=== PATIENT | female | born 1995 | race Caucasian/White ===

== ENCOUNTER 2024-02-01 23:36 | Emergency (ER) | payer OTHER, SELFPAY ==
[2024-02-02 00:11] VITALS: BP 126/92; PULSE 92; RESP 18; TEMP 36.9; O2SAT 99; BMI 24.9
--- OUTSIDE RECORDS SUMMARY | 2024-02-02 02:59 | XMS_ITS | Continuity of Care Document ---
Author Organization [facility] ter Address [address] [place] [id number] Care Team Providers Care Pattern Room Attendant Name Role Phone Elvira Arias MD Primary Care Physician [phone] Encounter [facility] [place] Date(s): 11/25/23 - 12/01/[address] [id number] Discharge Disposition: A-D/C Home Attending Physician: Cong MCGARRY, Alek Admitting Physician: Vanessa Olson MD Referring Physician: Not on Staff, Referring MD Allergies, Adverse Reactions, Alerts Substance Reaction Severity Status Bactrim vomit Intermittent Active Medications acetaminophen 325 mg oral tablet 975 mg, By Mouth, 3 times a day, 3 times daily until pain is improved, # 90 tablet, Refills 0, Tot.Refills 0, Maintenance, 12/01/23 9:35:00 EDT, Route to Pharmacy Electronically, [facility], Partial fill upon patient request if the pres... Start Date: 12/01/23 Status: Ordered Acetaminophen Tablet 975 mg, Tablet, By Mouth, Temperature Greater than 100.5, 12/01/23 9:00:00 EDT Start Date: 12/01/23 Stop Date: 12/01/23 Status: Completed aspirin 81 mg oral delayed release tablet 81 mg, By Mouth, Daily, # 90 tablet, Refills 0, Tot. Refills 0, Maintenance, 12/01/23 9:35:00 EDT, Route to Pharmacy Electronically, [facility], Partial fill upon patient request if theprescription is for a schedule II opioid drug., 151... Start Date: 12/01/23 Status: Ordered gabapentin 100 mg oral capsule 100 mg, Capsule, By Mouth, In addition to 400 mg tablet, total 500 mg / dose, 12/01/23 9:00:00 EDT Start Date: 12/01/23 Stop Date: 12/01/23 Status: Completed gabapentin 400 mg oral capsule 400 mg, Capsule, By Mouth, 12/01/23 9:00:00 EDT Start Date: 12/01/23 Stop Date: 12/01/23 Status: Completed gabapentin 600 mg oral tablet = 600 mg, By Mouth, 3 times a day, # 60 tablet, 0 Refills, Maintenance, 12/01/23 9:39:00 EDT, Tablet, [facility], Partial fill upon patient request if the prescription is for a scheduleII opioid drug., 151, cm, 12/01/23 4:01:00 EDT, Hei... Start Date: 12/01/23 Status: Ordered MiraLax oral powder for reconstitution = 17 Gm, By Mouth, Daily, dissolve in 4 to 8 oz of beverage Take daily while on oxycodone for regular, soft bowel movements, # 238 Gm, 0 Refills, Maintenance, 12/01/23 9:37:00 EDT, REC Powder, [facility], Partial fill upon patient reque... Start Date: 12/01/23 Status: Ordered oxyCODONE 5 mg oral tablet 5 mg, By Mouth, Every 6 hours, PRN, for 7 days, # 28 tablet, Refills 0, Tot. Refills 0, Acute 12/08/23 9:36:00 EDT, Pain , Severe, 12/01/23 9:36:00 EDT, Route to Pharmacy Electronically, [facility], Partial fill upon patient request if t... Start Date: 12/01/23 Stop Date: 12/08/23 Status: Ordered Provera 10 mg oral tablet 10 mg, 1, tablet, By Mouth, Daily, Start taking this medication on December 08, 2023 and continue twice daily estrace, # 7 tablet, Refills 0, Tot. Refills 0, Maintenance, 12/08/23 14:31:00 EDT, Route to Pharmacy Electronically, [facility] #[id number], Parti... Start Date: 12/08/23 Stop Date: 12/15/23 Status: Ordered tiZANidine 2 mg oral capsule 1 capsule = 2 mg, By Mouth, 2 times a day, # 60 capsule, 0 Refills, Maintenance, 12/01/23 10:21:00 EDT, Capsule, [facility], Partial fill upon patient request if the prescription is fora schedule II opioid drug., 151, cm, 12/01/23 4:01:... Start Date: 12/01/23 Stop Date: 12/31/23 Status: Ordered Problem List Condition Confirmation Course Effective Dates Status Health St atus Informant Anxiety Confirmed Active Cyclic neutropenia Confirmed Active Depressive disorder Confirmed Active History of kidney stones Confirmed Active Status post laparoscopy Confirmed Active 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 Results Radiology Reports * Exam Date Time Procedure Performing Provider Status 11/28/23 7:39 PM MRI Cervical Spine W/O Contrast John Amato; Mercedes (Verified) Notes: (MRI Cervical Spine W/O Contrast) Reason For Exam: Radiculopathy Right RESULT: MRI Cervical Spine W/O Contrast MRI Cervical Spine W/O Contrast Reason: Radiculopathy Right. TECHNIQUE: MRI of the cervical spine was performed without intravenous contrast utilizing sagittal T1, sagittal T2, sagittal STIR, axial gradient echo, and axial T2-weighted sequences. COMPARISON: CTA neck, 11/25/2023. FINDINGS: LOCALIZER: Whole spine sagittal T2 localizer sequence was obtained. Alignment and curvature in the thoracic and lumbar spine are normal. There is no significant disc space narrowing or high-grade spinal canal stenosis. ALIGNMENT, VERTEBRAE, MARROW, AND DISCS: There is straightening of the normal cervical lordosis without subluxation. Vertebral body heights are preserved. There is no significant disc space narrowing. A benign T1 bright hemangioma is seen in the C4 vertebral body. Remaining bone marrow signal is unremarkable. POSTERIOR FOSSA AND CORD: Visualized posterior fossa is normal. The cervical cord is normal in signal and caliber. PARASPINAL TISSUES: There is partial loss of the right vertebral artery flow- void with long segmentnarrowing and crescentic T2 hyperintensity consistent with known dissection. DETAILED FINDINGS BY LEVEL: C2-C3: No significant canal stenosis or neural foraminal narrowing. C3-C4: There is minimal disc osteophyte without canal stenosis. Minimal right neural foraminal stenosis is seen due to uncovertebral spurring. C4-C5: No significant canal stenosis or neural foraminal narrowing. C5-C6: No significant canal stenosis or neural foraminal narrowing. C6-C7: There is minimal disc osteophyte and left-sided uncovertebral spurring causing minimal canalstenosis. Mild left neural foraminal stenosis noted. C7-T1: No significant canal stenosis or neural foraminal narrowing. IMPRESSION: 1. Partial loss of the right vertebral artery flow-void with long segment narrowing consistent withknown dissection. 2. Minor degenerative changes are seen in the cervical spine without high-grade canal or neural foraminal stenosis. WSN: [id number] Ordering Physician: Adrienne Moreno Dictated By: Mar Bee MD Dictated Date/Time: 11/29/23 9:50 am Reviewed By: Mar Bee MD Signed By: Mar Bee MD Signed Date/Time: 11/29/23 9:50 am Transcribed By: LEANNE Transcribed Date/Time: 11/29/23 9:45 am * Exam Date Time Procedure Performing Provider Status 11/27/23 12:23 AM MRI Brain W/O Contrast Elvira Calhoun tte; Auth (Verified) Notes: (MRI Brain W/O Contrast) Reason For Exam: ? 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 mitochondrial encephalopathy w elevated lactate and vertebral dissection; Clinical Question(s): Infarction; Order Comment: Please see Reference Text for complete list of contraindications Infarction TECHNIQUE: MRI of the brain was performed without contrast utilizing sagittal T1, axial T2, axial FLAIR, axial SWAN, and axial DWI sequences. COMPARISON: CT/CTA head 11/25/2023. FINDINGS: BRAIN and EXTRA-AXIAL SPACES: On diffusion weighted imaging, there are no regions of restricted diffusion to indicate an acute or subacute infarct. There is no evidence of intracranial hemorrhage on susceptibility sensitive sequence. There is no mass effect, midline shift, or effacement of the basal cisterns. Subtle FLAIR hyperintense signal is seen in the V3 segment of the right vertebral arteryextending to the proximal V4 segment, likely related to slow flow in the setting of upstream dissection more inferiorly in the neck which was more fully evaluated on CTA. Otherwise, remaining major intracranial flow voids are preserved. Several small scattered foci of T2 prolongation are seen in the subcortical and deep white matter. Ventricles, cisterns, and sulci are normal in size and configuration, without hydrocephalus. No abnormal extra-axial fluid collections are seen. Meningeal surfaces are normal. The midline structures,including sella, corpus callosum, and craniocervical junction, are unremarkable. EXTRACRANIAL SOFT TISSUES: Orbits are unremarkable. Paranasal sinuses and mastoids are unremarkable. BONES: Marrow signal is preserved. IMPRESSION: 1. No acute/subacute infarct, mass, hemorrhage, or other acute intracranial abnormality. 2. Several small T2/FLAIR hyperintense foci in the white matter, a nonspecific finding with broad differential including sequelae of migraine, prior infection/inflammation, chronic small vessel disease, vasculitis, trauma, etc. WSN: [id number] Ordering Physician: Ramiro Vazquez Dictated By: Nell Zurita MD Dictated Date/Time: 11/27/23 7:59 am Reviewed By: Nell Zurita MD Signed By: Nell Zurita MD Signed Date/Time: 11/27/23 7:59 am Transcribed By: LEANNE Transcribed Date/Time: 11/27/23 7:44 am * Exam Date Time Procedure Performing Provider Status 11/25/23 3:[address] Angio Neck Stupak , [place]; Auth (Angelo ified) Notes: (CT Angio Neck) Reason For Exam: Aneurysm, neck vessel(s);Other: RESULT: CT Angio Neck CT Angio Head, CT Angio Neck Hx of Present Illness: neck pain; Reason: Other:; Neuro deficit, acute, stroke suspected; Clinical Question(s): Other:; Hematoma Aneurysm / Other: TECHNIQUE: CT angiogram of the head and neck was performed after bolus administration of intravenous contrast. 100 mL of Omnipaque 300 was administered intravenously. Coronal and sagittal MIP reformatted images were obtained. Additional 3-D images were created on a separate workstation under concurrent supervision by the attending radiologist. All stenoses are measured using NASCET criteria. Weight-based protocol using automatic tube modulation was used to optimize exposure parameters. RADIATION DOSE PARAMETERS: CTDIvol Body: 7.90 mGy, DLP Body: 298 mGy*cm. CTDIvol Head: 45.50 mGy, DLP Head: 772 mGy*cm. COMPARISON: Noncontrast CT head performed concurrently. FINDINGS: CTA OF THE NECK: Arch: There is a three vessel aortic arch. The origins of the supra aortic vessels are patent. Right carotid system: The common carotid and cervical internal carotid arteries are patent. No stenosis (0%) by NASCET criteria. There is no dissection or aneurysm. The distal ICA is mildly tortuous. Left carotid system: The common carotid and cervical internal carotid arteries are patent. No stenosis (0%) by NASCET criteria. There is no dissection or aneurysm. The distal ICA is mildly tortuous. There is a left-dominant vertebral artery system. Right vertebral: * Right vertebral artery origin is patent. * There is irregular long segment narrowing of the vertebral artery beginning at the distal V1 segment extending through the V2 segment consistent with dissection. Segments of disrupted flow are noted, most pronounced at C2-3. * Subtle dissection flap is seen in the mid V2 segment with associated 3.5 mm pseudoaneurysm. An additional smaller 2 mm pseudoaneurysm is seen along the distal V2 segment. * The V3 segment is patent. Left vertebral: No significant stenosis. No evidence of dissection or aneurysm. Other: Soft tissues and bones: No evidence of lymphadenopathy or mass. The thyroid is unremarkable. Visualized lung apices are clear. No acute osseous abnormality. CTA OF THE HEAD: Anterior circulation: Bilateral intracranial ICAs and their CHAN and MCA branches are patent. There is no significant stenosis, proximal cutoff, aneurysm, or vascular malformation. Posterior circulation: Bilateral intracranial vertebral arteries, the basilar artery, and bilateralsuperior cerebellar and posterior cerebral branches are patent. There is no significant stenosis, proximal cutoff, aneurysm, or vascular malformation. Veins: Major dural venous sinuses are patent. Other: Soft tissues and bones: No midline shift or effacement of the basal cisterns. No space-occupying hemorrhage. No territorial loss of dewitt-white matter differentiation. Orbits are unremarkable. No significant opacification in the paranasal sinuses or mastoid air cells. IMPRESSION: 1. 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 2. No significant stenosis in the cervical carotids. Normal left vertebral artery. 3. No large vessel occlusion or high-grade stenosis in the [place]. 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 Findings regarding dissection was communicated to Dr. Nikkie Adams via [facility] with acknowledgment received at 8:27 AM on 11/25/2023. WSN: [id number] Ordering Physician: Nikkie Washington Dictated By: Mar Bee MD Dictated Date/Time: 11/25/23 8:32 am Reviewed By: Mar Bee MD Signed By: Mar Bee MD Signed Date/Time: 11/25/23 8:32 am Transcribed By: LEANNE Transcribed Date/Time: 11/25/23 8:06 am * Exam Date Time Procedure Performing Provider Status 11/25/23 3:[address] Angio Head Stupak , [place]; Auth (Aneglo ified) Notes: (CT Angio Head) Reason For Exam: Neuro deficit, acute, stroke suspected;Other: RESULT: CT Angio Head CT Angio Head, CT Angio Neck Hx of Present Illness: neck pain; Reason: Other:; Neuro deficit, acute, stroke suspected; Clinical Question(s): Other:; Hematoma Aneurysm / Other: TECHNIQUE: CT angiogram of the head and neck was performed after bolus administration of intravenous contrast. 100 mL of Omnipaque 300 was administered intravenously. Coronal and sagittal MIP reformatted images were obtained. Additional 3-D images were created on a separate workstation under concurrent supervision by the attending radiologist. All stenoses are measured using NASCET criteria. Weight-based protocol using automatic tube modulation was used to optimize exposure parameters. RADIATION DOSE PARAMETERS: CTDIvol Body: 7.90 mGy, DLP Body: 298 mGy*cm. CTDIvol Head: 45.50 mGy, DLP Head: 772 mGy*cm. COMPARISON: Noncontrast CT head performed concurrently. FINDINGS: CTA OF THE NECK: Arch: There is a three vessel aortic arch. The origins of the supra aortic vessels are patent. Right carotid system: The common carotid and cervical internal carotid arteries are patent. No stenosis (0%) by NASCET criteria. There is no dissection or aneurysm. The distal ICA is mildly tortuous. Left carotid system: The common carotid and cervical internal carotid arteries are patent. No stenosis (0%) by NASCET criteria. There is no dissection or aneurysm. The distal ICA is mildly tortuous. There is a left-dominant vertebral artery system. Right vertebral: * Right vertebral artery origin is patent. * There is irregular long segment narrowing of the vertebral artery beginning at the distal V1 segment extending through the V2 segment consistent with dissection. Segments of disrupted flow are noted, most pronounced at C2-3. * Subtle dissection flap is seen in the mid V2 segment with associated 3.5 mm pseudoaneurysm. An additional smaller 2 mm pseudoaneurysm is seen along the distal V2 segment. * The V3 segment is patent. Left vertebral: No significant stenosis. No evidence of dissection or aneurysm. Other: Soft tissues and bones: No evidence of lymphadenopathy or mass. The thyroid is unremarkable. Visualized lung apices are clear. No acute osseous abnormality. CTA OF THE HEAD: Anterior circulation: Bilateral intracranial ICAs and their CHAN and MCA branches are patent. There is no significant stenosis, proximal cutoff, aneurysm, or vascular malformation. Posterior circulation: Bilateral intracranial vertebral arteries, the basilar artery, and bilateralsuperior cerebellar and posterior cerebral branches are patent. There is no significant stenosis, proximal cutoff, aneurysm, or vascular malformation. Veins: Major dural venous sinuses are patent. Other: Soft tissues and bones: No midline shift or effacement of the basal cisterns. No space-occupying hemorrhage. No territorial loss of dewitt-white matter differentiation. Orbits are unremarkable. No significant opacification in the paranasal sinuses or mastoid air cells. IMPRESSION: 1. 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 2. No significant stenosis in the cervical carotids. Normal left vertebral artery. 3. No large vessel occlusion or high-grade stenosis in the [place]. 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 Findings regarding dissection was communicated to Dr. Nikkie Adams via [employer] with acknowledgment received at 8:27 AM on 11/25/2023. WSN: [id number] Ordering Physician: Nikkie Washington Dictated By: Mar Bee MD Dictated Date/Time: 11/25/23 8:32 am Reviewed By: Mar Bee MD Signed By: Mar Bee MD Signed Date/Time: 11/25/23 8:32 am Transcribed By: LEANNE Transcribed Date/Time: 11/25/23 8:06 am * Exam Date Time Procedure Performing Provider Status 11/25/23 12:[address] Head Venogram Stupak , [place]; Auth (Verified) Notes: (CT Head Venogram) Reason For Exam: CAN YOU GO INTO NECK to see internal jugular;Headache(s) RESULT: CT Head Venogram CT Head Venogram Hx of Present Illness: neck pain; Reason: Headache(s); CAN YOU GO INTO NECK to see internal jugular; Clinical Question(s): Venous Sinus Thrombosis / Venous Sinus Thrombosis TECHNIQUE: After administration of intravenous contrast, CT venogram of the head was performed. 100mL of Omnipaque 300 was administered intravenously. 3D and MIP reconstruction images were reformatted and used in the interpretation. Iterative reconstruction techniques are used to optimize dose andimage quality. COMPARISONS: None FINDINGS: There are normal venous flows within the superior sagittal sinus, the straight sinus, the vein of Glenn as well as bilateral transverse and sigmoid sinuses. No filling defect is seen. There is no evidence of dural sinus thrombosis. Other findings: Visualized intracranial structures are unremarkable. Extracranial soft tissues and bones are unremarkable. IMPRESSION: Normal CT venogram of head. No evidence of dural venous sinus thrombosis. WSN: [id number] Ordering Physician: Nikkie Washington Dictated By: Malachi Remy MD Dictated Date/Time: 11/25/23 8:07 am Reviewed By: Malachi Remy MD Signed By: Malachi Remy MD Signed Date/Time: 11/25/23 8:07 am Transcribed By: LEANNE Transcribed Date/Time: 11/25/23 8:02 am * Exam Date Time Procedure Performing Provider Status 11/25/23 3:[address] Head/Brain W/O Contrast Stupak , [place]; Auth (Verified) Notes: (CT Head/Brain W/O Contrast) Reason For Exam: Neuro deficit, acute, stroke suspected;Other: RESULT: CT Head/Brain W/O Contrast CT Head/Brain W/O Contrast INDICATION: neck pain; Reason: Neuro deficit, acute, stroke suspected; Clinical Question(s): Hematoma Infarction TECHNIQUE: Noncontrast head CT using axial technique and reconstructed in axial and coronal planes.Iterative reconstruction techniques are used to optimize dose and image quality. CTDIvol Head: 45.50 mGy, DLP Head: 772 mGy*cm. COMPARISON: CT head and neck angiogram from earlier today; CT head from 10/18. FINDINGS: Cross Tie Cutter view findings, lines and tubes: None. BRAIN AND EXTRA-AXIAL SPACES: No parenchymal hemorrhage, midline shift, or mass effect. Dewitt-white matter differentiation is wellpreserved. No acute infarct. Negative insular ribbon and hyperdense vessel signs. Ventricles, sulci, and basilar cisterns are normal. Mild sebastián-cisterna magna. No white matter lesions. No subarachnoid hemorrhage. No subdural or epidural collection. CALVARIUM, SKULL BASE, AND SOFT TISSUES: No fractures or suspicious bony lesions. The paranasal sinuses and mastoid air cells are clear. Visualized orbits and globes are intact. The extracranial soft tissues are unremarkable. IMPRESSION: No acute intracranial pathology. I have personally reviewed the images and I agree with this report. WSN: [id number] Ordering Physician: Nikkie Washington Dictated By: Bria Concepcion MD Dictated Date/Time: 11/25/23 7:47 am Reviewed By: Camille Isbell MD Signed By: Camille Isbell MD Signed Date/Time: 11/25/23 7:52 am Transcribed By: LEANNE Transcribed Date/Time: 11/25/23 6:09 am Vital Signs Most recent to oldest [Reference Range]: 1 2 3 Height 151 cm (12/01/23 4:01 AM) 151 cm (11/30/23 8:25 PM) 151 cm (11/28/23 7:47 AM) Weight 55.8 kg (11/25/23 12:20 PM) 58 kg (11/25/23 8:35 AM) 58 kg (11/24/23 6:56 PM) Oxygen Saturation [94-100 %] 96 % (12/01/23 7:00 AM) 100 % (12/01/23 4:01 AM) 100 % (11/30/23 11:00 PM) Pulse Rate [55-90 bpm] 82 bpm (12/01/23 7:00 AM) 74 bpm (12/01/23 4:01 AM) 72 bpm (11/30/23 11:00 PM) Body Mass Index [18.5-24.99 kg/m2] 24.47 kg/m2 (11/25/23 12:20 PM) 25.44 kg/m2 *H* (11/25/23 8:35 AM) 25.44 kg/m2 *H* (11/24/23 6:41 PM) Blood Pressure [90-138/55-84 mm Hg] 117/80mm Hg (12/01/23 7:00 AM) 99/69mm Hg (12/01/23 4:01 AM) 107/80mm Hg (11/30/23 11:00 PM) Respiratory Rate [16-30 br/min] 15 br/min *L* (12/01/23 9:18 AM) 15 br/min *L* (12/01/23 9:12 AM) 15 br/min *L* (12/01/23 9:12 AM) Temperature [96.8-100.4 DegF] 98.3 DegF (12/01/23 7:00 AM) 97.8 DegF (12/01/23 4:01 AM) 97.7 DegF (11/30/23 11:00 PM) Mode of Delivery (Oxygen) Room air (12/01/23 7:00 AM) Room air (12/01/23 4:01 AM) Room air (11/30/23 11:00 PM) Blood pressure sites Arm, right (12/01/23 7:00 AM) Arm, right (12/01/23 4:01 AM) Arm, right (11/30/23 11:00 PM) Temperature Route Oral (12/01/23 7:00 AM) Oral (12/01/23 4:01 AM) Oral (11/30/23 11:00 PM) Dry Weight 55.8 kg (11/25/23 12:20 PM) 58 kg (11/25/23 8:35 AM) 58 kg (11/24/23 6:56 PM) Weight Obtained Via Patient/family state d (11/24/23 6:41 PM) Dry Weight Obtained Via Patient/family s tated (11/24/23 6:41 PM) Social History Social History Type Response Smoking Status Never smoker entered on: 12/18/14 Sex Admission evaluation note * Abhijeet Rousseau II: PERFORM Event Display: Admission Note Authored Date: [id number] Patient: ??SHAMA RODRIGUEZ ? Age:??28 Years?Sex:??Female?:??1995?? History of Present Illness 28-year-old??female with past medical history of kidney stones with prior stents,??antiphospholipidsyndrome,??left ovarian cyst status post??left oophorectomy,??right ectopic status post right fallopian tube removal??who underwent??a uterine polyp removal??last Thursday.?? The day after, she began having a right??posterolateral??neck pain??and began conservative measures to treat this. ??She used??heat pad??with no relief.?? It began radiating to the back of her neck and skull??and down into her shoulder??causing??pins and needle sensation down her arm. ??She describes??the pain as a??strong deep pain with burning sensation.?? She is also had a pulsating sensation??and intermittent nausea. ?? She went to [facility]??who felt it was a muscle spasm and she received a trigger point injection??and was sent home with Valium.?? The injection provided no relief. ??She tried Tylenol, ibuprofen and oxycodone prescribed??as well as a Lidoderm patch??and none of this helped.?? Her pain continued to worsen and she presented to [facility]??ED. ?? 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 The case was discussed with??neurosurgery, neuroendovascular surgery and??neurology. The vessel appears too small to stent and plan is for conservative measures. Sheis referred for medical admission. ?? She has required multiple doses of Dilaudid in??the ED which is the only thing that has helped her pain. ?? Social history: No tobacco, EtOH or drug use. ?? Baseline: Independent in all ADLs, HCP is her mother Tamika Rodriguez [phone]. Patient is full code. Review of Systems No chest pain, shortness of breath, fevers, chills,??vomiting or diarrhea. Eating and sleeping well. Objective Vital Signs?? Temperature: 98.3 DegF (11/25/23 11:03:00) Temperature Route: Oral (11/25/23 11:03:00) Pulse Rate: 86 bpm (11/25/23 11:03:00) Respiratory Rate: 18 br/min (11/25/23 12:32:00) Systolic Blood Pressure: 116 mm Hg (11/25/23 11:03:00) Diastolic Blood Pressure:??89 mm Hg??High (11/25/23 11:03:00) Blood pressure sites: Arm, left (11/25/23 11:03:00) Mean Arterial Pressure: 98 mm Hg (11/25/23 11:03:00) Pulse Pressure: 27 mm Hg (11/25/23 11:03:00) Oxygen Saturation: 99 % (11/25/23 11:03:00) Mode of Delivery (Oxygen): Room air (11/25/23 11:03:00) Early Warning Score: 1 (11/25/23 12:41:21) ? Intake/Output? No Data Available ? Physical Exam Temperature?98.3 ?(11:03) Systolic Blood Pressure?116 ?(11:03) Diastolic Blood Pressure?89 ?(11:03) Pulse?86 ?(11:03) SpO2?99 ?(11:03) Respiratory Rate?18 ?(12:34) ?? Constitutional: Alert, in no distress. Mental Status: Oriented to person, place and time. Respiratory: Clear to auscultation. No wheezing, rales or rhonchi. Cardiovascular: Regular rate and rhythm, no murmurs, rubs or gallops. Abdomen: Soft, non-tender, non-distended.??Normal bowel sounds. Skin: No rashes or lesions. Psychiatric: Normal mood and affect. Extremities: No edema. Assessment/Plan Assessment:??28-year-old??female with past medical history of kidney stones with prior stents,??antiphospholipid syndrome,??left ovarian cyst status post??left oophorectomy,??right ectopic status post right fallopian tube removal??who underwent??a uterine polyp removal??last Thursday anddeveloped right sided neck pain which progressively worsened over the last week. 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 ?? Artery dissection (I77.70):? 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 Case reviewed by neurology, neurosurgery, neuroendovascular surgery. No procedure or stent indicated. ?? Plan: Continue ASA. Keep HOB <40 degrees to prevent hypoperfusion. SBP <150 and avoid hypotension. Check GABRIELA, antiphospholipid antibodies, beta 2 glycoprotein, anticardiolipin, lupus anticoagulant. Neurontin 300 mg PO BID today, then TID tomorrow. Check renal US to eval for fibromuscular dysplasia. ?? Quality measures: ?? Code status:??Full HCP: Tamika Rodriguez [phone] (mother) Diet:??Regular DVT prophylaxis:??Deferred ?? I spent a total of??88 minutes today reviewing the chart/medical records, speaking with the patient, formulating and discussing the treatment plan and documenting the findings and encounter. Discussed plan with patient, nursing,??neuroendovascular surgery, neurology??and case management. ?? Abhijeet Dejesus II PA-C [facility] Medicine Pager #[phone] or [facility]? Histories Allergies Allergies ?(Active and Proposed Allergies Only) Bactrim? (Severity: Intermittent, Onset: Unknown) ?Reactions: vomit ? Past Medical History/Problem List Active Problems(6) Anxiety Cyclic neutropenia Depressive disorder History of kidney stones RhD negative Status post laparoscopy ? Past Surgical History Excision of right neck cyst with plastic closure: 05/31/09 Knee LSO - Left salpingo-oophorectomy ? Social History Alcohol Details:??Use: Never. Employment/School Details:??Status: Employed. Exercise Details:??Self assessment: Good condition. Home/Environment Details:??Living situation: Home/Independent. Sexual Details:??Sexually involved in last 6 months: Yes. ??Gender identity: Identifies as female. ??Preferred pronoun: She/her. Substance Abuse Details:??Use: Never. Tobacco Details:??Never smoker Electronic Cigarette/Vaping Details:??Electronic Cigarette Use: Never. ? Family History Mother: Breast cancer Father: Hypertension; Myocardial infarction Mat. Grandmother: Diabetes mellitus; Hypertension Mat. Grandfather: Bleeding disorder; Diabetes mellitus; Heart attack Pat. Grandfather: Diabetes mellitus ? Medications Home Medications MedroxyPROGESTERone (Provera 10 mg oral tablet)?10?Milligram?1?tablet?By Mouth?Daily?for 7?Days?Start taking this medication on December 08, 2023 and continue twice daily estrace ? Inpatient Medications Medications (13) Active SCHEDULED: (3) Aspirin 325 mg EC Tablet (Aspirin Tablet) ??325 mg, By Mouth, Daily Gabapentin 300 mg Capsule (Neurontin 300 mg oral capsule) ??300 mg, By Mouth, 3 times a day NaCl 0.9% Flush 3ml (NaCL 0.9% Flush) ??3 mL, IV Push, Every 8 hours CONTINUOUS: (1) NaCL 0.9% (1000 mL) Cont IV 1,000 mL (0.9% NaCL 1,000 mL) ??1,000 mL, IV Infusion, 100 mL/hr PRN: (9) Acetaminophen 325 mg Tablet (Acetaminophen Tablet) ??650 mg, By Mouth, Every 4 hours Docusate Sodium 100 mg Capsule (Docusate Sodium Capsule) ??100 mg 1 capsule, By Mouth, 2 times a day HYDROmorphone 1 mg/mL Inj Syringe (Dilaudid Inj) ??1 mg 1 mL, IV Push Slowly, Every 4 hours Lorazepam 2 mg Inj Syringe (Ativan Inj) ??0.5 mg, IV Push Slowly, Every 6 hours Melatonin 3 mg Tablet (Melatonin Tablet) ??3 mg, By Mouth, Daily at bedtime NaCl 0.9% Flush 3ml (NaCL 0.9% Flush) ??3 mL, IV Push, Every 8 hours Ondansetron 2mg/mL Inj (2mL Vial) (Ondansetron Inj) ??4 mg, IV Push Slowly, Every 30 minutes Polyethylene Glycol 17 Gm Powder (MiraLax Powder) ??17 Gm 1 pack/packet, By Mouth, Daily Senna Tablet ??8.6 mg 1 tablet, By Mouth, 2 times a day ? Results Recent Labs BLOOD COUNT & DIFF WBC 5.6 k/mm3 ()?? 11/24/2023 23:50 RBC 5.28 m/mm3 ()?? 11/24/2023 23:50 Hgb 14.1 Gm/dL ()?? 11/24/2023 23:50 Hct 43.6 % ()?? 11/24/2023 23:50 MCV 82.6 femtoliters ()?? 11/24/2023 23:50 MCH 26.7 pg (Low)?? 11/24/2023 23:50 MCHC 32.3 g/dL (Low)?? 11/24/2023 23:50 Platelet Count 255 k/mm3 ()?? 11/24/2023 23:50 RDW-SD 40.0 femtoliters ()?? 11/24/2023 23:50 MPV 11.2 femtoliters ()?? 11/24/2023 23:50 Nucleated RBC (Automated) 0.0 #/100 WBC'S ()?? 11/24/2023 23:50 Abs. NRBC 0.0 k/mm3 ()?? 11/24/2023 23:50 Abs. Neut 3.4 k/mm3 ()?? 11/24/2023 23:50 Abs. Lymph 1.5 k/mm3 ()?? 11/24/2023 23:50 Abs. Stark 0.5 k/mm3 ()?? 11/24/2023 23:50 Abs. Eo 0.2 k/mm3 ()?? 11/24/2023 23:50 Abs. Baso 0.0 k/mm3 ()?? 11/24/2023 23:50 Neut % 59.4 % ()?? 11/24/2023 23:50 Lymph % 27.2 % ()?? 11/24/2023 23:50 Stark % 9.6 % ()?? 11/24/2023 23:50 Eos % 2.7 % ()?? 11/24/2023 23:50 Baso % 0.7 % ()?? 11/24/2023 23:50 Imm Gran 0.4 % ()?? 11/24/2023 23:50 Abs. Imm Gran 0.0 k/mm3 ()?? 11/24/2023 23:50 ?? CHEM GENERAL Sodium 134 mmol/L ()?? 11/24/2023 23:50 Potassium 4.3 mmol/L ()?? 11/24/2023 23:50 Chloride 95 mmol/L (Low)?? 11/24/2023 23:50 Bicarbonate Level 22 mmol/L ()?? 11/24/2023 23:50 Anion Gap 17 ()?? 11/24/2023 23:50 Glucose Level 100 mg/dL (High)?? 11/24/2023 23:50 BUN 10 mg/dL ()?? 11/24/2023 23:50 Creatinine-Blood 0.72 mg/dL ()?? 11/24/2023 23:50 Estimated GFR Creatinine 116 ML/MIN/1.73 M2 ()?? 11/24/2023 23:50 Calcium 10.1 mg/dL ()?? 11/24/2023 23:50 Lactate 3.5 mmol/L (High)?? 11/25/2023 11:08 C-Reactive Protein 1.0 mg/dL (High)?? 11/25/2023 11:08 ?? COAG INR 1.0 ()?? 11/24/2023 23:50 Protime (PT) 10.8 seconds ()?? 11/24/2023 23:50 ?? ENDOCRINE/TUMOR MARKER TSH 2.60 uIU/mL ()?? 11/25/2023 11:08 ?? HEME OTHER Sed Rate 27 mm/hr (High)?? 11/25/2023 11:08 ?? URINE OTHER Urine, NEGATIVE (N)?? 11/24/2023 21:41 Est Creatinine Clearance 80.50 mL/min ()?? 11/25/2023 00:54 ?? VIROLOGY COVID-19 by RT-PCR NEGATIVE ()?? 11/25/2023 00:05 ? EKG study * Event Display: EKG Authored Date: * Event Display: ECG 12-Lead Authored Date: Please click on pdf link to open report * Event Display: ECG 12-Lead Authored Date: Ventricular Rate: 97 BPM Atrial Rate: 97 BPM P-R Interval: 122 ms QRS Duration: 72 ms Q-T Interval: 352 ms QTC Calculation(Bazett): 447 ms P [place]: 30 degrees R [place]: 13 degrees T [place]: 44 degrees Normal sinus rhythm Normal ECG When compared with ECG of 27-SEP-2022 23:28, No significant change was found Confirmed by [facility] ([id number]) on 11/25/2023 7:43:52 AM [place]: [facility] Progress note * Cheryl MACARIO, Albina Wild: PERFORM, SIGN, VERIFY, SIGN, MODIFY Event Display: [facility] Authored Date: [id number] Patient: SHAMA RODRIGUEZ Age: 28 years Sex: Female : 1995 Associated Diagnoses: None Author: Albina Luna RN Findings Problem Related to Alteration in Neurological : Alteration in Neurological Function/new 12/01/2023 9:00 EDT Alteration in Neuro status Related to Other: cervical pain Goals & Outcomes, Neurological Pt will be Neurologically stable Interventions, Neurological Assess/monitor for abnormal posturing, Assess/monitor for gaze pattern/extraocular movements, Assess/monitor for increased Intracranial Pressure, Assess/monitor neurologicstatus, Assess/monitor VS per unit standards & prn, Call/Report variances in assessments to provider, Monitor for headaches, nausea, vomiting, Monitor speech fluency, aphasia, word finding difficulty, Physical assessment per unit standards, Provide emotional support to Pt/caregiver Goals/Interventions, Neurological Yes Neurological, Problem Start 11/29/2023 12:00 Reviewed plan with, Neurological Patient Patient Progression, Neurological Pt progressing according to plan . Nursing Data Neurological Data. : Neurological Data. 12/01/2023 8:00 EDT Tongue Disposition Midline Neurological Symptoms Altered sensation or tingling, Headache: persistent, changing or sudden Level of Consciousness Full Consciousness Orientated to person, place, time Person, Place, Time, Event Facial Symmetry Intact Characteristics of Speech Clear and normal Pupil description, left Regular Pupil description, right Regular Pupil reaction, left Brisk Pupil reaction, right Brisk Strength LUE 5-Active movement against gravity & full resistance Strength RUE 4-Active movement against gravity & some resistance Strength LLE 5-Active movement against gravity & full resistance Strength RLE 5-Active movement against gravity & full resistance Tone LUE Normal Tone RUE Normal Tone LLE Normal Tone RLE Normal Sensation LUE Intact Sensation RUE Intact Sensation LLE Intact Sensation RLE Intact Movement LUE To command, Spontaneous Movement RUE To command, Spontaneous Movement LLE To command, Spontaneous Movement RLE To command, Spontaneous Gait Steady Response Eye Opening Spontaneously Motor Response-Adult Obeys commands Verbal Response-Adult Oriented and converses [place] Coma Score 15 1 - 10 Pain Scale Score 8 Pain Interventions Pharmacological Neuro WNL except Corneal/Blink Reflex Intact right, Intact left Eyes and Movements Conjugate gaze: Move in same direction at same speed Headache Moderate Headaches, Characteristic Bilateral Headaches, Duration Intermittent Memory Intact Swallow - Neuro Normal . Evaluation Pt. Is A&O x4. Pt. denies dizziness, blurry and double vision. Does report dizziness has improved and none today. Visual tai appear to be intact, no cuts or deficits reported or observed, + PEERL. Face is symmetrical, no changes in speech or swallow reported or observed, takes pills whole with water. Strength: RUE 4/5 LUE/LLE/RLE 5/5. Numbness tingling to RUE. Complains of 8/10 neck pain and headache, PRN and scheduled medications given with some relief. Pt. ambulates steadily with standby assist. Lung sounds are clear, no SOB or chest pain reported, Normal Sinus rhythm on telemetry. Abdomen is soft, non- tender, + bowel sounds in all four quadrants last BM 8 all bowel medications g iven, voiding without complaint. Safety precautions in place Bed alarm activated, call bar within reach, bed in lowest position, wheels locked.. Discharge Information Rehabilitation Discharge : Rehab Discharge Index 11/30/2023 8:37 EDT Comments on treatment indicated see comment Distance pt will ambulate 200' Full chart review completed Yes Other findings Other findings Plan of care PT Gait training, Transfer training, Therapeutic exercise, Functional Activities, Balance training, Neuromuscular education * Cheryl MACARIO, Albina Wild: PERFORM Event Display: Progress Note Hospital Authored Date: Pt was discharge, discharge nurse went over instructions patient understood IV was removed and intact. Pt was taken off unit in wheelchair by family member. * Kimber Garcia MD: PERFORM Event Display: Progress Note Hospital Authored Date: Patient: ??SHAMA RODRIGEUZ ? Age:??28 Years?Sex:??Female?:??1995?? Subjective No major events overnight. Patient reports persistent neck pain with radiation down Right arm. Minimal improvement since admission. Oxycodone helps for a few hours, then comes back. No fevers/chills, headache, vision changes. ?? Review of Systems A full ROS was performed with all pertinent positives and negatives as per HPI.?? Objective Vital Signs?? Temperature: 97.7 DegF (11/30/23 11:00:00) Temperature Route: Oral (11/30/23 11:00:00) Pulse Rate:??92 bpm??High (11/30/23 11:00:00) Respiratory Rate: 16 br/min (11/30/23 12:05:00) Systolic Blood Pressure: 121 mm Hg (11/30/23 11:00:00) Diastolic Blood Pressure:??87 mm Hg??High (11/30/23 11:00:00) Blood pressure sites: Arm, right (11/30/23 11:00:00) Mean Arterial Pressure: 98 mm Hg (11/29/23 20:32:00) Pulse Pressure: 41 mm Hg (11/30/23 07:00:00) Oxygen Saturation: 99 % (11/30/23 11:00:00) Mode of Delivery (Oxygen): Room air (11/30/23 11:00:00) Early Warning Score: 2 (11/30/23 12:17:31) ? Intake/Output? 11/24 07:21 11/29 07:00 11/28 07:00 11/27 07:00 11/26 07:00 ?? 11/29 13:26 11/29 13:26 11/29 06:59 11/28 06:59 11/27 06:59 Intake ? 2130 ?120 ?652 ?118 ?0 Output ? 4102 ?0 ?0 ? 1202 ?300 Net Total ?-1972 ?120 ?652 ?-1084 ? -300 ? Urine Count ?7 ?1 ?4 ?1 ?1 ? Physical Exam General:??Alert, NAD Mental Status:??Oriented to person, time and place. Normal affect HEENT:??Normocephalic. PERRL, EOMI. MMM. Neck ROM limited due to pain. Respiratory:??Normal work of breathing. CTAB. Cardiovascular: RRR, normal S1 and S2. No murmur. No lower extremity edema. Gastrointestinal:??Normal bowel sounds. Abdomen soft, non-tender, non-distended. No masses Neurologic:??Cranial nerves II-XII grossly intact, no focal neurological deficits. Sensation to light touch intact at upper extremities. Strength 5/5 with hand technician biological health. Skin:??No rashes, lesions or ecchymoses?? Extremities:??No gross deformities. Normal range of motion Results Recent Labs No labs resulted between 11/29/2023 00:00 and 11/30/2023 13:26? Assessment/Plan 28yo F with a diagnosis of APLAS (two tests of lupus anticoagulant were positive and she has 4 spontaneous miscarriages in the first trimester); there is also family history of miscarriages, DVTs, left handedness, and autoimmune disease (ulcerative colitis), kidney stones with prior stents,??left ovarian cyst status post??left oophorectomy,??right ectopic status post right fallopian tube removal??who underwent??a uterine polyp removal??last Thursday and developed??right sided??back and neck pain prompting a trigger point injection.?? 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 ??Brain MRI revealed??multiple hyperintense lesions. ??She is currently being followed by neurology. ?? Artery dissection (I77.70):? 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 Case reviewed by neurology, neurosurgery, neuroendovascular surgery. No procedure or stent indicated. Brain MRI revealed multiple hyperintense lesions. ??Differential still broad and unclear at this point.?? I do have suspicion for connective tissue disease given??her presentation??and the fact that??multiple of her??family members had aneurysmal??bleeds in the past.?? Will continue to workup broaddifferential. At this point, she is not on any anticoagulation. ??Decision to start anticoagulation will be made by??neurology. Cervical MRI??did not reveal any herniated disks. ?? Plan: Okay to ambulate as tolerated, otherwise try to keep head of bed??<40 degrees Schedule oxycodone 5 mg Q6 hr Discontinue IV Dilaudid Increase gabapentin to 400 mg TID. Increase by 100 mg/dose until at 600 mg TID. Schedule tylenol Lido patch declined by patient Tizanidine 2mg BID Check renal US to eval for fibromuscular dysplasia. - Still pending, can perform outpatient if ready for DC Continue ASA 81 mg SBP <150 and avoid hypotension. Curbside heme for interpretation of antiphospholipid panel testing ?? Anemia (D64.9) Patient has a??minor drop in her hemoglobin. ??Per review of her prior trends she is not far off from her baseline. ??Seems that she was??hemoconcentrated when she initially came in. No??concerns for bleeding at this point. ??No ecchymoses??or??worsening swelling of the neck. ??Discussed this with the patient and informed to inform us if she has any worsening symptoms. No hematuria,??hematemesis, hematochezia Is consistent with iron deficiency anemia. ?? Plan Ferrous sulfate MWF ?? Quality measures: Code status:??Full HCP: Tamika Rodriguez [phone] (mother) Diet:??Regular DVT prophylaxis:??SCDs for now,??deferring anticoagulation in setting of??vertebral??artery dissection Dispo:??Home w/o services, pending adequate pain control ?? Kimber Garcia MD Med-Peds PGY-4 P. [phone] or??[facility] ?? This patient was seen and discussed with attending physician, Dr. Gar * Cong MCGARRY, Alek: PERFORM Event Display: Progress Note Hospital Authored Date: Attending Attestation:??I have seen and evaluated this patient. ??I have discussed the case and itsmanagement with the resident and agree with the findings and plan as documented in the resident???snote. * Madie Venegas RN: PERFORM, SIGN, VERIFY Event Display: Progress Note Hospital Authored Date: Patient: SHAMA RODRIGUEZ Age: 28 years Sex: Female : 1995 Associated Diagnoses: None Author: Madie Venegas RN Findings Problem Related to Alteration in Neurological : Alteration in Neurological Function/new 11/30/2023 8:00 EDT Alteration in Neuro status Related to Other: cervical pain Goals & Outcomes, Neurological Pt will be Neurologically stable Interventions, Neurological Assess/monitor neurologic status, Assess/monitor VS per unit standards & prn, Call/Report variances in assessments to provider Goals/Interventions, Neurological Yes Neurological, Problem Start 11/29/2023 12:00 Reviewed plan with, Neurological Patient Patient Progression, Neurological Pt progressing according to plan . Evaluation Pt A+OX4, pleasant. Neuros assessed Q 4 hours. Pt reporting intermittnent dizziness and tingling toRUE. Pt right pedal push/dorsiflexion weaker than right 2/2 right neck pain. Pt reporting severe pain to right neck. ATC tylenol/gabapentin/tinazidine/oxycodone administered per orders w/ + effect. Alee ng sounds clear on RA. Not ontele. VSS. Afebrile. Supervision OOB. Showering w/ supervision this morning. Nonskid socks in place. BM this morning. Pt remains free from injury. will continue to monitor. . Consult note * Ramiro Guevara: PERFORM, MODIFY Event Display: Consultation Note Authored Date: [id number] Patient: ??SHAMA RODRIGUEZ ? Age:??28 Years?Sex:??Female?:??1995?? History of Present Illness 28 y/o Right handed female w/ PMH antiphospholipid antibody syndrome (not on AC), recurrent miscarriages, who presented to ED for Right neck pain x 5 days. Patient had hysteroscopy 11/17 for uterine polyps and developed right sided neck pain the following day. Pain developed randomly in the middle of the day, no provoking injury or trauma. . Patient presented to ED 11/22, thought pain was related to muscle spasm and was given a trigger point injection w/ some mild improvement. Pain has progressively worsened, now w/ R arm paresthesias and mild headache. CTH nonacute. CT venogram no dural venoussinus thrombosis. CTA showing R?? extracranial vertebral artery dissection w/ 2 small pseudoaneurysms, larger measuring about 3.5 mm. Loaded w/ 324 mg ASA. Denies any symptoms??c/w UC or Crohn's disease. Denies hx thyroid disease. Reports taking AC for one month, last dose in June when she had an ectopic requiring LSO. Mother at bedside providing family history.??Patients Maternal uncle and paternal grandfather??are left handed. There is ulcerative colitis on both parents side; brother has GI issues, was tested forUC/crohns, work up was negative. Mother had multiple miscarriages. Both grandmothers are of short st ature. Both grandfathers are normal height. Patients brother is around 5'6?. Patient is 4'11. 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 Review of Systems +right neck pain, right arm paresthesias, and headache Denies weakness, vision changes, difficulty talking or swallowing, imbalance Physical Exam Vitals & Measurements T:??98.4?F?? HR:??112??(Peripheral)?? RR:??16?? BP:??136/103?? SpO2:??98%?? HT:??151??cm?? WT:??58??kg?? BMI:??25.44?? Gen: NAD, awake, alert HEENT: normocephalic, atraumatic.??No ptosis.??Nares patent. Mouth normal. Psych: not depressed or anxious Extremities: no edema Skin: warm and dry Neuro: Mental status is??intact, no deficits. Oriented to self, place, time, situation.?? Follows simple and complex commands. Speech is fluent, appropriate with no slurring or aphasia. No paraphrasing errors. Cranial Nerves: PERRL, 4-3 mm, ??EOMI without sustained nystagmus, VFF. No??visual??extinction.??Noptosis.??Face appears symmetric with no drooping or weakness. Facial sensation intact. Tongue midline. Hearing intact to voice.??Shoulder shrug symmetric b/l. Motor: No pronator drift. Normal bulk and tone. No abnormal movements. 5/5 BUE.??5/5 BLE. Sensation: Intact light touch sensation bilaterally, equal. Coordination: No ataxia or dysmetria noted with finger to nose bilaterally. Gait not assessed. Reflexes:??hyperreflexic b/l??patellar, 2+ b/l brachioradialis ?? (11/25/2023 00:[address] Head Venogram) IMPRESSION:? Normal CT venogram of head. No evidence of dural venous sinus thrombosis. [1] ?? (11/25/2023 03:[address] Angio Head) IMPRESSION: ? 1. ??Long segment dissection along the extracranial right vertebral artery with 2 small pseudoaneurysms, the larger measuring about 3.5 mm. 2. ??No significant stenosis in the cervical carotids. Normal left vertebral artery. 3. ??No large vessel occlusion or high-grade stenosis in the [place]. [2] Assessment/Plan 28 y/o Right handed female w/ PMH antiphospholipid antibody syndrome (not on AC), recurrent miscarriages, +FH for autoimmune disorders, who presented to ED for atraumatic??Right neck pain x 5 days. Patient had hysteroscopy 11/17 for uterine polyps and developed right sided neck pain the following day. Patient presented to ED 11/22, thought pain was related to muscle spasm and was given a trigger point injection w/ some mild improvement. Pain has progressively worsened, now w/ R arm paresthesias and mild headache. CTH nonacute. CT venogram no dural venous sinus thrombosis. CTA showing R?? extracranial vertebral artery dissection w/ 2 small pseudoaneurysms, larger measuring about 3.5 mm. Loadedw/ 324 mg ASA. ?? DX: R??extracranial vertebral artery dissection w/ pseudoaneurysm- etiology ? autoimmune disorder??vs connective tissue disorder vs mitochondrial encephalopathy vs pseudoaneurysm ?? Plan: -c/w ASA -BP systolic <150, avoid hypotension -HOB <40 degrees, avoid hypoperfusion -check labs: TSH, CRP, ESR, lactate, GABRIELA, antiphospholipid antibodies (B2GP, anticardiolipin, lupus) -rec starting Neurontin 300 mg now and 300 mg PM for neck pain.??Increase to 300 mg TID tomorrow? Neurology will follow ?? D/w Dr. Hernandez and Abhijeet??Oleg SPENCER ?? Problem List/Past Medical History Ongoing Anxiety Cyclic neutropenia Depressive disorder History of kidney stones RhD negative Status post laparoscopy Procedure/Surgical History Excision of right neck cyst with plastic closure: 05/31/09 Knee LSO - Left salpingo-oophorectomy Home Medications Diazepam: 2 mg = 1 tablet, By Mouth, 4 times a day, PRN (Spasm) Estradiol: 2 mg = 1 tablet, By Mouth, 2 times a day Ibuprofen: 600 mg = 1 tablet, By Mouth, Every 6 hours MedroxyPROGESTERone: 10 mg = 1 tablet, By Mouth, Daily, Start taking this medication on December 08, 2023 and continue twice daily estrace Multivitamin, Norethindrone: 5 mg = 1 tablet, By Mouth, Daily Allergies Bactrim??(vomit) Social History Alcohol Use: Never. Electronic Cigarette/Vaping Electronic Cigarette Use: Never. Employment/School Status: Employed. Exercise Self assessment: Good condition. Home/Environment Living situation: Home/Independent. Sexual Sexually involved in last 6 months: Yes. Gender identity: Identifies as female. Preferred pronoun: She/her. Substance Abuse Use: Never. Tobacco Never smoker Family History Mother: Breast cancer Father: Hypertension; Myocardial infarction Mat. Grandmother: Diabetes mellitus; Hypertension Mat. Grandfather: Bleeding disorder; Diabetes mellitus; Heart attack Pat. Grandfather: Diabetes mellitus [1]??CT Head Venogram; Sandrita MCGARRY, Malachi 11/25/2023 00:45 EDT [2]??CT Angio Head; Cristal MCGARRY , Mar Manuel 11/25/2023 03:37 EDT * David MCGARRY, [facility]: PERFORM Event Display: Consultation Note Authored Date: [id number] NEUROLOGY ATTENDING?? ATTESTATION NOTE: I??saw and examined??this patient with RAMIRO Vazquez. I reviewed her note and agree with her assessment and plan. In brief, this is a 28yo RH F with a diagnosis of APLAS (two tests of lupus anticoagulant were positive and she has 4 spontaneous miscarriages in the first trimester); there is alsofamily history of miscarriages, DVTs, left handedness, and autoimmune disease (ulcerative colitis).She presented to ED for atraumatic right neck pain x 5 days, pain developed after hysteroscopy for uterine polyps on 11/17. trigger point injection in the ED did not help; pain progressed and also right arm parestheisa and mild headache. 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 The etiology of the right vertebral artery dissection/pseudoaneurysm formation is unclear (DD: vasculitis vs connective tissuedisease vs autoimmune disease). She does not have any signs of a hypermobility syndrome; there is afamily history of autoimmune disease and she herself has been diagnosed with APLAS, which again is associated with atraumatic cervical artery dissections. We will check blood to rule out vasculitis, do screening tests for autoimmune disease and connectivity tissue disease, do Lactate and Antiphospholipid antibody testing again. she is also of short stature (considering her height of 4'11''). We will do an MRI of her brain as well to rule out subtle lesions that might not be seen on hCT. We willkeep her SBP between 100-150, keep her HOB at less than 30 degrees or flat to increase her cerebralperfusion; Start her on Neurontin 300mg now and then again 300mg in PM for her neuropathic neck pain. we will increase that to 300mg po TID tomorrow if she tolerated the doses today. ?? Serena Hernandez MD, PhD (I spent a total of 60 minutes with this patient including exam, imaging and laboratory evaluation). * Gavin MCGARRY, Ashley Plascencia: MODIFY, PERFORM, MODIFY Event Display: Consultation Note Authored Date: [id number] Patient: ??SHAMA RODRIGUEZ ? Age:??28 Years?Sex:??Female?:??1995?? Chief Complaint/Reason for Consult R vertebral artery aneurysm History of Present Illness Shama a 28-year-old female with past medical history of anxiety,??antiphospholipid syndrome, , and endometriosis who recently underwent surgery on 11/17 for??her endometriosis to remove uterine polyps.?? Since then she has had progressively worsening right-sided neck pain. ??She was seen inthe emergency department on 11/22??where she had a joint injection performed and was discharged home.?? She states that since then the pain continues to worsen. ??She describes right-sided neck pain in the muscle bodies that has progressively been getting worse. ??She is also endorsing some numbness and??tingling??in the right??upper extremity. ??She denies any weakness.?She is??having some dizziness which she states is a vertigo like feeling which she has never had before.Previously on anticoagulation for??antiphospholipid syndrome but that is since been discontinued. Tolerating diet without nausea or vomiting.?? She denies any fevers, chills, chest pain or shortness of breath. ??Denies any other neurological symptoms such as vision changes, weakness,??or syncope. Given her??ongoing neck pain??she underwent a CTV and CTA that??demonstrated a right sided vertebral artery [facility]um, [facility].? Review of Systems Negative unless stated above Physical Exam Vitals & Measurements T:??98.8?F?? HR:??99??(Peripheral)?? RR:??16?? BP:??118/95?? SpO2:??100%?? HT:??151??cm?? WT:??58??kg?? BMI:??25.44?Constitutional: no acute distress,??resting with eyes closed and lights off ?Eyes: sclera nonicteric, no conjunctivitis ?ENT: no epistaxis, voice normal, neck supple, no cervical ??or supraclavicular lymphadenopathy, moist mucous membranes, dentition intact ?NECK: Limited ROM secondary to pain. Pain radiating from base of skull down neck into shoulder. Tender to??palpitation. ?Chest: normal configuration, chest rise symmetric, no axillary lymphadenopathy ?Cardiovascular: regular rate and rhythm ?Respiratory:??symmetric breaths, no increased WOB ?Abdomen: soft, upper abdominal tenderness, nondistended, no rebound or guarding ?Back: no flank or costovertebral tenderness ?Extremities: warm, well perfused, no edema, no tremor ?Musculoskeletal: moves all four extremities spontaneously, range of motion grossly intact ?Skin: warm, no diaphoresis or jaundice, no significant skin lesions ?Vascular: palpable dorsalis pedis and radial pulses bilaterally ?Neurologic: alert and oriented x3, GCS 15, grossly intact without apparent focal defects. CN II-XII intact.??Paresthesias of RUE but no weakness. ?Psychiatric: mood and affect within normal limits, cooperative Assessment/Plan Shama a 28-year-old female with past medical history of anxiety,??antiphospholipid syndrome, , and endometriosis who recently underwent surgery on 11/17 for??her endometriosis to remove uterine polyps, who vascular surgery was consulted for??right-sided vertebral artery aneurysm.?? 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 ??In addition the??visualized a 3 x 4 mm right vertebral arterial??aneurysm at the C4 level as well as a 2 x 2.5 mm vertebral artery??aneurysm at the C2 level. ??On arrival to the emergency department she was mildly tachycardic to 116??and was hypertensive diastolic max of 108.?Labs were significant for no leukocytosis white count of 5.6, H&H of 14.1/43.6, platelets of 255. ??On exam she does have??some??paresthesias in the right upper extremity but otherwise is neurologically intact. It is possible she dissected her artery which is why sheis experiencing such intense neck pain. Her hypertension with findings of??vertebral artery aneurysm can be associated with fibromuscular dysplasia, thus we recommend a renal duplex u/s to further evaluate. There is currently no acute surgical intervention indicated. She should be started on aspirin and have tight blood pressure control. In addition recommend consulting Neuro IR for further recommendations on wether any intervention is required given the level of the aneurysm. ?? Recommendations - Admission to medicine - Neuro IR consult - Renal duplex to evaluate for FMD - Aspirin - Blood pressure control - Pain control - Rest of care per primary??team - No acute surgical intervention? VASCULAR [id number] Rodriges ? Problem List/Past Medical History Ongoing Anxiety Cyclic neutropenia Depressive disorder History of kidney stones RhD negative Status post laparoscopy Antiphospholipid syndrome Ectopic Endomitosis Procedure/Surgical History Excision of right neck cyst with plastic closure: 05/31/09 Knee LSO - Left salpingo-oophorectomy Hysteroscopy Operative with Morcellator Home Medications Diazepam: 2 mg = 1 tablet, By Mouth, 4 times a day, PRN (Spasm) Estradiol: 2 mg = 1 tablet, By Mouth, 2 times a day Ibuprofen: 600 mg = 1 tablet, By Mouth, Every 6 hours MedroxyPROGESTERone: 10 mg = 1 tablet, By Mouth, Daily, Start taking this medication on December 08, 2023 and continue twice daily estrace Multivitamin, Norethindrone: 5 mg = 1 tablet, By Mouth, Daily Allergies Bactrim??(vomit) Social History Alcohol Use: Never. Electronic Cigarette/Vaping Electronic Cigarette Use: Never. Employment/School Status: Employed. Exercise Self assessment: Good condition. Home/Environment Living situation: Home/Independent. Sexual Sexually involved in last 6 months: Yes. Gender identity: Identifies as female. Preferred pronoun: She/her. Substance Abuse Use: Never. Tobacco Never smoker Family History Mother: Breast cancer Father: Hypertension; Myocardial infarction Mat. Grandmother: Diabetes mellitus; Hypertension Mat. Grandfather: Bleeding disorder; Diabetes mellitus; Heart attack Pat. Grandfather: Diabetes mellitus Lab Results Labs Last 24 Hours BLOOD COUNT & DIFF ? Event Name?? Event Result?? Date/Time?? WBC 5.6 k/mm3 11/24/23 23:50:00 RBC 5.28 m/mm3 11/24/23 23:50:00 Hgb 14.1 Gm/dL 11/24/23 23:50:00 Hct 43.6 % 11/24/23 23:50:00 MCV 82.6 femtoliters 11/24/23 23:50:00 MCH 26.7 pg??Low 11/24/23 23:50:00 MCHC 32.3 g/dL??Low 11/24/23 23:50:00 Platelet Count 255 k/mm3 11/24/23 23:50:00 MPV 11.2 femtoliters 11/24/23 23:50:00 Nucleated RBC (Automated) 0 #/100 WBC'S 11/24/23 23:50:00 ? COAG ? Event Name?? Event Result?? Date/Time?? INR 1 11/24/23 23:50:00 Protime (PT) 10.8 seconds 11/24/23 23:50:00 ? CHEM GENERAL ? Event Name?? Event Result?? Date/Time?? Sodium 134 mmol/L 11/24/23 23:50:00 Chloride 95 mmol/L??Low 11/24/23 23:50:00 Bicarbonate Level 22 mmol/L 11/24/23 23:50:00 Anion Gap 17 11/24/23 23:50:00 Glucose Level 100 mg/dL??High 11/24/23 23:50:00 BUN 10 mg/dL 11/24/23 23:50:00 Creatinine-Blood 0.72 mg/dL 11/24/23 23:50:00 ? Note * Albina Luna RN: PERFORM Event Display: Discharge/Transfer Note Hospital Authored Date: [id number] Nursing Discharge Note Entered On: 12/01/2023 12:16 EDT Performed On: 12/01/2023 12:05 EDT by Albina Luna RN Nursing Discharge Note 2 Discharge Comments : IV removed, cannula tip intact. Pt able to state when to take next doses of all meds and when to make and attend all follow up appointments Heidy Carvalho RN - 12/01/2023 12:27 EDT Discharge Time : 12/01/2023 12:04 EDT Discharge Level of Care at Discharge : Home/Nursing Home/Foster Care Patient Left Unit Via : Wheelchair Patient Accompanied Off Unit with : Responsible adult DC Instructions Provided & Signed by Pt : Yes Patient Understands D/C Instructions : Yes Patient Instructions Discharge Signed : Yes Did Pt have Specialty Bed or Wound Vac : No Albina Luna RN - 12/01/2023 12:16 EDT * Event Display: Discharge/Transfer Note Hospital Authored Date: [id number] * Heidy Carvalho RN: PERFORM Event Display: Patient Education/Instruction Authored Date: [id number] Inpatient Adult Discharge Instructions. [address] [address] Name: SHAMA RODRIGUEZ : 1995?? Visit: 11/25/2023 07:21?? Current Date: 12/01/2023 10:29 ?? Account: [id number]?? Inpatient Adult Discharge Instructions We would like to thank you for allowing us to assist you with your healthcare needs. The following includes patient education materials and information regarding your injury/illness. Our entire staffstrives to provide an excellent experience for our patients and their families. PLEASE ENSURE YOU FOLLOW-UP PER THE INSTRUCTIONS BELOW! ?? YOUR OPINION IS IMPORTANT TO US! Please complete the survey you may receive by mail or email. Your feedback will be used to make improvements to the healthcare experiences of our patients and their families. Surveys are administered by [employer] ?? If further treatment with your primary care physician or another doctor is recommended, it is important for you to keep the appointment. Call your primary care physician or return to the Emergency Department immediately if your condition worsens, fails to improve, or new symptoms develop. If you need to find a doctor, you can call [facility] [employer] for a referral at [phone] or toll free at [phone]) or log in to [email or web address].. ?? [facility], in keeping with [facility] guidance, no longer requires face masks for staff, patientsor visitors in most situations. Similiar to time spent indoors at other locations, there is the chance that you were exposed to repiratory viruses during your time with us (such as flu or COVID-19). If you develop symptoms concerning for a viral respiratory infection, please seek testing (and treatment if indicated) from your medical provider or home test kit. ?? You can view and manage your care through the patient portal or by using a health care eusebio of your choosing. [employer] is a website that allows you to securely view your medical information including your hospital discharge summary, office visit summaries, medications and follow-up visits. You can also request appointments, renew medications, and request access to your medical information using a health care eusebio of your choosing, or just ask a question. You can enroll at [email or web address] or register during your next office visit. You have been discharged from [facility], Patient Care Unit: D5A??. If you have any questions regarding these instructions, including results of studies pending, afteryou leave, please call us and we will be happy to assist you 17/11. [facility] Your Care Team Attending Physician Alek Gar MD?? Consulting Providers Alek Gar MD?? Discharging Providers Kimber Garcia MD Reason for Your Visit vertebral artery dissection?? Your Diagnosis Anemia APS (antiphospholipid syndrome) Artery dissection Tests Performed Below is a partial list of the tests performed during your hospitalization. You may have had other tests and procedures not included in this list. Please discuss all test results with your provider. GABRIELA Screen Anticardiolipin Ab IgA Anticardiolipin Ab IgG/IgM Basic Metabolic Panel Beta 2 Glycoprotein 1 Ab CBC CBC w/ Differential COVID-19 (Novel Coronavirus), Rapid PCR CRP DRVVT MIX ESR Ferritin HEXAGONAL PHASE PHOSPHOLIPID HOLD GEL TUBE HOLD URINE INR Iron + Iron Binding Capacity Lactate Level LDH Lupus Anticoagulant Coag Panel Test Urine PTT PTT-LA MIX Reticulocyte Ct TSH with T4 Reflex (Adults Only) Brain MRI W/O Contrast Cervical Spine MRI W/O Contrast CT Angio Head CT Angio Neck CT Head Venogram CT Head/Brain W/O Contrast GABRIELA Screen?? Anticardiolipin Ab IgA?? Anticardiolipin Ab IgG/IgM?? Basic Metabolic Panel?? Beta 2 Glycoprotein 1 Ab?? C Reactive Protein (CRP)?? CBC?? CBC w/ Differential?? COVID-19 (Novel Coronavirus), Rapid PCR?? CT Angio Head?? CT Angio Neck?? CT Head Venogram?? CT Head/Brain W/O Contrast?? Ferritin?? HCG Urine ( Test Urine)?? Hold Gel Top Tube (HOLD GEL TUBE)?? Hold Lavender Tube (BB)?? Hold Urine?? INR?? Iron + Iron Binding Capacity?? LDH?? Lactic Acid Level (Lactate Level)?? Lupus Anticoagulant Coag Panel?? Lupus DRVVT Mix (DRVVT MIX)?? Lupus Hex Phase Phospholipid (HEXAGONAL PHASE PHOSPHOLIPID)?? Lupus PTT-LA Mix (PTT-LA MIX)?? MRI Brain W/O Contrast (Brain MRI W/O Contrast)?? MRI Cervical Spine W/O Contrast (Cervical Spine MRI W/O Contrast)?? PTT?? Reticulocyte Ct?? Sedimentation Rate (ESR)?? TSH with T4 Reflex (Adults Only)?? Primary Care Provider Elvira Arias MD? Advance Directive Health Care Proxy on File Yes - Health Care Proxy Discharge Vitals Temperature: 98.3 DegF Height: 151 cm Pulse Rate: 82 bpm Weight: 55.8 kg Respiratory Rate:??15 br/min??Low Body Mass Index: 24.47 kg/m2 Systolic Blood Pressure: 117 mm Hg Body surface area: 1.53 Diastolic Blood Pressure: 80 mm Hg ?? Oxygen Saturation: 96 % ?? Studies Pending All studies ordered during this hospital stay have been completed unless listed below. Please discuss all pending results with your provider listed above in these instructions. ?? Hold Lavender Tube (BB)?? What to do next Instructions From Your Doctor Prescription Given this visit: Prescriptions Acetaminophen (acetaminophen 325 mg oral tablet) 975 mg, By Mouth, 3 times a day, # 90 tablet, 0 Refills, 3 times daily until pain is improved, [facility] [address] [address] [phone] Next Dose:? Aspirin (aspirin 81 mg oral delayed release tablet) 81 mg, By Mouth, Daily, # 90 tablet, 0 Refills, [facility] [address] [address] [phone] Next Dose:? Gabapentin (gabapentin 600 mg oral tablet) 600 mg, By Mouth, 3 times a day, # 60 tablet, 0 Refills, [facility] [address], [address] [place] [phone] Next Dose:? Oxycodone (oxyCODONE 5 mg oral tablet) 5 mg, By Mouth, Every 6 hours, # 28 tablet, 0 Refills, [facility] [address], [address] [place] [address] [phone] Next Dose:? Polyethylene Glycol 3350 (MiraLax oral powder for reconstitution) 17 Gm, By Mouth, Daily, # 238 Gm, 0 Refills, dissolve in 4 to 8 oz of beverageTake daily while on oxycodone for regular, soft bowel movements, [facility] 3, [address] [place] [address] [phone] Next Dose:? Tizanidine (tiZANidine 2 mg oral tablet) 2 mg, By Mouth, 2 times a day, # 28 tablet, 0 Refills, [facility] 3, [address] [place] [address] [phone] Next Dose:? Patient Instructions Given: From Neurology team: NEUROLOGY HAS ORDERED A CT HEAD/NECK TO BE DONE IN 1 MONTH RADIOLOGY WILL REACH OUT TO SCHEDULE?? PLEASE CALL US FOR A FOLLOW UP ONCE YOU HAVE A DATE FOR THE CT SCAN THANK YOU [phone] ?? Please call??your PCP or??return to the hospital if you experience any of the following: New fevers, worsening pain, lethary or weakness, loss of consciousness, inability to eat/drink. ?? Education Given: [employer] Patient Education - Peripheral Neuropathy?? [employer] Patient Education - Tizanidine?? [employer] Patient Education - Gabapentin?? [employer] Patient Education - Understanding Vertebral Artery Dissection (VAD)? Patient Follow-up: Added Follow Up ?Time Frame ?Comments Elvira Arias MD?1 week: call to discuss follow up visit ?? NEUROLOGY HAS ORDERED A CT HEAD/NECK TO BE DONE IN 1 MONTH RADIOLOGY WILL REACH OUT TO SCHEDULE?? PLEASE CALL US FOR A FOLLOW UP ONCE YOU HAVE A DATE FOR THE CT SCAN THANK YOU [phone] ?? Education Given: [employer] Patient Education - Peripheral Neuropathy?? [employer] Patient Education - Tizanidine?? [employer] Patient Education - Gabapentin?? [employer] Patient Education - Understanding Vertebral Artery Dissection (VAD)? Patient Follow-up: Added Follow Up ?Time Frame ?Comments Elvira Arias MD?1 week: call to discuss follow up visit ?? NEUROLOGY HAS ORDERED A CT HEAD/NECK TO BE DONE IN 1 MONTH RADIOLOGY WILL REACH OUT TO SCHEDULE?? PLEASE CALL US FOR A FOLLOW UP ONCE YOU HAVE A DATE FOR THE CT SCAN THANK YOU [phone] ?? Orders? 12/01/23 10:12:00 EDT?? Scheduled Follow-Up Appointments Thursday 1:30 PM EDT ?? With: Aidee CHANDLER, Home [place] Where: [facility] [address] [place] [address] [address] [place] [address]- Status: Pending You Need to Schedule the Following Appointments Follow Up with??Elvira Arias MD When:??Within 1 week: call to discuss follow up visit Where: [address] [place] [id number]- Discharge Medications AYESHASHAMA ANDERSEN :1995 Visit Date:11/25/2023 Medications: Please continue your medications until treatment is completed or stopped by your provider. Medications not listed below should be discontinued. Discuss any questions related to medications with your provider. What How Much When Instructions Next Dose New Acetaminophen (acetaminophen 325 mg oral tablet) 975 Milligram Oral 3 times a day 3 times daily until pain is improved ?? Pickup at [facility] 3 Today 12/01/23 3pm New Aspirin (aspirin 81 mg oral delayed release tablet) 81 Milligram Oral Daily Pickup at [facility] 3 Tomorrow 12/02/23 9 am New Gabapentin (gabapentin 600 mg oral tablet) 600 Milligram Oral 3 times a day Pickup at [place] [address] Today 12/01/23 3pm New Oxycodone (oxyCODONE 5 mg oral tablet) 5 Milligram Oral Every 6 hours as needed for Pain , Severe Duration: 7 Days Pickup at [place] [address] Today 12/01/23 Noon as needed New Polyethylene Glycol 3350 (MiraLax oral powder for reconstitution) 17 gram Oral Daily dissolve in 4 to 8 oz of beverage Take daily while on oxycodone for regular, soft bowel movements ?? Pickup at [place] [address] Tomorrow 12/02/23 9am New Tizanidine (tiZANidine 2 mg oral capsule) 1 capsule Oral Twice a day Duration: 30 Days Pickup at [place] [address] Tonight 12/01/23 9pm Unchanged MedroxyPROGESTERone (Provera 10 mg oral tablet) 1 tab(s) Oral Daily Duration: 7 Days Start taking this medication on December 08, 2023 and continue twice daily estrace ?? Take as prescribed Pharmacy Information [place] [address]: [address] [place] [address] [phone] ?? What How Much When Comments Stop Taking Norethindrone (norethindrone 5 mg oral tablet) 1 tab(s) Oral Daily Prescription Given During Visit Acetaminophen (acetaminophen 325 mg oral tablet) - 975 mg, By Mouth, 3 times a day, # 90 tablet, 0 Refills, 3 times daily until pain is improved, [place] [address], [address] [place] [id number] [phone]?? Aspirin (aspirin 81 mg oral delayed release tablet) - 81 mg, By Mouth, Daily, # 90 tablet, 0 Refills, [address] [address] [phone]?? Gabapentin (gabapentin 600 mg oral tablet) - 600 mg, By Mouth, 3 times a day, # 60 tablet, 0 Refills, [place] [address], [address] [place] [address] [phone]?? Oxycodone (oxyCODONE 5 mg oral tablet) - 5 mg, By Mouth, Every 6 hours, # 28 tablet, 0 Refills, [address] [address] [phone]?? Polyethylene Glycol 3350 (MiraLax oral powder for reconstitution) - 17 Gm, By Mouth, Daily, # 238 Gm, 0 Refills, dissolve in 4 to 8 oz of beverageTake daily while on oxycodone for regular, soft bowelmovements, [place] [address], [address] [place] [address] [place] [address] [phone]?? Tizanidine (tiZANidine 2 mg oral capsule) - 1 capsule = 2 mg, By Mouth, 2 times a day, # 60 capsule, 0 Refills, [facility], [address] [place] [address] [phone]?? Laboratory Results Below is a partial list of the most recent Laboratory test results done prior to this discharge. You may have had other tests and procedures not included in this list. Please discuss all test resultswith your provider. Est Creatinine Clearance - 75.28 mL/min (11/27/2023) GABRIELA Screen (11/25/2023) ???Anti-Nuclear Antibody Screen - NEGATIVE Anticardiolipin Ab IgA (11/25/2023) ? ?Anti-Cardiolipin IgA Ab - <9 Anticardiolipin Ab IgG/IgM (11/25/2023) ? ?Cardiolipin Ab IgM - <9? ?Cardiolipin Ab IgG - <9 Basic Metabolic Panel (11/27/2023) ???Sodium - 139 mmol/L???Potassium - 4.5 mmol/L???Chloride - 102 mmol/L???Bicarbonate Level - 25 mmol/L???Anion Gap - 12???Glucose Level - 79 mg/dL???BUN - 14 mg/dL???Creatinine-Blood - 0.77 mg/dL???Estimated GFR Creatinine - 107 ML/MIN/1.73 M2???Calcium - 9.4 mg/dL Beta 2 Glycoprotein 1 Ab (11/25/2023) ? ?B2GP1, IgG - <9? ?B2GP1, IgM - <9 CBC (11/28/2023) ???WBC - 5.4 k/mm3???RBC - 4.49 m/mm3???Hgb - 12.3 Gm/dL???Hct - 36.9 %???MCV - 82.2 femtoliters???MCH - 27.4 pg???MCHC - 33.3 g/dL???Platelet Count - 206 k/mm3???RDW-SD - 39.5 femtoliters???MPV - 11.7 femtoliters???Nucleated RBC (Automated) - 0.0 #/100 WBC'S???Abs. NRBC - 0.0 k/mm3 CBC w/ Differential (11/24/2023) ???WBC - 5.6 k/mm3???RBC - 5.28 m/mm3???Hgb - 14.1 Gm/dL???Hct - 43.6 %???MCV - 82.6 femtoliters???MCH - 26.7 pg???MCHC - 32.3 g/dL???Platelet Count - 255 k/mm3???RDW-SD - 40.0 femtoliters???MPV - 11.2 femtoliters???Nucleated RBC (Automated) - 0.0 #/100 WBC'S???Abs. NRBC - 0.0 k/mm3???Abs. Neut - 3.4 k/mm3???Abs. Lymph - 1.5 k/mm3???Abs. Stark - 0.5 k/mm3???Abs. Eo - 0.2 k/mm3???Abs. Baso - 0.0 k/mm3???Neut % - 59.4 %???Lymph % - 27.2 %???Stark % - 9.6 %???Eos % - 2.7 %???Baso % - 0.7 %???Imm Gran - 0.4 %???Abs. Imm Gran - 0.0 k/mm3 COVID-19 (Novel Coronavirus), Rapid PCR (11/25/2023) ???COVID-19 by RT-PCR - NEGATIVE CRP (11/25/2023) ???C-Reactive Protein - 1.0 mg/dL DRVVT MIX (11/25/2023) ???LA DRVVT Mix - 40.2 ESR (11/25/2023) ???Sed Rate - 27 mm/hr Ferritin (11/27/2023) ???Ferritin Level - 16 ng/mL HEXAGONAL PHASE PHOSPHOLIPID (11/25/2023) ???LA Hex Phase Phospholipid - 7 HOLD GEL TUBE (11/28/2023) ???Hold Gel Top - SPECIMEN DISCARDED AFTER 1 WEEK HOLD URINE (11/24/2023) ???Hold Urine - Testing Available 24 hours from Time of Collection INR (11/27/2023) ???INR - 1.0???Protime (PT) - 10.7 seconds Iron + Iron Binding Capacity (11/27/2023) ???Iron Level - 43 mcg/dL???Iron Binding Capacity, Unsaturated - 374 mcg/dL???Iron Binding Capacity, Estimated Total - 417 mcg/dL???% Iron Saturation - 10 % Lactate Level (11/26/2023) ???Lactate - 1.0 mmol/L LDH (11/27/2023) ???LDH - 138 units/L Lupus Anticoagulant Coag Panel (11/25/2023) ???Dilute [place]'s Viper Venom Test - 52.7 seconds???PTT-LA (Lupus-Sensitive) - 56.6 seconds???Lupus Anticoagulant Interpretation - Comment: Test Urine (11/24/2023) ???Urine, - NEGATIVE PTT (11/27/2023) ???APTT - 33.3 seconds PTT-LA MIX (11/25/2023) ???LA PTT-LA Mix - 43.[address] (11/27/2023) ???Retic Count - 2.3 %???Retic Count Corrected - 2.0 %???Retic Production Index - 2.0 % TSH with T4 Reflex (Adults Only) (11/25/2023) ???TSH - 2.60 uIU/mL You will be contacted within 72 hours with your results. 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 History of kidney stones?? RhD negative?? Status post laparoscopy?? Education Materials Below is the list of Educational Leaflet Providered with your Discharge Instructions. Web[employer] Patient Education - Peripheral Neuropathy?? [employer] Patient Education - Tizanidine?? [employer] Patient Education - Gabapentin?? Web[employer] Patient Education - Understanding Vertebral Artery Dissection (VAD)?? Valuables and Belongings I fully understand and agree that [facility] accepts no responsibility for all my personal property including clothing, toilet articles, radios, jewelry, dentures, hearing aids, rings, money, or any other property that is in my possession or is brought to me after admission. I understand certain valuables may be placed in a hospital safe for a short period of time. I understand that the hospital is not liable for loss or damage due to accident, fire, or other natural occurrence while said property is in the safe. I accept full responsibility for any personal property that I keep with me, and will not hold the hospital responsible in case of loss or disappearance. I acknowledge that i have been encouraged to send valuables and belongings home. ?? Review of Valuable and Belonging List: With patient, With family Date for Pt to Sign Valuables/Belongings: 11/25/23 12:22:00 ?? Other Discharge Information ? Pulmonary Rehab Status?? Pulmonary Rehab Discharge Status?? Respiratory Rate:??15 br/min??Low ? Common Emergency Awareness Tips IS IT A STROKE? Act FAST and Check for these signs: FACE Does the face look uneven? ARM Does one arm drift down? SPEECH Does their speech sound strange? TIME Call at any sign of stroke ?? Heart Attack Signs Chest discomfort: Most heart attacks involve discomfort in the center of the chest and lasts more than a few minutes, or goes away and comes back. It can feel like uncomfortable pressure, squeezing, fullness or pain. Discomfort in upper body: Symptoms can include pain or discomfort in one or both arms, back, neck, jaw or stomach. Shortness of breath: With or without discomfort. Other signs: Breaking out in a cold sweat, nausea, or lightheaded. Remember, MINUTES DO MATTER. If you experience any of these heart attack warning signs, call to get immediate medical attention! ?? Smoking can increase your chances of developing chronic health problems and can cause harmful effects to other family members in your house. If you smoke, you are strongly encouraged to quit. Please call [email or web address] Link at [phone] or [phone] ([phone]) or log in to [email or web address] for referrals to smoking cessation programs. ?? 947 Suicide & Crisis Lifeline is available 17/11 if you or someone you know needs to find a reason to keep living. By calling 051 you'll be connected to a skilled, trained counselor at a crisis center in your area. INPATIENT DISCHARGE INSTRUCTIONS SIGNATURE PAGE SHAMA RODRIGUEZ Location:[facility] Registration Date and Time:11/25/2023 07:21 EDT Primary Care Physician: Elvira Arias MD, Attending Physician: Cong MCGARRY, Alek, I SHAMA RODRIGUEZ, have received the above patient education materials/instructions and have verbalized understanding. If ambulance or transport services are being used I further acknowledge being given a choice of service. ?? If you need to contact me, please call me at this number: . Patient/Radiator Mechanic Name: Patient/Radiator Mechanic Signature: Relationship to Patient: Witness Name/Signature: Date: * Hediy Carvalho RN: PERFORM Event Display: Patient Education Leaflets Authored Date: [id number] Aspirin ?? [id number] Aspirin Brand Name(s): Acuprin??, Anacin?? Aspirin Regimen, Ascriptin??, Aspergum??, Aspidrox??, Aspir-Mox??, Aspirtab??, Aspir-juliet??, Romero?? Aspirin, Bufferin??, Buffex??, Easprin??, Ecotrin??, Empirin??,Entaprin??, Entercote??, Fasprin??, Genacote??, Gennin-FC??, Genprin??, Halfprin??, Magnaprin??, Miniprin??, Minitabs??, Ridiprin??, Sloprin??, Uni-Buff??, Uni-Tren??, Valomag??, Zorprin??, [place]?? (as a combination product containing Aspirin, Citric Acid, Sodium Bicarbonate), [place]??Extra Strength (as a combination product containing Aspirin, Citric Acid, Sodium Bicarbonate), [place]?? Morning Relief (as a combination product containing Aspirin, Caffeine), [place]?? Plus Flu (as a combination product containing Aspirin, Chlorpheniramine, Dextromethorphan), [place]?? PM (as a combination product containing Aspirin, Diphenhydramine), Alor?? (as a combination product containing Aspirin, Hydrocodone), Anacin?? (as a combination product containing Aspirin, Caffeine), Anacin?? Advanced Headache Formula (as a combination product containing Acetaminophen, Aspirin,Caffeine), Aspircaf?? (as a combination product containing Aspirin, Caffeine), Axotal?? (as a combination product containing Aspirin, Butalbital), Azdone?? (as a combination product containing Aspirin, Hydrocodone), Romero?? Aspirin Plus Calcium (as a combination product containing Aspirin, Calcium Carbonate), Romero?? Aspirin PM (as a combination product containing Aspirin, Diphenhydramine), Romero?? Back and Body Pain (as a combination product containing Aspirin, Caffeine), BC Headache (as a combination product containing Aspirin, Caffeine, Salicylamide), BC Powder (as a combination product containing Aspirin, Caffeine, Salicylamide), Damason-P?? (as a combination product containing Aspirin,Hydrocodone), Emagrin?? (as a combination product containing Aspirin, Caffeine, Salicylamide), Endodan?? (as a combination product containing Aspirin, Oxycodone), Equagesic?? (as a combination product containing Aspirin, Meprobamate), Excedrin?? (as a combination product containing Acetaminophen, Aspirin, Caffeine), Excedrin?? Back & Body (as a combination product containing Acetaminophen, Aspirin), Goody's?? Body Pain (as a combination product containing Acetaminophen, Aspirin), Levacet?? (as a combination product containing Acetaminophen, Aspirin, Caffeine, Salicylamide), Lortab?? ASA (as a combination product containing Aspirin, Hydrocodone), Micrainin?? (as a combination product containing Aspirin, Meprobamate), Momentum?? (as a combination product containing Aspirin, Phenyltoloxamine), Norgesic?? (as a combination product containing Aspirin, Caffeine, Orphenadrine), Orphengesic?? (as a combination product containing Aspirin, Caffeine, Orphenadrine), Panasal?? (as a combination product containing Aspirin, Hydrocodone), Percodan?? (as a combination product containing Aspirin, Oxycodone), Robaxisal?? (as a combination product containing Aspirin, Methocarbamol), Roxiprin?? (as a combination product containing Aspirin, Oxycodone), Saleto?? (as a combination product containing Acetaminophen, Aspirin, Caffeine, Salicylamide), Soma?? Compound (as a combination product containing Aspirin, Carisoprodol), Soma?? Compound with Codeine (as a combination product containing Aspirin, Carisoprodol, Codeine), Supac?? (as a combination product containing Acetaminophen, Aspirin, Caffeine), Synalgos-DC?? (as a combination product containing Aspirin, Caffeine, Dihydrocodeine), Talwin? ? Compound (as a combination product containing Aspirin, Pentazocine), Vanquish?? (as a combinationproduct containing Acetaminophen, Aspirin, Caffeine); also available generically WHY is this medicine prescribed? Prescription aspirin is used to relieve the symptoms of rheumatoid arthritis (arthritis caused by swelling of the lining of the joints), osteoarthritis (arthritis caused by breakdown of the lining ofthe joints), systemic lupus erythematosus (condition in which the immune system attacks the joints and organs and causes pain and swelling) and certain other rheumatologic conditions (conditions in which the immune system attacks parts of the body). Nonprescription aspirin is used to reduce fever and to relieve mild to moderate pain from headaches, menstrual periods, arthritis, toothaches, and muscle aches. Nonprescription aspirin is also used to prevent heart attacks in people who have had a heart attack in the past or who have angina (chest pain that occurs when the heart does not get enough oxygen). Nonprescription aspirin is also used to reduce the risk of in people who are experiencing or who have recently experienced a heart attack. Nonprescription aspirin is also used to prevent ischemic strokes (strokes that occur when a blood clot blocks the flow of blood to the brain) ormini-strokes (strokes that occur when the flow of blood to the brain is blocked for a short time) in people who have had this type of stroke or mini-stroke in the past. Aspirin will not prevent hemorrhagic strokes (strokes caused by bleeding in the brain). Aspirin is in a group of medications called salicylates. It works by stopping the production of certain natural substances that cause fever, pain, swelling, and blood clots. Aspirin is also available in combination with other medications such as antacids, pain relievers, and cough and cold medications. This monograph only includes information about the use of aspirin alone. If you are taking a combination product, read the information on the package or prescription label or ask your doctor or pharmacist for more information. HOW should this medicine be used? Prescription aspirin comes as an extended-release (long-acting) tablet. Nonprescription aspirin comes as a regular tablet, a delayed-release (releases the medication in the intestine to prevent damage to the stomach) tablet, a chewable tablet, powder, and a gum to take by mouth. Prescription aspirin is usually taken two or more times a day. Nonprescription aspirin is usually taken once a day to lower the risk of a heart attack or stroke. Nonprescription aspirin is usually taken every 4 to 6 hours as needed to treat fever or pain. Follow the directions on the package or prescription label carefully, and ask your doctor or pharmacist to explain any part you do not understand. Take aspirin exactly as directed. Do not take more or less of it or take it more often than directed by the package label or prescribed by your doctor. Swallow the extended-release tablets whole with a full glass of water. Do not break, crush, or chewthem. Swallow the delayed-release tablets with a full glass of water. Chewable aspirin tablets may be chewed, crushed, or swallowed whole. Drink a full glass of water, immediately after taking these tablets. Ask a doctor before you give aspirin to your child or teenager. Aspirin may cause Pb's syndrome (a serious condition in which fat builds up on the brain, liver, and other body organs) in children and teenagers, especially if they have a virus such as chicken pox or the flu. If you have had oral surgery or surgery to remove your tonsils in the last 7 days, talk to your doctor about which types of aspirin are safe for you. Delayed-release tablets begin to work some time after they are taken. Do not take delayed-release tablets for fever or pain that must be relieved quickly. Stop taking aspirin and call your doctor if your fever lasts longer than 3 days, if your pain lastslonger than 10 days, or if the part of your body that was painful becomes red or swollen. You may have a condition that must be treated by a doctor. Are there OTHER USES for this medicine? Aspirin is also sometimes used to treat rheumatic fever (a serious condition that may develop aftera strep throat infection and may cause swelling of the heart valves) and Kawasaki disease (an illness that may cause heart problems in children). Aspirin is also sometimes used to lower the risk of blood clots in patients who have artificial heart valves or certain other heart conditions and to prevent certain complications of . What SPECIAL PRECAUTIONS should I follow? Before taking aspirin, ??? tell your doctor and pharmacist if you are allergic to aspirin, other medications for pain or fever, tartrazine dye, or any other medications. ??? tell your doctor and pharmacist what prescription and nonprescription medications, vitamins, nutritional supplements, and herbal products you are mitzi ing or plan to take. Be sure to mention any of the following: acetazolamide (Diamox); angiotensin-converting enzyme (JOSE ROBERTO) inhibitors such as benazepril (Lotensin), captopril (Capoten), enalapril (Vasotec), fosinopril (Monopril), lisinopril (Prinivil, Zestril), moexipril (Univasc), perindopril, (Aceon), quinapril (Accupril), ramipril (Altace), and trandolapril (Mavik); anticoagulants ('blood thinners') such as warfarin (Coumadin) and heparin; beta blockers such as atenolol (Tenormin), labetalol (Normodyne), metoprolol (Lopressor, Toprol XL), nadolol (Corgard), and propranolol (Inderal); diuretics ('water pills'); medications for diabetes or arthritis; medications for gout such as probenecid and sulfinpyrazone (Anturane); methotrexate (Trexall); other nonsteroidal anti-inflammatory drugs (NSAIDs) such as naproxen (Aleve, Naprosyn); phenytoin (Dilantin); and valproic acid (Depakene, Depakote). Your doctor may need to change the doses of your medications or monitor you more carefully for side effects. ??? if you are taking aspirin on a regular basis to prevent heart attack or stroke, donot take ibuprofen (Advil, Motrin) to treat pain or fever without talking to your doctor. Your doctor will probably tell you to allow some time to pass between taking your daily dose of aspirin and taking a dose of ibuprofen. ??? tell your doctor if you have or have ever had asthma, frequent stuffed or runny nose, or nasal polyps (growths on the linings of the nose). If you have these conditions,there is a risk that you will have an allergic reaction to aspirin. Your doctor may tell you that you should not take aspirin. ??? tell your doctor if you often have heartburn, upset stomach, or stomach pain and if you have or have ever had ulcers, anemia, bleeding problems such as hemophilia, or kidney or liver disease. ??? tell your doctor if you are , you plan to become , or ifyou are breast-feeding. Low dose aspirin 81-mg may be taken during , but aspirin doses greater that 81 mg may harm the fetus and cause problems with delivery if it is taken around 20 weeks or later during . Do not take aspirin doses greater that 81 mg (e.g., 325 mg) around or after 20 weeks of , unless told to do so by your doctor. If you become while taking aspirin or aspirin containing medications, call your doctor. ??? if you are having surgery, including dental surgery, tell the doctor or dentist that you are taking aspirin. ??? if you drink three or more alcoholic drinks every day, ask your doctor if you should take aspirin or other medications for pain and fever. What SPECIAL DIETARY instructions should I follow? Unless your doctor tells you otherwise, continue your normal diet. What should I do IF I FORGET to take a dose? If your doctor has told you to take aspirin on a regular basis and you miss a dose, take the misseddose as soon as you remember it. However, if it is almost time for the next dose, skip the missed dose and continue your regular dosing schedule. Do not take a double dose to make up for a missed one. What SIDE EFFECTS can this medicine cause? Aspirin may cause side effects. Tell your doctor if any of these symptoms are severe or do not go away: ??? nausea ??? vomiting ??? stomach pain ??? heartburn ??? Some side effects can be serious. If youexperience any of the following symptoms, call your doctor immediately: ??? hives ??? rash ??? swelling of the eyes, face, lips, tongue, or throat ??? wheezing or difficulty breathing ??? hoarseness ??? fast heartbeat ??? fast breathing ??? cold, clammy skin ??? ringing in the ears ??? loss of hearing ??? bloody vomit ??? vomit that looks like coffee grounds ??? bright red blood in stools ??? black or tarry stools Aspirin may cause other side effects. Call your doctor if you experience any unusual problems whileyou are taking this medication. If you experience a serious side effect, you or your doctor may send a report to the Food and Drug Administration's (FDA) MedWatch Adverse Event Reporting program online (http://www.fda.gov/Safety/MedWatch) or by phone ( ). What should I know about STORAGE and DISPOSAL of this medication? Keep this medication in the container it came in, tightly closed, and out of reach of children. Store it at room temperature and away from excess heat and moisture (not in the bathroom). Dispose of any tablets that have a strong vinegar smell. It is important to keep all medication out of sight and reach of children as many containers (such as weekly pill minders and those for eye drops, creams, patches, and inhalers) are not child-resistant and young children can open them easily. To protect young children from poisoning, always lock safety caps and immediately place the medication in a safe location ??? one that is up and away and out of their sight and reach. http://www.upandaway.org Unneeded medications should be disposed of in special ways to ensure that pets, children, and otherpeople cannot consume them. However, you should not flush this medication down the toilet. Instead,the best way to dispose of your medication is through a medicine take-back program. Talk to your pharmacist or contact your local garbage/recycling department to learn about take-back programs in your community. See the FDA's Safe Disposal of Medicines website (http://goo.gl/c4Rm4p) for more information if you do not have access to a take- back program. What should I do in case of OVERDOSE? In case of overdose, call the poison control helpline at . Information is also available online at https://www.poisonhelp.org/help. If the victim has collapsed, had a seizure, has trouble breathing, or can't be awakened, immediately call emergency services at 911. Symptoms of overdose may include: ??? burning pain in the throat or stomach ??? vomiting ??? decreased urination ??? fever ??? restlessness ??? irritability ??? talking a lot and saying things that do not make sense ??? fear or nervousness ??? dizziness ??? double vision ??? uncontrollable shaking of a part of the body ??? confusion ??? abnormally excited mood ??? hallucination (seeing things or hearing voices that are not there)??? seizures ??? drowsiness ??? loss of consciousness for a period of time What OTHER INFORMATION should I know? Keep all appointments with your doctor. If you are taking prescription aspirin, do not let anyone else take your medication. Ask your pharmacist any questions you have about refilling your prescription. It is important for you to keep a written list of all of the prescription and nonprescription (eglu-eor-rfingey) medicines you are taking, as well as any products such as vitamins, minerals, or otherdietary supplements. You should bring this list with you each time you visit a doctor or if you areadmitted to a hospital. It is also important information to carry with you in case of emergencies. This report on medications is for your information only, and is not considered individual patient advice. Because of the changing nature of drug information, please consult your physician or pharmacist about specific clinical use. The [employer] represents that the information provided hereunder was formulated with a reasonable standard of care, and in conformity with professional standards in the field. The [employer] makes no representations or warranties, express or implied, including, but not limited to, any implied warranty of merchantability and/or fitness for a particular purpose, with respect to such information and specifically disclaims all such warranties. Users are advised that decisions regarding drug therapy are complex medical decisions requiring the independent, informed decision of an appropriate health youth care professional, and the information is provided for informational purposes only. The entire monograph for a drug should be reviewed for a thorough understanding of the drug's actions, uses and side effects. The [employer] does not endorse or recommend the use of any drug.The information is not a substitute for medical care. AHFS?? Patient Medication Information???. ?? Copyright, 2023. [employer]??, [address], [address], [place], [place]. All Rights Reserved. Duplication for commercial use must be authorized by [facility]. Selected Revisions: September 08, 2020. AHFS?? Patient Medication Information???. ?? Copyright, 2023 ?? * Heidy Carvalho RN: PERFORM Event Display: Patient Education Leaflets Authored Date: [id number] Acetaminophen ?? [id number] Acetaminophen Brand Name(s): Actamin??, Feverall??, Panadol??, Tempra Quicklets??, Tylenol??, Dayquil?? (as a combination product containing Acetaminophen, Dextromethorphan, Pseudoephedrine), NyQuil Cold/Flu Relief?? (as a combination product containing Acetaminophen, Dextromethorphan, Doxylamine), Percocet?? (as a combination product containing Acetaminophen, Oxycodone) IMPORTANT WARNING: Taking too much acetaminophen can cause liver damage, sometimes serious enough to require liver transplantation or cause . You might accidentally take too much acetaminophen if you do not followthe directions on the prescription or package label carefully, or if you take more than one productthat contains acetaminophen. To be sure that you take acetaminophen safely, you should ??? not take more than one product that contains acetaminophen at a time. Read the labels of all the prescription and nonprescription medications you are taking to see if they contain acetaminophen. Be aware that abbreviations such as APAP, AC, Acetaminophen, Acetaminoph, Acetaminop, Acetamin, or Acetam. may be written on the label in place of the word acetaminophen. Ask your doctor or pharmacistif you don't know if a medication that you are taking contains acetaminophen. ??? take acetaminophen exactly as directed on the prescription or package label. Do not take more acetaminophen or take it more often than directed, even if you still have fever or pain. Ask your doctor or pharmacist if you do not know how much medication to take or how often to take your medication. Call your doctor ifyou still have pain or fever after taking your medication as directed. ??? be aware that you shouldnot take more than 4000 mg of acetaminophen per day. If you need to take more than one product thatcontains acetaminophen, it may be difficult for you to calculate the total amount of acetaminophen you are taking. Ask your doctor or pharmacist to help you. ??? tell your doctor if you have or have ever had liver disease. ??? not take acetaminophen if you drink three or more alcoholic drinks everyday. Talk to your doctor about the safe use of alcohol while you are taking acetaminophen. ??? stoptaking your medication and call your doctor right away if you think you have taken too much acetaminophen, even if you feel well. Talk to your pharmacist or doctor if you have questions about the safe use of acetaminophen or acetaminophen-containing products. WHY is this medicine prescribed? Acetaminophen is used to relieve mild to moderate pain from headaches, muscle aches, menstrual periods, colds and sore throats, toothaches, backaches, reactions to vaccinations (shots), and to reducefever. Acetaminophen may also be used to relieve the pain of osteoarthritis (arthritis caused by the breakdown of the lining of the joints). Acetaminophen is in a class of medications called analgesics (pain relievers) and antipyretics (fever reducers). It works by changing the way the body senses pain and by cooling the body. HOW should this medicine be used? Acetaminophen comes as a tablet, chewable tablet, capsule, suspension or solution (liquid), extended-release (long-acting) tablet, and orally disintegrating tablet (tablet that dissolves quickly in the mouth), to take by mouth, with or without food. Acetaminophen is available without a prescription, but your doctor may prescribe acetaminophen to treat certain conditions. Follow the directions on the package or prescription label carefully, and ask your doctor or pharmacist to explain any part you do not understand. If you are giving acetaminophen to your child, read the package label carefully to make sure that it is the right product for the age of the child. Do not give children acetaminophen products that are made for adults. Some products for adults and older children may contain too much acetaminophen for a younger child. Check the package label to find out how much medication the child needs. If you know how much your child weighs, give the dose that matches that weight on the chart. If you don't know your child's weight, give the dose that matches your child's age. Ask your child's doctor if you don't know how much medication to give your child. Acetaminophen comes in combination with other medications to treat cough and cold symptoms. Ask your doctor or pharmacist for advice on which product is best for your symptoms. Check nonprescription cough and cold product labels carefully before using two or more products at the same time. These products may contain the same active ingredient(s) and taking them together could cause you to receivean overdose. This is especially important if you will be giving cough and cold medications to a child. Swallow the extended-release tablets whole; do not split, chew, crush, or dissolve them. Place the orally disintegrating tablet ('Meltaways') in your mouth and allow it to dissolve, or chew it before swallowing. Shake the suspension well before each use to mix the medication evenly. Always use the measuring cup or syringe provided by the cinder pit crane operator to measure each dose of the solution or suspension. Do notswitch dosing devices between different products; always use the device that comes in the product packaging. Stop taking acetaminophen and call your doctor if your symptoms get worse, you develop new or unexpected symptoms, including redness or swelling, your pain lasts for more than 10 days, or your fever gets worse or lasts more than 3 days. Also stop giving acetaminophen to your child and call your child's doctor if your child develops new symptoms, including redness or swelling, or if your child's pain lasts for longer than 5 days, or if a fever gets worse or lasts longer than 3 days. Do not give acetaminophen to a child who has a sore throat that is severe or does not go away, or that occurs along with fever, headache, rash, nausea, or vomiting. Call the child's doctor right away, because these symptoms may be signs of a more serious condition. Are there OTHER USES for this medicine? Acetaminophen may also be used in combination with aspirin and caffeine to relieve the pain associated with migraine headache. This medication is sometimes prescribed for other uses; ask your doctor or pharmacist for more information. What SPECIAL PRECAUTIONS should I follow? Before taking acetaminophen, ??? tell your doctor and pharmacist if you are allergic to acetaminophen, any other medications, orany of the ingredients in the product. Ask your pharmacist or check the label on the package for a list of ingredients. ??? tell your doctor and pharmacist what prescription and nonprescription medications, vitamins, nutritional supplements, or herbal products you are taking or plan to take while taking acetaminophen. Your doctor may need to change the doses of your medications or monitor you carefully for side effects. ??? The following nonprescription products may interact with acetaminophen:medications for pain, coughs, fever, and colds. Be sure to let your doctor and pharmacist know thatyou are taking these medications before you start taking acetaminophen. Do not start any of these medications while taking acetaminophen without discussing with your healthcare provider. ??? tell your doctor if you have ever developed a rash after taking acetaminophen. ??? tell your doctor if you are , plan to become , or are breast-feeding. If you become while taking acetaminophen, call your doctor. ??? if you drink three or more alcoholic beverages every day, do not take acetaminophen. Ask your doctor or pharmacist about the safe use of alcoholic beverages while taking acetaminophen. ??? you should know that combination acetaminophen products for cough and colds that contain nasal decongestants, antihistamines, cough suppressants, and expectorants should not be used in children younger than 2 years of age. Use of these medications in young children can cause serious and life-threatening effects or . In children 2 through 11 years of age, combination cough and cold products should be used carefully and only according to the directions on the label. ???if you have phenylketonuria (PKU, an inherited condition in which a special diet must be followed to prevent damage to your brain that can cause severe intellectual disability), you should know that some brands of acetaminophen chewable tablets may be sweetened with aspartame, a source of phenylalanine. What SPECIAL DIETARY instructions should I follow? Unless your doctor tells you otherwise, continue your normal diet. What should I do IF I FORGET to take a dose? This medication is usually taken as needed. If your doctor has told you to take acetaminophen regularly, take the missed dose as soon as you remember it. However, if it is almost time for the next dose, skip the missed dose and continue your regular dosing schedule. Do not take a double dose to make up for a missed one. What SIDE EFFECTS can this medicine cause? o Some side effects can be serious. If you experience any of the following symptoms, stop taking acetaminophen and call your doctor immediately or get emergency medical attention: o red, peeling or blistering skin o rash o hives o itching o swelling ofthe face, throat, tongue, lips, eyes, hands, feet, ankles, or lower legs o hoarseness o difficulty breathing or swallowing Acetaminophen may cause other side effects. Call your doctor if you have any unusual problems whileyou are taking this medication. If you experience a serious side effect, you or your doctor may send a report to the Food and Drug Administration's (FDA) MedWatch Adverse Event Reporting program online (http://www.fda.gov/Safety/MedWatch) or by phone ( ). What should I know about STORAGE and DISPOSAL of this medication? Keep this medication in the container it came in, tightly closed, and out of reach of children. Store it at room temperature and away from excess heat and moisture (not in the bathroom). It is important to keep all medication out of sight and reach of children as many containers (such as weekly pill minders and those for eye drops, creams, patches, and inhalers) are not child-resistant and young children can open them easily. To protect young children from poisoning, always lock safety caps and immediately place the medication in a safe location ??? one that is up and away and out of their sight and reach. http://www.upandaway.org Unneeded medications should be disposed of in special ways to ensure that pets, children, and otherpeople cannot consume them. However, you should not flush this medication down the toilet. Instead,the best way to dispose of your medication is through a medicine take-back program. Talk to your pharmacist or contact your local garbage/recycling department to learn about take-back programs in your community. See the FDA's Safe Disposal of Medicines website (http://goo.gl/c4Rm4p) for more information if you do not have access to a take- back program. What should I do in case of OVERDOSE? In case of overdose, call the poison control helpline at . Information is also available online at https://www.poisonhelp.org/help. If the victim has collapsed, had a seizure, has trouble breathing, or can't be awakened, immediately call emergency services at 626. If someone takes more than the recommended dose of acetaminophen, get medical help immediately, even if the person does not have any symptoms. Symptoms of overdose may include the following: o nausea o vomiting o loss of appetite o sweating o extreme tiredness o unusual bleeding or bruising o pain in the upper right part of the stomach o yellowing of the skin or eyes o flu-like symptoms What OTHER INFORMATION should I know? Before having any laboratory test, tell your doctor and the laboratory personnel that you are taking acetaminophen. Ask your pharmacist any questions you have about acetaminophen. It is important for you to keep a written list of all of the prescription and nonprescription ([id number]) medicines you are taking, as well as any products such as vitamins, minerals, or otherdietary supplements. You should bring this list with you each time you visit a doctor or if you areadmitted to a hospital. It is also important information to carry with you in case of emergencies. This report on medications is for your information only, and is not considered individual patient advice. Because of the changing nature of drug information, please consult your physician or pharmacist about specific clinical use. The [employer] represents that the information provided hereunder was formulated with a reasonable standard of care, and in conformity with professional standards in the field. The [employer] makes no representations or warranties, express or implied, including, but not limited to, any implied warranty of merchantability and/or fitness for a particular purpose, with respect to such information and specifically disclaims all such warranties. Users are advised that decisions regarding drug therapy are complex medical decisions requiring the independent, informed decision of an appropriate health youth care professional, and the information is provided for informational purposes only. The entire monograph for a drug should be reviewed for a thorough understanding of the drug's actions, uses and side effects. The [employer] does not endorse or recommend the use of any drug.The information is not a substitute for medical care. AHFS?? Patient Medication Information???. ?? Copyright, 2023. [employer]??, [address], [address], [place], [place]. All Rights Reserved. Duplication for commercial use must be authorized by [facility]. Selected Revisions: January 09, 2023. AHFS?? Patient Medication Information???. ?? Copyright, 2023 ?? * Heidy Carvalho RN: PERFORM Event Display: Patient Education Leaflets Authored Date: [id number] Oxycodone ?? [id number] Oxycodone Brand Name(s): Oxaydo??, Oxycontin??, Roxicodone??, Roxybond??, Xtampza?? ER, Combunox?? (as a combination product containing Ibuprofen, Oxycodone), Narvox?? (as a combination product containing Acetaminophen, Oxycodone), Oxycet?? (as a combination product containing Acetaminophen, Oxycodone), Percocet?? (as a combination product containing Acetaminophen, Oxycodone), Percodan?? (as a combination product containing Aspirin, Oxycodone), Roxicet?? (as a combination product containing Acetaminophen, Oxycodone), Roxilox?? (as a combination product containing Acetaminophen, Oxycodone), Roxiprin?? (as a combination product containing Aspirin, Oxycodone), Targiniq?? ER (as a combination product containing naloxone, oxycodone), Troxyca ER?? (as a combination product containing Naltrexone, Oxycodone), Tylox?? (as a combination product containing Acetaminophen, Oxycodone), Xartemis XR?? (as a combination product containing Acetaminophen, Oxycodone); also available generically IMPORTANT WARNING: Oxycodone may be habit-forming. Take oxycodone exactly as directed. Do not take more of it, take itmore often, or take it in a different way than directed by your doctor. While taking oxycodone, discuss with your healthcare provider your pain treatment goals, length of treatment, and other ways tomanage your pain. Tell your doctor if you or anyone in your family drinks or has ever drunk large amounts of alcohol, uses or has ever used street drugs, or has overused prescription medications, or has had an overdose, or if you have or have ever had depression or another mental illness. There is a greater risk that you will overuse oxycodone if you have or have ever had any of these conditions.Talk to your healthcare provider immediately and ask for guidance if you think that you have an opioid addiction or call the U.S. Substance Abuse and Mental Health Services Administration (SAMHSA) National Helpline at 5-905-713-OUSE. Oxycodone may cause serious or life-threatening breathing problems, especially during the first 24 to 72 hours of your treatment and any time your dose is increased. Your doctor will monitor you carefully during your treatment. Tell your doctor if you have or have ever had slowed breathing or asthma. Your doctor will probably tell you not to take oxycodone. Also tell your doctor if you have or have ever had lung disease such as chronic obstructive pulmonary disease (COPD; a group of diseases that affect the lungs and airways), a head injury a brain tumor, or any condition that increases the amount of pressure in your brain. The risk that you will develop breathing problems may be higher if you are an older adult or are weak or malnourished due to disease. If you experience any of the following symptoms, call your doctor immediately or get emergency medical treatment: slowed breathing, long pauses between breaths, or shortness of breath. Do not allow anyone else to take your medication. Oxycodone may harm or cause to other peoplewho take your medication, especially children. Keep oxycodone in a safe place so that no one else can take it accidentally or on purpose. Be especially careful to keep oxycodone out of the reach of children. Keep track of how many capsules, tablets, or oral solution is left so you will know if any medication is missing. Taking certain other medications with oxycodone may increase the risk of serious or life-threatening breathing problems, sedation, or coma. Tell your doctor and pharmacist what other prescription andnonprescription medications, vitamins, nutritional supplements, and herbal products you are taking or plan to take. Your doctor may need to change the doses of your medication and will monitor you carefully. If you take oxycodone with other medications and you develop any of the following symptoms,call your doctor immediately or seek emergency medical care: unusual dizziness, lightheadedness, extreme sleepiness, slowed or difficult breathing, or unresponsiveness. Be sure that your caregiver orfamily members know which symptoms may be serious so they can call the doctor or emergency medical care if you are unable to seek treatment on your own. Drinking alcohol, taking prescription or nonprescription medications that contain alcohol, or usingstreet drugs during your treatment with oxycodone increases the risk that you will experience serious, life-threatening side effects. Do not drink alcohol, take prescription or nonprescription medications that contain alcohol, or use street drugs during your treatment. If you are taking the oxycodone extended-release tablets, swallow them whole; do not chew, break, divide, crush, or dissolve them. Do not presoak, lick or otherwise wet the tablet prior to placing inthe mouth. Swallow each tablet right after you put it in your mouth. If you swallow broken, chewed,crushed, or dissolved extended-release tablets, you may receive too much oxycodone at once instead of slowly over 12 hours. This may cause serious problems, including overdose and . Oxycodone comes as a regular solution (liquid) and as a concentrated solution that contains more oxycodone in each milliliter of solution. Be sure that you know whether your doctor has prescribed theregular or concentrated solution and the dose in milliliters that your doctor has prescribed. Use the dosing cup, oral syringe, or dropper provided with your medication to carefully measure the number of milliliters of solution that your doctor prescribed. Read the directions that come with your medication carefully and ask your doctor or pharmacist if you have any questions about how to measure your dose or how much medication you should take. You may experience serious or life threatening side effects if you take an oxycodone solution with a different concentration or if you take a different amount of medication than prescribed by your doctor. Store oxycodone in a safe place so that no one else can take it accidentally or on purpose. Be especially careful to keep oxycodone out of the reach of children. Keep track of how many tablets or capsules, or how much liquid is left so you will know if any medication is missing. Dispose of unwantedcapsules, tablets, extended-release tablets, extended-release capsules, and liquid properly according to instructions. (See STORAGE and DISPOSAL). Tell your doctor if you are or plan to become . If you take oxycodone regularly during your , your baby may experience life- threatening withdrawal symptoms after . Tellyour baby's doctor right away if your baby experiences any of the following symptoms: irritability, hyperactivity, abnormal sleep, high-pitched cry, uncontrollable shaking of a part of the body, vomiting, diarrhea, or failure to gain weight. Talk to your doctor about the risks of taking oxycodone. Your doctor or pharmacist will give you the cinder pit crane operator's patient information sheet (Medication Guide) when you begin your treatment with oxycodone and each time you fill your prescription. Read theinformation carefully and ask your doctor or pharmacist if you have any questions. You can also visit the Food and Drug Administration (FDA) website (http://www.fda.gov/Drugs/DrugSafety/baa375443.htm) or the cinder pit crane operator's website to obtain the Medication Guide. WHY is this medicine prescribed? Oxycodone immediate-release tablets, capsules, and oral solution are used to relieve severe, acute pain (pain that begins suddenly, has a specific cause, and is expected to go away when the cause of the pain is healed) in people who are expected to need an opioid pain medication and who cannot be treated with other pain medications. Oxycodone extended-release tablets and extended-release capsulesare used to relieve severe pain in people who are expected to need pain medication around the clockfor a long time and who cannot be treated with other medications. Oxycodone extended-release tablets and extended-release capsules should not be used to treat pain that can be controlled by medication that is taken as needed. Oxycodone concentrated solution should only be used to treat people who are tolerant (used to the effects of the medication) to opioid medications because they have taken this type of medication for at least one week. Oxycodone is in a class of medications called opiate (narcotic) analgesics. It works by changing the way the brain and nervous system respond to pain. Oxycodone is also available in combination with acetaminophen (Oxycet, Percocet, others) and aspirin (Percodan). This monograph only includes information about the use of oxycodone alone. If you are taking an oxycodone combination product, be sure to read information about all the ingredients in the product you are taking and ask your doctor or pharmacist for more information. HOW should this medicine be used? Oxycodone comes as a solution (liquid), a concentrated solution, a tablet, a capsule, an extended-release (long-acting) tablet (Oxycontin), and an extended- release capsule (Xtampza ER) to take by mouth. The solution, concentrated solution, tablet, and capsule are taken usually with or without food every 4 to 6 hours, either as needed for pain or as regularly scheduled medications. The extended-release tablets (Oxycontin) are taken every 12 hours with or without food. The extended-release capsules (Xtampza ER) are taken every 12 hours with food; eat the same amount of food with each dose. Follow the directions on your prescription label carefully, and ask your doctor or pharmacist to explainany part you do not understand. Take oxycodone exactly as directed. If you are taking the extended-release tablets (Oxycontin), swallow the tablets one at a time with plenty of water. Swallow the tablet or right after putting it in your mouth. Do not presoak, wet, orlick the tablets before you put them in your mouth. Do not chew or crush extended-release tablets. If you have trouble swallowing extended-release capsules (Xtampza ER), you can carefully open the capsule and sprinkle the contents on soft foods such as applesauce, pudding, yogurt, ice cream, or jam, then consume the mixture immediately. Dispose of the empty capsule shells right away by flushing them down a toilet. Do not store the mixture for future use. If you have a feeding tube, the extended-release capsule contents can be poured into the tube. Ask your doctor how you should take the medication and follow these directions carefully. Your doctor may adjust your dose of oxycodone during your treatment, depending on how well your pain is controlled and on the side effects that you experience. Talk to your doctor about how you are feeling during your treatment with oxycodone. Tell your doctor if you feel that your pain is not controlled or if your pain increases, becomes worse, or if you have new pain or an increased sensitivityto pain during your treatment with oxycodone. Do not take more of it or take it more often than prescribed by your doctor. Do not stop taking oxycodone without talking to your doctor. If you stop taking oxycodone suddenly,you may experience withdrawal symptoms such as restlessness, watery eyes, runny nose, sneezing, yawning, sweating, chills, muscle or joint aches or pains, weakness, irritability, anxiety, depression,difficulty falling asleep or staying asleep, cramps, nausea, vomiting, diarrhea, loss of appetite, fast heartbeat, and fast breathing. Your doctor will probably decrease your dose gradually. Are there OTHER USES for this medicine? This medication may be prescribed for other uses; ask your doctor or pharmacist for more information. What SPECIAL PRECAUTIONS should I follow? Before taking oxycodone, ??? tell your doctor and pharmacist if you are allergic to oxycodone, any other medications, or anyof the ingredients in the oxycodone product you plan to take. Ask your pharmacist or check the Medication Guide for a list of the ingredients. ??? tell your doctor or pharmacist if you are taking thefollowing medications or have stopped taking them within the past two weeks: isocarboxazid (Marplan), linezolid (Zyvox), methylene blue, phenelzine (Nardil), selegiline (Emsam, Zelapar), or tranylcypromine (Parnate). ??? The following nonprescription or herbal products may interact with oxycodone: Afsaneh's wort and tryptophan. Be sure to let your doctor and pharmacist know that you are taking these medications before you start taking oxycodone. Do not start these medications while taking oxycodone without discussing it with your healthcare provider. ??? tell your doctor if you have or have ever had any of the conditions mentioned in the IMPORTANT WARNING section, a blockage or narrowing of your stomach or intestines, or paralytic ileus (condition in which digested food does not move through the intestines). Your doctor may tell you not to take oxycodone. ??? Also tell your doctor if you have or have ever had low blood pressure; seizures; adrenal insufficiency (condition in which theadrenal glands do not produce enough of certain hormones needed for important body functions); seizures; urethral stricture (blockage of the tube that allows urine to leave the body), problems urinating; or heart, kidney, liver, pancreas, thyroid, or gall bladder disease. If you will be taking the extended-release tablets or extended-release capsules, also tell your doctor if you have or have ever had difficulty swallowing, diverticulitis (condition in which small pouches form in the intestinesand become swollen and infected), colon cancer (cancer that begins in the large intestine), or esophageal cancer (cancer that begins in the tube that connects the mouth and stomach). ??? tell your doctor if you are . You should not breastfeed while you are taking oxycodone. Oxycodone can cause shallow breathing, difficulty or noisy breathing, confusion, more than usual sleepiness, trouble , or limpness in breastfed infants. ??? you should know that this medication may decrease fertility in men and women. Talk to your doctor about the risks of taking oxycodone. ??? ifyou are having surgery, including dental surgery, tell the doctor or dentist that you are taking oxycodone. ??? you should know that this medication may make you drowsy. Do not drive a car, operate heavy machinery, or participate in any other possibly dangerous activities until you know how this medication affects you. ??? you should know that oxycodone may cause dizziness, lightheadedness, and fa inting when you get up too quickly from a lying position. To help avoid this problem, get out of bed slowly, resting your feet on the floor for a few minutes before standing up. ??? you should know that oxycodone may cause constipation. Talk to your doctor about changing your diet or using other medications to prevent or treat constipation while you are taking oxycodone. What SPECIAL DIETARY instructions should I follow? Unless your doctor tells you otherwise, continue your normal diet. What should I do IF I FORGET to take a dose? If you are taking oxycodone on a regular schedule, take the missed dose as soon as you remember it.However, if it is almost time for the next dose, skip the missed dose and continue your regular dosing schedule. Do not take a double dose to make up for a missed one. Do not take more than one dose of the extended- release tablets or capsules in 12 hours. What SIDE EFFECTS can this medicine cause? Oxycodone may cause side effects. Tell your doctor if any of these symptoms, are severe or do not go away: ??? dry mouth ??? stomach pain ??? drowsiness ??? flushing ??? headache ??? mood changes ??? Some side effects can be serious. If you experience any of these symptoms or those mentioned in the IMPORTANT WARNING section, call your doctor immediately or get emergency medical help: ??? changes in heartbeat ??? agitation, hallucinations (seeing things or hearing voices that do not exist), fever, sweating, confusion, fast heartbeat, shivering, severe muscle stiffness or twitching, loss of coordination, or diarrhea ??? nausea, vomiting, loss of appetite, weakness, or dizziness ??? inability to get or keep an erection ??? irregular menstruation ??? decreased sexual desire ??? chest pain ??? rash; i tching; hives; hoarseness; difficulty breathing or swallowing; or swelling of the face, mouth, tongue, lips, or throat ??? swelling of the hands, feet, ankles, or lower legs ??? seizures ??? extreme drowsiness If you experience a serious side effect, you or your doctor may send a report to the Food and Drug Administration's (FDA) MedWatch Adverse Event Reporting program online (http://www.fda.gov/Safety/MedWatch) or by phone ( ). Oxycodone may cause other side effects. Call your doctor if you have any unusual problems while youare taking this medication. What should I know about STORAGE and DISPOSAL of this medication? Keep this medication in the container it came in, tightly closed, and out of reach of children, andin a location that is not easily accessible by others, including visitors to the home. Store it at room temperature and away from light and excess heat and moisture (not in the bathroom). You must immediately dispose of any medication that is outdated or no longer needed through a medicine take-back program. If you do not have a take-back program nearby or one that you can access promptly, flush any medication that is outdated or no longer needed down the toilet so that others will not take it.Talk to your pharmacist about the proper disposal of your medication. It is important to keep all medication out of sight and reach of children as many containers (such as weekly pill minders and those for eye drops, creams, patches, and inhalers) are not child-resistant and young children can open them easily. To protect young children from poisoning, always lock safety caps and immediately place the medication in a safe location ??? one that is up and away and out of their sight and reach. http://www.upandaway.org What should I do in case of OVERDOSE? In case of overdose, call the poison control helpline at . Information is also available online at https://www.poisonhelp.org/help. If the victim has collapsed, had a seizure, has trouble breathing, or can't be awakened, immediately call emergency services at 331. While taking oxycodone, you should talk to your doctor about having a rescue medication called naloxone readily available (e.g., home, office). Naloxone is used to reverse the life-threatening effects of an overdose. It works by blocking the effects of opiates to relieve dangerous symptoms caused by high levels of opiates in the blood. Your doctor may also prescribe you naloxone if you are livingin a household where there are small children or someone who has abused street or prescription drugs. You should make sure that you and your family members, caregivers, or the people who spend time with you know how to recognize an overdose, how to use naloxone, and what to do until emergency medical help arrives. Your doctor or pharmacist will show you and your family members how to use the medication. Ask your pharmacist for the instructions or visit the cinder pit crane operator's website to get the instructions. If symptoms of an overdose occur, a caregiver or family member should give the first dose of naloxone, call 911 immediately, and stay with you and watch you closely until emergency medical help arrives.Your symptoms may return within a few minutes after you receive naloxone. If your symptoms return, the person should give you another dose of naloxone. Additional doses may be given every 2 to 3 minutes, if symptoms return before medical help arrives. Symptoms of overdose may include the following: ??? difficulty breathing ??? slowed or shallow breathing ??? excessive sleepiness ??? limp or weak muscles ??? narrowing or widening of the pupils (dark [place]aga in the eye) ??? cold, clammy skin ??? unable to respond or wake up ??? slowed heartbeat ??? unusual snoring What OTHER INFORMATION should I know? Keep all appointments with your doctor. Your doctor may order certain lab tests to check your body's response to oxycodone. Before having any laboratory test (especially those that involve methylene blue), tell your doctor and the laboratory personnel that you are taking oxycodone. This prescription is not refillable. If you continue to have pain after you finish the oxycodone, call your doctor. It is important for you to keep a written list of all of the prescription and nonprescription ([id number]) medicines you are taking, as well as any products such as vitamins, minerals, or otherdietary supplements. You should bring this list with you each time you visit a doctor or if you areadmitted to a hospital. It is also important information to carry with you in case of emergencies. This report on medications is for your information only, and is not considered individual patient advice. Because of the changing nature of drug information, please consult your physician or pharmacist about specific clinical use. The [employer] represents that the information provided hereunder was formulated with a reasonable standard of care, and in conformity with professional standards in the field. The [employer] makes no representations or warranties, express or implied, including, but not limited to, any implied warranty of merchantability and/or fitness for a particular purpose, with respect to such information and specifically disclaims all such warranties. Users are advised that decisions regarding drug therapy are complex medical decisions requiring the independent, informed decision of an appropriate health youth care professional, and the information is provided for informational purposes only. The entire monograph for a drug should be reviewed for a thorough understanding of the drug's actions, uses and side effects. The [employer] does not endorse or recommend the use of any drug.The information is not a substitute for medical care. AHFS?? Patient Medication Information???. ?? Copyright, 2023. The [employer]??, [address], [address], [place], [place]. All Rights Reserved. Duplication for commercial use must be authorized by [facility]. Selected Revisions: July 10, 2023. AHFS?? Patient Medication Information???. ?? Copyright, 2023 ?? Patient Care team information Care Team Personnel Name: Nicci Burnett RN Position: [facility] RN Member Role: Primary Care Nurse Name: Madie Venegas RN Position: [facility] RN Member Role: Primary Care Nurse Name: Madie Tran Position: [facility] Outreach Member Role: Lifetime Consulting Physician Name: Lizabeth Maguire RN Position: [facility] RN Member Role: Primary Care Nurse Name: Ela Montes RN Position: [facility] RN Member Role: Primary Care Nurse Name: Mariama Moran RN Position: [facility] RN Member Role: Primary Care Nurse Name: Humbel Baeza RN Position: [facility] RN Member Role: Primary Care Nurse Name: Elvira Arias MD Position: [facility] Physician - Primary Care Member Role: PCP Address: Address: [address] [place] [address]- Name: Tonya Juarez MD Position: [facility] GUEST RELATIONS REPRESENTATIVE MD Member Role: Lifetime GUEST RELATIONS REPRESENTATIVE Physician Address: Address: [address] [place], [place] [address]s [facility] [place] [address]- Care Team Related Persons Name: TAMIKA RODRIGUEZ Address: home [address] [place] [address] Name: ALDAIR RODRIGUEZ Address: home [address] [place] [address]
--- OUTSIDE RECORDS SUMMARY | 2024-02-02 02:59 | XMS_ITS | Continuity of Care Document ---
Author Organization [facility] Address [address] [place] [address]- Care Team Providers Care General Production Manager Name Role Phone Elvira Arias MD Primary Care Physician [phone] Encounter [facility] Date(s): 12/10/23 - 01/09/[address] [address] Attending Physician: Yamilet العراقي Admitting Physician: AdmYamilet roy Referring Physician: Admtr, Ar8 Allergies, Adverse Reactions, Alerts Substance Reaction Severity Status Bactrim vomit Intermittent Active Medications acetaminophen 325 mg oral tablet 975 mg, By Mouth, 3 times a day, 3 times daily until pain is improved, # 90 tablet, Refills 0, Tot.Refills 0, Maintenance, 12/01/23 9:35:00 EDT, Route to Pharmacy Electronically, [facility], Partial fill upon patient request if the pres... Start Date: 12/01/23 Status: Ordered aspirin 81 mg oral delayed release tablet 81 mg, By Mouth, Daily, # 90 tablet, Refills 0, Tot. Refills 0, Maintenance, 12/01/23 9:35:00 EDT, [facility] Partial fill upon patient request if theprescription is for a schedule II opioid drug., 151... Start Date: 12/01/23 Status: Ordered gabapentin 600 mg oral tablet = 600 mg, By Mouth, Daily at bedtime, # 30 tablet, 6 Refills, Maintenance, 12/22/23 14:13:00 EDT, Tablet, [facility]/pharmacy #[id number], Partial fill upon patient request if the prescription is for a schedule II opioid drug., 151, cm, 12/22/23 13:20:00 EDT, Heig... Start Date: 12/22/23 Stop Date: 07/19/24 Status: Ordered magnesium oxide 400 mg oral capsule 1 capsule = 400 mg, By Mouth, Daily, for 30 days, # 30 capsule, 6 Refills, Acute 07/19/24 14:12:00 EDT, 12/22/23 14:12:00 EDT, Capsule, [facility]/pharmacy #[id number], Partial fill upon patient request if the prescription is for a schedule II opioid drug., 151, c... Start Date: 12/22/23 Stop Date: 07/19/24 Status: Ordered MiraLax oral powder for reconstitution = 17 Gm, By Mouth, Daily, dissolve in 4 to 8 oz of beverage Take daily while on oxycodone for regular, soft bowel movements, # 238 Gm, 0 Refills, Maintenance, 12/01/23 9:37:00 EDT, REC Powder, [facility], Partial fill upon patient reque... Start Date: 12/01/23 Status: Ordered Provera 10 mg oral tablet 10 mg, 1, tablet, By Mouth, Daily, Start taking this medication on December 08, 2023 and continue twice daily estrace, # 7 tablet, Refills 0, Tot. Refills 0, Maintenance, 12/08/23 14:31:00 EDT, Route to Pharmacy Electronically, [facility]/pharmacy #[id number], Parti... Start Date: 12/08/23 Stop Date: 12/15/23 Status: Ordered tiZANidine 2 mg oral capsule 1 capsule = 2 mg, By Mouth, 2 times a day, # 60 capsule, 0 Refills, Maintenance, 12/01/23 10:21:00 EDT, Capsule, [facility], Partial fill upon patient [...] laparoscopy Confirmed Active 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 Social History Social History Type Response Smoking Status Never smoker entered on: 12/18/14 Sex Patient Care team information Care Team Personnel Name: Nicci Burnett RN Position: [facility] RN Member Role: Primary Care Nurse Name: Madie Venegas RN Position: [facility] RN Member Role: Primary Care Nurse Name: Madie Tran Position: [facility] Outreach Member Role: Lifetime Consulting Physician Name: Lizabeth Maguire RN Position: [facility] RN Member Role: Primary Care Nurse Name: Ela Montes RN Position: [facility] RN Member Role: Primary Care Nurse Name: Mariama Moran RN Position: [facility] RN Member Role: Primary Care Nurse Name: Humble Baeza RN Position: [facility] RN Member Role: Primary Care Nurse Name: Elvira Arias MD Position: [facility] Physician - Primary Care Member Role: PCP Address: Address: [address] [place] [address]- Name: Tonya Juarez MD Position: [facility] BOX NAILER MD Member Role: Lifetime BOX NAILER Physician Address: Address: [address] [place] [address]'s [facility] [place] [address]- Care Team Related Persons Name: BETY RODRIGUEZ Address: home [address] [place] [address] Name: ALDAIR RODRIGUEZ Address: home [address] [place] [address]
--- OUTSIDE RECORDS SUMMARY | 2024-02-02 02:59 | XMS_ITS | Continuity of Care Document ---
Author Organization [facility] Address [address] [place] [address]- Care Team Providers Care Real Estate Operations Manager Name Role Phone Elvira Arias MD Primary Care Physician Encounter [facility] Date(s): 11/08/19 - 12/14/19 [facility] [address] [place] [address]- [facility] Attending Physician: Nahed Fay CNM Referring Physician: Elvira Arias MD Allergies, Adverse Reactions, Alerts Substance Reaction Severity Status Bactrim vomit Intermittent Active Medications 19 (Orient) oral tablet 1 tablet, By Mouth, Daily, # 30 tablet, 0 Refills, Maintenance, 11/14/19 15:35:00 EDT Start Date: 11/14/19 Status: Ordered Problem List Condition Effective Dates Status Health Status Inform ant Anxiety(Confirmed) Active Cyclic neutropenia(Confirmed) Active Depressive disorder(Confirmed) Active RhD negative(Confirmed) Active Social History Social History Type Response Smoking Status Never smoker entered on: 12/18/14 Sex
--- OUTSIDE RECORDS SUMMARY | 2024-02-02 02:59 | XMS_ITS | Continuity of Care Document ---
Author Organization [facility] Address [address] [facility] [place] [address]- Care Team Providers Care Social Media Designer Name Role Phone Elvira Arias MD Primary Care Physician Encounter [facility] Date(s): 10/27/22 - 11/26/22 [facility] [address] [facility], 4th [address] [place] [address]- Allergies, Adverse Reactions, Alerts Substance Reaction Severity Status Bactrim vomit Intermittent Active Medications aspirin 81 mg oral delayed release tablet 1 tablet = 81 mg, By Mouth, Daily, 0 Refills, Maintenance, 10/01/22 8:27:00 EDT, Partial fill upon patient request if the prescription is for a schedule II opioid drug. Start Date: 10/01/22 Status: Ordered letrozole 2.5 mg oral tablet 1 tablet = 2.5 mg, By Mouth, Daily, start medication on day 3 of cycle. to be taken cycle days 3-7., # 5 tablet, 3 Refills, Maintenance, 11/04/22 14:16:00 EDT, [facility]/pharmacy #[id number], Partial fill upon patient request if the prescription is for a schedule... Start Date: 11/04/22 Stop Date: 11/24/22 Status: Ordered Multivitamin Tablet 0 Refills, Maintenance, 01/14/22 18:44:00 EDT, Partial fill upon patient request if the prescription is for a schedule II opioid drug. Start Date: 01/14/22 Status: Ordered Ovidrel 250 mcg/0.5 mL subcutaneous solution = 250 mcg, Subcutaneous Injection, Once, take medication only when directed, # 1 each, 3 Refills, Soft Stop, 11/04/22 14:16:00 EDT, [facility], Partial fill upon patient request if the prescription is for a schedule II opioid drug., 1... Start Date: 11/04/22 Status: Ordered Prometrium 200 mg oral capsule 1 capsule = 200 mg, Vaginally, 2 times a day, Start meds three days after peak of OPK, # 90 capsule, 2 Refills, Acute 10/03/23 8:36:00 EDT, 10/01/22 8:35:00 EDT, [facility]/pharmacy #[id number], Partial fill uponpatient request if the prescription is for a schedu... Start Date: 10/01/22 Stop Date: 10/03/23 Status: Ordered Problem List Condition Confirmation Course Effective Dates Status Health St atus Informant Anxiety Confirmed Active Cyclic neutropenia Confirmed Active Depressive disorder Confirmed Active History of kidney stones Confirmed Active Status post laparoscopy Confirmed Active 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 Social History Social History Type Response Smoking Status Never smoker entered on: 12/18/14 Sex Patient Care team information Care Team Personnel Name: Madie Tran Position: [facility] Outreach Member Role: Lifetime Consulting Physician Name: Elvira Arias MD Position: [facility] Physician - Primary Care Member Role: PCP Address: Address: [address] [place] [address]- Name: Ann MCGARRY, Tonya Porter Position: [facility] MANAGER PORTABLE MD Member Role: Lifetime MANAGER PORTABLE Physician Address: Address: [address] [place] [address] [facility] [place] [address]- Care Team Related Persons Name: BETY RODRIGUEZ Address: home [address] [place] [address]
--- OUTSIDE RECORDS SUMMARY | 2024-02-02 02:59 | XMS_ITS | Continuity of Care Document ---
Author Organization [facility] [employer] [employer] [facility] Address [address] [facility], [address], [place] [address]- Care Team Providers Care Baker Paint Name Role Phone Elvira Arias MD Primary Care Physician [phone] Encounter [id number] Date(s): 03/26/21 - 04/25/21 [facility] [employer] [facility] [address] [facility] [place], [place] [address] Allergies, Adverse Reactions, Alerts Substance Reaction Severity Status Bactrim vomit Intermittent Active Medications ibuprofen 400 mg oral tablet 400 mg, 1, tablet, By Mouth, Every 6 hours, PRN, # 20 tablet, Refills 0, Tot. Refills 0, Maintenance, for pain, 02/21/21 23:18:00 EDT, Route to Pharmacy Electronically, [facility]/pharmacy #[id number], Partial fill upon patient request if the prescription is for a... Start Date: 02/21/21 Status: Ordered ibuprofen 800 mg oral tablet 800 mg, 1, tablet, By Mouth, 3 times a day, # 90 tablet, Refills 0, Tot. Refills 0, Maintenance, 02/27/21 17:05:00 EDT, Route to Pharmacy Electronically, [facility]/pharmacy #[id number], Partial fill upon patientrequest if the prescription is for a schedule II op... Start Date: 02/27/21 Status: Ordered ondansetron 4 mg oral tablet, disintegrating 1 tablet = 4 mg, By Mouth, Every 8 hours, PRN Nausea & Vomiting, # 10 tablet, 0 Refills, Maintenance, 02/21/21 23:18:00 EDT, Tablet, [facility]/pharmacy #[id number], Partial fill upon patient request if the prescription is for a schedule II opioid drug., 150, cm,... Start Date: 02/21/21 Status: Ordered oxyCODONE 5 mg oral capsule 1 capsule = 5 mg, By Mouth, Every 6 hours, PRN for pain, for severe post- operative pain, # 10 capsule, 0 Refills, Maintenance, 02/27/21 17:05:00 EDT, Capsule, [facility]/pharmacy #[id number], Partial fill upon patient request if the prescription is for a schedule... Start Date: 02/27/21 Status: Ordered Tylenol 325 mg oral capsule 2 capsule = 650 mg, By Mouth, Every 6 hours, PRN as needed for pain, # 40 capsule, 0 Refills, Maintenance, 02/21/21 23:18:00 EDT, Capsule, [facility]/pharmacy [facility][id number], Partial fill upon patient request if theprescription is for a schedule II opioid drug., 150... Start Date: 02/21/21 Status: Ordered Problem List Condition Effective Dates Status Health Status Inform ant Anxiety(Confirmed) Active Cyclic neutropenia(Confirmed) Active Depressive disorder(Confirmed) Active Status post laparoscopy(Confirmed) Active RhD negative(Confirmed) Active Social History Social History Type Response Smoking Status Never smoker entered on: 12/18/14 Sex
--- OUTSIDE RECORDS SUMMARY | 2024-02-02 02:59 | XMS_ITS | Continuity of Care Document ---
Author Organization [facility] Address [address] [facility], 4t h Floor [address] [place] [address]- Care Team Providers Care Epic Trainer Name Role Phone Elvira Arias MD Primary Care Physician [place] [facility] [place]22 - 08/03/22 [facility] [address] [place] [address], 4th Floor [address] [place] [address]- Allergies, Adverse Reactions, Alerts Substance Reaction Severity Status Bactrim vomit Intermittent Active Medications Multivitamin Tablet 0 Refills, Maintenance, 01/14/22 18:44:00 EDT, Partial fill upon patient request if the prescription is for a schedule II opioid drug. Start Date: 01/14/22 Status: Ordered Problem List Condition Confirmation Course [...] Care Team Personnel Name: Madie Tran Position: [facility] Outreach Member Role: Lifetime Consulting Physician Name: Elvira Arias MD Position: [facility] Physician (General Medicine) Member Role: PCP Address: Address: [address] [place] [address]- Name: Tonya Juarez MD Position: [facility] SEWING MACHINES SALESPERSON MD Member Role: Lifetime SEWING MACHINES SALESPERSON Physician Address: Address: [address] [place] [address] [facility] [place] [address]- Care Team Related Persons Name: BETY RODRIGUEZ Address: home [address] [place] [address]
--- OUTSIDE RECORDS SUMMARY | 2024-02-02 02:59 | XMS_ITS | Continuity of Care Document ---
Author Organization [facility] Address [address] [place] [address]- Care Team Providers Care Cloth Shrinking Tester Name Role Phone Elvira Arias MD Primary Care Physician Encounter [place] Date(s): 12/03/23 - 01/09/[address] [address] Encounter Diagnosis Procedure and treatment not carried out, unspecified reason(Final) - Discharge Disposition: A-D/C Home Attending Physician: Vicenta Nguyen MD Admitting Physician: Vicenta Nguyen MD Referring Physician: Vicenta Nguyen MD Allergies, Adverse Reactions, Alerts Substance Reaction Severity Status Bactrim vomit Intermittent Active Medications acetaminophen 325 mg oral tablet 975 mg, By Mouth, 3 times a day, 3 times daily until pain is improved, # 90 tablet, Refills 0, Tot.Refills 0, Maintenance, 12/01/23 9:35:00 EDT, Route to Pharmacy Electronically, [facility], Partial fill upon patient request if the pres... Start Date: 12/01/23 Status: Ordered aspirin 81 mg oral delayed release tablet 81 mg, By Mouth, Daily, # 90 tablet, Refills 0, Tot. Refills 0, Maintenance, 12/01/23 9:35:00 EDT, Route to Pharmacy Electronically, [facility], Partial fill upon patient request if theprescription is for a schedule II opioid drug., 151... Start Date: 12/01/23 Status: Ordered gabapentin 600 mg oral tablet = 600 mg, By Mouth, Daily at bedtime, # 30 tablet, 6 Refills, Maintenance, 12/22/23 14:13:00 EDT, Tablet, [facility]/pharmacy #[id number], Partial fill upon patient request if the prescription is for a schedule II opioid drug., 151, cm, 12/22/23 13:20:00 EDT, Heig... Start Date: 12/22/23 Stop Date: 07/19/24 Status: Ordered magnesium oxide 400 mg oral capsule 1 capsule = 400 mg, By Mouth, Daily, for 30 days, # 30 capsule, 6 Refills, Acute 07/19/24 14:12:00 EDT, 12/22/23 14:12:00 EDT, Capsule, [facility]/pharmacy #[id number], Partial fill upon patient [...] Refills, Maintenance, 12/01/23 9:37:00 EDT, REC Powder, [facility], Partial fill upon patient reque... Start Date: 12/01/23 Status: Ordered Provera 10 mg oral tablet 10 mg, 1, tablet, By Mouth, Daily, Start taking this medication on December 08, 2023 and continue twice daily estrace, # 7 tablet, Refills 0, Tot. Refills 0, Maintenance, 12/08/23 14:31:00 EDT, Route to Pharmacy Electronically, [facility]/pharmacy #[id number], Parti... Start Date: 12/08/23 Stop Date: 12/15/23 Status: Ordered tiZANidine 2 mg oral capsule 1 capsule = 2 mg, By Mouth, 2 times a day, # 60 capsule, 0 Refills, Maintenance, 12/01/23 10:21:00 EDT, Capsule, [facility], Partial fill upon patient [...] Team Personnel Name: Nicci Burnett RN Position: [facility] RN Member Role: Primary Care Nurse Name: Madie Venegas RN Position: [facility] RN Member Role: Primary Care Nurse Name: Madie Tran Position: [facility] Outreach Member Role: Lifetime Consulting Physician Name: Lizabeth Maguire RN Position: [facility] RN Member Role: Primary Care Nurse Name: Ela Montes RN Position: [facility] RN Member Role: Primary Care Nurse Name: Mariama Moran RN Position: [facility] RN Member Role: Primary Care Nurse Name: Humble Baeza RN Position: [facility] RN Member Role: Primary Care Nurse Name: Elvira Arias MD Position: [facility] Physician - Primary Care Member Role: PCP Address: Address: [address] [place] [address]- Name: Tonya Juarez MD Position: [facility] SHOE PACKER MD Member Role: Lifetime SHOE PACKER Physician Address: Address: [address] [place] [address] [employer] [place] [address]- Care Team Related Persons Name: BETY RODRIGUEZ Address: home [address] [place] [address] Name: ALDAIR RODRIGUEZ Address: home [address] [place] [address]
--- OUTSIDE RECORDS SUMMARY | 2024-02-02 02:59 | XMS_ITS | Continuity of Care Document ---
Author Organization [facility] Address [address] [address]- Care Team Providers Care Petroleum Products Sales Representative Name Role Phone Elvira Arias MD Primary Care Physician [phone] Encounter [facility] [place] Date(s): 02/21/22 - 03/23/22 [facility] [address] [place] [address] Allergies, Adverse Reactions, Alerts Substance Reaction Severity Status Bactrim vomit Intermittent Active Medications ibuprofen 400 mg oral tablet 400 mg, 1, tablet, By Mouth, Every 6 hours, PRN, # 20 tablet, Refills 0, Tot. Refills 0, Maintenance, for pain, 02/21/21 23:18:00 EDT, Route to Pharmacy Electronically, [facility]/pharmacy #[id number], Partial fill upon patient request if the prescription is for a... Start Date: 02/21/21 Status: Ordered ibuprofen 800 mg oral tablet 800 mg, 1, tablet, By Mouth, 3 times a day, # 90 tablet, Refills 0, Tot. Refills 0, Maintenance, 02/27/21 17:05:00 EDT, Route to Pharmacy Electronically, [facility]/pharmacy #[id number], Partial fill upon patientrequest if the prescription is for a schedule II op... Start Date: 02/27/21 Status: Ordered Multivitamin Tablet 0 Refills, Maintenance, 01/14/22 18:44:00 EDT, Partial fill upon patient request if the prescription is for a schedule II opioid drug. Start Date: 01/14/22 Status: Ordered ondansetron 4 mg oral tablet 1 tablet = 4 mg, By Mouth, Every 8 hours, PRN Nausea & Vomiting, # 10 tablet, 0 Refills, Acute 08/11/22 19:00:00 EDT, 08/10/21 19:00:00 EDT, Tablet, [id number], Partial fill upon patient request if the prescription is for a schedule II opioid... Start Date: 08/10/21 Stop Date: 08/11/22 Status: Ordered ondansetron 4 mg oral tablet, disintegrating 1 tablet = 4 mg, By Mouth, Every 8 hours, PRN Nausea & Vomiting, # 10 tablet, 0 Refills, Maintenance, 02/21/21 23:18:00 EDT, Tablet, [id number], Partial fill upon patient request [...] Date: 02/21/21 Status: Ordered Problem List Condition Confirmation Course Effective Dates Status [facility] at Informant Anxiety Confirmed Active COVID-19 1 Confirmed 08/10/21 Active Cyclic neutropenia Confirmed Active Depressive disorder Confirmed Active Status post laparoscopy Confirmed Active Pelvic pain Confirmed Active 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 1Problem added by Discern Expert Social History Social History Type Response Smoking Status Never smoker entered on: 12/18/14 Sex Patient Care team information Care Team Personnel Name: Madie Tran Position: [facility] Outreach Member Role: Lifetime Consulting Physician Name: Elvira Arias MD Position: [facility] Physician (General Medicine) Member Role: PCP Address: Address: [address] [place] [address] Name: Ann MCGARRY, Tonya [place] Position: [facility] BLOCK CABLEMAN MD Member Role: Lifetime BLOCK CABLEMAN Physician Address: Address: [address] [place] [address]'s [facility] [place]opedic [place] [address]- Care Team Related Persons Name: BETY RODRIGUEZ Address: home [address] [place] [address]
--- OUTSIDE RECORDS SUMMARY | 2024-02-02 02:59 | XMS_ITS | Continuity of Care Document ---
Author Organization [facility] Emmie nBangbites [facility] Address [address] [place] [address], [address] [place] [address]- Care Team Providers Care Agricultural Produce Commission Agent Name Role Phone Elvira Arias MD Primary Care Physician [id number] - 08/12/23 [facility] [employer] [facility] [address] [facility], 4th [place], [place] [address] Allergies, Adverse Reactions, Alerts Substance Reaction Severity Status Bactrim vomit Intermittent Active Medications acetaminophen 325 mg oral tablet 650 mg, 2, tablet, By Mouth, Every 4 hours, PRN, # 50 tablet, Refills 0, Tot. Refills 0, Maintenance, as needed for fever, 07/09/23 16:12:00 EDT, Route to Pharmacy Electronically, [facility]/pharmacy #[id number],Partial fill upon patient request if the prescripti... Start Date: 07/09/23 Status: Ordered ibuprofen 600 mg oral tablet 600 mg, 1, tablet, By Mouth, 4 times a day, PRN, # 40 tablet, Refills 0, Tot. Refills 0, Maintenance, for pain, 07/09/23 16:12:00 EDT, Route to Pharmacy Electronically, [facility]/pharmacy #[id number], Partial fill upon patient request if the prescription is for a... Start Date: 07/09/23 Status: Ordered Multivitamin Tablet 0 Refills, Maintenance, 01/14/22 18:44:00 EDT, Partial fill upon patient request if the prescription is for a schedule II opioid drug. Start Date: 01/14/22 Status: Ordered oxyCODONE 5 mg oral tablet 5 mg, 1, tablet, By Mouth, Every 6 hours, PRN, # 3 tablet, Refills 0, Tot. Refills 0, Maintenance, as needed for pain, 07/14/23 7:57:00 EDT, Route to Pharmacy Electronically, [facility]/pharmacy #[id number], Partial fill upon patient request if the prescription is... Start Date: 07/14/23 Status: Ordered Senna 8.6 mg oral tablet 17.2 mg, 2, tablet, By Mouth, Daily at bedtime, # 25 tablet, Refills 0, Tot. Refills 0, Maintenance, 07/14/23 7:57:00 EDT, Route to Pharmacy Electronically, [facility]/pharmacy #[id number], Partial fill upon patient request if the prescription is for a schedule II... Start Date: 07/14/23 Status: Ordered Problem List Condition Confirmation Course [...] Care Team Personnel Name: Madie Tran Position: [facility] Outreach Member Role: Lifetime Consulting Physician Name: Elvira Arias MD Position: [facility] Physician - Primary Care Member Role: PCP Address: Address: [address] [place] [address]- Name: Ann MCGARRY, Tonya Porter Position: [facility] DIVERSITY INTERN MD Member Role: Lifetime DIVERSITY INTERN Physician Address: Address: [address] [place] [address]'s [place] [address]- Care Team Related Persons Name: BETY RODRIGUEZ Address: home [address] [place] [address]
--- OUTSIDE RECORDS SUMMARY | 2024-02-02 02:59 | XMS_ITS | Continuity of Care Document ---
Author Organization [facility] e [facility] Address [address] [facility], 4t h Floor [address] [place] [address]- Care Team Providers Care Steel Roller Name Role Phone Elvira Arias MD Primary Care Physician [phone] Encounter [place] Date(s): 06/09/22 - 06/16/22 [facility] [address] [facility], 4th Floor [address] [place] [id number]- us Attending Physician: Natividad Mcneill MD Referring Physician: Rabia Alejo CNM Allergies, Adverse Reactions, Alerts Substance Reaction Severity [...] Care Team Personnel Name: Madie Tran Position: [facility] Outreach Member Role: Lifetime Consulting Physician Name: Elvira Arias MD Position: [facility] Physician (General Medicine) Member Role: PCP Address: Address: [address] [place] [address]- Name: Tonya Juarez MD Position: [facility] DEVELOPMENT TECHNOLOGIST MD Member Role: Lifetime DEVELOPMENT TECHNOLOGIST Physician Address: Address: [address] [place] [address] Women's Health Chemical [place] [address]- Care Team Related Persons Name: BETY RODRIGUEZ Address: home [address] [place] [address]
--- OUTSIDE RECORDS SUMMARY | 2024-02-02 02:59 | XMS_ITS | Continuity of Care Document ---
Author Organization [facility] Emmie nTriplePulses [facility] Address [address] [facility], [place], [place] [address]- Care Team Providers Care Sock Ironer Name Role Phone Elvira Arias MD Primary Care Physician [phone] Encounter [facility] Date(s): 10/15/23 - 10/22/23 [facility] [address] [facility], 4th [place] [address]- Attending Physician: Aniya Walters MD Referring Physician: Noah MCGARRY [OB], Madie Plascencia Allergies, Adverse Reactions, Alerts Substance Reaction Severity [...] laparoscopy Confirmed Active 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 Vital Signs Most recent to oldest [Reference Range]: 1 Height 151 cm (10/15/23 9:39 AM) Weight 58.1 kg (10/15/23 9:39 AM) Pulse Rate [55-90 bpm] 99 bpm *H* (10/15/23 9:39 AM) Body Mass Index [18.5-24.99 kg/m2] 25.48 kg/m2 *H* (10/15/23 9:39 AM) Blood Pressure [90-138/55-84 mm Hg] 111/ 75mm Hg (10/15/23 9:39 AM) Blood pressure sites Arm, right (10/15/23 9:39 AM) Dry Weight 58.1 kg (10/15/23 9:39 AM) Weight Obtained Via Standing scale (10/15/23 9:39 AM) Dry Weight Obtained Via Standing scale (10/15/23 9:39 AM) Social History Social History Type Response Smoking Status Never smoker entered on: 12/18/14 Sex Note * Alejandrina Orozco: PERFORM Event Display: Patient Education/Instruction Authored Date: Ambulatory Adult Visit Summary [facility] DRY STARCH OPERATOR [address] [place] [address] Name: SHAMA RODRIGUEZ : 1995?? Visit: 10/15/2023 09:29?? Ambulatory Visit Instructions ?? Your Care Team Primary Care Provider Elvira Arias MD? This Visit Provider Oliver Kaur Your Diagnosis Well woman exam Family history of breast cancer Vitals Signs Pulse Rate:??99 bpm??High Height: 151 cm Systolic Blood Pressure: 111 mm Hg Weight: 58.1 kg Diastolic Blood Pressure: 75 mm Hg Body Mass Index:??25.48 kg/m2??High ?? Body surface area: 1.56 What to do next Scheduled Follow-Up Appointments Thursday 1:30 PM EDT ?? With: Aidee CHANDLER, Home [place] Where: [facility] [address] [place] [address]- Status: Pending Follow-Up Appointments Follow Up with??Oliver Kaur Why: Annual Where: [address] [facility] DRY [place] [address]- Future Orders Beta HCG Serum (Females Only) - Once, *Est. 07/09/23 +/- 1 days, Future Order?? Medications The list below reflects the information in our records and provided by you today along with any changes made during this visit. Please continue your medications until treatment is completed or stopped by your provider. If this is different from the information you have or there are other questions,please contact the prescribing provider. What When Instructions Unchanged Multivitamin, (Multivitamin Tablet) Medications and Immunizations Administered Medications Given During Visit No medications given during this visit.?? Allergies (NKA means No Known Allergies) Bactrim??(vomit) Common Emergency Awareness Tips IS IT A [...] are strongly encouraged to quit. Please call [facility] at [phone] or 4-927-723Kids Quizine (8732) or log in to [email or web address] for referrals to smoking cessation programs. ?? The National Suicide Prevention Hotline is available 17/11 if you or someone you know needs to find a reason to keep living. By calling 1-207-274-ExecMobile (4656) you'll be connected to a skilled, trained counselor at a crisis center in your area. [facility] Portal You can view and manage your care through the patient portal or by using a health care eusebio of your choosing. Sina is a website that allows you to securely view your medical information including your hospital discharge summary, office visit summaries, medications and follow-up visits. You can also request appointments, renew medications, and request access to your medical information using a health care eusebio of your choosing, or just ask a question. You can enroll at [email or web address] or register during your next office visit. [facility], in keeping with [facility] guidance, no longer requires face masks [...] medical provider or home test kit. ?? Disclaimer: The information provided is of a general nature and is intended to be used in conjunction with the recommendations and advice of your health care practitioner. Every effort has been made to ensure that the information provided is accurate and complete at the time it is provided to you however, as your needs change, or, as new information becomes available, different or additional instructions may be required. ?? If you have questions, please consult with your primary care provider or pharmacist, as appropriate. This information is not intended to serve as substitution for assessment and evaluation by a qualified health care provider. If you do not have a primary care provider, you may find a [facility] provider by calling [facility] at [phone]. Patient Care team information Care Team Personnel Name: Madie Tran Position: [facility] Outreach Member Role: Lifetime Consulting Physician Name: Elvira Arias MD Position: [facility] Physician - Primary Care Member Role: PCP Address: Address: [address] [place] [address]- Name: Tonya Juarez MD Position: [facility] DRY STARCH OPERATOR MD Member Role: Lifetime DRY STARCH OPERATOR Physician Address: Address: [address] [place] [address] Women's Health Information [place] [address]- Care Team Related Persons Name: BETY RODRIGUEZ Address: home [address] [place] [address] Name: ALDAIR RODRIGUEZ Address: home [address] [place] [address]
--- OUTSIDE RECORDS SUMMARY | 2024-02-02 02:59 | XMS_ITS | Continuity of Care Document ---
Author Organization [facility] Emmie mcginnisModiv Mediare [facility] Address [address] [place] [address], [address] [address]- Care Team Providers Care Door To Door Fundraising Collector Name Role Phone Hugo MCGARRY, Elvira Ma Primary Care Physician [id number] Date[facility]): 04[facility]30[facility]21 - 05/07/21 [facility] [employer] [facility] [address] [facility], [address] [place], [place] [address] Attending Physician: Tonya Juarez MD Allergies, Adverse Reactions, Alerts Substance Reaction Severity Status Bactrim vomit Intermittent Active Medications ibuprofen 400 mg oral tablet 400 mg, 1, tablet, By Mouth, Every 6 hours, PRN, # 20 tablet, Refills 0, Tot. Refills 0, Maintenance, for pain, 02/21/21 23:18:00 EDT, Route to Pharmacy Electronically, [facility]/pharmacy #[id number], Partial fill upon patient request if the prescription is for a... Start Date: 02/21/21 Status: Ordered ibuprofen 800 mg oral tablet 800 mg, 1, tablet, By Mouth, 3 times a day, # 90 tablet, Refills 0, Tot. Refills 0, Maintenance, 02/27/21 17:05:00 EDT, Route to Pharmacy Electronically, [facility]/pharmacy #[id number], Partial fill upon patientrequest if the prescription is for a schedule II op... Start Date: 02/27/21 Status: Ordered ondansetron 4 mg oral tablet, disintegrating 1 tablet = 4 mg, By Mouth, Every 8 hours, PRN Nausea & Vomiting, # 10 tablet, 0 Refills, Maintenance, 02/21/21 23:18:00 EDT, Tablet, [facility]/pharmacy #[id number], Partial fill upon patient request [...] Status post laparoscopy(Confirmed) Active RhD negative(Confirmed) Active Vital Signs Most recent to oldest [Reference Range]: 1 Height 150 cm (04/30/21 3:49 PM) Weight 58.5 kg (04/30/21 3:49 PM) Pulse Rate [55-90 bpm] 98 bpm *H* (04/30/21 3:49 PM) Body Mass Index [18.5-24.99] 26 *H* (04/30/21 3:49 PM) Blood Pressure [90-138/55-84 mm Hg] 118/ 83mm Hg (04/30/21 3:49 PM) Blood pressure sites Arm, right (04/30/21 3:49 PM) Dry Weight 58.5 kg (04/30/21 3:49 PM) Weight Obtained Via Standing scale (04/30/21 3:49 PM) Dry Weight Obtained Via Standing scale (04/30/21 3:49 PM) Social History Social History Type Response Smoking Status Never smoker entered on: 12/18/14 Sex
--- OUTSIDE RECORDS SUMMARY | 2024-02-02 02:59 | XMS_ITS | Continuity of Care Document ---
Author Organization [facility] e Medicine Address [address] [facility], 4t h Floor [address] [place] [address]- Care Team Providers Care Recruitment Internship Name Role Phone Elvira Arias MD Primary Care Physician [phone] Encounter [facility] Date(s): 06/25/22 - 07/02/22 [facility] Reproductive Medicine [address] [facility], 4th Floor [address] [place] [address] Attending Physician: Asiya Pryor MD Referring Physician: Rabia Alejo CNM Allergies, [...] oldest [Reference Range]: 1 Height 150 cm (06/25/22 10:04 AM) Weight 57.5 kg (06/25/22 10:04 AM) Pulse Rate [55-90 bpm] 108 bpm *H* (06/25/22 10:04 AM) Body Mass Index [18.5-24.99 kg/m2] 25.56 kg/m2 *H* (06/25/22 10:04 AM) Blood Pressure [90-138/55-84 mm Hg] 121/ 82mm Hg (06/25/22 10:04 AM) Blood pressure sites Arm, right (06/25/22 10:04 AM) Weight Obtained Via Standing scale (06/25/22 10:04 AM) Social History Social History Type Response Smoking Status Never smoker entered on: 12/18/14 Sex Note * Aubrie Hernandez MA: PERFORM, SIGN, VERIFY Event Display: Patient Education/Instruction Authored Date: [id number] [facility] Clinical Summary Name SHAMA RODRIGUEZ Age 27 Years 1995 PCP Elvira Arias MD [id number] Visit Date 06/25/2022 09:38:00 Additional Instructions: Scheduled Appointments?? Future Appointments ?*[facility] ?[address]??[place],??[place],??[address] ?Phone:??--?Fax:??-- ?Appt. Date:??08/28/2022?2:20 PM ?Scheduled Provider:??Konstantin MCGARRY, Asiya Shay Follow-Up Instructions ?? Diagnosis Female infertility, unspecified; Acquired absence of other genital organ(s) Medications: Please continue your medications until treatment is completed or stopped by your provider. Discuss any questions related to medications with your provider. Medications to Continue with No Changes These medications were not printed or sent to your pharmacy Multivitamin, (Multivitamin Tablet) Next Dose: Allergy Info:?? Bactrim Medications Given This Visit Future Orders ?No future orders Vital Signs Height 150 cm Weight 57.5 kg BMI 25.56 kg/m2 Blood Pressure 121 mm Hg/82 mm Hg Temperature Pulse Rate 108 bpm Respiratory Rate 02 Sat Mode of Delivery / You can now view a summary of your hospital visit from the comfort of your home through a free online portal called BATS. BATS is a website that allows you to securely view your medical information including discharge summary, medications and follow-up visits. ??You can alsosend a secure electronic message to your doctor???s office to request appointments, renew medications or just ask a question. You can enroll at [email or web address] or register during your next office visit. Disclaimer:?? The information provided is of a general nature and is intended to be used in conjunction with the recommendations and advice of your health care practitioner. ??Every effort has been made to ensure that the information provided is accurate and complete at the time it is provided to you however, as your needs change, or, as new ??information becomes available, different or additional instructions may be required. If you have questions, please consult with your primary care provider or pharmacist, as appropriate. ??This information is not intended to serve as substitution for assessment and evaluation by a qualified health care provider. If you do not have a primary care provider, you may find a [facility] provider by calling [facility] at [phone]. For information about the plan of care including goals and instructions for your diagnosis, please see the patient education orders section of this document. Patient Education Materials?? The content of this educational material or handout may have been modified, supplemented, or adapted from its original content and format to support your individualized medical care. Additional Provider Instructions: Labs ordered today for pt. SONO protocol reviewed. Labs to be drawn today, pt to call on day 1 to schedule sono. Patient Care team information Care Team Personnel Name: Madie Tran Position: [facility] Outreach Member Role: Lifetime Consulting Physician Name: Elvira Arias MD Position: [facility] Physician (General Medicine) Member Role: PCP Address: Address: [address] [place] [address]- Name: Tonya Juarez MD Position: [facility] DRESSMAKING TEACHER MD Member Role: Lifetime DRESSMAKING TEACHER Physician Address: Address: [address] [place] [address] [facility] [place] [address]- Care Team Related Persons Name: PAULABETY Mancuso Address: home [address] [place] [address]
--- OUTSIDE RECORDS SUMMARY | 2024-02-02 02:59 | XMS_ITS | Continuity of Care Document ---
Author Organization [facility] e Medicine Address [address] [facility], 4t h Floor [address] [place] [address]- Care Team Providers Care Chip Machine Operator Name Role Phone Hugo MCGARRY, Elvira Ma Primary Care Physician Encounter [facility] Date(s): 12/24/22 - 01/23/23 [facility] Reproductive Medicine [address] [facility], 4th [address] [place] [address]- Allergies, Adverse Reactions, Alerts Substance Reaction Severity Status Bactrim vomit Intermittent Active Medications aspirin 81 mg oral delayed release tablet 1 tablet = 81 mg, By Mouth, Daily, 0 Refills, Maintenance, 10/01/22 8:27:00 EDT, Partial fill upon patient request if the prescription is for a schedule II opioid drug. Start Date: 10/01/22 Status: Ordered letrozole 2.5 mg oral tablet 2 tablet = 5 mg, By Mouth, Daily, Start on cycle day 3 and continue for 5 days, # 10 tablet, 3 Refills, Maintenance, 01/22/23 15:21:00 EDT, [id number], Partial fill upon patient request if the prescription is for a schedule II opioid drug., 15... Start Date: 01/22/23 Status: Ordered letrozole 2.5 mg oral tablet 1 tablet = 2.5 mg, By Mouth, Daily, start medication on day 3 of cycle. to be taken cycle days 3-7., # 5 tablet, 3 Refills, Maintenance, 11/04/22 14:16:00 EDT, [id number], Partial fill upon patient request [...] # 1 each, 3 Refills, Soft Stop, 01/22/23 15:22:00 EDT, [facility], Partial fill upon patient request if the prescription is for a schedule II opioid drug., 1... Start Date: 01/22/23 Status: Ordered Prometrium 200 mg oral capsule 1 capsule = 200 mg, Vaginally, 2 times a day, Start meds three days after peak of OPK, # 90 capsule, 2 Refills, Acute 10/03/23 8:36:00 EDT, 10/01/22 8:35:00 EDT, [facility]/pharmacy #[id number], Partial fill uponpatient request if the [...] Personnel Name: Madie Tran Position: [facility] Outreach Member Role: Lifetime Consulting Physician Name: Elvira Arias MD Position: [facility] Physician - Primary Care Member Role: PCP Address: Address: [address] [place] [address]- Name: Ann MCGARRY, Tonya Porter Position: [facility] BAG PRESS OPERATOR MD Member Role: Lifetime BAG PRESS OPERATOR Physician Address: Address: [address] [place] [address] Women's [place] [address]- Care Team Related Persons Name: MICHAEL BETY Address: home [address] [place] [address]
--- OUTSIDE RECORDS SUMMARY | 2024-02-02 02:59 | XMS_ITS | Continuity of Care Document ---
Author Organization [facility] ter Address [address] [place] [address]- Care Team Providers Care Test Engine Operator Name Role Phone Elvira Arias MD Primary Care Physician Encounter [facility] Date(s): 12/14/22 - 12/14/[address] [address]- Discharge Disposition: A-D/C Walkout Attending Physician: Not on Staff, Attending MD Admitting Physician: Not on Staff, Admitting MD Referring Physician: Not on Staff, Referring [...] tablet, 3 Refills, Maintenance, 11/04/22 14:16:00 EDT, [facility]/pharmacy #[id number], Partial fill upon patient [...] 3 Refills, Soft Stop, 11/04/22 14:16:00 EDT, [facility], Partial fill upon patient request if the prescription is for a schedule II opioid drug., 1... Start Date: 11/04/22 Status: Ordered Prometrium 200 mg oral capsule 1 capsule = 200 mg, Vaginally, 2 times a day, Start meds three days after peak of OPK, # 90 capsule, 2 Refills, Acute 10/03/23 8:36:00 EDT, 10/01/22 8:35:00 EDT, [facility]/pharmacy #[id number], Partial fill uponpatient request [...] recent to oldest [Reference Range]: 1 2 Height 150 cm (12/14/22 4:28 AM) Oxygen Saturation [94-100 %] 100 % (12/14/22 4:28 AM) 97 % (12/14/22 4:25 AM) Pulse Rate [55-90 bpm] 70 bpm (12/14/22 4:28 AM) 72 bpm (12/14/22 4:25 AM) Blood Pressure [90-138/55-84 mm Hg] 129/ 80mm Hg (12/14/22 4:28 AM) Respiratory Rate [16-30 br/min] 20 br/mi n (12/14/22 4:28 AM) 16 br/min (12/14/22 4:25 AM) Temperature [96.8-100.4 DegF] 98.9 DegF (12/14/22 4:28 AM) Mode of Delivery (Oxygen) Room air (12/14/22 4:28 AM) Room air (12/14/22 4:25 AM) Blood pressure sites Arm, left (12/14/22 4:28 AM) Temperature Route Oral (12/14/22 4:28 AM) Dry Weight 56.5 kg (12/14/22 4:28 AM) Dry Weight Obtained Via Patient/family s tated (12/14/22 4:28 AM) Social History Social History Type Response Smoking Status Never smoker entered on: 12/18/14 Sex Patient Care team information Care Team Personnel Name: Madie Tran Position: [facility] Outreach Member Role: Lifetime Consulting Physician Name: Elvira Arias MD Position: [facility] Physician - Primary Care Member Role: PCP Address: Address: [address] [place] [address]- Name: Tonya Juarez MD Position: [facility] CONTRACT ADMINISTRATION SPECIALIST MD Member Role: Lifetime CONTRACT ADMINISTRATION SPECIALIST Physician Address: Address: [address] [place] [address]'s [facility] [employer] [place] [address]- Care Team Related Persons Name: BETY RODRIGUEZ Address: home [address] [place] [address]
--- OUTSIDE RECORDS SUMMARY | 2024-02-02 03:00 | XMS_ITS | Continuity of Care Document ---
Author Organization [facility] Address [address] [place] [address]- Care Team Providers Care Block Trader Name Role Phone Elvira Arias MD Primary Care Physician [phone] Encounter [facility] Date(s): 09/27/22 - 09/28/[address] [address]- Discharge Disposition: A-D/C Home Attending Physician: Devan Nicholas DO Admitting Physician: Devan Nicholas DO Referring Physician: Not on Staff, Referring MD Allergies, Adverse Reactions, Alerts Substance Reaction Severity Status Bactrim vomit Intermittent Active Medications ibuprofen 600 mg oral tablet 600 mg, 1, tablet, By Mouth, Every 8 hours, PRN, for 10 days, # 50 tablet, Refills 0, Tot. Refills 0, Acute 10/08/22 4:42:00 EDT, as needed for pain, 09/28/22 4:42:00 EDT, Route to Pharmacy Electronically, [facility]/pharmacy #[id number], Partial fill upon patient... Start Date: 09/28/22 Stop Date: 10/08/22 Status: Ordered lidocaine 5% topical ointment 1 application, Topically, 3 times a day, for 10 days, # 30 Gm, 0 Refills, Acute 10/08/22 4:43:00 EDT, 09/28/22 4:43:00 EDT, Ointment, [id number], Partial fill upon patient request if the prescription is for a schedule II opioid drug., 1 applic... Start Date: 09/28/22 Stop Date: 10/08/22 Status: Ordered Multivitamin Tablet 0 Refills, Maintenance, [...] Exam Date Time Procedure Performing Provider Status 09/27/22 11:54 PM Chest 2 Views Frontal and Lat Elisa Carter; Auth (Verified) Notes: (Chest 2 Views Frontal and Lat) Reason For Exam: Chest Pain;Other: RESULT: Chest 2 Views Frontal and Lat Chest 2 Views Frontal and Lat Hx of Present Illness: Pt reports centralized chest pain that radiates around to her back. Describes it as a strong squeezing pain that prevents her from taking a beep breath. Further reports feelingsomewhat lightheaded. Denies cardiac history; Reason: Other:; Chest Pain; Clinical Question(s): Other: COMPARISON: 07/09/2021. FINDINGS: LINES AND TUBES: None. LUNGS AND PLEURA: Clear lungs. Normal pulmonary vascularity. No pleural effusion. No pneumothorax. HEART, MEDIASTINUM AND CHAIM: Heart is normal in size. Normal mediastinal and hilar contour. BONES AND SOFT TISSUES: No acute abnormality. IMPRESSION: No acute abnormality. WSN: [id number] Ordering Physician: Devan Nicholas Dictated By: Nathan Bragg MD Dictated Date/Time: 09/27/22 11:57 p Reviewed By: Nathan Bragg MD Signed By: Nathan Bragg MD Signed Date/Time: 09/27/22 11:57 pm Transcribed By: LAENNE Transcribed Date/Time: 09/27/22 11:54 pm Vital Signs Most recent to oldest [Reference Range]: 1 2 3 Height 150 cm (09/28/22 2:46 AM) 150 cm (09/28/22 1:19 AM) 150 cm (09/27/22 11:36 PM) Weight 57 kg (09/28/22 2:46 AM) 57 kg (09/28/22 1:19 AM) 57 kg (09/27/22 11:36 PM) Oxygen Saturation [94-100 %] 98 % (09/28/22 4:52 AM) 100 % (09/28/22 2:46 AM) 99 % (09/28/22 1:19 AM) Pulse Rate [55-90 bpm] 78 bpm (09/28/22 4:52 AM) 82 bpm (09/28/22 2:46 AM) 97 bpm *H* (09/28/22 1:19 AM) Body Mass Index [18.5-24.99 kg/m2] 25.33 kg/m2 *H* (09/28/22 2:46 AM) 25.33 kg/m2 *H* (09/28/22 1:19 AM) Blood Pressure [90-138/55-84 mm Hg] 104/75mm Hg (09/28/22 4:52 AM) 104/75mm Hg (09/28/22 2:46 AM) 114/86mm Hg (09/28/22 1:19 AM) Respiratory Rate [16-30 br/min] 16 br/min (09/28/22 4:52 AM) 16 br/min (09/28/22 2:46 AM) 17 br/min (09/28/22 1:19 AM) Temperature [96.8-100.4 DegF] 98.0 DegF (09/27/22 11:36 PM) Liters per Minute 0 L/min (09/28/22 2:46 AM) 0 L/min (09/28/22 1:19 AM) Mode of Delivery (Oxygen) Room air (09/28/22 4:52 AM) Room air (09/28/22 2:46 AM) Room air (09/28/22 1:19 AM) Blood pressure sites Arm, left (09/28/22 2:46 AM) Arm, left (09/28/22 1:19 AM) Arm, left (09/27/22 11:36 PM) Temperature Route Temporal (09/27/22 11:36 PM) Dry Weight 57 kg (09/28/22 2:46 AM) 57 kg (09/28/22 1:19 AM) 57 kg (09/27/22 11:36 PM) Weight Obtained Via Standing scale (09/27/22 11:36 PM) Dry Weight Obtained Via Standing scale (09/27/22 11:36 PM) Social History Social History Type Response Smoking Status Never smoker entered on: 12/18/14 Sex Laboratory * [facility] , CIS S: TRANSCRIBE Ersjeriin MD, Devrim: VERIFY Event Display: Result: Authored Date: [id number] Chest 2 Views Frontal and Lat Hx of Present Illness: Pt reports centralized chest pain that radiates around to her back. Describes it as a strong squeezing pain that prevents her from taking a beep breath. Further reports feelingsomewhat lightheaded. Denies cardiac history; Reason: Other:; Chest Pain; Clinical Question(s): Other: COMPARISON: 07/09/2021. FINDINGS: LINES AND TUBES: None. LUNGS AND PLEURA: Clear lungs. Normal pulmonary vascularity. No pleural effusion. No pneumothorax. HEART, MEDIASTINUM AND CHAIM: Heart is normal in size. Normal mediastinal and hilar contour. BONES AND SOFT TISSUES: No acute abnormality. IMPRESSION: No acute abnormality. WSN: [id number] Ordering Physician: Devan Nicholas Dictated By: Nathan Bragg MD Dictated Date/Time: 09/27/22 11:57 p Reviewed By: Nathan Bragg MD Signed By: Nathan Bragg MD Signed Date/Time: 09/27/22 11:57 pm Transcribed By: LEANNE Transcribed Date/Time: 09/27/22 11:54 pm Patient Care team information Care Team Personnel Name: Madie Tran Position: [facility] Outreach Member Role: Lifetime Consulting Physician Name: Elvira Arias MD Position: [facility] Physician - Primary Care Member Role: PCP Address: Address: [address] [place] [address]- Name: Tonya Juarez MD Position: [facility] CLIENT ENGAGEMENT MANAGER MD Member Role: Lifetime CLIENT ENGAGEMENT MANAGER Physician Address: Address: [address] [place] [address] Women's [place] [address]- [place] Name: Devan Nicholas DO Position: [facility] ED Medicine MD Member Role: ED Attending Physician Address: Address: [address] [place] [address] [place] [address]- [place] Name: Aniya Olmos RN Position: [facility] ED RN W/OE and Tasks Member Role: Patient Care Provider Care Team Related Persons Name: BETY RODRIGUEZ Address: home [address] [place] [address]
--- OUTSIDE RECORDS SUMMARY | 2024-02-02 03:00 | XMS_ITS | Continuity of Care Document ---
Author Organization [facility] Medicine Address [address] [facility], 4t h Floor [address] [place] [address]- Care Team Providers Care Case Assistant Name Role Phone Elvira Arias MD Primary Care Physician Encounter [facility] Date(s): 12/05/22 - 12/12/22 [facility] Reproductive Medicine [address] [facility], 4th Floor [address] [place] [address] Attending Physician: Not on Staff, Attending MD Referring Physician: Elvira Arias MD Allergies, Adverse [...] tablet, 3 Refills, Maintenance, 11/04/22 14:16:00 EDT, [facility]/pharmacy #[id number], Partial fill upon patient request [...] 3 Refills, Soft Stop, 11/04/22 14:16:00 EDT, [facility], Partial fill upon patient request if the prescription is for a schedule II opioid drug., 1... Start Date: 11/04/22 Status: Ordered Prometrium 200 mg oral capsule 1 capsule = 200 mg, Vaginally, 2 times a day, Start meds three days after peak of OPK, # 90 capsule, 2 Refills, Acute 10/03/23 8:36:00 EDT, 10/01/22 8:35:00 EDT, [facility]/pharmacy #[id number], Partial fill uponpatient request if the [...] Care Team Personnel Name: Madie Tran Position: [facility] Outreach Member Role: Lifetime Consulting Physician Name: Elvira Arias MD Position: [facility] Physician - Primary Care Member Role: PCP Address: Address: [address] [place] [address]- Name: Tonya Juarez MD Position: [facility] SPECIAL DELIVERY MESSENGER Member Role: Lifetime SPECIAL DELIVERY MESSENGER Physician Address: Address: [address] [place] [address] Women's [place] [address]- Care Team Related Persons Name: BETY RODRIGUEZ Address: home [address] [place] [address]
--- OUTSIDE RECORDS SUMMARY | 2024-02-02 03:00 | XMS_ITS | Continuity of Care Document ---
Author Organization [facility] Address [address] [address]- Care Team Providers Care Jewish History Professor Name Role Phone Elvira Arias MD Primary Care Physician Encounter [facility] Date(s): 02/03/22 - 03/05/[address] [address] Allergies, Adverse Reactions, Alerts Substance Reaction Severity Status Bactrim vomit Intermittent Active Medications ibuprofen 400 mg oral tablet 400 mg, 1, tablet, By Mouth, Every 6 hours, PRN, # 20 tablet, Refills 0, Tot. Refills 0, Maintenance, for pain, 02/21/21 23:18:00 EDT, Route to Pharmacy Electronically, [facility]/pharmacy #[id number], Partial fill upon patient request if the prescription is for a... Start Date: 02/21/21 Status: Ordered ibuprofen 800 mg oral tablet 800 mg, 1, tablet, By Mouth, 3 times a day, # 90 tablet, Refills 0, Tot. Refills 0, Maintenance, 02/27/21 17:05:00 EDT, Route to Pharmacy Electronically, [facility]/pharmacy #[id number], Partial fill upon patientrequest if the [...] List Condition Confirmation Course Effective Dates Status 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 1Problem added by Discern Expert Social History Social History Type Response Smoking Status Never smoker entered on: 12/18/14 Sex Patient Care team information Care Team Personnel Name: Madie Tran Position: [facility] Outreach Member Role: Lifetime Consulting Physician Name: Elvira Arisa MD Position: [facility] Physician (General Medicine) Member Role: PCP Address: Address: [address] [place] [address] Name: Ann MCGARRY, Tonya Porter Position: [facility] PRODUCT SUPPORT SALES REPRESENTATIVE MD Member Role: Lifetime PRODUCT SUPPORT SALES REPRESENTATIVE Physician Address: Address: [address] [place] [address]'s [facility] [place] [address]- Care Team Related Persons Name: BETY RODRIGUEZ Address: home [address] [place] [address]
--- OUTSIDE RECORDS SUMMARY | 2024-02-02 03:00 | XMS_ITS | Continuity of Care Document ---
Author Organization [facility] Address [address] [address]- Care Team Providers Care Methods Analyst Data Processing Name Role Phone Elvira Arias MD Primary Care Physician Encounter [facility] [place] Date(s): 01/07/22 - 02/06/22 [facility] [address] [place] [address] Allergies, Adverse Reactions, Alerts Substance Reaction Severity Status Bactrim vomit Intermittent Active Medications ibuprofen 400 mg oral tablet 400 mg, 1, tablet, By Mouth, Every 6 hours, PRN, # 20 tablet, Refills 0, Tot. Refills 0, Maintenance, for pain, 02/21/21 23:18:00 EDT, Route to Pharmacy Electronically, [facility]/pharmacy #[id number], Partial fill upon patient request if the prescription is for a... Start Date: 02/21/21 Status: Ordered ibuprofen 800 mg oral tablet 800 mg, 1, tablet, By Mouth, 3 times a day, # 90 tablet, Refills 0, Tot. Refills 0, Maintenance, 02/27/21 17:05:00 EDT, Route to Pharmacy Electronically, [facility]/pharmacy #[id number], Partial fill upon patientrequest if the [...] Vomiting, # 10 tablet, 0 Refills, Acute 04/17/23 19:00:00 EDT, 04/16/22 19:00:00 EDT, Tablet, [id number], Partial fill [...] Condition Confirmation Course Effective Dates Status [facility] at Informant Anxiety Confirmed Active COVID-19 1 Confirmed 08/10/21 Active Cyclic neutropenia Confirmed Active Depressive disorder Confirmed Active Status post laparoscopy Confirmed Active 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 1Problem added by Discern Expert Social History Social History Type Response Smoking Status Never smoker entered on: 12/18/14 Sex Patient Care team information Personnel Name: Elvira Arias MD Address: Address: [address] [place] [id number]
--- OUTSIDE RECORDS SUMMARY | 2024-02-02 03:00 | XMS_ITS | Continuity of Care Document ---
Author Organization [facility] Address [address] [place] [address], [place], [place] [address]- Care Team Providers Care Inseam Leveler Name Role Phone Hugo MCGARRY, Elvira Ma Primary Care Physician Encounter [facility] Date(s): 07/13/23 - 07/20/23 [facility] [employer] [address] [facility], [address] [place] [address]- Attending Physician: Selena MCGARRY, Aniya Woodruff Allergies, Adverse Reactions, Alerts Substance Reaction Severity Status Bactrim vomit Intermittent Active Medications acetaminophen 325 mg oral tablet 650 mg, 2, tablet, By Mouth, Every 4 hours, PRN, # 50 tablet, Refills 0, Tot. Refills 0, Maintenance, as needed for fever, 07/09/23 16:12:00 EDT, Route to Pharmacy Electronically, [id number] fill upon patient request if the prescripti... Start Date: 07/09/23 Status: Ordered ibuprofen 600 mg oral tablet 600 mg, 1, tablet, By Mouth, 4 times a day, PRN, # 40 tablet, Refills 0, Tot. Refills 0, Maintenance, for pain, 07/09/23 16:12:00 EDT, Route to Pharmacy Electronically, [id number], Partial fill upon patient request if the prescription is for a... Start Date: 07/09/23 Status: Ordered MiraLax oral powder for reconstitution = 17 Gm, By Mouth, Daily, PRN Constipation, # 14 each, 0 Refills, Acute 07/28/23 12:00:00 EDT, 07/14/23 7:59:00 EDT, REC Powder, [id number], Partial fill upon patient request if the prescription is for a schedule II opioid drug., 17 Gm By Mout... Start Date: 07/14/23 Stop Date: 07/28/23 Status: Ordered Multivitamin Tablet 0 Refills, Maintenance, [...] 07/14/23 7:57:00 EDT, Route to Pharmacy Electronically, [facility]/pharmacy #[id number], Partial fill upon patient request if the prescription is... Start Date: 07/14/23 Status: Ordered Senna 8.6 mg oral tablet 17.2 mg, 2, tablet, By Mouth, Daily at bedtime, # 25 tablet, Refills 0, Tot. Refills 0, Maintenance, 07/14/23 7:57:00 EDT, Route to Pharmacy Electronically, [facility]/pharmacy #[id number], Partial fill upon patient request [...] oldest [Reference Range]: 1 Height 150 cm (07/13/23 3:17 PM) Weight 57.27 kg (07/13/23 3:17 PM) Body Mass Index [18.5-24.99 kg/m2] 25.45 kg/m2 *H* (07/13/23 3:17 PM) Blood Pressure [90-138/55-84 mm Hg] 112/ 82mm Hg (07/13/23 3:17 PM) Blood pressure sites Arm, right (07/13/23 3:17 PM) Weight Obtained Via Standing scale (07/13/23 3:17 PM) Social History Social History Type Response Smoking Status Never smoker entered on: 12/18/14 Sex Patient Care team information Care Team Personnel Name: Madie Tran Position: [facility] Outreach Member Role: Lifetime Consulting Physician Name: Elvira Arias MD Position: [facility] Physician - Primary Care Member Role: PCP Address: Address: [address] [place] [address]- Name: Ann MCGARRY, Tonya Porter Position: [facility] REPAIRER VENEER SHEET MD Member Role: Lifetime REPAIRER VENEER SHEET Physician Address: Address: [address] [place] [address]'s [facility] [place] [address]- Care Team Related Persons Name: BETY RODRIGUEZ Address: home [address] [place] [address]
--- OUTSIDE RECORDS SUMMARY | 2024-02-02 03:00 | XMS_ITS | Continuity of Care Document ---
Author Organization [facility] Address [address] [facility], 4t h Floor [address] [place] [address]- Care Team Providers Care Pack Operator Name Role Phone Elvira Arias MD Primary Care Physician Encounter [facility] Date(s): 02/04/23 - 02/11/23 [facility] [address] [facility], 4th Floor [address] [place] [address]- Attending Physician: Not on Staff, Attending MD Referring Physician: Asiya Pryor MD Allergies, Adverse Reactions, Alerts Substance Reaction [...] 3 Refills, Soft Stop, 01/22/23 15:22:00 EDT, [facility], Partial fill upon patient request if the prescription is for a schedule II opioid drug., 1... Start Date: 01/22/23 Status: Ordered Prometrium 200 mg oral capsule 1 capsule = 200 mg, Vaginally, 2 times a day, Start meds three days after peak of OPK, # 90 capsule, 2 Refills, Acute 10/03/23 8:36:00 EDT, 10/01/22 8:35:00 EDT, [facility]/pharmacy #[id number], Partial fill uponpatient request if [...] Primary Care Member Role: PCP Address: Address: [address] [place] [address]- Name: Tonya Juarez MD Position: [facility] CLOTH CHECKER MD Member Role: Lifetime CLOTH CHECKER Physician Address: Address: [address] [place] [address] [employer] [place] [place] [address]- Care Team Related Persons Name: BETY RODRIGUEZ Address: home [address] [place] [id number]
--- OUTSIDE RECORDS SUMMARY | 2024-02-02 03:00 | XMS_ITS | Continuity of Care Document ---
Author Organization [facility] Address [address] [address]- Care Team Providers Care Waiter/Waitress Informal Name Role Phone Elvira Arias MD Primary Care Physician Encounter [facility] Date(s): 02/21/22 - 03/23/22 [facility] [address] [place] [address] Allergies, Adverse Reactions, Alerts Substance Reaction Severity Status Bactrim vomit Intermittent Active Medications ibuprofen 400 mg oral tablet 400 mg, 1, tablet, By Mouth, Every 6 hours, PRN, # 20 tablet, Refills 0, Tot. Refills 0, Maintenance, for pain, 02/21/21 23:18:00 EDT, Route to Pharmacy Electronically, [facility]/pharmacy #[id number], Partial fill upon patient request if the prescription is for a... Start Date: 02/21/21 Status: Ordered ibuprofen 800 mg oral tablet 800 mg, 1, tablet, By Mouth, 3 times a day, # 90 tablet, Refills 0, Tot. Refills 0, Maintenance, 02/27/21 17:05:00 EDT, Route to Pharmacy Electronically, [facility]/pharmacy #[id number], Partial fill upon patientrequest if [...] tablet, 0 Refills, Acute 08/11/22 19:00:00 EDT, 04/16/22 19:00:00 EDT, Tablet, [facility] [...] List Condition Confirmation Course Effective Dates Status [facility] at Informant Anxiety Confirmed Active COVID-19 1 Confirmed 08/10/21 Active Cyclic neutropenia Confirmed Active Depressive disorder Confirmed Active Status post laparoscopy Confirmed Active Pelvic pain Confirmed Active 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 1Problem added by Discern Expert Social History Social History Type Response Smoking Status Never smoker entered on: 12/18/14 Sex Patient Care team information Care Team Personnel Name: Madie Tran Position: [facility] Outreach Member Role: Lifetime Consulting Physician Name: Elvira Arias MD Position: [facility] Physician (General Medicine) Member Role: PCP Address: Address: [address] [place] [address]- [place] Name: Ann MCGARRY, Tonya Porter Position: [facility] GLASS SCIENCE ENGINEER MD Member Role: Lifetime GLASS SCIENCE ENGINEER Physician Address: Address: [address] [facility] [facility] Radio [place] [address]- [place] Care Team Related Persons Name: BETY RODRIGUEZ Address: home [address] [place] [id number]
--- OUTSIDE RECORDS SUMMARY | 2024-02-02 03:00 | XMS_ITS | Continuity of Care Document ---
Author Organization [facility] Emmie [email or web address] [facility] Address [address] [facility], [address] [address]- Care Team Providers Care Supervisor Erection Shop Name Role Phone Elvira Arias MD Primary Care Physician [phone] [id number] Date(s): 02/28/21 - 03/30/21 [facility] [email or web address] [facility] [address] [facility], 4th [place], [place] [address] Allergies, Adverse Reactions, Alerts Substance Reaction Severity Status Bactrim vomit Intermittent Active Medications ibuprofen 400 mg oral tablet 400 mg, 1, tablet, By Mouth, Every 6 hours, PRN, # 20 tablet, Refills 0, Tot. Refills 0, Maintenance, for pain, 02/21/21 23:18:00 EDT, Route to Pharmacy Electronically, [facility]/pharmacy #[id number], Partial fill upon patient request if the prescription is for a... Start Date: 02/21/21 Status: Ordered ibuprofen 800 mg oral tablet 800 mg, 1, tablet, By Mouth, 3 times a day, # 90 tablet, Refills 0, Tot. Refills 0, Maintenance, 02/27/21 17:05:00 EDT, Route to Pharmacy Electronically, [facility]/pharmacy #[id number], Partial fill upon patientrequest if the prescription is for a schedule II op... Start Date: 02/27/21 Status: Ordered ondansetron 4 mg oral tablet, disintegrating 1 tablet = 4 mg, By Mouth, Every 8 hours, PRN Nausea & Vomiting, # 10 tablet, 0 Refills, Maintenance, 02/21/21 23:18:00 EDT, Tablet, [facility]/pharmacy #[id number], Partial fill upon patient [...]
--- OUTSIDE RECORDS SUMMARY | 2024-02-02 03:00 | XMS_ITS | Continuity of Care Document ---
Author Organization [facility] Medicine Address [address] [facility], 4t h Floor [address] [place] [address]- Care Team Providers Care Public Speaking Professor Name Role Phone Hugo MCGARRY, Elvira Ma Primary Care Physician Encounter [facility] Date(s): 09/18/22 - 10/18/22 [facility] [address] [facility], 4th Floor [address] [place] [address]- Allergies, Adverse Reactions, Alerts Substance Reaction Severity Status Bactrim vomit Intermittent Active Medications aspirin 81 mg oral delayed release tablet 1 tablet = 81 mg, By Mouth, Daily, 0 Refills, Maintenance, 10/01/22 8:27:00 EDT, Partial fill upon patient request if the prescription is for a schedule II opioid drug. Start Date: 10/01/22 Status: Ordered Multivitamin Tablet 0 Refills, Maintenance, 01/14/22 18:44:00 EDT, Partial fill upon patient request if the prescription is for a schedule II opioid drug. Start Date: 01/14/22 Status: Ordered Prometrium 200 mg oral capsule 1 capsule = 200 mg, Vaginally, 2 times a day, Start meds three days after peak of OPK, # 90 capsule, 2 Refills, Acute 10/03/23 8:36:00 EDT, 10/01/22 8:35:00 EDT, [id number], Partial fill uponpatient request if the [...] Care Team Personnel Name: Madie Tran Position: [facility] Outreach Member Role: Lifetime Consulting Physician Name: Elvira Arias MD Position: [facility] Physician - Primary Care Member Role: PCP Address: Address: [address] [place] [address]- Name: Tonya Juarez MD Position: [facility] JEEP DRIVER MD Member Role: Lifetime JEEP DRIVER Physician Address: Address: [address] [place] [address]'s [facility] [place] [address]- Care Team Related Persons Name: BETY RODRIGUEZ Address: home [address] [place] [address]
--- OUTSIDE RECORDS SUMMARY | 2024-02-02 03:00 | XMS_ITS | Continuity of Care Document ---
Author Organization [facility] Emmie [employer] [facility] [facility] Address [address] [place] [address], [address], [place] [address]- Care Team Providers Care Box Attacher Name Role Phone Hugo MCGARRY, Elvira Ma Primary Care Physician En[facility] Date(s): 06/29/23 - 07/29/23 [facility] [place] [employer] [address] [facility], 4th [place] [address]- Allergies, Adverse Reactions, Alerts Substance Reaction Severity Status Bactrim vomit Intermittent Active Medications acetaminophen 325 mg oral tablet 650 mg, 2, tablet, By Mouth, Every 4 hours, PRN, # 50 tablet, Refills 0, Tot. Refills 0, Maintenance, as needed for fever, 07/09/23 16:12:00 EDT, Route to Pharmacy Electronically, [facility]/pharmacy #[id number],Partial fill upon patient request if the prescripti... Start Date: 07/09/23 Status: Ordered ibuprofen 600 mg oral tablet 600 mg, 1, tablet, By Mouth, 4 times a day, PRN, # 40 tablet, Refills 0, Tot. Refills 0, Maintenance, for pain, 07/09/23 16:12:00 EDT, Route to Pharmacy Electronically, [facility]/pharmacy #[id number], Partial fill upon patient request [...] 07/14/23 7:57:00 EDT, Route to Pharmacy Electronically, [facility]/pharmacy #[id number], Partial fill upon patient request if the prescription is... Start Date: 07/14/23 Status: Ordered Senna 8.6 mg oral tablet 17.2 mg, 2, tablet, By Mouth, Daily at bedtime, # 25 tablet, Refills 0, Tot. Refills 0, Maintenance, 07/14/23 7:57:00 EDT, Route to Pharmacy Electronically, [facility]/pharmacy #[id number], Partial fill upon patient request [...] Care Team Personnel Name: Madie Tran Position: [facility] Outreach Member Role: Lifetime Consulting Physician Name: Elvira Arias MD Position: [facility] Physician - Primary Care Member Role: PCP Address: Address: [address] [place] [address]- Name: Ann MCGARRY, Tonya Porter Position: [facility] ACCOUNTANT BUDGET Member Role: Lifetime ACCOUNTANT BUDGET Physician Address: Address: [address] [place] [address]'s [facility] Internet Marketing [place] [address]- Care Team Related Persons Name: BETY RODRIGUEZ Address: home [address] [place] [address]
--- OUTSIDE RECORDS SUMMARY | 2024-02-02 03:00 | XMS_ITS | Continuity of Care Document ---
Author Organization [facility] Emmie [employer] [facility] Address [address] [facility], 4[place] [address]- Care Team Providers Care Cylinder Press Operator Apprentice Name Role Phone Elvira Arias MD Primary Care Physician [id number] Date[facility] 03/26[facility]21 - 04/02/21 [facility] [employer] [facility] [address] [facility], 4th [place], [place] [address] Attending Physician: Tonya Juarez MD Allergies, Adverse Reactions, Alerts Substance Reaction Severity Status Bactrim vomit Intermittent Active Medications ibuprofen 400 mg oral tablet 400 mg, 1, tablet, By Mouth, Every 6 hours, PRN, # 20 tablet, Refills 0, Tot. Refills 0, Maintenance, for pain, 02/21/21 23:18:00 EDT, Route to Pharmacy Electronically, [facility]/pharmacy #[id number], Partial fill upon patient request if the prescription is for a... Start Date: 02/21/21 Status: Ordered ibuprofen 800 mg oral tablet 800 mg, 1, tablet, By Mouth, 3 times a day, # 90 tablet, Refills 0, Tot. Refills 0, Maintenance, 02/27/21 17:05:00 EDT, Route to [facility], [id number], Partial fill upon patientrequest if the prescription is for a schedule II op... Start Date: 02/27/21 Status: Ordered ondansetron 4 mg oral tablet, disintegrating 1 tablet = 4 mg, By Mouth, Every 8 hours, PRN Nausea & Vomiting, # 10 tablet, 0 Refills, Maintenance, 02/21/21 23:18:00 EDT, Tablet, [facility]/pharmacy #[id number], Partial fill upon patient request if [...]
--- OUTSIDE RECORDS SUMMARY | 2024-02-02 03:00 | XMS_ITS | Continuity of Care Document ---
Author Organization [facility] Address [address] [facility], 3r d Floor, [address] [place] [address]- Care Team Providers Care Water And Sewer Systems Superintendent Name Role Phone Elvira Arias MD Primary Care Physician Encounter [facility] Date(s): 12/03/23 - 01/02/24 [facility] [address], [address] [place] [address] Allergies, Adverse Reactions, Alerts Substance Reaction Severity Status Bactrim vomit Intermittent Active Medications acetaminophen 325 mg oral tablet 975 mg, By Mouth, 3 times a day, 3 times daily until pain is improved, # 90 tablet, Refills 0, Tot.Refills 0, Maintenance, 12/01/23 9:35:00 EDT, Route to Pharmacy Electronically, [facility], Partial fill upon patient request if the pres... Start Date: 12/01/23 Status: Ordered aspirin 81 mg oral delayed release tablet 81 mg, By Mouth, Daily, # 90 tablet, Refills 0, Tot. Refills 0, Maintenance, 12/01/23 9:35:00 EDT, Route to Pharmacy Electronically, [facility], Partial fill upon patient request if theprescription is for a schedule II opioid drug., 151... Start Date: 12/01/23 Status: Ordered gabapentin 600 mg oral tablet = 600 mg, By Mouth, Daily at bedtime, # 30 tablet, 6 Refills, Maintenance, 12/22/23 14:13:00 EDT, Tablet, [facility]/pharmacy #[id number], Partial fill upon patient request if the prescription is for a schedule II opioid drug., 151, cm, 12/22/23 13:20:00 EDT, Heig... Start Date: 12/22/23 Stop Date: 07/19/24 Status: Ordered magnesium oxide 400 mg oral capsule 1 capsule = 400 mg, By Mouth, Daily, for 30 days, # 30 capsule, 6 Refills, Acute 07/19/24 14:12:00 EDT, 12/22/23 14:12:00 EDT, Capsule, [facility]/pharmacy #[id number], Partial fill upon [...] Refills, Maintenance, 12/01/23 9:37:00 EDT, REC Powder, [facility], Partial fill upon patient reque... Start Date: 12/01/23 Status: Ordered Provera 10 mg oral tablet 10 mg, 1, tablet, By Mouth, Daily, Start taking this medication on December 08, 2023 and continue twice daily estrace, # 7 tablet, Refills 0, Tot. Refills 0, Maintenance, 12/08/23 14:31:00 EDT, Route to Pharmacy Electronically, [facility]/pharmacy #[id number], Parti... Start Date: 12/08/23 Stop Date: 12/15/23 Status: Ordered tiZANidine 2 mg oral capsule 1 capsule = 2 mg, By Mouth, 2 times a day, # 60 capsule, 0 Refills, Maintenance, 12/01/23 10:21:00 EDT, Capsule, [facility], Partial fill upon patient [...] Team Personnel Name: Nicci Burnett RN Position: [facility] RN Member Role: Primary Care Nurse Name: Madie Venegas RN Position: [facility] RN Member Role: Primary Care Nurse Name: Maide Tran Position: [facility] Outreach Member Role: Lifetime Consulting Physician Name: Lizabeth Maguire RN Position: [facility] RN Member Role: Primary Care Nurse Name: Ela Montes RN Position: [facility] RN Member Role: Primary Care Nurse Name: Mariama Moran RN Position: [facility] RN Member Role: Primary Care Nurse Name: Humble Baeza RN Position: [facility] RN Member Role: Primary Care Nurse Name: Elvira Arias MD Position: [facility] Physician - Primary Care Member Role: PCP Address: Address: [address] [place] [address]- [place] Name: Tonya Juarez MD Position: [facility] DIRECTOR OF RECRUITMENT MD Member Role: Lifetime DIRECTOR OF RECRUITMENT Physician Address: Address: [address] [place], [place] [address]s [facility] [place] [address]- Care Team Related Persons Name: BETY RODRIGUEZ Address: home [address] [place] [address] Name: ALDAIR RODRIGUEZ Address: home [address] [place] [address]
--- OUTSIDE RECORDS SUMMARY | 2024-02-02 03:00 | XMS_ITS | Continuity of Care Document ---
Author Organization [facility] Address [address] [address]- Care Team Providers Care Senior Informatica Etl Developer Name Role Phone Hugo MCGARRY, Elvira Ma Primary Care Physician [phone] Encounter [facility] Date(s): 11/01/19 - 12/01/19 [facility] [address] [address]- [facility] Allergies, Adverse Reactions, Alerts Substance Reaction Severity Status Bactrim vomit Intermittent Active Medications 19 ([place]) oral tablet 1 tablet, By Mouth, Daily, # 30 tablet, 0 Refills, Maintenance, 11/14/19 15:35:00 EDT Start Date: 11/14/19 Status: Ordered Problem List Condition Effective Dates Status Health Status Inform ant Anxiety(Confirmed) Active Cyclic neutropenia(Confirmed) Active Depressive disorder(Confirmed) Active RhD negative(Confirmed) Active Social History Social History Type Response Smoking Status Never smoker entered on: 12/18/14 Sex
--- OUTSIDE RECORDS SUMMARY | 2024-02-02 03:00 | XMS_ITS | Continuity of Care Document ---
Author Organization [facility] Address [address] [address]- Care Team Providers Care Creative Engagement Director Name Role Phone Elvira Arias MD Primary Care Physician Encounter [facility] Date(s): 01/07/22 - 02/27/22 [facility] and [address] [address] Attending Physician: Not on Staff, Attending MD Referring Physician: Elvira Arias MD Allergies, Adverse Reactions, Alerts Substance Reaction Severity Status Bactrim vomit Intermittent Active Medications ibuprofen 400 mg oral tablet 400 mg, 1, tablet, By Mouth, Every 6 hours, PRN, # 20 tablet, Refills 0, Tot. Refills 0, Maintenance, for pain, 02/21/21 23:18:00 EDT, Route to Pharmacy Electronically, [facility]/pharmacy #[id number], Partial fill upon patient request if the prescription is for a... Start Date: 02/21/21 Status: Ordered ibuprofen 800 mg oral tablet 800 mg, 1, tablet, By Mouth, 3 times a day, # 90 tablet, Refills 0, Tot. Refills 0, Maintenance, 02/27/21 17:05:00 EDT, Route to Pharmacy Electronically, [facility]/pharmacy #[id number], Partial fill upon patientrequest if the [...] List Condition Confirmation Course Effective Dates Status [facility] at Informant Anxiety Confirmed Active COVID-19 1 Confirmed 08/10/21 Active Cyclic neutropenia Confirmed Active Depressive disorder Confirmed Active Status post laparoscopy Confirmed Active Pelvic pain Confirmed Active 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 1Problem added by Discern Expert Social History Social History Type Response Smoking Status Never smoker entered on: 12/18/14 Sex Patient Care team information Personnel Name: Elvira Arias MD Address: Address: [address] [place] [address]
--- OUTSIDE RECORDS SUMMARY | 2024-02-02 03:00 | XMS_ITS | Continuity of Care Document ---
Author Organization [facility] Emmie mcginnisSilicium Energyre [facility] Address [address] [place] [address], [address], [place] [address]- Care Team Providers Care Manager Meeting Name Role Phone Hugo MCGARRY, Elvira Ma Primary Care Physician [phone] [id number]s): 03/11[facility]21 - 04/10/21 [facility] [email or web address] [facility] [address] [facility], [address] [place] [address]- Allergies, Adverse Reactions, Alerts Substance Reaction Severity Status Bactrim vomit Intermittent Active Medications ibuprofen 400 mg oral tablet 400 mg, 1, tablet, By Mouth, Every 6 hours, PRN, # 20 tablet, Refills 0, Tot. Refills 0, Maintenance, for pain, 02/21/21 23:18:00 EDT, Route to Pharmacy Electronically, [facility]/pharmacy #[id number], Partial fill upon patient request [...]
--- OUTSIDE RECORDS SUMMARY | 2024-02-02 03:00 | XMS_ITS | Continuity of Care Document ---
Author Organization [facility]is[facility] Address [address] [place] [address], [place], [place] [address]- Care Team Providers Care Dog Control Officer Name Role Phone Elvira Arias MD Primary Care Physician [id number] Date[facility]s): 08/12/23 - 09/11/23 [facility] [address] [facility], [address]th [place], [place] [address] Attending Physician: AdmYamilet roy Admitting Physician: Admtr, Ar8 Referring Physician: Admtr, Ar8 Allergies, Adverse Reactions, Alerts Substance Reaction Severity Status Bactrim vomit Intermittent Active Medications acetaminophen 325 mg oral tablet 650 mg, 2, tablet, By Mouth, Every 4 hours, PRN, # 50 tablet, Refills 0, Tot. Refills 0, Maintenance, as needed for fever, 07/09/23 16:12:00 EDT, Route to Pharmacy Electronically, [facility]/pharmacy #[id number],Partial fill upon patient request if the prescripti... Start Date: 07/09/23 Status: Ordered ibuprofen 600 mg oral tablet 600 mg, 1, tablet, By Mouth, 4 times a day, PRN, # 40 tablet, Refills 0, Tot. Refills 0, Maintenance, for pain, 07/09/23 16:12:00 EDT, Route to Pharmacy Electronically, [facility]/pharmacy #[id number], Partial fill upon patient request [...] 07/14/23 7:57:00 EDT, Route to Pharmacy Electronically, [facility]/pharmacy #[id number], Partial fill upon patient request if the prescription is... Start Date: 07/14/23 Status: Ordered Senna 8.6 mg oral tablet 17.2 mg, 2, tablet, By Mouth, Daily at bedtime, # 25 tablet, Refills 0, Tot. Refills 0, Maintenance, 07/14/23 7:57:00 EDT, Route to Pharmacy Electronically, [facility]/pharmacy #[id number], Partial fill upon patient request [...] smoker entered on: 12/18/14 Sex Laboratory * Event Display: ALTERNATIVE MEDICINE PRACTITIONER Pap Test, Non-BH Authored Date: * Event Display: ALTERNATIVE MEDICINE PRACTITIONER Pap Test, Non-BH Authored Date: Patient Care team information Care Team Personnel Name: Madie Tran Position: [facility] Outreach Member Role: Lifetime Consulting Physician Name: Elvira Arias MD Position: [facility] Physician - Primary Care Member Role: PCP Address: Address: [address] [place] [address]- Name: Tonya Juarez MD Position: [facility] LINE DECORATOR MD Member Role: Lifetime LINE DECORATOR Physician Address: Address: [address] [place] [address]'s Health V[place]ational [place] [address]- Care Team Related Persons Name: BETY RODRIGUEZ Address: home [address] [place] [address]
--- OUTSIDE RECORDS SUMMARY | 2024-02-02 03:00 | XMS_ITS | Continuity of Care Document ---
Author Organization [facility] Address [address] [facility], 4t h [address] [place] [address]- Care Team Providers Care Demand Manager Name Role Phone Elvira Arias MD Primary Care Physician [phone] [place] [facility] Date(s): 03/16/23 - 04/15/23 [facility] Reproductive [facility] [address] [facility], 4th Floor [address] [place] [address] Allergies, Adverse Reactions, Alerts Substance Reaction Severity Status Bactrim vomit Intermittent Active Medications aspirin 81 mg oral delayed release tablet 1 tablet = 81 mg, By Mouth, Daily, 0 Refills, Maintenance, 10/01/22 8:27:00 EDT, Partial fill upon patient request if the prescription is for a schedule II opioid drug. Start Date: 10/01/22 Status: Ordered Clomid 50 mg oral tablet 1 tablet = 50 mg, By Mouth, Daily, Take medication on days 3-7 of cycle NAME BRAND ONLY, # 5 tablet, 3 Refills, Maintenance, 02/23/23 16:52:00 EDT, [id number], Partial fill upon patient request if the prescription is for a schedule II opioid d... Start Date: 02/23/23 Stop Date: 03/15/23 Status: Ordered letrozole 2.5 mg oral tablet [...] 3 Refills, Soft Stop, 01/22/23 15:22:00 EDT, [facility], Partial fill upon patient [...] Care Team Personnel Name: Madie Tran Position: [facility] Outreach Member Role: Lifetime Consulting Physician Name: Elvira Arias MD Position: [facility] Physician - Primary Care Member Role: PCP Address: Address: [address] [place] [address]- Name: Ann MCGARRY, Tonya Porter Position: [facility] CONTACT LENS EDGE BUFFER MD Member Role: Lifetime CONTACT LENS EDGE BUFFER Physician Address: Address: [address] [place] [address]'s Health Insole [place] [address]- Care Team Related Persons Name: BETY RODRIGUEZ Address: home [address] [place] [address]
--- OUTSIDE RECORDS SUMMARY | 2024-02-02 03:00 | XMS_ITS | Continuity of Care Document ---
Author Organization [facility] Address [address] [place] [address], 4t [address] [place] [address]- Care Team Providers Care Manager Resource Name Role Phone Elvira Arias MD Primary Care Physician Encounter [place] Date(s): 05/05/22 - 06/04/22 [facility] Reproductive Medicine [address] [place] [address], 4th [address] [place] [address]- [place] Allergies, Adverse Reactions, Alerts Substance Reaction Severity [...] Care Team Personnel Name: Madie Tran Position: [facility] Outreach Member Role: Lifetime Consulting Physician Name: Elvira Arias MD Position: [facility] Physician (General Medicine) Member Role: PCP Address: Address: [address] [place] [address]- Name: Tonya Juarez MD Position: [facility] OIL RIG DRILLER MD Member Role: Lifetime OIL RIG DRILLER Physician Address: Address: [address] [place] [address] Women's [place] [address]- Care Team Related Persons Name: BETY RODRIGUEZ Address: home [address] [place] [address]
--- OUTSIDE RECORDS SUMMARY | 2024-02-02 03:00 | XMS_ITS | Continuity of Care Document ---
Author Organization [facility] Address [address] [facility], 4t h Floor [address] [place] [address]- Care Team Providers Care Elevator Erector Helper Name Role Phone Elvira Arias MD Primary Care Physician Encounter [facility] Date(s): 01/26/23 - 02/25/23 [facility] Reproductive Medicine [address] [facility], 4th Floor [address] [place] [address]- Allergies, Adverse Reactions, Alerts Substance Reaction Severity [...] tablet, 3 Refills, Maintenance, 11/04/22 14:16:00 EDT, [facility]/pharmacy #[id number], Partial fill [...] 3 Refills, Soft Stop, 01/22/23 15:22:00 EDT, [facility], Partial fill upon patient request if the prescription is for a schedule II opioid drug., 1... Start Date: 01/22/23 Status: Ordered Prometrium 200 mg oral capsule 1 capsule = 200 mg, Vaginally, 2 times a day, Start meds three days after peak of OPK, # 90 capsule, 2 Refills, Acute 10/03/23 8:36:00 EDT, 10/01/22 8:35:00 EDT, [facility]/pharmacy #[id number], Partial fill uponpatient request if [...] Personnel Name: Madie Tran Position: [facility] Outreach Member Role: Lifetime Consulting Physician Name: Elvira Arias MD Position: [facility] Physician - Primary Care Member Role: PCP Address: Address: [address] [place] [address]- Name: Tonya Juarez MD Position: [facility] MUTUEL MACHINE OPERATOR MD Member Role: Lifetime MUTUEL MACHINE OPERATOR Physician Address: Address: [address] [place] [address] Women's [place] [address]- Care Team Related Persons Name: BETY RODRIGUEZ Address: home [address] [place] [address]
--- OUTSIDE RECORDS SUMMARY | 2024-02-02 03:00 | XMS_ITS | Continuity of Care Document ---
Author Organization [facility] Address Unknown Care Team Providers Care Grocery Specialist Name Role Phone Elvira Arias MD Primary Care Physician Encounter [facility] Date(s): 07/12/21 - 10/02/21 [facility] Attending Physician: Not on Staff, Attending MD Referring Physician: Elvira Arias MD Allergies, Adverse Reactions, Alerts Substance Reaction Severity Status Bactrim vomit Intermittent Active Medications ibuprofen 400 mg oral tablet 400 mg, 1, tablet, By Mouth, Every 6 hours, PRN, # 20 tablet, Refills 0, Tot. Refills 0, Maintenance, for pain, 02/21/21 23:18:00 EDT, [id number], [...] 02/27/21 Status: Ordered ondansetron 4 mg oral tablet [...] Status Health Status Inform ant Anxiety(Confirmed) Active COVID-19(Confirmed) 1 08/10/21 Active Cyclic neutropenia(Confirmed) Active Depressive disorder(Confirmed) Active Status post laparoscopy(Confirmed) Active RhD negative(Confirmed) Active 1Problem added by Discern Expert Social History Social History Type Response Smoking Status Never smoker entered on: 12/18/14 Sex
--- OUTSIDE RECORDS SUMMARY | 2024-02-02 03:00 | XMS_ITS | Continuity of Care Document ---
Author Organization [facility] Address [address] [place] [address], [place] [address]- Care Team Providers Care Medicare Compliance Auditor Name Role Phone Elvira Arias MD Primary Care Physician [id number] Date(s): 02/21/22 - 04/30/[address], [address] [place] [address]- Attending Physician: Anna Gonzales MD Referring Physician: Lilian Barlow CNM Allergies, Adverse Reactions, Alerts Substance Reaction [...] Care Team Personnel Name: Madie Tran Position: [facility] Outreach Member Role: Lifetime Consulting Physician Name: Elvira Arias MD Position: [facility] Physician (General Medicine) Member Role: PCP Address: Address: [address] [place] [address]- Name: Tonya Juarez MD Position: [facility] LIAISON INSPECTION LABORATORY ASSISTANT Member Role: Lifetime LIAISON INSPECTION LABORATORY ASSISTANT Physician Address: Address: [address] [place] [address] [place] [address]- Care Team Related Persons Name: BETY RODRIGUZE Address: home [address] [place] [address]
--- OUTSIDE RECORDS SUMMARY | 2024-02-02 03:00 | XMS_ITS | Continuity of Care Document ---
Author Organization [facility] Emmie [facility] Address [address] [facility], 4[address] [place] [address]- Care Team Providers Care Shop Service Technician Name Role Phone Elvira Arias MD Primary Care Physician [id number] Date(s): 03/31/22 - 04/30/22 [facility] [address] [facility], 4th [place], [place] [address] Attending Physician: Yamilet العراقي Admitting Physician: Yamilet العراقي Referring Physician: AdmtrYamilet Allergies, Adverse Reactions, Alerts Substance Reaction Severity [...] Status Never smoker entered on: 12/18/14 Sex Cytology report of Cervical or vaginal smear or scraping Cyto stain * Event Display: ELECTRIC DETECTOR OPERATOR Pap Test, Non-BH Authored Date: * Event Display: ELECTRIC DETECTOR OPERATOR Pap Test, Non-BH Authored Date: Patient Care team information Care Team Personnel Name: Madie Tran Position: [facility] Outreach Member Role: Lifetime Consulting Physician Name: Elvira Arias MD Position: [facility] Physician (General Medicine) Member Role: PCP Address: Address: [address] [place] [address] Name: Tonya Juarez MD Position: [facility] CLINICAL RESEARCH COORDINATOR MD Member Role: Lifetime CLINICAL RESEARCH COORDINATOR Physician Address: Address: [address] [place] [address]'s [facility] Naturopathic [place] [address]- Care Team Related Persons Name: BETY RODRIGUEZ Address: home [address] [place] [address]
--- OUTSIDE RECORDS SUMMARY | 2024-02-02 03:00 | XMS_ITS | Continuity of Care Document ---
Author Organization [facility] Emmie [facility] Address [address] [place] [address], [place], [place] [address]- Care Team Providers Care Mica Builder Name Role Phone Hugo MCGARRY, Elvira Ma Primary Care Physician [phone] Encounter [facility] Date(s): 06/30/23 - 07/30/23 [facility] [address] [facility], [address]th [place] [address]- Allergies, Adverse Reactions, Alerts Substance Reaction Severity Status Bactrim vomit Intermittent Active Medications acetaminophen 325 mg oral tablet 650 mg, 2, tablet, By Mouth, Every 4 hours, PRN, # 50 tablet, Refills 0, Tot. Refills 0, Maintenance, as needed for fever, 07/09/23 16:12:00 EDT, Route to Pharmacy Electronically, [facility]/pharmacy #[id number],Partial fill upon patient request if the prescripti... Start Date: 07/09/23 Status: Ordered ibuprofen 600 mg oral tablet 600 mg, 1, tablet, By Mouth, 4 times a day, PRN, # 40 tablet, Refills 0, Tot. Refills 0, Maintenance, for pain, 07/09/23 16:12:00 EDT, Route to Pharmacy Electronically, [facility]/pharmacy #[id number], Partial fill [...] 07/14/23 7:57:00 EDT, Route to Pharmacy Electronically, [facility]/pharmacy #[id number], Partial fill upon patient request if the prescription is... Start Date: 07/14/23 Status: Ordered Senna 8.6 mg oral tablet 17.2 mg, 2, tablet, By Mouth, Daily at bedtime, # 25 tablet, Refills 0, Tot. Refills 0, Maintenance, 07/14/23 7:57:00 EDT, Route to Pharmacy Electronically, [facility]/pharmacy #[id number], Partial fill [...] Care Team Personnel Name: Madie Tran Position: [facility] Outreach Member Role: Lifetime Consulting Physician Name: Elvira Arias MD Position: [facility] Physician - Primary Care Member Role: PCP Address: Address: [address] [place] [address]- Name: Ann MCGARRY, Tonya Porter Position: [facility] DUMBWAITER OPERATOR Member Role: Lifetime DUMBWAITER OPERATOR Physician Address: Address: [address] [place] [address]'s [facility] [place] [address]- Care Team Related Persons Name: BETY RODRIGUEZ Address: home [address] [place] [address]
--- OUTSIDE RECORDS SUMMARY | 2024-02-02 03:00 | XMS_ITS | Continuity of Care Document ---
Author Organization [facility] Address [address] [address]- Care Team Providers Care Reel Blade Bender Furnace Tender Name Role Phone Elvira Arias MD Primary Care Physician [phone] [place] [facility] Date(s): 02/21/22 - 03/23/22 [facility] [address] [place] [address] Allergies, Adverse Reactions, Alerts Substance Reaction Severity Status Bactrim vomit Intermittent Active Medications ibuprofen 400 mg oral tablet 400 mg, 1, tablet, By Mouth, Every 6 hours, PRN, # 20 tablet, Refills 0, Tot. Refills 0, Maintenance, for pain, 02/21/21 23:18:00 EDT, Route to Pharmacy Electronically, [facility]/pharmacy #[id number], Partial fill upon patient request if the prescription is for a... Start Date: 02/21/21 Status: Ordered ibuprofen 800 mg oral tablet 800 mg, 1, tablet, By Mouth, 3 times a day, # 90 tablet, Refills 0, Tot. 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 Status post laparoscopy Confirmed Active Pelvic pain Confirmed Active 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 1Problem added by Discern Expert Social History Social History Type Response Smoking Status Never smoker entered on: 12/18/14 Sex Patient Care team information Care Team Personnel Name: Madie Tran Position: [facility] Outreach Member Role: Lifetime Consulting Physician Name: Elvira Arias MD Position: [facility] Physician (General Medicine) Member Role: PCP Address: Address: [address] [place] [address]- [place] Name: Ann MCGARRY, Tonya Porter Position: [facility] ELECTRICAL LOGGER MD Member Role: Lifetime ELECTRICAL LOGGER Physician Address: Address: [address] [facility] [place] [address]- [place] Care Team Related Persons Name: BETY RODRIGUEZ Address: home [address] [place] [address]
--- OUTSIDE RECORDS SUMMARY | 2024-02-02 03:00 | XMS_ITS | Continuity of Care Document ---
Author Organization [facility] Emmie [facility] Address [address] [facility], [place] [address]- Care Team Providers Care Waterworks Chief Engineer Name Role Phone Elvira Arias MD Primary Care Physician [id number] Date[facility]s): 08/07/21 - 09/06/21 [facility] [address] [facility], [address]th [place], [place] [address] Attending Physician: Yamilet العراقي Admitting Physician: AdmtrYamilet Referring Physician: Admtr, Ar8 Allergies, Adverse Reactions, Alerts Substance Reaction Severity Status Bactrim vomit Intermittent Active Medications ibuprofen 400 mg oral tablet 400 mg, 1, tablet, By Mouth, Every 6 hours, PRN, # 20 tablet, Refills 0, Tot. Refills 0, Maintenance, for pain, 02/21/21 23:18:00 EDT, Route to Pharmacy Electronically, [facility]/pharmacy #[id number], Partial fill upon patient request if [...]
--- OUTSIDE RECORDS SUMMARY | 2024-02-02 03:00 | XMS_ITS | Continuity of Care Document ---
Author Organization [facility] Medicine Address [address] [facility], 4t h Floor [address] [place] [address]- Care Team Providers Care Building Architect Name Role Phone Hugo MCGARRY, Elvira Ma Primary Care Physician [phone] Encounter [facility] [place] Date(s): 01/22/23 - 01/29/23 [facility] Reproductive Medicine [address] [facility], 4th Floor [address] [place] [address]- Attending Physician: Asiya Pryor MD Allergies, Adverse Reactions, [...] 3 Refills, Soft Stop, 01/22/23 15:22:00 EDT, [facility], Partial fill upon patient [...] oldest [Reference Range]: 1 Height 150 cm (01/22/23 2:27 PM) Weight 58.0 kg (01/22/23 2:27 PM) Pulse Rate [55-90 bpm] 103 bpm *H* (01/22/23 2:27 PM) Body Mass Index [18.5-24.99 kg/m2] 25.78 kg/m2 *H* (01/22/23 2:27 PM) Blood Pressure [90-138/55-84 mm Hg] 125/ 82mm Hg (01/22/23 2:27 PM) Blood pressure sites Arm, right (01/22/23 2:27 PM) Weight Obtained Via Standing scale (01/22/23 2:27 PM) Social History Social History Type Response Smoking Status Never smoker entered on: 12/18/14 Sex Note * Loren Wild MA: PERFORM, SIGN, VERIFY Event Display: Patient Education/Instruction Authored Date: [id number] [facility] *[facility] Med Clinical Summary Name SHAMA RODRIGUEZ Age 27 Years 1995 PCP Elvira Arias MD PCP Visit Date 01/22/2023 14:16:00 Additional Instructions: Scheduled Appointments?? Future Appointments ?No Future Appointments Scheduled Follow-Up Instructions ?? Diagnosis Medications: Please continue your medications until treatment is completed or stopped by your provider. Discuss any questions related to medications with your provider. New Medications [facility], [address] [place], [place] [id number], [phone] Chorionic Gonadotropin (Human) (Ovidrel 250 mcg/0.5 mL subcutaneous solution) 250 Microgram Subcutaneous Injection once. take medication only when directed. Refills: 3. Next Dose: Medications to Continue Taking That Have Changed [id number], [address] [place], [place] [id number], [phone] - Letrozole (letrozole 2.5 mg oral tablet) 2 tab(s) Oral Daily. Start on cycle day 3 and continue for 5 days. Refills: 3. Next Dose: These medications were not printed or sent to your pharmacy - Letrozole (letrozole 2.5 mg oral tablet) 1 tab(s) Oral Daily for 5 Days. start medication on day 3 of cycle. to be taken cycle days 3-7.. Refills: 3. Next Dose: Medications to Continue with No Changes These medications were not printed or sent to your pharmacy Aspirin (aspirin 81 mg oral delayed release tablet) 1 tab(s) Oral Daily. Next Dose: Multivitamin, (Multivitamin Tablet) Next Dose: Progesterone (Prometrium 200 mg oral capsule) 1 capsule Vaginally twice a day. Start meds three days after peak of OPK. Refills: 2. Next Dose: Allergy Info:?? Bactrim Medications Given This Visit Future Orders ?No future orders Vital Signs Height 150 cm Weight 58.0 kg BMI 25.78 kg/m2 Blood Pressure 125 mm Hg/82 mm Hg Temperature Pulse Rate 103 bpm Respiratory Rate 02 Sat Mode of Delivery / You can now view a summary of your hospital visit from the comfort of your home through a free online portal called [employer]. [employer] is a website that allows you to securely view your medical information including discharge summary, medications and follow-up visits. ??You can alsosend a secure electronic message to your doctor???s office to request appointments, renew medications or just ask a question. You can enroll at [email or web address] or register during your [...] primary care provider, you may find a [facility] provider by calling [facility] Link at [phone]. [facility], in keeping with [facility] guidance, no longer requires face masks for staff, patientsor visitors in most situations. Similar to time spent indoors at other locations, there is the chance that you were exposed to respiratory viruses during your time with us (such as flu or COVID-19).? If you develop symptoms concerning for a viral respiratory infection, please seek testing (and treatment if indicated) from your medical provider or home test kit. For information about the plan of care including goals and instructions for your diagnosis, please see the patient education orders section of this document. Patient Education Materials?? The content of this educational material or handout may have been modified, supplemented, or adapted from its original content and format to support your individualized medical care. Additional Provider Instructions: Pt seen by providers pt to follow providers instructions. Sent Pa for IUI to Admin pool. Patient Care team information Care Team Personnel Name: Madie Tran Position: [facility] Outreach Member Role: Lifetime Consulting Physician Name: Elvira Arias MD Position: [facility] Physician - Primary Care Member Role: PCP Address: Address: [address] [place] [address]- Name: Ann MCGARRY, Tonya Porter Position: [facility] FOOD EQUIPMENT SERVICE TECHNICIAN MD Member Role: Lifetime FOOD EQUIPMENT SERVICE TECHNICIAN Physician Address: Address: [address] [place] [address] Women's Health [place] [address]- Care Team Related Persons Name: BETY RODRIGUEZ Address: home [address] [place] [address]
--- OUTSIDE RECORDS SUMMARY | 2024-02-02 03:00 | XMS_ITS | Continuity of Care Document ---
Author Organization [facility] e Medicine Address [address] [facility], 4t h Floor [address] [place] [address]- Care Team Providers Care Library Media Technician Name Role Phone Hugo MCGARRY, Elvira Ma Primary Care Physician Encounter [facility] Date(s): 01/05/23 - 01/12/23 [facility] Reproductive [facility] [address] [facility], 4th Floor [address] [place] [address]- Attending Physician: Not on Staff, Attending MD [...] 3 Refills, Maintenance, 11/04/22 14:16:00 EDT, [facility]/pharmacy #[id number], Partial fill upon patient request [...] 3 Refills, Soft Stop, 11/04/22 14:16:00 EDT, [facility], Partial fill upon patient request if the prescription is for a schedule II opioid drug., 1... Start Date: 11/04/22 Status: Ordered Prometrium 200 mg oral capsule 1 capsule = 200 mg, Vaginally, 2 times a day, Start meds three days after peak of OPK, # 90 capsule, 2 Refills, Acute 10/03/23 8:36:00 EDT, 10/01/22 8:35:00 EDT, [facility]/pharmacy #[id number], Partial fill uponpatient request if [...] Care Team Personnel Name: Madie Tran Position: [facility] Outreach Member Role: Lifetime Consulting Physician Name: Elvira Arias MD Position: [facility] Physician - Primary Care Member Role: PCP Address: Address: [address] [place] [address]- Name: Ann MCGARRY, Tonya Porter Position: [facility] CARD TAPE CONVERTER OPERATOR MD Member Role: Lifetime CARD TAPE CONVERTER OPERATOR Physician Address: Address: [address] [place] [address] Women's Health [place] [address]- Care Team Related Persons Name: BETY RODRIGUEZ Address: home [address] [place] [address]
--- OUTSIDE RECORDS SUMMARY | 2024-02-02 03:00 | XMS_ITS | Continuity of Care Document ---
Author Organization [facility] Address [address] [place] [address]- Care Team Providers Care Checker Bakery Products Name Role Phone Elvira Arias MD Primary Care Physician Encounter [facility] [place] Date(s): 10/31/19 - 10/31/[address] [address]- [facility] Encounter Diagnosis Renal stone(Final) - 10/31/19 , first(Final) - 10/31/19 Discharge Disposition: A-D/C Home Attending Physician: Abhijeet Mccurdy MD Admitting Physician: Abhijeet Mccurdy MD Referring Physician: Not on Staff, Referring MD Allergies, Adverse Reactions, Alerts Substance Reaction Severity Status Bactrim vomit Intermittent Active Medications metroNIDAZOLE 500 mg oral tablet 1 tablet = 500 mg, By Mouth, 2 times a day, # 14 tablet, 0 Refills, Maintenance, 09/10/17 0:18:51 EDT, Tablet Start Date: 09/10/17 Stop Date: 09/17/17 Status: Ordered morphine 15 mg oral tablet, immediate release = 15 mg, By Mouth, Every 4 hours, PRN Pain , Severe, # 42 tablet, 0 Refills, Maintenance, 01/13/16 10:45:57, Tablet Start Date: 01/13/16 Status: Ordered ondansetron 4 mg oral tablet 1 tablet = 4 mg, By Mouth, Every 8 hours, PRN as needed for nausea/vomiting, # 15 tablet, 0 Refills, Maintenance, 05/25/17 9:48:15, Tablet Start Date: 05/25/17 Stop Date: 05/30/17 Status: Ordered oxyCODONE 5 mg oral tablet 5 mg, 1, tablet, By Mouth, Every 6 hours, PRN, for 3 days, # 12 tablet, Refills 0, Tot. Refills 0, Acute 11/03/19 21:35:00 EDT, for pain, 10/31/19 21:35:00 EDT, Route to Pharmacy Electronically, [facility]/pharmacy #[id number], Partial fill upon patient request, 1... Start Date: 10/31/19 Stop Date: 11/03/19 Status: Ordered Reglan 10 mg oral tablet 1 tablet = 10 mg, By Mouth, Every 8 hours, for 5 days, # 15 tablet, 0 Refills, Acute 11/05/19 21:34:00 EDT, 10/31/19 21:34:00 EDT, Tablet, [facility]/pharmacy #[id number], 150, cm, 10/31/19 17:27:00 EDT, Height, 51.5, kg, 10/31/19 17:27:00 EDT, Dry Weight Start Date: 10/31/19 Stop Date: 11/05/19 Status: Ordered Problem List Condition Effective Dates Status Health Status Inform ant Anxiety(Confirmed) Active Depressive disorder(Confirmed) Active Vital Signs Most recent to oldest [Reference Range]: 1 2 3 Height 150 cm (10/31/19 10:05 PM) 150 cm (10/31/19 5:27 PM) 150 cm (10/31/19 2:32 PM) Weight 51.5 kg (10/31/19 10:05 PM) 51.5 kg (10/31/19 5:27 PM) 51.5 kg (10/31/19 2:32 PM) Oxygen Saturation [94-100 %] 100 % (10/31/19 10:05 PM) 100 % (10/31/19 5:27 PM) 99 % (10/31/19 1:05 PM) Pulse Rate [55-90 bpm] 101 bpm *H* (10/31/19 10:05 PM) 92 bpm *H* (10/31/19 5:27 PM) 98 bpm *H* (10/31/19 1:05 PM) Body Mass Index [18.5-24.99] 22.89 (10/31/19 10:05 PM) 22.89 (10/31/19 5:27 PM) 22.89 (10/31/19 1:05 PM) Blood Pressure [90-138/55-84 mm Hg] 116/86mm Hg (10/31/19 10:05 PM) 106/74mm Hg (10/31/19 5:27 PM) 116/85mm Hg (10/31/19 1:05 PM) Respiratory Rate [16-30 br/min] 18 br/min (10/31/19 10:06 PM) 20 br/min (10/31/19 10:05 PM) 18 br/min (10/31/19 5:27 PM) Temperature [96.8-100.4 DegF] 98.6 DegF (10/31/19 10:05 PM) 98.5 DegF (10/31/19 5:27 PM) 99.2 DegF (10/31/19 1:05 PM) Mode of Delivery (Oxygen) Room air (10/31/19 10:05 PM) Room air (10/31/19 5:27 PM) Room air (10/31/19 1:05 PM) Blood pressure sites Arm, left (10/31/19 10:05 PM) Arm, left (10/31/19 5:27 PM) Arm, right (10/31/19 1:05 PM) Temperature Route Oral (10/31/19 10:05 PM) Oral (10/31/19 5:27 PM) Oral (10/31/19 1:05 PM) Dry Weight 51.5 kg (10/31/19 10:05 PM) 51.5 kg (10/31/19 5:27 PM) 51.5 kg (10/31/19 2:32 PM) Social History Social History Type Response Smoking Status Never smoker entered on: 12/18/14 Sex
--- OUTSIDE RECORDS SUMMARY | 2024-02-02 03:00 | XMS_ITS | Continuity of Care Document ---
Author Organization [facility] Emmie [employer] [facility] Address [address] [place] [address], [place], [place] [address]- Care Team Providers Care Sponge Press Operator Name Role Phone Elvira Arias MD Primary Care Physician [phone] [id number] Date[facility]12[facility]23 - 08/19/23 [facility] [employer] [facility] [address] [facility], 4th [place], [place] [address] Attending Physician: Mary Jaquez DO Admitting Physician: Noah MCGARRY [OB], Madie Plascencia Referring Physician: Noah MCGARRY [OB], Madie Plascencia Allergies, Adverse Reactions, Alerts Substance Reaction Severity Status Bactrim vomit Intermittent Active Medications acetaminophen 325 mg oral tablet 650 mg, 2, tablet, By Mouth, Every 4 hours, PRN, # 50 tablet, Refills 0, Tot. Refills 0, Maintenance, as needed for fever, 07/09/23 16:12:00 EDT, Route to Pharmacy Electronically, [facility]/pharmacy #[id number],Partial fill upon patient request if the prescripti... Start Date: 07/09/23 Status: Ordered ibuprofen 600 mg oral tablet 600 mg, 1, tablet, By Mouth, 4 times a day, PRN, # 40 tablet, Refills 0, Tot. Refills 0, Maintenance, for pain, 07/09/23 16:12:00 EDT, Route to Pharmacy Electronically, [facility]/pharmacy #[id number], Partial fill upon patient request [...] 07/14/23 7:57:00 EDT, Route to Pharmacy Electronically, [facility]/pharmacy #[id number], Partial fill upon patient request if the prescription is... Start Date: 07/14/23 Status: Ordered Senna 8.6 mg oral tablet 17.2 mg, 2, tablet, By Mouth, Daily at bedtime, # 25 tablet, Refills 0, Tot. Refills 0, Maintenance, 07/14/23 7:57:00 EDT, Route to Pharmacy Electronically, [facility]/pharmacy #[id number], Partial fill upon patient request [...] Most recent to oldest [Reference Range]: 1 Weight 59.13 kg (08/12/23 9:07 AM) Blood Pressure [90-138/55-84 mm Hg] 116/ 86mm Hg (08/12/23 9:07 AM) Blood pressure sites Arm, left (08/12/23 9:07 AM) Weight Obtained Via Standing scale (08/12/23 9:07 AM) Social History Social History Type Response Smoking Status Never smoker entered on: 12/18/14 Sex Patient Care team information Care Team Personnel Name: Madie Tran Position: [facility] Outreach Member Role: Lifetime Consulting Physician Name: Elvira Arias MD Position: [facility] Physician - Primary Care Member Role: PCP Address: Address: [address] [place] [address]- Name: Ann MCGARRY, Tonya Porter Position: [facility] FORMWORK CARPENTER MD Member Role: Lifetime FORMWORK CARPENTER Physician Address: Address: [address] [place] [address]'s [facility] [place] [address]- Care Team Related Persons Name: BETY RODRIGUEZ Address: home [address] [place] [address]
--- OUTSIDE RECORDS SUMMARY | 2024-02-02 03:00 | XMS_ITS | Continuity of Care Document ---
Author Organization [facility] e Medicine Address [address] [facility], 4t [address] [place] [address]- Care Team Providers Care Sheet Metal Welder Name Role Phone Elvira Arias MD Primary Care Physician Encounter [facility] Date(s): 06/17/22 - 07/17/22 [facility] Reproductive Medicine [address] [facility], 4th [address] [place] [address]- Allergies, Adverse Reactions, Alerts Substance Reaction Severity [...] Care Team Personnel Name: Madie Tran Position: [facility] Outreach Member Role: Lifetime Consulting Physician Name: Elvira Arias MD Position: [facility] Physician (General Medicine) Member Role: PCP Address: Address: [address] [place] [address]- Name: Tonya Juarez MD Position: [facility] THREAD SPOOLER Member Role: Lifetime THREAD SPOOLER Physician Address: Address: [address] [place] [address] Women's Health [place] [address]- Care Team Related Persons Name: BETY RODRIGUEZ Address: home [address] [place] [address]
--- OUTSIDE RECORDS SUMMARY | 2024-02-02 03:00 | XMS_ITS | Continuity of Care Document ---
Author Organization [facility] Address [address] [place] [address]- Care Team Providers Care Electric Sealing Machine Operator Name Role Phone Elvira Arias MD Primary Care Physician Encounter [facility] Date(s): 03/31/22 - 04/30/22 [facility] and [address] [address] Attending Physician: Yamilet العراقي Admitting Physician: Yamilet العراقي Referring Physician: AdmYamilet roy Allergies, Adverse Reactions, Alerts Substance Reaction Severity [...] Care Team Personnel Name: Madie Tran Position: [facility] Outreach Member Role: Lifetime Consulting Physician Name: Elvira Arias MD Position: [facility] Physician (General Medicine) Member Role: PCP Address: Address: [address] [place] [address]- Name: Tonya Juarez MD Position: [facility] CADD TECHNICIAN MD Member Role: Lifetime CADD TECHNICIAN Physician Address: Address: [address] [place] [address] [place] [address]- Care Team Related Persons Name: BETY RODRIGUEZ Address: [address] [address]
--- OUTSIDE RECORDS SUMMARY | 2024-02-02 03:00 | XMS_ITS | Continuity of Care Document ---
Author Organization [facility] Address [address] [address]- Care Team Providers Care Practical Nurse Name Role Phone Hugo MCGARRY, Elvira Ma Primary Care Physician En[place] [facility] Date(s): 06/22/23 - 07/22/23 [facility] [address] [place] [address]- Allergies, Adverse Reactions, Alerts Substance Reaction Severity [...] 07/14/23 7:57:00 EDT, Route to Pharmacy Electronically, [facility]/pharmacy #[id number], Partial fill upon patient request if the prescription is... Start Date: 07/14/23 Status: Ordered Senna 8.6 mg oral tablet 17.2 mg, 2, tablet, By Mouth, Daily at bedtime, # 25 tablet, Refills 0, Tot. Refills 0, Maintenance, 07/14/23 7:57:00 EDT, Route to Pharmacy Electronically, [facility]/pharmacy #[id number], Partial fill upon patient [...] Care Team Personnel Name: Madie Tran Position: [facility] Outreach Member Role: Lifetime Consulting Physician Name: Elvira Arias MD Position: [facility] Physician - Primary Care Member Role: PCP Address: Address: [address] [place] [address]- Name: Ann MCGARRY, Tnoya Porter Position: [facility] BED TEACHER MD Member Role: Lifetime BED TEACHER Physician Address: Address: [address] [place], [place] [address]s [facility] [place] [address]- Care Team Related Persons Name: BETY RODRIGUEZ Address: home [address] [place] [address]
--- OUTSIDE RECORDS SUMMARY | 2024-02-02 03:00 | XMS_ITS | Continuity of Care Document ---
Author Organization [facility] Emmie [employer] [facility] Address [address] [facility], [place] [address]- Care Team Providers Care Crystalizer Operator Name Role Phone Elvira Arias MD Primary Care Physician [id number] Date(s): 02/03/22 - 03/05/22 [facility] [employer] [facility] [address] [facility], [address]th [place], [place] [address] Allergies, Adverse Reactions, Alerts Substance Reaction Severity Status Bactrim vomit Intermittent Active Medications ibuprofen 400 mg oral tablet 400 mg, 1, tablet, By Mouth, Every 6 hours, PRN, # 20 tablet, Refills 0, Tot. Refills 0, Maintenance, for pain, 02/21/21 23:18:00 EDT, Route to Pharmacy Electronically, [facility]/pharmacy #[id number], Partial fill upon patient request if the prescription is for a... Start Date: 02/21/21 Status: Ordered ibuprofen 800 mg oral tablet 800 mg, 1, tablet, By Mouth, 3 times a day, # 90 tablet, Refills 0, Tot. Refills 0, Maintenance, 02/27/21 17:05:00 EDT, Route to Pharmacy Electronically, [facility]/pharmacy #[id number], Partial fill upon patientrequest [...] List Condition Confirmation Course Effective Dates Status [facility] at Informant Anxiety Confirmed Active COVID-19 1 Confirmed 08/10/21 Active Cyclic neutropenia Confirmed Active Depressive disorder Confirmed Active Status post laparoscopy Confirmed Active Pelvic pain Confirmed Active 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 1Problem added by Discern Expert Social History Social History Type Response Smoking Status Never smoker entered on: 12/18/14 Sex Patient Care team information Care Team Personnel Name: Madie Tran Position: [facility] Outreach Member Role: Lifetime Consulting Physician Name: Elvira Arias MD Position: [facility] Physician (General Medicine) Member Role: PCP Address: Address: [address] [place] [address] Name: Ann MCGARRY, Tonya Porter Position: [facility] MANAGER RELATIONSHIP MD Member Role: Lifetime MANAGER RELATIONSHIP Physician Address: Address: [address] [place] [address]'s [facility] Maintenance Helper [place] [address]- Care Team Related Persons Name: BETY RODRIGUEZ Address: home [address] [place] [address]
--- OUTSIDE RECORDS SUMMARY | 2024-02-02 03:00 | XMS_ITS | Continuity of Care Document ---
Author Organization [facility] Emmie [employer] [facility] Address [address] [place] [address], [address] [place] [address]- Care Team Providers Care Gaming Worker Name Role Phone Elvira Arias MD Primary Care Physician [phone] [id number] 10/15/23 - 11/14/23 [facility] [employer] [facility] [address] [facility], [address]th [place], [place] [address] Attending Physician: Yamilet العراقي Admitting Physician: AdmYamilet roy Referring Physician: AdmtrYamilet Allergies, Adverse Reactions, Alerts Substance Reaction Severity Status Bactrim vomit Intermittent Active Medications Multivitamin Tablet 0 Refills, Maintenance, 01/14/22 18:44:00 EDT, Partial fill upon patient request if the prescription is for a schedule II opioid drug. Start Date: 01/14/22 Status: Ordered norethindrone 5 mg oral tablet 5 mg, 1, tablet, By Mouth, Daily, # 30 tablet, Refills 0, Maintenance, 11/10/23 8:39:00 EDT, Partial fill upon patient request if the prescription is for a schedule II opioid drug. Start Date: 11/10/23 Status: Ordered Problem List Condition Confirmation Course Effective Dates Status [facility] Informant Anxiety Confirmed Active Cyclic neutropenia Confirmed Active Depressive disorder Confirmed Active History of kidney stones Confirmed Active Status post laparoscopy Confirmed Active 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 Social History Social History Type Response Smoking Status Never smoker entered on: 12/18/14 Sex Laboratory * Event Display: ELEVATED GUARD Pap Test, Non-BH Authored Date: * Event Display: ELEVATED GUARD Pap Test, Non-BH Authored Date: Patient Care team information Care Team Personnel Name: Madie Tran Position: [facility] Outreach Member Role: Lifetime Consulting Physician Name: Elvira Arias MD Position: [facility] Physician - Primary Care Member Role: PCP Address: Address: [address] [place] [address]- Name: Tonya Juarez MD Position: [facility] CYLINDER BATCHER MD Member Role: Lifetime CYLINDER BATCHER Physician Address: Address: [address] [place], [place] [address]s [facility] [place] [address]- Care Team Related Persons Name: BETY RODRIGUEZ Address: home [address] [place] [address] Name: ALDAIR RODRIGUEZ Address: home [address] [place] [address]
--- OUTSIDE RECORDS SUMMARY | 2024-02-02 03:00 | XMS_ITS | Continuity of Care Document ---
Author Organization [facility] Medicine Address [address] [place] [id number]- Care Team Providers Care Photovoltaic Installer Name Role Phone Elvira Arias MD Primary Care Physician [phone] [place] [facility] [place]s): 03/04/23 - 03/11/23 [facility] Reproductive Medicine [address] [place] [address] Attending Physician: Not on Staff, [...] tablet, 3 Refills, Maintenance, 11/04/22 14:16:00 EDT, [facility]/pharmacy #[id number], Partial fill upon patient [...] 3 Refills, Soft Stop, 01/22/23 15:22:00 EDT, [facility], Partial fill upon patient request if the prescription is for a schedule II opioid drug., 1... Start Date: 01/22/23 Status: Ordered Prometrium 200 mg oral capsule 1 capsule = 200 mg, Vaginally, 2 times a day, Start meds three days after peak of OPK, # 90 capsule, 2 Refills, Acute 10/03/23 8:36:00 EDT, 10/01/22 8:35:00 EDT, [facility]/pharmacy #[id number], Partial fill uponpatient request if [...] Care Team Personnel Name: Madie Tran Position: [facility] Outreach Member Role: Lifetime Consulting Physician Name: Elvira Arias MD Position: [facility] Physician - Primary Care Member Role: PCP Address: Address: [address] [place] [address]- Name: Tonya Juarez MD Position: [facility] ALODIZE MACHINE OPERATOR MD Member Role: Lifetime ALODIZE MACHINE OPERATOR Physician Address: Address: [address] [place] [address] [employer] [place] [address]- Care Team Related Persons Name: PAULABartolome BETY Address: [address] [place] [address]
--- OUTSIDE RECORDS SUMMARY | 2024-02-02 03:00 | XMS_ITS | Continuity of Care Document ---
Author Organization [facility] ter Address [address] [place] [address]- Care Team Providers Care Seamer Panty Hose Name Role Phone Elvira Arias MD Primary Care Physician Encounter [facility] [place] Date(s): 12/14/21 - 12/15/[address] [address]- Encounter Diagnosis Abdominal/back pain(Final) - 12/15/21 Discharge Disposition: A-D/C Home Attending Physician: Heidy Sharpe DO Admitting Physician: Heidy Sharpe DO Referring Physician: Not on Staff, Referring [...] a schedule... Start Date: 02/27/21 Status: Ordered Toradol Inj 10 mg, Injection, IV Push Slowly, Once, STAT, 12/15/21 8:48:00 EDT, Stop date 12/15/21 8:48:00 EDT Start Date: 12/15/21 Stop Date: 12/15/21 Status: Completed Tylenol 325 mg oral capsule 2 capsule [...] negative(Confirmed) Active 1Problem added by Discern Expert Vital Signs Most recent to oldest [Reference Range]: 1 2 3 Height 150 cm (12/15/21 9:59 AM) 150 cm (12/15/21 7:35 AM) 150 cm (12/14/21 10:00 PM) Weight 54 kg (12/15/21 9:59 AM) 54 kg (12/15/21 7:35 AM) 54 kg (12/14/21 10:00 PM) Oxygen Saturation [94-100 %] 98 % (12/15/21 9:59 AM) 100 % (12/15/21 9:17 AM) 100 % (12/15/21 7:35 AM) Pulse Rate [55-90 bpm] 78 bpm (12/15/21 9:59 AM) 76 bpm (12/15/21 9:17 AM) 81 bpm (12/15/21 7:35 AM) Body Mass Index [18.5-24.99] 24 (12/15/21 9:59 AM) 24 (12/15/21 7:35 AM) 24 (12/14/21 10:00 PM) Blood Pressure [90-138/55-84 mm Hg] 112/75mm Hg (12/15/21 9:59 AM) 110/66mm Hg (12/15/21 9:17 AM) 109/81mm Hg (12/15/21 7:35 AM) Respiratory Rate [16-30 br/min] 16 br/min (12/15/21 9:59 AM) 15 br/min *L* (12/15/21 9:45 AM) 11 br/min *L* (12/15/21 9:17 AM) Temperature [96.8-100.4 DegF] 98.1 DegF (12/15/21 9:17 AM) 98.1 DegF (12/15/21 7:32 AM) 98.6 DegF (12/15/21 5:22 AM) Mode of Delivery (Oxygen) Room air (12/15/21 9:59 AM) Room air (12/15/21 9:17 AM) Room air (12/15/21 7:35 AM) Blood pressure sites Arm, left (12/15/21 9:59 AM) Arm, left (12/15/21 9:17 AM) Arm, left (12/15/21 7:32 AM) Temperature Route Oral (12/15/21 9:17 AM) Oral (12/15/21 7:32 AM) Temporal (12/15/21 5:22 AM) Dry Weight 54 kg (12/15/21 9:59 AM) 54 kg (12/15/21 7:35 AM) 54 kg (12/14/21 10:00 PM) Weight Obtained Via Patient/family stated (12/14/21 10:00 PM) Dry Weight Obtained Via Patient/family stated (12/14/21 10:00 PM) Social History Social History Type Response Smoking Status Never smoker entered on: 12/18/14 Sex
--- OUTSIDE RECORDS SUMMARY | 2024-02-02 03:00 | XMS_ITS | Continuity of Care Document ---
Author Organization [facility] ter Address [address] [place] [id number]- Care Team Providers Care [employer]ine As[employer]er Name Role Phone Elvira Arias MD Primary Care Physician [phone] Encounter [facility] [place] Date(s): 07/13/23 - 07/14/[address] [address]- Encounter Diagnosis Postoperative pain(Discharge Diagnosis) - 07/13/23 Discharge Disposition: A-D/C Home Attending Physician: Darien Simmons DO Admitting Physician: Aniya Walters MD Referring Physician: Aniya Walters MD Allergies, Adverse Reactions, Alerts Substance Reaction Severity Status Bactrim vomit Intermittent Active Medications acetaminophen 325 mg oral tablet 650 mg, 2, tablet, By Mouth, Every 4 hours, PRN, # 50 tablet, Refills 0, Tot. Refills 0, Maintenance, as needed for fever, 07/09/23 16:12:00 EDT, Route to Pharmacy Electronically, [facility]/pharmacy #[id number],Partial fill upon patient request if the prescripti... Start Date: 07/09/23 Status: Ordered ibuprofen 600 mg oral tablet 600 mg, 1, tablet, By Mouth, 4 times a day, PRN, # 40 tablet, Refills 0, Tot. Refills 0, Maintenance, for pain, 07/09/23 16:12:00 EDT, [facility] 07/14/23 7:57:00 EDT, Route to Pharmacy Electronically, [facility]pharmacy #[id number], Partial fill upon patient request if the prescription is... Start Date: 07/14/23 Status: Ordered Senna 8.6 mg oral tablet 17.2 mg, 2, tablet, By Mouth, Daily at bedtime, # 25 tablet, Refills 0, Tot. Refills 0, Maintenance, 07/14/23 7:57:00 EDT, Route to Pharmacy Electronically, [id number], Partial fill upon patient request if the prescription is for a schedule II... 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 History of kidney stones Confirmed Active Status post laparoscopy Confirmed Active 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 Diagnosis Diagnosis Type Effective Dates Health Status Clinical Service Informant Postoperative pain Discharge Diagnosis 07/13/23 Results Radiology Reports * Exam Date Time Procedure Performing Provider Status 07/13/23 7:52 PM US Pelvic Transvaginal Danilo Scales (Verified) Notes: (US Pelvic Transvaginal) Reason For Exam: Severe abdominal pain and vaginal bleeding 4 days after laparoscopic removal of right ectopic /fallopian tube;Pain RESULT: US Pelvic Transvaginal US Pelvic Transvaginal Reason: Pain; Severe abdominal pain and vaginal bleeding 4 days after laparoscopic removal of rightectopic fallopian tube; Clinical Question(s): Abscess; mass structural cause of pain or vaginal bleeding; COMPARISON: 12/15/2021 TECHNIQUE: Transvaginal pelvic ultrasound with grayscale and color Doppler analysis. FINDINGS: UTERUS: Size: 8.0 x 3.6 x 5.3 cm, volume 79.3 cc. Endometrial thickness: 0.4 cm. Morphology: Normal configuration and echotexture. RIGHT OVARY: Size: 5.1 x 2.0 x 3.5 cm, volume 18.8 cc. Morphology: Normal echotexture. No pathologic cysts or mass. Normal color Doppler appearance. LEFT OVARY: Surgically absent. ADNEXA: Small amount of free fluid with debris in the right adnexa, likely physiologic. IMPRESSION: No suspicious abscess or mass in the visualized pelvis. I have personally reviewed the images and I agree with this report. WSN: [id number] Ordering Physician: Yoko Sandoval Dictated By: Aidee Guerra MD Dictated Date/Time: 07/13/23 9:14 pm Reviewed By: Doroteo Sorinao MD Signed By: Doroteo Soriano MD Signed Date/Time: 07/13/23 9:19 pm Transcribed By: LEANNE Transcribed Date/Time: 07/13/23 9:04 pm Vital Signs Most recent to oldest [Reference Range]: 1 2 3 Height 150 cm (07/14/23 7:41 AM) 150 cm (07/14/23 3:31 AM) 150 cm (07/13/23 10:43 PM) Oxygen Saturation [94-100 %] 100 % (07/14/23 7:41 AM) 100 % (07/14/23 3:31 AM) 98 % (07/13/23 10:43 PM) Pulse Rate [55-90 bpm] 98 bpm *H* (07/14/23 7:41 AM) 74 bpm (07/14/23 3:31 AM) 80 bpm (07/13/23 10:43 PM) Blood Pressure [90-138/55-84 mm Hg] 97/62mm Hg (07/14/23 7:41 AM) 95/64mm Hg (07/14/23 3:31 AM) 106/74mm Hg (07/13/23 10:43 PM) Respiratory Rate [16-30 br/min] 18 br/min (07/14/23 9:30 AM) 18 br/min (07/14/23 7:41 AM) 20 br/min (07/14/23 3:31 AM) Temperature [96.8-100.4 DegF] 97.5 DegF (07/14/23 7:41 AM) 97.8 DegF (07/14/23 3:31 AM) 98 DegF (07/13/23 10:43 PM) Mode of Delivery (Oxygen) Room air (07/14/23 7:41 AM) Room air (07/14/23 3:31 AM) Room air (07/13/23 10:43 PM) Blood pressure sites Arm, right (07/14/23 7:41 AM) Arm, right (07/14/23 3:31 AM) Arm, left (07/13/23 10:43 PM) Temperature Route Oral (07/14/23 7:41 AM) Oral (07/14/23 3:31 AM) Oral (07/13/23 10:43 PM) Dry Weight 57.4 kg (07/13/23 4:36 PM) Dry Weight Obtained Via Standing scale (07/13/23 4:36 PM) Social History Social History Type Response Smoking Status Never smoker entered on: 12/18/14 Sex History and physical note * Darien Simmons DO: PERFORM, MODIFY Event Display: History and Physical Hospital Authored Date: Patient: ??SHAMA RODRIGUEZ ? Age:??28 Years?Sex:??Female?:??1995?? Chief Complaint Postoperative pain after laparoscopic right salpingectomy for ectopic on 07/09/2023 History of Present Illness The patient is postoperative day 4 status post a laparoscopic right salpingectomy for ruptured ectopic ??on 07/09/2023.?? The patient was discharged home on the same day with prescriptions for Tylenol,??ibuprofen, and oxycodone for pain control.?? The patient states that??on postoperative day 1??she??was taking the pain medications prescribed??as prescribed??and states her pain was not improving.?? On postoperative day 2??she stopped the pain medications completely because she states they were not working??and she does not like taking medication if it is not working.?? Her pain??in her abdomen has significantly worsened since then.?? She states she cannot get comfortable??and she is??in extreme pain and??very sore.?? She states she??also noticed she was having vaginal??bleeding??that has been ongoing since she was discharged.?? She also reports shoulder pain. Review of Systems Constitutional:??Positive??pain? Urinary:??Negative.? Gynecology:??Positive??vaginal bleeding? Head/Neck:??Negative.? Ear/Nose/Mouth/Throat:??Negative.? Cardiovascular:??Negative.? Respiratory:??Negative.? Gastrointestinal:??Negative.? Skin:??Positive??brusing around??incisions? Breast:??Negative.? Psychiatric:??Negative.? Hematologic:??Negative.? Lymphatic:??Negative.? Physical Exam Vitals & Measurements T:??98.3?F?? HR:??102??(Peripheral)?? RR:??18?? BP:??117/80?? SpO2:??99%?? HT:??150??cm?? A skilled nursing case manager was present for the pelvic examination. GEN:?? No acute distress CV:?? tachycardic LUNGS:?? CTAB ABD:?? soft, generalized tenderness, no rebound, +??guarding, no CVA tenderness,??incisions are??clean, dry, non-tender and intact with no evidence of infection with steri's still applied, there is some bruising noted around the incisions, on bedside ultrasound - there was no visible free fluid EXT:?? no calf tenderness, no edema NEURO:?? grossly intact SKIN:?? bruising around incision EXTERNAL GENITILIA: minimal blood noted on towel Assessment/Plan Postoperative pain (G89.18):??The patient??will be admitted for pain control??as??observation.??We discussed that her hemoglobin hematocrit are stable??and on bedside ultrasound I did not see fluid in her??cul-de-sac??and thus I do not think that there is hemoperitoneum. We discussed that I think her pain is related to her not??taking her scheduled pain medication??and thus??her pain.??A beta hCGis??ordered and pending as well.??The patient will be started on Toradol 15 mg IV every 6 hours,??10 mg oxycodone??every 4 hours??and Tylenol 975 mg every 8 hours.??We will titrate her medications asneeded??for optimal pain control. Surgical pathology is still pending. TVUS previously ordered is pe nding. ? Time spent on visit and management today??40??minutes Components of management include:?? Documentation, chart review in [facility] of our notes, review of notes of others and external communication, review of personal and family medical history, performing physical exam, discussion of diagnosis and plan of care, reviewing of imaging reports and images, ordering images and laboratory, ambulatory prescription writing.?? OB History History?(0,0,4,0)? # 1 ?Baby 1 ?Outcome Date:??2019 ?Outcome or Result:??Spontaneous ?Gest Age:??-- ? Outcome:? Sex:??-- ?? # 2 ?Baby 1 ?Outcome Date:??12/26/2021?Outcome or Result:??Spontaneous ?Gest Age:??6 weeks ? Outcome:? Sex:??-- ?? # 3 ?Baby 1 ?Outcome Date:??01/25/2022?Outcome or Result:??Spontaneous ?Gest Age:??6 weeks ? Outcome:? Sex:??-- ?? # 4 ?Baby 1 ?Outcome Date:??02/25/2022?Outcome or Result:??Spontaneous ?Gest Age:??6 weeks ? Outcome:? Sex:??-- Active Problem List Active Problem List Anxiety: (Medical) Cyclic neutropenia: (Medical) Depressive disorder: (Medical) History of kidney stones: (Medical) : (Obstetric) (03/27/23) RhD negative: (Medical) Status post laparoscopy: (Medical) Procedure/Surgical History Excision of right neck cyst with plastic closure: 05/31/09 Knee LSO - Left salpingo-oophorectomy Home Medications Acetaminophen: 650 mg = 2 tablet, By Mouth, Every 4 hours, PRN (as needed for fever) Aspirin: 81 mg = 1 tablet, By Mouth, Daily Chorionic Gonadotropin (Human): 250 mcg, Subcutaneous Injection, Once, take medication only when directed ClomiPHENE: 50 mg = 1 tablet, By Mouth, Daily, Take medication on days 3-7 of cycle NAME BRAND ONLY Enoxaparin: See Instructions, 0.6 mL Subcutaneous Injection Every 12 hours 14 days Ibuprofen: 600 mg = 1 tablet, By Mouth, 4 times a day, PRN (for pain) Letrozole: 2.5 mg = 1 tablet, By Mouth, Daily, start medication on day 3 of cycle. to be taken cycle days 3-7. Letrozole: 5 mg = 2 tablet, By Mouth, Daily, Start on cycle day 3 and continue for 5 days Multivitamin, Oxycodone: 5 mg = 1 tablet, By Mouth, Every 6 hours, PRN (as needed for pain) Progesterone: 200 mg = 1 capsule, Vaginally, 2 times a day, Start meds three days after peak of OPK Senna: 17.2 mg = 2 tablet, By Mouth, Daily at bedtime Allergies Bactrim??(vomit) Social History Alcohol Use: None. Electronic Cigarette/Vaping Electronic Cigarette Use: Never. Employment/School [...] attack Pat. Grandfather: Diabetes mellitus Lab Results Test Name Test Result Date/Time WBC 6.5 k/mm3 07/13/2023 16:58 EDT Hgb 12.6 Gm/dL 07/13/2023 16:58 EDT Hct 36.9 % 07/13/2023 16:58 EDT Platelet Count 254 k/mm3 07/13/2023 16:58 EDT Hospital Progress note * Melly Salgado RN: MODIFY, MODIFY, PERFORM, MODIFY, MODIFY, MODIFY, MODIFY, SIGN, VERIFY Event Display: Progress Note Hospital Authored Date: [id number] Patient: SHAMA RODRIGUEZ Age: 28 years Sex: Female : 1995 Associated Diagnoses: None Author: Melly Salgado RN Findings Problem Related to Alteration in Comfort : Alteration in Comfort/new 07/14/2023 2:00 EDT Alteration in Comfort Related to Surgery BH Goals/Interventions, Comfort Yes Comfort, Problem Ongoing Yes Comfort, Problem Start 07/14/2023 2:11 Goals & Outcomes: Comfort Pt will report acceptable level of comfort & pain control, Pt will state importance of adhering to pain strategy regime, Pt will demonstrate necessary skills to manage pain, Non-verbal indicators will indicate comfort/pain control Interventions Implemented: Comfort Assess pain using appropriate pain scale/tools, Assess aggravating factors & prevent them accordingly, Assess alleviating factors & promote them accordingly Patient Progression, Comfort Plan Initiation Reviewed plan with, Comfort Patient . Nursing Data Cardiac Data. : Cardiac Data. 07/13/2023 22:00 EDT Capillary Refill < 3 seconds Cardiovascular WNL except Cardiovascular Symptoms None Dorsalis Pedis Pulse, Left Normal Dorsalis Pedis Pulse, Right Normal Heart Rhythm Regular Heart Sounds S1, S2 Nail Bed Color [place] Skin Temperature Lower Extremities Warm Skin Temperature Upper Extremities Warm 07/13/2023 16:58 EDT Hgb 12.6 Gm/dL Hct 36.9 % . Respiratory/Pulmonary Data. : Respiratory/Pulmonary Data. 07/13/2023 22:43 EDT Mode of Delivery (Oxygen) Room air 07/13/2023 22:00 EDT All Lobes Breath Sounds Clear Cough No cough Respiratory WNL except Respiratory effort Unlabored Respiratory pattern Regular Respiratory Symptoms None Respiratory Treatment(s) Cough and deep breathe . Vital Signs : VITAL SIGNS SECTION 07/13/2023 22:43 EDT Temperature 98 DegF Temperature Route Oral Pulse Rate 80 bpm Respiratory Rate 16 br/min Systolic Blood Pressure 106 mm Hg Diastolic Blood Pressure 74 mm Hg Blood pressure sites Arm, left Mean Arterial Pressure 85 mm Hg Pulse Pressure 32 mm Hg Oxygen Saturation 98 % Mode of Delivery (Oxygen) Room air . Evaluation P: per nursing care plan I: r/t nursing care plan E:assumed care of patient at 2200, pt able to ambulate with steady gait to unit bed, denies dizziness, a/ox4, following commands appropriately, afebrile, VS wnl. Respirations even and unlabored on room air, denies sob. Endorses 7/10 abdominal pain, sharp, medicated with Toradol scheduled with good effect, pt assessed sleeping post admin, no respiratory distress. 3 abdominal LAP sites remain CDI, steristrips in place, no s/s of infection. Pt denies NVD, tolerating po intake without difficulty. Denies dysuria, states voiding in BR w/out difficulty. Pt endorses vaginal bleeding, this nurse assessed one peripad with small amount of eriberto red blood. Educated patient on plan of care and call bar use, fall risk precautions in place, call bar within reach, hourly rounding maintained. See [facility]IS for full assessment data and flow sheets, will continue monitoring as needed. . Discharge Information Case Management Discharge Plan : Case Management Discharge Plan Data 07/09/2023 19:57 EDT Discharge Level of Care at Discharge Home/Fdc/Foster Care Note * Valarie Baker RN: PERFORM Event Display: Discharge/Transfer Note Hospital Authored Date: [id number] Nursing Discharge Note Entered On: 07/14/2023 11:18 EDT Performed On: 07/14/2023 11:18 EDT by Valarie Baker RN Nursing Discharge Note 2 Discharge Time : 07/14/2023 11:18 EDT Discharge Level of Care at Discharge : Home/Fdc/Foster Care Patient Left Unit Via : Ambulatory Patient Accompanied Off Unit with : Responsible adult DC Instructions Provided & Signed by Pt : Yes Patient Understands D/C Instructions : Yes Patient Instructions Discharge Signed : Yes Did Pt have Specialty Bed or Wound Vac : No Valarie Baker RN - 07/14/2023 11:18 EDT * Nandini Lin MD: MODIFY Nandini Lin MD: MODIFY Event Display: Discharge/Transfer Note Hospital Authored Date: [id number] Patient: ??SHAMA RODRIGUEZ ? Age:??28 Years?Sex:??Female?:??1995?? Admit Date Admission Date: 07/13/2023 Discharge Date Discharge??Date: 07/13/2023 Discharge Diagnoses 1.??Postoperative pain, 07/13/2023 [facility] Course Shama Rodriguez??is a 28-year-old who is postoperative day 5??from a??diagnostic laparoscopy and??laparoscopic right salpingectomy??for the removal of a??ectopic .?? She presented on POD4??for??severe abdominal pain??after self- discontinuing her??prescribed pain medications on POD 2??because they were not??treating her pain as expected.?A??pelvic ultrasound was also performed during this admission??which showed?? no suspicious abscess or mass in the visualized pelvis and only a small amount of free fluid??in the right adnexa which was thought to be physiologic. Overnight,??she received 1 dose of oxycodone and 2 doses of Toradol??and had improvement of her pain??to a 07/04??on themorning of discharge.?She was able to tolerate??food and drink, had minimal nausea,??was passingflatus,??and??ambulating??independently. Objective/Physical Exam on Day of Discharge Vitals & Measurements T:??97.5?F?? HR:??98??(Peripheral)?? RR:??18?? BP:??97/62?? SpO2:??100%?? HT:??150??cm?? Constitutional:??Normal affect, no acute distress, well-developed. Respiratory: Breathing comfortably on room air Abdomen/GI:??Soft, non-tender,??non-distended, no guarding, no rebound tenderness.?? Gynecologic: No blood noted on pad Extremities:??No clubbing, cyanosis or edema present.?? Skin:??Improving, aged-scattered bruises across her lower abdomen and around port sites Neurological/Psychiatric:??Appearance appropriate, mood and affect stable. Assessment/Plan Assessment:??Shama Rodriguez??is a 28-year-old who was admitted on POD4 from a diagnostic laparoscopy and??laparoscopic right salpingectomy??for the removal of a??ectopic for post-operative pain control likely secondary to prematurely stopping her prescribed pain medications.?Her pain improved with oxycodone and Toradol??she is suitable for discharge on HD1/POD??5.?The next 72 hours, she should take Tylenol and ibuprofen as scheduled??and utilize oxycodone for breakthrough pain.??A bowel regimen??has been sent to her pharmacy??as??narcotics??can cause constipation??which can also??exacerbate her pain.??Should she develop??severe pain that is not controlled by her pain medication, heavy vaginal bleeding, nausea and vomiting with inability to tolerate p.o. intake??she should call??the office or [facility]for [facility].?She will follow-up in the [facility] office in 2 weeks. ?? Patient seen and discussed with Dr. Lin, attending physician ?? Postoperative pain (G89.18):? - Discharged home with scheduled Ibuprofen, Tylenol and as needed Oxycodone - Bowel regimen: Miralax, home Senna - Follow-up with the [facility] office in 2 weeks, clinic messaged ?? Discharge Medications ???Acetaminophen (acetaminophen 325 mg oral tablet)???Ibuprofen (ibuprofen 600 mg oral tablet)???Multivitamin, (Multivitamin Tablet)???Oxycodone (oxyCODONE 5 mg oral tablet)???Polyethylene Glycol 3350 (MiraLax oral powder for reconstitution)???Senna (Senna 8.6 mg oral tablet) Stop taking these medications ???Aspirin (aspirin 81 mg oral delayed release tablet)???Chorionic Gonadotropin (Human) (Ovidrel 250 mcg/0.5 mL subcutaneous solution)???ClomiPHENE (Clomid 50 mg oral tablet)???Enoxaparin (Lovenox 60 mg/0.6 mL injectable solution)???Letrozole (letrozole 2.5 mg oral tabl et)???Letrozole (letrozole 2.5 mg oral tablet)???Progesterone (Prometrium 200 mg oral capsule) Patient Instructions Please call your doctor if you note any of the following symptoms: - fever of 100.4 or greater - heavy vaginal bleeding - foul-smelling vaginal discharge - difficulty or burning with urination - nausea and vomiting with inability to tolerate food - pain not controlled by your prescribed medications - redness/swelling/drainage at incision(s) - shortness of breath or chest pain ?? In addition, please follow these steps to help your healing process: ?? - Do not drive while taking narcotics. Do not drive until cleared by your doctor. - Avoid lifting anything 15lbs or greater for 2 weeks or until cleared by your doctor. - Stairs are OK but avoid multiple trips and go slowly. - Walk as often as you are able. - Continue your stool softeners (examples: colace/docusate, senna, miralax) until no longer taking narcotics and stools are regular. - Shower as usual after 24 hours. Remove Steri-Strips when they start to peel off, or after 5 days.Do not scrub the incision. Pat the skin dry. ?? Pain Control Instructions: You can take up to 600mg of ibuprofen ( Motrin or Advil or??generic ibuprofen)??every 6 hours asneeded. You can take up to 1000mg of Tylenol (generic: acetaminophen)??every 6 hours as needed. Youcan take these regularly??for the first??2-3 days while your pain is most significant, and after that you should be able to space out your pain medications.??You can take the Oxycodone for any breakthrough pain. You may fill less than the prescribed amount, and you should store them in a safe location in a childproof prescription bottle.??Any unused opiates should be returned to a prescription drop-box, such as the one at the [facility]. No one other than you should take your opiates, and you should not use them for anything other than your postoperative pain. You should not drive while taking opiates. * Delia MCGARRY, Nandini Ma: PERFORM Event Display: Discharge/Transfer Note Hospital Authored Date: Attending Attestation:??I have seen and evaluated this patient. ??I have discussed the case and itsmanagement with the resident and agree with the findings and plan as documented in the resident???snote. -Nandini Lin MD * Olivia MACARIO, Valarie: PERFORM Event Display: Patient Education/Instruction Authored Date: Inpatient Adult Discharge Instructions. [address] [address] Name: SHAMA RODRIGUEZ : 1995?? Visit: 07/13/2023 19:32?? Current Date: 07/14/2023 10:14 ?? Account: [id number]?? Inpatient Adult Discharge Instructions We would like [...] and their families. Surveys are administered by [employer] ?? If further treatment with your primary care physician or another doctor is recommended, it is important for you to keep the appointment. Call your primary care physician or return to the Emergency Department immediately if your condition worsens, fails to improve, or new symptoms develop. If you need to find a doctor, you can call [facility] [employer] for a referral at [phone] or toll free at [phone]) or log in to [email or web address] ?? [facility], in keeping with [facility] guidance, no longer requires face masks [...] a health care eusebio of your choosing. [employer] is a website that allows you to [...] office visit. You have been discharged from [facility], Patient Care Unit: D3B??. If you have any questions regarding these instructions, including results of studies pending, afteryou leave, please call us and we will be happy to assist you 17/11. [facility] Your Care Team Attending Physician Darien Simmons DO?? Consulting Providers Darien Simmons DO?? Discharging Providers Dianne Doan MD Reason for Your Visit RLQ discomfort, vb with small clots and chest pain radiates towards shoulder?? Your Diagnosis Postoperative pain Tests Performed Below is a partial list of the tests performed during your hospitalization. You may have had other tests and procedures not included in this list. Please discuss all test results with your provider. Beta HCG Serum (Females Only) CBC US Pelvic Transvaginal No tests performed during this visit.?? Primary Care Provider Elvira Arias MD? Advance Directive Health Care Proxy on File No Patient is <18 years old Discharge Vitals Temperature: 97.5 DegF Height: 150 cm Pulse Rate:??98 bpm??High ?? Respiratory Rate: 18 br/min ?? Systolic Blood Pressure: 97 mm Hg ?? Diastolic Blood Pressure: 62 mm Hg ?? Oxygen Saturation: 100 % ?? Studies Pending All studies ordered during this hospital stay have been completed unless listed below. Please discuss all pending results with your provider listed above in these instructions. ?? No incomplete studies found?? What to do next Instructions From Your Doctor Please call your doctor if you note any of the following symptoms: - fever of 100.4 or greater - heavy vaginal bleeding - foul-smelling vaginal discharge - difficulty or burning with urination - nausea and vomiting with inability to tolerate food - pain not controlled by your prescribed medications - redness/swelling/drainage at incision(s) - shortness of breath or chest pain ?? In addition, please follow these steps to help your healing process: ?? - Do not drive while taking narcotics. Do not drive until cleared by your doctor. - Avoid lifting anything 15lbs or greater for 2 weeks or until cleared by your doctor. - Stairs are OK but avoid multiple trips and go slowly. - Walk as often as you are able. - Continue your stool softeners (examples: colace/docusate, senna, miralax) until no longer taking narcotics and stools are regular. - Shower as usual after 24 hours. Remove Steri-Strips when they start to peel off, or after 5 days.Do not scrub the incision. Pat the skin dry. ?? Pain Control Instructions: You can take up to 600mg of ibuprofen ( Motrin or Advil or??generic ibuprofen)??every 6 hours asneeded. You can take up to 1000mg of Tylenol (generic: acetaminophen)??every 6 hours as needed. Youcan take these regularly??for the first??2-3 days while your pain is most significant, and after that you should be able to space out your pain medications.??You can take the Oxycodone for any breakthrough pain. You may fill less than the prescribed amount, and you should store them in a safe location in a childproof prescription bottle.??Any unused opiates should be returned to a prescription drop-box, such as the one at the [facility]. No one other than you should take your opiates, and you should not use them for anything other than your postoperative pain. You should not drive while taking opiates. ?? Orders? 07/14/23 9:40:00 EDT?? Discharge Medications SHAMA RODRIGUEZ :1995 Visit Date:07/13/2023 Medications: Please continue your medications until treatment is completed or stopped by your provider. Medications not listed below should be discontinued. Discuss any questions related to medications with your provider. What How Much When Instructions Next Dose New Polyethylene Glycol 3350 (MiraLax oral powder for reconstitution) 17 gram Oral Daily as needed for Constipation Pickup at [facility]/pharmacy #[id number] Take as directed Unchanged Ibuprofen (ibuprofen 600 mg oral tablet) 1 tab(s) Oral 4 times a day as needed for for pain Take as directed Unchanged Multivitamin, (Multivitamin Tablet) Unchanged Oxycodone (oxyCODONE 5 mg oral tablet) 1 tab(s) Oral Every 6 hours as needed for as needed for pain Pickup at [facility]/pharmacy #[id number] Take as directed Unchanged Senna (Senna 8.6 mg oral tablet) 2 tab(s) Oral Daily at Bedtime Pickup at [facility]/pharmacy #1291 Take on [employer] Pharmacy Information [facility]/pharmacy #[id number]: [address] [place], [place] [id number] [phone] ?? What How Much When Comments Stop Taking Aspirin (aspirin 81 mg oral delayed release tablet) 1 tab(s) Oral Daily Stop Taking Chorionic Gonadotropin (Human) (Ovidrel 250 mcg/ 0.5 mL subcutaneous solution) 250 Microgram Subcutaneous Injection Once take medication only when directed ?? Stop Taking ClomiPHENE (Clomid 50 mg oral tablet) 1 tab(s) Oral Daily Duration: 5 Days Take medication on days 3-7 of cycle NAME BRAND ONLY ?? Stop Taking Enoxaparin (Lovenox 60 mg/ 0.6 mL injectable solution) See instructions 0.6 mL Subcutaneous Injection Every 12 hours 14 days ?? Stop Taking Letrozole (letrozole 2.5 mg oral tablet) 2 tab(s) Oral Daily Start on cycle day 3 and continue for 5 days ?? Stop Taking Letrozole (letrozole 2.5 mg oral tablet) 1 tab(s) Oral Daily Duration: 5 Days start medication on day 3 of cycle. to be taken cycle days 3-7. ?? Stop Taking Progesterone (Prometrium 200 mg oral capsule) 1 capsule Vaginally Twice a day Start meds three days after peak of OPK ?? Prescription Given During Visit Oxycodone (oxyCODONE 5 mg oral tablet) - 1 tablet = 5 mg, By Mouth, Every 6 hours, # 3 tablet, 0 Refills, [id number], [address] [place] [phone]?? Polyethylene Glycol 3350 (MiraLax oral powder for reconstitution) - 17 Gm, By Mouth, Daily, # 14 each, 0 Refills, [id number], [address] [place] [phone]?? Senna (Senna 8.6 mg oral tablet) - 2 tablet = 17.2 mg, By Mouth, Daily at bedtime, # 25 tablet, 0 Refills, [id number], [address] [place] [phone]?? Laboratory Results Below is a partial list of the most recent Laboratory test results done prior to this discharge. You may have had other tests and procedures not included in this list. Please discuss all test resultswith your provider. Beta HCG Serum (Females Only) (07/13/2023) ???Blood - 10 mIU/mL CBC (07/13/2023) ???WBC - 6.5 k/mm3???RBC - 4.32 m/mm3???Hgb - 12.6 Gm/dL???Hct - 36.9 %???MCV - 85.4 femtoliters???MCH - 29.2 pg???MCHC - 34.1 g/dL???Platelet Count - 254 k/mm3???RDW-SD - 38.7 femtoliters???MPV - 11.0 femtoliters???Nucleated RBC (Automated) - 0.0 #/100 WBC'S???Abs. 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 History of kidney stones? RhD negative?? Status post laparoscopy?? Education Materials Below is the list of Educational Leaflet Providered with your Discharge Instructions. Valuables and Belongings I fully understand and agree that [facility] accepts no responsibility for all my personal [...] encouraged to send valuables and belongings home. ? Other Discharge Information ? Pulmonary Rehab Status?? Pulmonary Rehab Discharge Status?? Respiratory Rate: 18 br/min ? Common Emergency Awareness Tips IS IT [...] are strongly encouraged to quit. Please call [facility] [employer] Link at [phone] or [phone] ([phone]) or log in to [email or web address] for referrals to smoking cessation programs. ?? 923 Suicide & Crisis Lifeline is available 17/11 if you or someone you know needs to find a reason to keep living. By calling 058 you'll be connected to a skilled, trained counselor at a crisis center in your area. INPATIENT DISCHARGE INSTRUCTIONS SIGNATURE PAGE AYESHASHAMA ANDERSEN Location:[facility] Registration Date and Time:07/13/2023 19:32 EDT Primary Care Physician: Elvira Arias MD, Attending Physician: Darien Simmons DO, I SHAMA RODRIGUEZ, have received the above patient education materials/instructions and have verbalized understanding. If ambulance or transport services are being used I further acknowledge being given a choice of service. ?? If you need to contact me, please call me at this number: . Patient/Property Management Coordinator Name: Patient/Property Management Coordinator Signature: Relationship to Patient: Witness Name/Signature: Date: Patient Care team information Care Team Personnel Name: Madie Tran Position: [facility] Outreach Member Role: Lifetime Consulting Physician Name: Elvira Arias MD Position: [facility] Physician - Primary Care Member Role: PCP Address: Address: [address] [place] [address]- Name: Ann MCGARRY, Tonya Porter Position: [facility] FROTHING MACHINE OPERATOR MD Member Role: Lifetime FROTHING MACHINE OPERATOR Physician Address: Address: [address] [place] [address]'s [place] [address]- Care Team Related Persons Name: BETY RODRIGUEZ Address: home [address] [place] [address]
--- OUTSIDE RECORDS SUMMARY | 2024-02-02 03:00 | XMS_ITS | Continuity of Care Document ---
Author Organization [facility] Emmie [employer]cginnisReal Estate Directre [facility] Address [address] [place] [address], [place], [place] [address]- Care Team Providers Care Wind Field Manager Name Role Phone Hugo MCGARRY, Elvira Ma Primary Care Physician [id number] Date[facility] - 04/03/21 [facility] [employer] [facility] [address] [facility] [place] [address]- Allergies, Adverse Reactions, Alerts Substance Reaction Severity Status Bactrim vomit Intermittent Active Medications ibuprofen 400 mg oral tablet 400 mg, 1, tablet, By Mouth, Every 6 hours, PRN, # 20 tablet, Refills 0, Tot. Refills 0, Maintenance, for pain, 02/21/21 23:18:00 EDT, Route to Pharmacy Electronically, [facility]/pharmacy #[id number], Partial fill upon patient [...]
--- OUTSIDE RECORDS SUMMARY | 2024-02-02 03:00 | XMS_ITS | Continuity of Care Document ---
Author Organization [facility] Address [address] [place] [address]- Care Team Providers Care Orthopedic Physical Therapist Name Role Phone Elvira Arias MD Primary Care Physician Encounter [facility] Date(s): 11/11/19 - 12/11/19 [facility] [address] [place] [address]- [facility] Allergies, Adverse Reactions, Alerts Substance Reaction Severity Status Bactrim vomit Intermittent Active Medications 19 ([place]) oral tablet 1 tablet, By Mouth, Daily, # 30 tablet, 0 Refills, Maintenance, 11/14/19 15:35:00 EDT Start Date: 11/14/19 Status: Ordered Problem List Condition Effective Dates Status Health Status Inform ant Anxiety(Confirmed) Active Cyclic neutropenia(Confirmed) Active Depressive disorder(Confirmed) Active RhD negative(Confirmed) Active Social History Social History Type Response Smoking Status Never smoker entered on: 12/18/14 Sex
--- OUTSIDE RECORDS SUMMARY | 2024-02-02 03:01 | XMS_ITS | Continuity of Care Document ---
Author Organization [facility] ter Address [address] [place] [address]- Care Team Providers Care Hatch Supervisor Name Role Phone Elvira Arias MD Primary Care Physician Encounter [facility] Date(s): 03/06/21 - 03/07/[address] [address]- Encounter Diagnosis Abdominal pain(Final) - 03/07/21 Discharge Disposition: A-D/C Home Referring Physician: Not on Staff, Referring MD Allergies, Adverse Reactions, Alerts Substance Reaction Severity Status Bactrim vomit Intermittent Active Medications Acetaminophen Tablet 650 mg, Tablet, By Mouth, Once, STAT, 03/07/21 5:57:00 EST, Stop date 03/07/21 5:57:00 EST Start Date: 03/07/21 Stop Date: 03/07/21 Status: Completed ibuprofen 400 mg oral tablet 400 mg, 1, tablet, By Mouth, Every 6 hours, PRN, # 20 tablet, Refills 0, Tot. Refills 0, Maintenance, for pain, 02/21/21 23:18:00 EDT, Route to Pharmacy Electronically, [facility]/pharmacy #[id number], Partial fill upon patient request if the prescription is for a... Start Date: 02/21/21 Status: Ordered ibuprofen 800 mg oral tablet 800 mg, 1, tablet, By Mouth, 3 times a day, # 90 tablet, Refills 0, Tot. Refills 0, Maintenance, 02/27/21 17:05:00 EDT, Route to Pharmacy Electronically, [facility]/pharmacy #[id number], Partial fill upon patientrequest if the prescription is for a schedule II op... Start Date: 02/27/21 Status: Ordered Motrin Tablet 600 mg, Tablet, By Mouth, Once, STAT, 03/07/21 5:57:00 EST, Stop date 03/07/21 5:57:00 EST Start Date: 03/07/21 Stop Date: 03/07/21 Status: Completed ondansetron 4 mg oral tablet, disintegrating 1 [...] Active Depressive disorder(Confirmed) Active RhD negative(Confirmed) Active Results Orders for Microbiology Reports Name Date Blood Culture 03/06/21 Microbiology Reports TEST:Blood Culture STATUS:Unauthenticated BODY SITE: SOURCE:Blood COLLECTED DATE/TIME:03/06/21 4:58 PM Blood Culture SPECIMEN DESCRIPTION : BLOOD R AC SPECIAL REQUESTS : NONE CULTURE : NO GROWTH AFTER 24 HOURS REPORT STATUS : PRELIMINARY REPORT Vital Signs Most recent to oldest [Reference Range]: 1 2 3 Oxygen Saturation [94-100 %] 100 % (03/07/21 1:16 PM) 97 % (03/07/21 6:14 AM) 100 % (03/07/21 3:41 AM) Pulse Rate [55-90 bpm] 87 bpm (03/07/21 1:16 PM) 77 bpm (03/07/21 6:14 AM) 83 bpm (03/07/21 3:41 AM) Blood Pressure [90-138/55-84 mm Hg] 107/75mm Hg (03/07/21 1:16 PM) 113/74mm Hg (03/07/21 6:14 AM) 101/71mm Hg (03/07/21 3:41 AM) Respiratory Rate [16-30 br/min] 16 br/min (03/07/21 1:16 PM) 18 br/min (03/07/21 7:10 AM) 18 br/min (03/07/21 7:10 AM) Temperature [96.8-100.4 DegF] 98.4 DegF (03/07/21 1:16 PM) 97.8 DegF (03/07/21 6:14 AM) 98.2 DegF (03/07/21 3:41 AM) Mode of Delivery (Oxygen) Room air (03/07/21 1:16 PM) Room air (03/07/21 6:14 AM) Room air (03/07/21 3:41 AM) Blood pressure sites Arm, left (03/07/21 1:16 PM) Arm, right (03/07/21 6:14 AM) Arm, right (03/07/21 3:41 AM) Temperature Route Oral (03/07/21 1:16 PM) Oral (03/07/21 6:14 AM) Oral (03/07/21 3:41 AM) Social History Social History Type Response Smoking Status Never smoker entered on: 12/18/14 Sex
--- OUTSIDE RECORDS SUMMARY | 2024-02-02 03:01 | XMS_ITS | Continuity of Care Document ---
Author Organization [facility] Emmie nBRD [employer] [facility] Address [address] [facility], [address], [place] [address]- Care Team Providers Care Informatics Consultant Name Role Phone Hugo MCGARRY, Elvira Ma Primary Care Physician [facility] Date(s): 07/09/23 - 07/16/23 [facility] [employer] [facility] [address] [facility], [address] [place] [address]- Attending Physician: Ubaldo MCGARRY, Hardik Woodruff Allergies, Adverse Reactions, Alerts Substance Reaction [...] EDT, Route to Pharmacy Electronically, [facility]/pharmacy #[id number], Partial fill upon patient request if the prescription is... Start Date: 07/14/23 Status: Ordered Senna 8.6 mg oral tablet 17.2 mg, 2, tablet, By Mouth, Daily at bedtime, # 25 tablet, Refills 0, Tot. Refills 0, Maintenance, 07/14/23 7:57:00 EDT, Route to Pharmacy Electronically, [facility]/pharmacy #[id number], Partial fill upon patient request [...] Status Never smoker entered on: 12/18/14 Sex Radiology * Event Display: PDC Limited Viability * Event Display: PDC Limited Viability Authored Date: [id number] OBSTETRICS REPORT PATIENT INFO: CMRN: [id number] BMRN: [id number] : [birth year] (28 yrs)(F) Name: SHAMA RODRIGUEZ Visit Date: 07/09/2023 09:16 am PERFORMED BY: Performed By: Renu Hoyos RDMS Attending: Jakub Townsend MD Referred By: Hardik Conner MD Location: [address] INDICATIONS: Bleeding in early O20.9 Complete spontaneous without O03.9 complication VITAL SIGNS: Weight (lb): 125 Height: 4'11 BMI: 25.24 EVALUATION: Num Of Fetuses: 1 Gest. Sac: No intrauterine gestational sac seen Pole: Not visualized Cardiac Activity: pole not seen Amniotic Fluid CAMILA FV: No GS seen BIOMETRY: OB HISTORY: : 5 SAB: 4 GESTATIONAL AGE: LMP: 7w 0d Date: 05/21/23 ANDERSON: 02/25/24 Best: 7w 0d Det. By: LMP (05/21/23) ANDERSON: 02/25/24 CERVIX UTERUS ADNEXA: Cervix Appears closed Left Ovary Not visualized Right Ovary Appears normal Cul De Sac Small amount of fluid seen Comment Vaginal scanning was done. COMMENTS: No evidence if an IUP. Free fluid seen in clu de sac. Mass suspicious for an ectopic seen adjacent to the right ovary. Dr. Garner informed and pt was sent to [facility] for evaluation and management. Jakub Townsend MD Electronically Signed Final Report 07/09/2023 10:34 am * Event Display: PDC Limited Viability Authored Date: Please click on pdf link to open report Patient Care team information Care Team Personnel Name: Madie Tran Position: [facility] Outreach Member Role: Lifetime Consulting Physician Name: Elvira Arias MD Position: [facility] Physician - Primary Care Member Role: PCP Address: Address: [address] [place] [address]- Name: Ann MCGARRY, Tonya Porter Position: [facility] TELEGRAPHIC TYPEWRITER OPERATOR Member Role: Lifetime TELEGRAPHIC TYPEWRITER OPERATOR Physician Address: Address: [address] [place] [address]'s [place] [address]- Care Team Related Persons Name: BETY RODRIGUEZ Address: home [address] [place] [address]
--- OUTSIDE RECORDS SUMMARY | 2024-02-02 03:01 | XMS_ITS | Continuity of Care Document ---
Author Organization [facility] Address [address] [address]- Care Team Providers Care Tavern Keeper Name Role Phone Elvira Arias MD Primary Care Physician Encounter [facility] ACCT R [id number] Date(s): 01/07/22 - 03/20/22 [facility] [address] [place] [address] Attending Physician: Not on Staff, Attending MD Referring Physician: Elvira Arias MD Allergies, Adverse Reactions, Alerts Substance Reaction Severity Status Bactrim vomit Intermittent Active Medications ibuprofen 400 mg oral tablet 400 mg, 1, tablet, By Mouth, Every 6 hours, PRN, # 20 tablet, Refills 0, Tot. Refills 0, Maintenance, for pain, 02/21/21 23:18:00 EDT, Route to Pharmacy Electronically, [facility]/pharmacy #[id number], Partial fill upon patient request if the prescription is for a... Start Date: 02/21/21 Status: Ordered ibuprofen 800 mg oral tablet 800 mg, 1, tablet, By Mouth, 3 times a day, # 90 tablet, Refills 0, Tot. Refills 0, Maintenance, 02/27/21 17:05:00 EDT, Route to Pharmacy Electronically, [facility]/pharmacy #[id number], Partial fill upon patientrequest if [...] Health St atus Informant Anxiety Confirmed Active COVID-19 1 Confirmed 08/10/21 Active Cyclic neutropenia Confirmed Active Depressive disorder Confirmed Active Status post laparoscopy Confirmed Active Pelvic pain Confirmed Active 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 1Problem added by Discern Expert Social History Social History Type Response Smoking Status Never smoker entered on: 12/18/14 Sex Patient Care team information Care Team Personnel Name: Madie Tran Position: [facility] Outreach Member Role: Lifetime Consulting Physician Name: Elvira Arias MD Position: [facility] Physician (General Medicine) Member Role: PCP Address: Address: [address] [place] [address]- [place] Name: nAn MCGARRY, Tonya Porter Position: [facility] MD Member Role: Lifetime RIM ROLLER SETTER Physician Address: Address: [address] [place] [address] [facility] [place] [address]- Care Team Related Persons Name: BETY RODRIGUEZ Address: home [address] [place] [address]
--- OUTSIDE RECORDS SUMMARY | 2024-02-02 03:01 | XMS_ITS | Continuity of Care Document ---
Author Organization [facility] Address [address] [facility], [address] [place] [address]- Care Team Providers Care Ice Rink Attendant Name Role Phone Hugo MCGARRY, Elvira Ma Primary Care Physician [place] [facility] Date(s): 01/03/23 - 01/10/23 [facility] [address] [facility], [address]th Floor [address] [place] [address]- Attending Physician: Not on Staff, Attending MD Referring Physician: Konstantin MCGARRY, Asiya Shay Allergies, Adverse Reactions, Alerts Substance Reaction Severity [...] tablet, 3 Refills, Maintenance, 11/04/22 14:16:00 EDT, [facility]/pharmacy #[id number], Partial fill upon patient [...] 3 Refills, Soft Stop, 11/04/22 14:16:00 EDT, [facility], Partial fill upon patient request if the prescription is for a schedule II opioid drug., 1... Start Date: 11/04/22 Status: Ordered Prometrium 200 mg oral capsule 1 capsule = 200 mg, Vaginally, 2 times a day, Start meds three days after peak of OPK, # 90 capsule, 2 Refills, Acute 10/03/23 8:36:00 EDT, 10/01/22 8:35:00 EDT, [facility]/pharmacy #[id number], Partial fill uponpatient request [...] Care Team Personnel Name: Madie Tran Position: [facility] Outreach Member Role: Lifetime Consulting Physician Name: Elvira Arias MD Position: [facility] Physician - Primary Care Member Role: PCP Address: Address: [address] [place] [address]- Name: Ann MCGARRY, Tonya Porter Position: [facility] R D INTERN Member Role: Lifetime R D INTERN Physician Address: Address: [address] [place] [address] [facility] [address]- Care Team Related Persons Name: BETY RODRIGUEZ Address: home [address] [place] [address]
--- OUTSIDE RECORDS SUMMARY | 2024-02-02 03:01 | XMS_ITS | Continuity of Care Document ---
Author Organization [facility] ter Address [address] [place] [address]- Care Team Providers Care Chief Service Observer Name Role Phone Elvira Arias MD Primary Care Physician [phone] [place] [facility] Date(s): 03/25/22 - 03/25/[address] [address]- Discharge Disposition: Transferred to [facility]term [facility] hospit Attending Physician: Donovan Riggins MD Admitting Physician: Donovan Riggins MD Referring Physician: Not on Staff, Referring MD Allergies, Adverse Reactions, Alerts Substance Reaction Severity Status Bactrim vomit Intermittent Active Medications ibuprofen 400 mg oral tablet 400 mg, 1, tablet, By Mouth, Every 6 hours, PRN, # 20 tablet, Refills 0, Tot. Refills 0, Maintenance, for pain, 02/21/21 23:18:00 EDT, Route to Pharmacy Electronically, [facility]/pharmacy #[id number], Partial fill upon patient request if the prescription is for a... Start Date: 02/21/21 Status: Ordered ibuprofen 800 mg oral tablet 800 mg, 1, tablet, By Mouth, 3 times a day, # 90 tablet, Refills 0, Tot. Refills 0, Maintenance, 02/27/21 17:05:00 EDT, Route to Pharmacy Electronically, [facility]/pharmacy #[id number], Partial fill upon patientrequest if the [...] List Condition Confirmation Course Effective Dates Status [facility] atus Informant Anxiety Confirmed Active COVID-19 1 Confirmed 08/10/21 Active Cyclic neutropenia Confirmed Active Depressive disorder Confirmed Active Status post laparoscopy Confirmed Active Pelvic pain Confirmed Active 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 1Problem added by Discern Expert Vital Signs Most recent to oldest [Reference Range]: 1 Height 150 cm (03/25/22 10:56 AM) Weight 56.8 kg (03/25/22 10:56 AM) Oxygen Saturation [94-100 %] 100 % (03/25/22 10:40 AM) Pulse Rate [55-90 bpm] 82 bpm (03/25/22 10:40 AM) Blood Pressure [90-138/55-84 mm Hg] 132/ 100mm Hg (03/25/22 10:40 AM) Respiratory Rate [16-30 br/min] 20 br/mi n (03/25/22 10:40 AM) Temperature [96.8-100.4 DegF] 98.9 DegF (03/25/22 10:40 AM) Mode of Delivery (Oxygen) Room air (03/25/22 10:40 AM) Blood pressure sites Arm, right (03/25/22 10:40 AM) Temperature Route Oral (03/25/22 10:40 AM) Dry Weight 56.8 kg (03/25/22 10:56 AM) Weight Obtained Via Patient/family state d (03/25/22 10:56 AM) Dry Weight Obtained Via Patient/family s tated (03/25/22 10:56 AM) Social History Social History Type Response Smoking Status Never smoker entered on: 12/18/14 Sex Patient Care team information Care Team Personnel Name: Madie Tran Position: [facility] Outreach Member Role: Lifetime Consulting Physician Name: Elvira Arias MD Position: [facility] Physician (General Medicine) Member Role: PCP Address: Address: [address] [place] [address]- Name: Ann MCGARRY, Tonya Porter Position: [facility] SUMATRA OPENER MD Member Role: Lifetime SUMATRA OPENER Physician Address: Address: [address] [place] [address] Women[facility] [place] [address]- Care Team Related Persons Name: BETY RODRIGUEZ Address: home [address] [place] [address]
--- OUTSIDE RECORDS SUMMARY | 2024-02-02 03:01 | XMS_ITS | Continuity of Care Document ---
Author Organization [facility] Address [address] [facility], 4t h Floor [address] [place] [address]- Care Team Providers Care Energy Infrastructure Engineer Name Role Phone Elvira Arias MD Primary Care Physician [phone] Encounter [facility] [place] [facility] Date(s): 07/14/22 - 07/21/22 [facility] [address] [facility], 4th Floor [address] [place] [address]- Attending Physician: Natividad Mcneill MD Referring Physician: Elvira Arias MD Allergies, [...] oldest [Reference Range]: 1 Height 150 cm (07/14/22 5:01 PM) Weight 57.0 kg (07/14/22 5:01 PM) Pulse Rate [55-90 bpm] 108 bpm *H* (07/14/22 5:01 PM) Body Mass Index [18.5-24.99 kg/m2] 25.33 kg/m2 *H* (07/14/22 5:01 PM) Blood Pressure [90-138/55-84 mm Hg] 120/ 81mm Hg (07/14/22 5:01 PM) Blood pressure sites Arm, right (07/14/22 5:01 PM) Weight Obtained Via Standing scale (07/14/22 5:01 PM) Social History Social History Type Response Smoking Status Never smoker entered on: 12/18/14 Sex Note * Aubrie Hernandez MA: PERFORM, SIGN, VERIFY Event Display: Patient Education/Instruction Authored Date: [id number] [facility] Clinical Summary Name SHAMA RODRIGUEZ Age 27 Years 1995 PCP Elvira Arias MD PCP Visit Date 07/14/2022 15:36:00 Additional Instructions: Scheduled Appointments?? Future Appointments ?*[facility] ?[address]??[place],??[place],??[address] ?Phone:??--?Fax:??-- ?Appt. Date:??07/18/2022?9:00 AM ?Scheduled Provider:??Konstantin MCGARRY, Asiya Shay Follow-Up Instructions ?? Diagnosis Medications: Please continue [...] orders Vital Signs Height 150 cm Weight 57.0 kg BMI 25.33 kg/m2 Blood Pressure 120 mm Hg/81 mm Hg Temperature Pulse Rate 108 bpm Respiratory Rate 02 Sat Mode of Delivery / You can now view a summary of your hospital visit from the comfort of your home through a free online portal called DocRun. DocRun is a website that allows you to securely view your medical information including discharge summary, medications and follow-up visits. ??You can alsosend a secure electronic message to your doctor???s office to request appointments, renew medications or just ask a question. You can enroll at [email or web address] or register during your next office visit. [...] primary care provider, you may find a [facility] provider by calling [facility] at [phone]. For information about the plan of care including goals and instructions for your diagnosis, please see the patient education orders section of this document. Patient Education Materials?? The content of this educational material or handout may have been modified, supplemented, or adapted from its original content and format to support your individualized medical care. Additional Provider Instructions: SONO performed today. Patient Care team information Care Team Personnel Name: Madie Tran Position: [facility] Outreach Member Role: Lifetime Consulting Physician Name: Elvira Arias MD Position: [facility] Physician (General Medicine) Member Role: PCP Address: Address: [address] [place] [address]- Name: Tonya Juarez MD Position: [facility] WINDOWS MOBILE DEVELOPER Member Role: Lifetime WINDOWS MOBILE DEVELOPER Physician Address: Address: [address] [place] [address] [place] [address]- Care Team Related Persons Name: BETY RODRIGUEZ Address: [address] [address]
--- OUTSIDE RECORDS SUMMARY | 2024-02-02 03:01 | XMS_ITS | Continuity of Care Document ---
Author Organization [facility] ter Address [address] [place] [address]- Care Team Providers Care Deicer Element Winder Machine Name Role Phone Elvira Arias MD Primary Care Physician Encounter [facility] Date(s): 11/18/23 - 11/18/[address] [address] Discharge Disposition: A-D/C Home Attending Physician: Asiya Pryor MD Admitting Physician: Asiya Pryor MD Referring Physician: Asiya Pryor MD Allergies, Adverse Reactions, Alerts Substance Reaction Severity Status Bactrim vomit Intermittent Active Medications doxycycline hyclate 100 mg oral capsule 1 capsule = 100 mg, By Mouth, 2 times a day, for 5 days, # 10 capsule, 0 Refills, Acute 11/23/23 14:32:00 EDT, 11/18/23 14:32:00 EDT, Capsule, [id number], Partial fill upon patient request ifthe prescription is for a schedule II opioid drug.,... Start Date: 11/18/23 Stop Date: 11/23/23 Status: Ordered Estrace 2 mg oral tablet 1 tablet = 2 mg, By Mouth, 2 times a day, # 56 tablet, 0 Refills, Maintenance, 11/18/23 14:30:00 EDT, [id number], Partial fill upon patient request if the prescription is for a schedule II opioid drug., 149, cm, 11/18/23 12:57:00 EDT, Height,... Start Date: 11/18/23 Stop Date: 12/16/23 Status: Ordered Fentanyl Inj (PACU ONLY) 25 mcg, Injection, IV Push Slowly, Every 5 minutes for 8 doses/times, in PACU ONLY, PRN for Pain , Moderate, Routine, 11/18/23 13:58:00 EDT, Stop date Limited # of times Start Date: 11/18/23 Stop Date: 11/19/23 Status: Discontinued ibuprofen 600 mg oral tablet 600 mg, 1, tablet, By Mouth, Every 6 hours, # 40 tablet, Refills 0, Tot. Refills 0, Acute 11/25/23 14:45:00 EDT, 11/18/23 14:29:00 EDT, Route to Pharmacy Electronically, [facility] #[id number], Partial fill upon patient request if the prescription is for... Start Date: 11/18/23 Stop Date: 11/25/23 Status: Ordered Multivitamin Tablet 0 Refills, Maintenance, [...] opioid drug. Start Date: 11/10/23 Status: Ordered Provera 10 mg oral tablet 10 mg, 1, tablet, By Mouth, Daily, Start taking this medication on December 08, 2023 and continue twice daily estrace, # 7 tablet, Refills 0, Tot. Refills 0, Maintenance, 12/08/23 14:31:00 EDT, Route to Pharmacy Electronically, [id number], Parti... Start Date: 12/08/23 Stop Date: 12/15/23 Status: Ordered Tylenol Extra Strength 500 mg oral tablet 1 tablet = 500 mg, By Mouth, Every 4 hours, PRN as needed for pain, # 50 tablet, 0 Refills, Acute 11/24/23 14:45:00 EDT, 11/18/23 14:30:00 EDT, Tablet, [id number], Partial fill upon patient request if the prescription is for a schedule II opio... Start Date: 11/18/23 Stop Date: 11/24/23 Status: Ordered Problem List Condition Confirmation Course Effective Dates Status Health St atus Informant Anxiety Confirmed Active Cyclic neutropenia Confirmed Active Depressive disorder Confirmed Active History of kidney stones Confirmed Active Status post laparoscopy Confirmed Active 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 Vital Signs Most recent to oldest [Reference Range]: 1 2 3 Height 149 cm (11/18/23 12:57 PM) 149 cm (11/10/23 8:45 AM) Weight 56.9 kg (11/18/23 12:57 PM) 58 kg (11/10/23 8:45 AM) Oxygen Saturation [94-100 %] 99 % (11/18/23 4:00 PM) 98 % (11/18/23 3:30 PM) 99 % (11/18/23 3:00 PM) Pulse Rate [55-90 bpm] 88 bpm (11/18/23 12:57 PM) Body Mass Index [18.5-24.99 kg/m2] 25.63 kg/m2 *H* (11/18/23 12:57 PM) 26.12 kg/m2 *H* (11/10/23 8:45 AM) Blood Pressure [90-138/55-84 mm Hg] 86/69mm Hg *L* (11/18/23 4:00 PM) 113/87mm Hg (11/18/23 3:30 PM) 119/75mm Hg (11/18/23 3:00 PM) Respiratory Rate [16-30 br/min] 11 br/min *L* (11/18/23 4:00 PM) 13 br/min *L* (11/18/23 3:30 PM) 14 br/min *L* (11/18/23 3:24 PM) Temperature [96.8-100.4 DegF] 97.3 DegF (11/18/23 2:00 PM) 97.3 DegF (11/18/23 12:57 PM) Liters per Minute 6 L/min (11/18/23 2:30 PM) 6 L/min (11/18/23 2:15 PM) 6 L/min (11/18/23 2:00 PM) Mode of Delivery (Oxygen) Room air (11/18/23 3:00 PM) Simple face mask (11/18/23 2:30 PM) Simple face mask (11/18/23 2:15 PM) Blood pressure sites Arm, left (11/18/23 2:30 PM) Arm, left (11/18/23 2:15 PM) Arm, left (11/18/23 2:00 PM) Temperature Route Temporal (11/18/23 2:00 PM) Temporal (11/18/23 12:57 PM) Dry Weight 56.9 kg (11/18/23 12:57 PM) 58 kg (11/10/23 8:45 AM) Weight Obtained Via Standing scale (11/18/23 12:57 PM) Dry Weight Obtained Via Standing scale (11/18/23 12:57 PM) Social History Social History Type Response Smoking Status Never smoker entered on: 12/18/14 Sex Note * Nikkie Greco RN: PERFORM Event Display: Discharge/Transfer Note Hospital Authored Date: [id number] Nursing Discharge Note Entered On: 11/18/2023 14:35 EDT Performed On: 11/18/2023 14:35 EDT by Nikkie Greco RN Nursing Discharge Note 2 Discharge Time : 11/18/2023 16:22 EDT Jacqueline Batista RN - 11/18/2023 16:27 EDT Discharge Level of Care at Discharge : Home/Residential/Foster Care Patient Left Unit Via : Wheelchair Patient Accompanied Off Unit with : Responsible adult DC Instructions Provided & Signed by Pt : Yes Patient Understands D/C Instructions : Yes Patient Instructions Discharge Signed : Yes Did Pt have Specialty Bed or Wound Vac : No Nikkie Greco RN - 11/18/2023 14:35 EDT * Nikkie Greco RN: PERFORM Event Display: Patient Education/Instruction Authored Date: [id number] Inpatient Adult Discharge Instructions. [address] [address] Name: SHAMA RODRIGUEZ : 1995?? Visit: 11/18/2023 11:32?? Current Date: 11/18/2023 14:36 ?? Account: [id number]?? Inpatient Adult Discharge Instructions We would like [...] and their families. Surveys are administered by [employer] ?? If further treatment with your primary care physician or another doctor is recommended, it is important for you to keep the appointment. Call your primary care physician or return to the Emergency Department immediately if your condition worsens, fails to improve, or new symptoms develop. If you need to find a doctor, you can call [facility] for a referral at [phone] or toll free at [phone]) or log in to [email or web address] ?? [facility], in keeping with [facility] guidance, no longer requires face masks [...] a health care eusebio of your choosing. [employer] is a website that allows you to securely view your medical information including your hospital discharge summary, office visit summaries, medications and follow-up visits. You can also request appointments, renew medications, and request access to your medical information using a health care eusebio of your choosing, or just ask a question. You can enroll at [email or web address] or register during your next office visit. You have been discharged from [facility], Patient Care Unit: [facility]??. If you have any questions regarding these instructions, including results of studies pending, afteryou leave, please call us and we will be happy to assist you 17/11. [facility] Nursing Unit Direct Phone Number, for 17/11 contact and results of studies pending [facility] [address] [place] [address] Your Care Team Attending Physician Konstantin MCGARRY, Asiya Shay?? Consulting Providers Asiya Pryor MD?? Discharging Providers Asiya Pryor MD Tests Performed Below is a partial list of the tests performed during your hospitalization. You may have had other tests and procedures not included in this list. Please discuss all test results with your provider. No tests performed during this visit.?? Primary Care Provider Elvira Arias MD? Advance Directive Health Care Proxy on File Yes - Health Care Proxy Discharge Vitals Temperature: 97.3 DegF Height: 149 cm Pulse Rate: 88 bpm Weight: 56.9 kg Respiratory Rate: 19 br/min Body Mass Index:??25.63 kg/m2??High Systolic Blood Pressure: 117 mm Hg Body surface area: 1.53 Diastolic Blood Pressure: 80 mm Hg ?? Oxygen Saturation: 100 % ?? Studies Pending All studies ordered during this hospital stay have been completed unless listed below. Please discuss all pending results with your provider listed above in these instructions. ?? No incomplete studies found?? What to do next Instructions From Your Doctor ?? Orders? 11/18/23 14:25:00 EDT?? Instructions from your Care Team -There is a catheter currently in your uterus. Cramping and discomfort is to be expected -New prescriptions sent to your pharmacy. Begin prescriptions today per Konstantin MCGARRY?? Scheduled Follow-Up Appointments Thursday 1:30 PM EDT ?? With: Aidee CHANDLER, Home [place] Where: [address] [address]- Status: Pending You Need to Schedule the Following Appointments Follow Up with??Asiya Pryor Why: Call office with any questions or concerns Where: [address] [place] [address]- Business (1) Follow Up with??Elvira Arias When:??In 0 days Where: [address] [place] [address]- Business (1) Discharge Medications SHAMA RODRIGUEZ :1995 Visit Date:11/18/2023 Medications: Please continue your medications until treatment is completed or stopped by your provider. Medications not listed below should be discontinued. Discuss any questions related to medications with your provider. What How Much When Instructions Next Dose New Acetaminophen (Tylenol Extra Strength 500 mg oral tablet) 1 tab(s) Oral Every 4 hours as needed for as needed for pain [id number], [facility]/17 New Doxycycline (doxycycline hyclate 100 mg oral capsule) 1 capsule Oral Twice a day Duration: [address] [facility] 11/17 New Estradiol (Estrace 2 mg oral tablet) 1 tab(s) Oral Twice a day Duration: [address] 11/17 New Ibuprofen (ibuprofen 600 mg oral tablet) 1 tab(s) Oral Every [address] [facility] 10pm, 11/17 New MedroxyPROGESTERone (Provera 10 mg oral tablet) 1 tab(s) Oral Daily Duration: 7 Days Start taking this medication on December 08, 2023 and continue twice daily estrace ?? [facility] Unchanged Multivitamin, (Multivitamin Tablet) Unchanged Norethindrone (norethindrone 5 mg oral tablet) 1 tab(s) Oral Daily [facility] [address] [place], [place] [phone] Prescription Given During Visit Acetaminophen (Tylenol Extra Strength 500 mg oral tablet) - 1 tablet = 500 mg, By Mouth, Every 4 hours, # 50 tablet, 0 Refills, [facility]/pharmacy #1291, [address] [place] [phone]?? Doxycycline (doxycycline hyclate 100 mg oral capsule) - 1 capsule = 100 mg, By Mouth, 2 times a day, # 10 capsule, 0 Refills, [facility]/pharmacy #1291, [address] [place] [address] [phone]?? Estradiol (Estrace 2 mg oral tablet) - 1 tablet = 2 mg, By Mouth, 2 times a day, # 56 tablet, 0 Refills, [facility]/pharmacy #1291, [address] [place] [phone]?? Ibuprofen (ibuprofen 600 mg oral tablet) - 1 tablet = 600 mg, By Mouth, Every 6 hours, # 40 tablet,0 Refills, [facility]/pharmacy #1291, [address] [place] [phone]?? MedroxyPROGESTERone (Provera 10 mg oral tablet) - 1 tablet = 10 mg, By Mouth, Daily, # 7 tablet, 0 Refills, Start taking this medication on December 08, 2023 and continue twice daily [facility], [address] [place] [phone]?? Laboratory Results Below is a partial list of the most recent Laboratory test results done prior to this discharge. You may have had other tests and procedures not included in this list. Please discuss all test resultswith your provider. 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 History of kidney stones?? RhD negative?? Status post laparoscopy?? Education Materials Below is the list of Educational Leaflet Providered with your Discharge Instructions. [employer] Patient Education - Surgery Medical Daystay Surgical Overnight Discharge Instructions?? Valuables and Belongings I fully understand and agree that [facility] accepts no responsibility for all my [...] Review of Valuable and Belonging List: With patient Date for Pt to Sign Valuables/Belongings: 11/18/23 12:57:00 ?? Valuables & Belongings ?? Clothes Electronic devices Jewelry Monetary Items Personal devices Miscellaneous Medications (Valuables) Valuables at Bedside Pants, Shirt, Shoes, Undergarments Cell phone ?? Money, Purse, Wallet ? Valuables Sent Home ? Valuables Sent to Security ? Other Discharge Information ? Case Management Discharge Plan?? Discharge Plan?? Discharge Level of Care at Discharge: Home/Residential/Foster Care ?? Pulmonary Rehab Status?? Pulmonary Rehab Discharge Status?? Respiratory Rate: 19 br/min ? Common Emergency Awareness Tips IS [...] are strongly encouraged to quit. Please call [facility] at [phone] or [phone]) or log in to [email or web address] for referrals to smoking cessation programs. ?? 554 Suicide & Crisis Lifeline is available 17/11 if you or someone you know needs to find a reason to keep living. By calling 262 you'll be connected to a skilled, trained counselor at a crisis center in your area. INPATIENT DISCHARGE INSTRUCTIONS SIGNATURE PAGE SHAMA RODRIGUEZ Location:[facility] Registration Date and Time:11/18/2023 11:32 EDT Primary Care Physician: Elvira Arias MD, Attending Physician: Asiya Pryor MD, I AYESHACHELSISHAMA FISH, have received the above patient education materials/instructions and have verbalized understanding. If ambulance or transport services are being used I further acknowledge being given a choice of service. ?? If you need to contact me, please call me at this number: . Patient/Senior Software Analyst Name:____Shama Rodriguez Patient/Senior Software Analyst Signature: Relationship to Patient: Self Witness Name/Signature: Date:___11/18/2023 * Nikkie Greco RN: PERFORM, SIGN, VERIFY Event Display: Patient Education Handout Authored Date: [id number] * Nikkie Greco RN: PERFORM Event Display: Patient Education Leaflets Authored Date: [id number] Surgery Medical Daystay Surgical Overnight Discharge Instructions ?? 295 Medical Daystay/Surgical Overnight Discharge Instructions ? Since your coordination and judgment may be altered by medication and/or anesthesia, a responsible adult must drive you home from the hospital. ? If you have received medication for pain or sedation while under our care, you should not drive, operate machinery, drink alcohol, or sign any legal documents for 24 hours.?? You should have someone with you at home tonight. ? Remain at home the day of discharge.?? You may be up and about unless otherwise instructed by your physician. ? You may resume your daily prescription medication schedule.?? Any depressant medication should be avoided for 24 hours unless otherwise instructed by your surgeon or anesthesiologist. ? Call your physician for a follow-up appointment.? If you experience unusual or severe pain not relied by your pain medication, excessive bleedingor drainage, persistent nausea and vomiting, excessive swelling or redness, foul odor from incisionsite or fever over 100.6F, you need to call your physician. ? A follow-up phone call by a nurse will be made the day after your procedure.?? If you have stayed with us over night, you will not be receiving a follow-up phone call. ? Nausea and vomiting are a common side effect of prescription pain medication.?? We recommend that pills are not taken on an empty stomach.?? While taking any prescription pain medication you should not drive or drink alcohol. ? Patient Care team information Care Team Personnel Name: Madie Tran Position: [facility] Outreach Member Role: Lifetime Consulting Physician Name: Elvira Arias MD Position: [facility] Physician - Primary Care Member Role: PCP Address: Address: [address] [place] [address]- Name: Tonya Juarez MD Position: [facility] ARBOR END MAINSPRING FORMER MD Member Role: Lifetime ARBOR END MAINSPRING FORMER Physician Address: Address: [address] [place] [address]'s [facility] Director Of [place] [address]- Care Team Related Persons Name: BETY RODRIGUEZ Address: home [address] [place] [address] Name: ALDAIR RODRIGUEZ Address: home [address] [place] [address]
--- OUTSIDE RECORDS SUMMARY | 2024-02-02 03:01 | XMS_ITS | Continuity of Care Document ---
Author Organization [facility] Address [address] [place] [address]- Care Team Providers Care Rapid Transit Operator Name Role Phone Elvira Arias MD Primary Care Physician Encounter [facility] ACCT R [id number] Date(s): 09/26/22 - 10/26/22 [facility] [address] [place] [address] Attending Physician: Yamilet العراقي Admitting Physician: Admtr, Yamilet Referring Physician: Admtr, Ar8 Allergies, Adverse Reactions, [...] Care Team Personnel Name: Madie Tran Position: [facility] Outreach Member Role: Lifetime Consulting Physician Name: Elvira Arias MD Position: [facility] Physician - Primary Care Member Role: PCP Address: Address: [address] [place] [address]- Name: Tonya Juarez MD Position: [facility] GERIATRIC NURSE ASSISTANT MD Member Role: Lifetime GERIATRIC NURSE ASSISTANT Physician Address: Address: [address] [place] [address]'s [facility] [place] [address]- Care Team Related Persons Name: BETY RODRIGUEZ Address: home [address] [place] [address]
--- OUTSIDE RECORDS SUMMARY | 2024-02-02 03:01 | XMS_ITS | Continuity of Care Document ---
Author Organization [facility] [employer] [facility] Address [address] [facility], [address], [place] [address]- Care Team Providers Care Fire Watcher Name Role Phone Elvira Arias MD Primary Care Physician [phone] [id number] Date[facility]s): 07/15/21 - 09/06/21 [facility] [place] [employer] [facility] [address] [facility], [address] [place], [place] [address] Attending Physician: Anna Gonzales MD Referring Physician: Malka Orozco CNM Allergies, Adverse Reactions, Alerts Substance Reaction Severity Status Bactrim vomit Intermittent Active Medications ibuprofen 400 mg oral tablet 400 mg, 1, tablet, By Mouth, Every 6 hours, PRN, # 20 tablet, Refills 0, Tot. Refills 0, Maintenance, for pain, 02/21/21 23:18:00 EDT, Route to Pharmacy Electronically, [facility]/pharmacy #[id number], Partial fill upon patient [...]
--- OUTSIDE RECORDS SUMMARY | 2024-02-02 03:01 | XMS_ITS | Continuity of Care Document ---
Author Organization [facility] Address [address] [facility], 3r d Floor, [address] [place] [address]- Care Team Providers Care Compatibility Test Engineer Name Role Phone Elvira Arias MD Primary Care Physician [phone] [place] [facility] [place] 10/07/23 - 11/06/23 [facility] [address] [place] [address] 3rd Floor, [address] [place] [address] Allergies, Adverse Reactions, Alerts Substance Reaction [...] Name: Madie Tran Position: [facility] Outreach Member Role: Lifetime Consulting Physician Name: Elvira Arias MD Position: [facility] Physician - Primary Care Member Role: PCP Address: Address: [address] [place] [address]- Name: Tonya Juarez MD Position: [facility] MANAGER COMPLETIONS MD Member Role: Lifetime MANAGER COMPLETIONS Physician Address: Address: [address] [place] [address] Women's [place] [address]- Care Team Related Persons Name: BETY RODRIGUEZ Address: home [address] [place] [address] Name: ALDAIR RODRIGUEZ Address: home [address] [place] [address]
--- OUTSIDE RECORDS SUMMARY | 2024-02-02 03:01 | XMS_ITS | Continuity of Care Document ---
Author Organization [facility] Address [address] [place] [address]- Care Team Providers Care Steam Train Driver Name Role Phone Elvira Arias MD Primary Care Physician En[facility] Date(s): 11/14/19 - 12/14/[address] [address]- [facility] Attending Physician: Yamilet العراقي Admitting Physician: Yamilet العراقي Referring Physician: AdmtrYamilet Allergies, Adverse Reactions, Alerts Substance Reaction Severity Status Bactrim vomit Intermittent Active Medications 19 (Stewart) oral tablet 1 tablet, By Mouth, Daily, # 30 tablet, 0 Refills, Maintenance, 11/14/19 15:35:00 EDT Start Date: 11/14/19 Status: Ordered Problem List Condition Effective Dates Status Health Status Inform ant Anxiety(Confirmed) Active Cyclic neutropenia(Confirmed) Active Depressive disorder(Confirmed) Active RhD negative(Confirmed) Active Social History Social History Type Response Smoking Status Never smoker entered on: 12/18/14 Sex
--- OUTSIDE RECORDS SUMMARY | 2024-02-02 03:01 | XMS_ITS | Continuity of Care Document ---
Author Organization [facility] Address [address] [place] [address]- Care Team Providers Care Fleet Sales Associate Name Role Phone Elvira Arias MD Primary Care Physician Encounter [place] Date(s): 08/10/21 - 08/10/[address] [address]- Encounter Diagnosis COVID-19(Final) - 08/10/21 Myalgia(Final) - 08/10/21 Nausea(Final) - 08/10/21 Discharge Disposition: A-D/C Home Attending Physician: Paloma See MD Admitting Physician: Paloma See MD Referring Physician: Not on Staff, Referring [...] 02/27/21 17:05:00 EDT, Route to Pharmacy Electronically, [facility]/pharmacy #[id number], Partial fill upon patientrequest if the [...] Range]: 1 2 3 Height 150 cm (08/10/21 12:40 PM) 150 cm (08/10/21 12:37 PM) Weight 56.7 kg (08/10/21 12:40 PM) 56.7 kg (08/10/21 12:37 PM) Oxygen Saturation [94-100 %] 98 % (08/10/21 6:49 PM) 97 % (08/10/21 4:45 PM) 100 % (08/10/21 2:28 PM) Pulse Rate [55-90 bpm] 97 bpm *H* (08/10/21 6:49 PM) 98 bpm *H* (08/10/21 4:45 PM) 110 bpm *H* (08/10/21 2:28 PM) Body Mass Index [18.5-24.99] 25.2 *H* (08/10/21 12:40 PM) Blood Pressure [90-138/55-84 mm Hg] 102/75mm Hg (08/10/21 6:49 PM) 104/74mm Hg (08/10/21 4:45 PM) 111/79mm Hg (08/10/21 2:28 PM) Respiratory Rate [16-30 br/min] 15 br/min *L* (08/10/21 6:49 PM) 14 br/min *L* (08/10/21 4:45 PM) 18 br/min (08/10/21 2:28 PM) Temperature [96.8-100.4 DegF] 97.8 DegF (08/10/21 6:49 PM) 101.1 DegF *H* (08/10/21 12:40 PM) Mode of Delivery (Oxygen) Room air (08/10/21 6:49 PM) Room air (08/10/21 4:45 PM) Room air (08/10/21 2:28 PM) Temperature Route Oral (08/10/21 6:49 PM) Oral (08/10/21 12:40 PM) Dry Weight 56.7 kg (08/10/21 12:40 PM) 56.7 kg (08/10/21 12:37 PM) Weight Obtained Via Standing scale (08/10/21 12:40 PM) Dry Weight Obtained Via Standing scale (08/10/21 12:40 PM) Patient/family stated (08/10/21 12:37 PM) Social History Social History Type Response Smoking Status Never smoker entered on: 12/18/14 Sex
--- OUTSIDE RECORDS SUMMARY | 2024-02-02 03:01 | XMS_ITS | Continuity of Care Document ---
Author Organization [facility] Emmie mcginnisDinomarketre [facility] Address [address] [facility], [address] [place] [address]- Care Team Providers Care Securities Trader Name Role Phone Elvira Arias MD Primary Care Physician Encounter [facility] Date(s): 01/28/22 - 02/27/22 [facility] Shilo Vasu[employer]og[employer] [facility] [address] [place], [place] [address] Allergies, Adverse Reactions, Alerts Substance Reaction Severity Status Bactrim vomit Intermittent Active Medications ibuprofen 400 mg oral tablet 400 mg, 1, tablet, By Mouth, Every 6 hours, PRN, # 20 tablet, Refills 0, Tot. Refills 0, Maintenance, for pain, 02/21/21 23:18:00 EDT, Route to Pharmacy Electronically, [facility]/pharmacy #[id number], Partial fill upon patient request if the prescription is for a... Start Date: 02/21/21 Status: Ordered ibuprofen 800 mg oral tablet 800 mg, 1, tablet, By Mouth, 3 times a day, # 90 tablet, Refills 0, Tot. 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
--- OUTSIDE RECORDS SUMMARY | 2024-02-02 03:01 | XMS_ITS | Continuity of Care Document ---
Author Organization [facility] Emmie mcginnisNext New Networksre [facility] Address [address] [facility], [address] [address]- Care Team Providers Care Glazier Supervisor Name Role Phone Elvira Arias MD Primary Care Physician [phone] Encounter [facility] [id number] Date(s): 01/28/22 - 02/27/22 [facility] [employer] [facility] [address] [facility] [place], [place] [address] Allergies, Adverse Reactions, Alerts Substance Reaction Severity Status Bactrim vomit Intermittent Active Medications ibuprofen 400 mg oral tablet 400 mg, 1, tablet, By Mouth, Every 6 hours, PRN, # 20 tablet, Refills 0, Tot. Refills 0, Maintenance, for pain, 02/21/21 23:18:00 EDT, Route to Pharmacy Electronically, [facility]/pharmacy #[id number], Partial fill upon patient request if the prescription is for a... Start Date: 02/21/21 Status: Ordered ibuprofen 800 mg oral tablet 800 mg, 1, tablet, By Mouth, 3 times a day, # 90 tablet, Refills 0, Tot. Refills 0, Maintenance, 02/27/21 17:05:00 EDT, Route to Pharmacy Electronically, [facility]/pharmacy #[id number], Partial fill upon patientrequest if [...] List Condition Confirmation Course Effective Dates Status [facility] St at Informant Anxiety Confirmed [...] Personnel Name: Elvira Arias MD Address: Address: [address] [place] [address]
--- OUTSIDE RECORDS SUMMARY | 2024-02-02 03:01 | XMS_ITS | Continuity of Care Document ---
Author Organization [facility] Address [address] [address]- Care Team Providers Care Excellence Consultant Name Role Phone Elvira Arias MD Primary Care Physician [phone] Encounter [facility] Date(s): 11/14/19 - 12/14/19 [facility] [address] [place] [address]- [facility] Attending Physician: Nahed Fay CNM Admitting Physician: Nahed Fay CNM Referring Physician: Elvira Arias MD Allergies, Adverse Reactions, Alerts Substance Reaction Severity Status Bactrim vomit Intermittent Active Medications 19 ([place]) oral tablet 1 tablet, By Mouth, Daily, # 30 tablet, 0 Refills, Maintenance, 11/14/19 15:35:00 EDT Start Date: 11/14/19 Status: Ordered Problem List Condition Effective Dates Status Health Status Inform ant Anxiety(Confirmed) Active Cyclic neutropenia(Confirmed) Active Depressive disorder(Confirmed) Active RhD negative(Confirmed) Active Social History Social History Type Response Smoking Status Never smoker entered on: 12/18/14 Sex
--- OUTSIDE RECORDS SUMMARY | 2024-02-02 03:01 | XMS_ITS | Continuity of Care Document ---
Author Organization [facility] nINTERNET BUSINESS TRADERs [facility] Address [address] [place] [address], [address], [place] [address]- Care Team Providers Care Pet Feeder Name Role Phone Hugo MCGARRY, Elvira Ma Primary Care Physician Encounter [facility] Date(s): 07/27/23 - 08/03/23 [facility] ip.access VasuINTERNET BUSINESS TRADERs [facility] [address] [facility], [address] [place] [address]- Attending Physician: Noah MCGARRY [OB], Madie Plascencia Referring Physician: Dianne Doan MD Allergies, Adverse Reactions, Alerts Substance Reaction Severity Status Bactrim vomit Intermittent Active Medications acetaminophen 325 mg oral tablet 650 mg, 2, tablet, By Mouth, Every 4 hours, PRN, # 50 tablet, Refills 0, Tot. Refills 0, Maintenance, as needed for fever, 07/09/23 16:12:00 EDT, Route to Pharmacy Electronically, [facility]/pharmacy #[id number],Partial fill upon patient request if the prescripti... Start Date: 07/09/23 Status: Ordered ibuprofen 600 mg oral tablet 600 mg, 1, tablet, By Mouth, 4 times a day, PRN, # 40 tablet, Refills 0, Tot. Refills 0, Maintenance, for pain, 07/09/23 16:12:00 EDT, Route to Pharmacy Electronically, [facility]/pharmacy #[id number], Partial fill upon patient [...] 07/14/23 7:57:00 EDT, Route to Pharmacy Electronically, [facility]/pharmacy #[id number], Partial fill upon patient request if the prescription is... Start Date: 07/14/23 Status: Ordered Senna 8.6 mg oral tablet 17.2 mg, 2, tablet, By Mouth, Daily at bedtime, # 25 tablet, Refills 0, Tot. Refills 0, Maintenance, 07/14/23 7:57:00 EDT, Route to Pharmacy Electronically, [facility]/pharmacy #[id number], Partial fill upon patient [...] recent to oldest [Reference Range]: 1 Weight 59.43 kg (07/27/23 9:24 AM) Blood Pressure [90-138/55-84 mm Hg] 115/ 81mm Hg (07/27/23 9:24 AM) Blood pressure sites Arm, right (07/27/23 9:24 AM) Weight Obtained Via Standing scale (07/27/23 9:24 AM) Social History Social History Type Response Smoking Status Never smoker entered on: 12/18/14 Sex Patient Care team information Care Team Personnel Name: Madie Tran Position: [facility] Outreach Member Role: Lifetime Consulting Physician Name: Elvira Arias MD Position: [facility] Physician - Primary Care Member Role: PCP Address: Address: [address] [place] [place] [address]- Name: Ann MCGARRY, Tonya Porter Position: [facility] SHAKER FLATWORK MD Member Role: Lifetime SHAKER FLATWORK Physician Address: Address: [address] [place] [address]'s [facility] [employer] Greeting [place] [address]- Care Team Related Persons Name: BETY RODRIGUEZ Address: home [address] [place] [address]
--- OUTSIDE RECORDS SUMMARY | 2024-02-02 03:01 | XMS_ITS | Continuity of Care Document ---
Author Organization [facility] Address [address] [address]- Care Team Providers Care Dowel Inspector Name Role Phone Elvira Arias MD Primary Care Physician Encounter [facility] Date(s): 02/21/22 - 03/23/22 [facility] [address] [place] [address] Allergies, Adverse Reactions, Alerts Substance Reaction Severity Status Bactrim vomit Intermittent Active Medications ibuprofen 400 mg oral tablet 400 mg, 1, tablet, By Mouth, Every 6 hours, PRN, # 20 tablet, Refills 0, Tot. Refills 0, Maintenance, for pain, 02/21/21 23:18:00 EDT, Route to Pharmacy Electronically, [facility]/pharmacy #[id number], Partial fill upon patient request if the prescription is for a... Start Date: 02/21/21 Status: Ordered ibuprofen 800 mg oral tablet 800 mg, 1, tablet, By Mouth, 3 times a day, # 90 tablet, Refills 0, Tot. Refills 0, Maintenance, 02/27/21 17:05:00 EDT, Route to Pharmacy Electronically, [facility]/pharmacy #[id number], Partial fill upon patientrequest if [...] List Condition Confirmation Course Effective Dates Status [facility] at Informant Anxiety Confirmed Active COVID-19 [...] (General Medicine) Member Role: PCP Address: Address: [address] [place] [address]- [place] Name: Ann MCGARRY, Tonya Porter Position: [facility] RN MATERNITY MD Member Role: Lifetime RN MATERNITY Physician Address: Address: [address] [facility] [place] [address]- [place] Care Team Related Persons Name: BETY RODRIGUEZ Address: home [address] [place] [address]
--- OUTSIDE RECORDS SUMMARY | 2024-02-02 03:01 | XMS_ITS | Continuity of Care Document ---
Author Organization [facility] nAd [employer]os [facility] Address [address] [place] [address], [place] [address]- Care Team Providers Care Outbound Sales Advisor Name Role Phone Elvira Arias MD Primary Care Physician [id number] Date(s): 06/23/23 - 08/08/23 [facility] Elfin Covecabrera Leone[employer] [facility] [address] [facility], [address] [place] [address]- Attending Physician: Aniya Walters MD Referring Physician: Elvira Arias MD Allergies, Adverse Reactions, Alerts Substance Reaction Severity Status Bactrim vomit Intermittent Active Medications acetaminophen 325 mg oral tablet 650 mg, 2, tablet, By Mouth, Every 4 hours, PRN, # 50 tablet, Refills 0, Tot. Refills 0, Maintenance, as needed for fever, 07/09/23 16:12:00 EDT, Route to Pharmacy Electronically, [facility]/pharmacy #[id number],Partial fill upon patient request if the prescripti... Start Date: 07/09/23 Status: Ordered ibuprofen 600 mg oral tablet 600 mg, 1, tablet, By Mouth, 4 times a day, PRN, # 40 tablet, Refills 0, Tot. Refills 0, Maintenance, for pain, 07/09/23 16:12:00 EDT, Route to Pharmacy Electronically, [facility]/pharmacy #[id number], Partial fill upon patient request if [...] 07/14/23 7:57:00 EDT, Route to Pharmacy Electronically, [facility]/pharmacy #[id number], Partial fill upon patient request if the prescription is... Start Date: 07/14/23 Status: Ordered Senna 8.6 mg oral tablet 17.2 mg, 2, tablet, By Mouth, Daily at bedtime, # 25 tablet, Refills 0, Tot. Refills 0, Maintenance, 07/14/23 7:57:00 EDT, Route to Pharmacy Electronically, [facility]/pharmacy #[id number], Partial fill upon patient request if [...] Primary Care Member Role: PCP Address: Address: [address] [place] [address]- Name: Ann MCGARRY, Tonya Porter Position: [facility] EMERGENCY DEPARTMENT TECHNICIAN MD Member Role: Lifetime EMERGENCY DEPARTMENT TECHNICIAN Physician Address: Address: [address] [place] [address]'s [place] [address]- Care Team Related Persons Name: MICHAEL BETY Address: home [address] [place] [address]
--- OUTSIDE RECORDS SUMMARY | 2024-02-02 03:01 | XMS_ITS | Continuity of Care Document ---
Author Organization [facility] Emmie nAmoobis [facility] Address [address] [place] [address], [place] [address]- Care Team Providers Care Operator Command Support Systems Name Role Phone Hugo MCGARRY, Elvira Ma Primary Care Physician [phone] Encounter [facility] Date(s): 06/30/23 - 07/30/23 [facility] VasuAmoobis [facility] [address] [facility], [address] [place] [address]- Allergies, Adverse Reactions, Alerts Substance Reaction Severity Status Bactrim vomit Intermittent Active Medications acetaminophen 325 mg oral tablet 650 mg, 2, tablet, By Mouth, Every 4 hours, PRN, # 50 tablet, Refills 0, Tot. Refills 0, Maintenance, as needed for fever, 07/09/23 16:12:00 EDT, Route to Pharmacy Electronically, [facility]/pharmacy #[id number],Partial fill upon patient request if the prescripti... Start Date: 07/09/23 Status: Ordered ibuprofen 600 mg oral tablet 600 mg, 1, tablet, By Mouth, 4 times a day, PRN, # 40 tablet, Refills 0, Tot. Refills 0, Maintenance, for pain, 07/09/23 16:12:00 EDT, Route to Pharmacy Electronically, [facility]/pharmacy #[id number], Partial fill upon patient [...] 07/14/23 7:57:00 EDT, Route to Pharmacy Electronically, [facility]/pharmacy #[id number], Partial fill upon patient request if the prescription is... Start Date: 07/14/23 Status: Ordered Senna 8.6 mg oral tablet 17.2 mg, 2, tablet, By Mouth, Daily at bedtime, # 25 tablet, Refills 0, Tot. Refills 0, Maintenance, 07/14/23 7:57:00 EDT, Route to Pharmacy Electronically, [facility]/pharmacy #[id number], Partial fill upon patient [...] Care Team Personnel Name: Madie Tran Position: [facility] Outreach Member Role: Lifetime Consulting Physician Name: Elvira Arias MD Position: [facility] Physician - Primary Care Member Role: PCP Address: Address: [address] [place] [address]- Name: Ann MCGARRY, Tonya Porter Position: [facility] FILM TESTS CHECKER Member Role: Lifetime FILM TESTS CHECKER Physician Address: Address: [address] [place] [address]'s [facility] [place] [address]- Care Team Related Persons Name: BETY RODRIGUEZ Address: home [address] [place] [address]
--- OUTSIDE RECORDS SUMMARY | 2024-02-02 03:01 | XMS_ITS | Continuity of Care Document ---
Author Organization [facility] Address [address] [facility], [address] [place] [address]- Care Team Providers Care Hands And Dial Inspector Name Role Phone Elvira Arias MD Primary Care Physician Encounter [facility] R [id number] Date(s): 03/04/23 - 04/03/23 [facility] [address] [facility] [place] [id number] Attending Physician: Yamilet العراقي Admitting Physician: AdmYamilet roy Referring Physician: Admtr, ArSowmya Allergies, Adverse Reactions, Alerts Substance Reaction Severity [...] 3 Refills, Maintenance, 11/04/22 14:16:00 EDT, [facility]/pharmacy #[id number], Partial fill [...] 3 Refills, Soft Stop, 01/22/23 15:22:00 EDT, [facility], Partial fill upon patient request if the prescription is for a schedule II opioid drug., 1... Start Date: 01/22/23 Status: Ordered Prometrium 200 mg oral capsule 1 capsule = 200 mg, Vaginally, 2 times a day, Start meds three days after peak of OPK, # 90 capsule, 2 Refills, Acute 10/03/23 8:36:00 EDT, 10/01/22 8:35:00 EDT, [facility]/pharmacy #[id number], Partial fill uponpatient request [...] Care Team Personnel Name: Madie Tran Position: [facility] Outreach Member Role: Lifetime Consulting Physician Name: Elvira Arias MD Position: [facility] Physician - Primary Care Member Role: PCP Address: Address: [address] [place] [id number] Name: Ann MCGARRY, Tonya Porter Position: [facility] MILITARY AIRCRAFT DESIGNER MD Member Role: Lifetime MILITARY AIRCRAFT DESIGNER Physician Address: Address: [address] [place] [address]'s [facility] [place] [address]- Care Team Related Persons Name: BETY RODRIGUEZ Address: home [address] [place] [address]
--- OUTSIDE RECORDS SUMMARY | 2024-02-02 03:01 | XMS_ITS | Continuity of Care Document ---
Author Organization [facility] Address [address] [address]- Care Team Providers Care Investment Accountant Name Role Phone Elvira Arias MD Primary Care Physician [phone] Encounter [facility] Date(s): 02/21/22 - 04/05/22 [facility] [address] [place] [address] Attending Physician: Not on Staff, Attending MD Referring Physician: Lilian Barlow CNM Allergies, Adverse Reactions, Alerts Substance Reaction Severity Status Bactrim vomit Intermittent Active Medications ibuprofen 400 mg oral tablet 400 mg, 1, tablet, By Mouth, Every 6 hours, PRN, # 20 tablet, Refills 0, Tot. Refills 0, Maintenance, for pain, 02/21/21 23:18:00 EDT, Route to Pharmacy Electronically, [facility]/pharmacy #[id number], Partial fill upon patient request if the prescription is for a... Start Date: 02/21/21 Status: Ordered ibuprofen 800 mg oral tablet 800 mg, 1, tablet, By Mouth, 3 times a day, # 90 tablet, Refills 0, Tot. Refills 0, Maintenance, 02/27/21 17:05:00 EDT, Route to Pharmacy Electronically, [facility]/pharmacy #[id number], Partial fill upon patientrequest [...] Care Team Personnel Name: Madie Tran Position: [facility] Outreach Member Role: Lifetime Consulting Physician Name: Elvira Arias MD Position: [facility] Physician (General Medicine) Member Role: PCP Address: Address: [address] [place] [address]- Name: Ann MCGARRY, Tonya Porter Position: [facility] SUPERVISOR HOME ENERGY CONSULTANT MD Member Role: Lifetime SUPERVISOR HOME ENERGY CONSULTANT Physician Address: Address: [address] [place] [address] [facility] [place] [address]- Care Team Related Persons Name: BETY RODRIGUEZ Address: home [address] [place] [address]
--- OUTSIDE RECORDS SUMMARY | 2024-02-02 03:01 | XMS_ITS | Continuity of Care Document ---
Author Organization [facility] Address Unknown Care Team Providers Care Trapper Animal Name Role Phone Elvira Arias MD Primary Care Physician [phone] En[place] [facility] Date(s): 09/02/21 - 10/02/21 [facility] Attending Physician: Yamilet العراقي Admitting Physician: Yamilet العراقي Referring Physician: AdmtrYamilet Allergies, Adverse Reactions, Alerts Substance Reaction Severity Status Bactrim vomit Intermittent Active Medications ibuprofen 400 mg oral tablet 400 mg, 1, tablet, By Mouth, Every 6 hours, PRN, # 20 tablet, Refills 0, Tot. Refills 0, Maintenance, for pain, 02/21/21 23:18:00 EDT, Route to Pharmacy Electronically, [facility]/pharmacy #[id number], Partial fill upon patient request [...]
--- OUTSIDE RECORDS SUMMARY | 2024-02-02 03:01 | XMS_ITS | Continuity of Care Document ---
Author Organization [facility] Address [address] [facility], 3r d Floor, [address] [place] [address]- Care Team Providers Care Candle Molder Name Role Phone Elvira Arias MD Primary Care Physician [place] [facility] [facility] [id number] Date(s): 12/22/23 - 12/29/23 [facility] 21 [facility] [address] [place] [address] Attending Physician: Torie Guevara MD Admitting Physician: Nga Zavala MD, Torie Referring Physician: Elvira Arias MD Allergies, Adverse Reactions, Alerts Substance Reaction Severity Status Bactrim vomit Intermittent Active Medications acetaminophen 325 mg oral tablet 975 mg, By Mouth, 3 times a day, 3 times daily until pain is improved, # 90 tablet, Refills 0, Tot.Refills 0, Maintenance, 12/01/23 9:35:00 EDT, Route to Pharmacy Electronically, [facility], Partial fill upon patient request if the pres... Start Date: 12/01/23 Status: Ordered aspirin 81 mg oral delayed release tablet 81 mg, By Mouth, Daily, # 90 tablet, Refills 0, Tot. Refills 0, Maintenance, 12/01/23 9:35:00 EDT, Route to Pharmacy Electronically, [facility], Partial fill upon patient request if theprescription is for a schedule II opioid drug., 151... Start Date: 12/01/23 Status: Ordered gabapentin 600 mg oral tablet = 600 mg, By Mouth, Daily at bedtime, # 30 tablet, 6 Refills, Maintenance, 12/22/23 14:13:00 EDT, Tablet, [facility]/pharmacy #[id number], Partial fill upon patient request if the prescription is for a schedule II opioid drug., 151, cm, 12/22/23 13:20:00 EDT, Heig... Start Date: 12/22/23 Stop Date: 07/19/24 Status: Ordered magnesium oxide 400 mg oral capsule 1 capsule = 400 mg, By Mouth, Daily, for 30 days, # 30 capsule, 6 Refills, Acute 07/19/24 14:12:00 EDT, 12/22/23 14:12:00 EDT, Capsule, [facility]/pharmacy #[id number], Partial fill upon patient request [...] Refills, Maintenance, 12/01/23 9:37:00 EDT, REC Powder, [facility], Partial fill upon patient reque... Start Date: 12/01/23 Status: Ordered Provera 10 mg oral tablet 10 mg, 1, tablet, By Mouth, Daily, Start taking this medication on December 08, 2023 and continue twice daily estrace, # 7 tablet, Refills 0, Tot. Refills 0, Maintenance, 12/08/23 14:31:00 EDT, Route to Pharmacy Electronically, [facility]/pharmacy #[id number], Parti... Start Date: 12/08/23 Stop Date: 12/15/23 Status: Ordered tiZANidine 2 mg oral capsule 1 capsule = 2 mg, By Mouth, 2 times a day, # 60 capsule, 0 Refills, Maintenance, 12/01/23 10:21:00 EDT, Capsule, [facility], Partial fill upon patient request [...] oldest [Reference Range]: 1 Height 151 cm (12/22/23 1:20 PM) Weight 56.6 kg (12/22/23 1:20 PM) Oxygen Saturation [94-100 %] 99 % (12/22/23 1:20 PM) Pulse Rate [55-90 bpm] 102 bpm *H* (12/22/23 1:20 PM) Body Mass Index [18.5-24.99 kg/m2] 24.82 kg/m2 (12/22/23 1:20 PM) Blood Pressure [90-138/55-84 mm Hg] 112/ 78mm Hg (12/22/23 1:20 PM) Mode of Delivery (Oxygen) Room air (12/22/23 1:20 PM) Blood pressure sites Arm, left (12/22/23 1:20 PM) Social History Social History Type Response Smoking Status Never smoker entered on: 12/18/14 Sex Patient Care team information Care Team Personnel Name: Nicci Burnett RN Position: [facility] RN Member Role: Primary Care Nurse Name: Madie Venegas RN Position: [facility] RN Member Role: Primary Care Nurse Name: Madie Tran Position: [facility] Outreach Member Role: Lifetime Consulting Physician Name: Lizabeth Maguire RN Position: [facility] RN Member Role: Primary Care Nurse Name: Ela Montes RN Position: [facility] RN Member Role: Primary Care Nurse Name: Mariama Moran RN Position: [facility] RN Member Role: Primary Care Nurse Name: Humble Baeza RN Position: [facility] RN Member Role: Primary Care Nurse Name: Elvira Arias MD Position: [facility] Physician - Primary Care Member Role: PCP Address: Address: [address] [place] [address]- Name: Ann MCGARRY, Tonya Porter Position: [facility] EDGE RUNNER MD Member Role: Lifetime EDGE RUNNER Physician Address: Address: [address] [place] [address]'s [facility] Director [place] [address]- Care Team Related Persons Name: BETY RODRIGUEZ Address: home [address] [place] [address] Name: ALDAIR RODRIGUEZ Address: home [address] [place] [address]
--- OUTSIDE RECORDS SUMMARY | 2024-02-02 03:01 | XMS_ITS | Continuity of Care Document ---
Author Organization [facility] Address Unknown Care Team Providers Care Knifer Up Name Role Phone Elvira Arias MD Primary Care Physician [place] [facility] [place](s): 07/22/21 - 08/21/21 [facility] Allergies, Adverse Reactions, Alerts Substance [...]
--- OUTSIDE RECORDS SUMMARY | 2024-02-02 03:02 | XMS_ITS | Continuity of Care Document ---
Author Organization [facility] Address [address] [facility], 4t h Floor [address] [place] [address]- Care Team Providers Care Qc Chemist Name Role Phone Elvira Arias MD Primary Care Physician [phone] Encounter [facility] [place] Date(s): 05/14/22 - 06/13/22 [facility] [address] [place] [address], 4th Floor [address] [place] [address]- Allergies, Adverse Reactions, Alerts Substance Reaction Severity [...] Arias MD Position: [facility] Physician (General Medicine) Member Role: PCP Address: Address: [address] [place] [address]- Name: Tonya Juarez MD Position: [facility] HOLISTIC HEALTH PRACTITIONER MD Member Role: Lifetime HOLISTIC HEALTH PRACTITIONER Physician Address: Address: [address] [place] [address] [facility] [place] [address]- Care Team Related Persons Name: BETY RODRIGUEZ Address: home [address] [place] [address]
--- OUTSIDE RECORDS SUMMARY | 2024-02-02 03:02 | XMS_ITS | Continuity of Care Document ---
Author Organization [facility] Address [address] [facility], 3r d Floor, [address] [place] [address]- Care Team Providers Care Decorating Machine Operator Name Role Phone Elvira Arias MD Primary Care Physician [place] [facility] [place] 12/10/23 - 01/09/24 [facility] [address] [facility] 3rd Floor, [address] [place] [address] Allergies, Adverse Reactions, Alerts Substance Reaction Severity Status Bactrim vomit Intermittent Active Medications acetaminophen 325 mg oral tablet 975 mg, By Mouth, 3 times a day, 3 times daily until pain is improved, # 90 tablet, Refills 0, Tot.Refills 0, Maintenance, 12/01/23 9:35:00 EDT, Route to Pharmacy Electronically, [facility], Partial fill upon patient request if the pres... Start Date: 12/01/23 Status: Ordered aspirin 81 mg oral delayed release tablet 81 mg, By Mouth, Daily, # 90 tablet, Refills 0, Tot. Refills 0, Maintenance, 12/01/23 9:35:00 EDT, Route to Pharmacy Electronically, [facility], Partial fill upon patient request if theprescription is for a schedule II opioid drug., 151... Start Date: 12/01/23 Status: Ordered gabapentin 600 mg oral tablet = 600 mg, By Mouth, Daily at bedtime, # 30 tablet, 6 Refills, Maintenance, 12/22/23 14:13:00 EDT, Tablet, [facility]/pharmacy #[id number], Partial fill upon patient request if the prescription is for a schedule II opioid drug., 151, cm, 12/22/23 13:20:00 EDT, Heig... Start Date: 12/22/23 Stop Date: 07/19/24 Status: Ordered magnesium oxide 400 mg oral capsule 1 capsule = 400 mg, By Mouth, Daily, for 30 days, # 30 capsule, 6 Refills, Acute 07/19/24 14:12:00 EDT, 12/22/23 14:12:00 EDT, Capsule, [facility]/pharmacy #[id number], Partial fill upon [...] Refills, Maintenance, 12/01/23 9:37:00 EDT, REC Powder, [facility], Partial fill upon patient reque... Start Date: 12/01/23 Status: Ordered Provera 10 mg oral tablet 10 mg, 1, tablet, By Mouth, Daily, Start taking this medication on December 08, 2023 and continue twice daily estrace, # 7 tablet, Refills 0, Tot. Refills 0, Maintenance, 12/08/23 14:31:00 EDT, Route to Pharmacy Electronically, [facility]/pharmacy #[id number], Parti... Start Date: 12/08/23 Stop Date: 12/15/23 Status: Ordered tiZANidine 2 mg oral capsule 1 capsule = 2 mg, By Mouth, 2 times a day, # 60 capsule, 0 Refills, Maintenance, 12/01/23 10:21:00 EDT, Capsule, [facility], Partial fill upon patient request [...] Care Nurse Name: Madie Venegas RN Position: [facility] RN Member Role: Primary Care Nurse Name: Madie Tran Position: [facility] Outreach Member Role: Lifetime Consulting Physician Name: Lizabeth Maguire RN Position: [facility] RN Member Role: Primary Care Nurse Name: Ela Montes RN Position: [facility] RN Member Role: Primary Care Nurse Name: Mariama Moran RN Position: [facility] RN Member Role: Primary Care Nurse Name: Humble Baeza RN Position: [facility] RN Member Role: Primary Care Nurse Name: Elvira Arias MD Position: [facility] Physician - Primary Care Member Role: PCP Address: Address: [address] [place] [address]- [place] Name: Tonya Juarez MD Position: [facility] TEACHER'S ASSISTANT MD Member Role: Lifetime TEACHER'S ASSISTANT Physician Address: Address: [address] [place], [place] [address]s [facility] [place] [address]- Care Team Related Persons Name: BETY RODRIGUEZ Address: home [address] [place] [address] Name: ALDAIR RODRIGUEZ Address: home [address] [place] [address]
--- OUTSIDE RECORDS SUMMARY | 2024-02-02 03:02 | XMS_ITS | Continuity of Care Document ---
Author [facility] Address [address] [address]- Care Team Providers Care Metal Sprayer Production Name Role Phone Hugo MCGARRY, Elvira Ma Primary Care Physician Encounter [facility] Date(s): 11/14/19 - 12/14/19 [facility] [address] [place] [address]- [facility] Attending Physician: Yamilet العراقي Admitting Physician: Yamilet العراقي Referring Physician: AdmtrYamilet Allergies, Adverse Reactions, Alerts Substance Reaction Severity Status Bactrim vomit Intermittent Active Medications 19 ([place]) oral tablet 1 tablet, By Mouth, Daily, # 30 tablet, 0 Refills, Maintenance, 11/14/19 15:35:00 EDT Start Date: 11/14/19 Status: Ordered Problem List Condition Effective Dates Status Health Status Inform ant Anxiety(Confirmed) Active Cyclic neutropenia(Confirmed) Active Depressive disorder(Confirmed) Active RhD negative(Confirmed) Active Social History Social History Type Response Smoking Status Never smoker entered on: 12/18/14 Sex
--- OUTSIDE RECORDS SUMMARY | 2024-02-02 03:02 | XMS_ITS | Continuity of Care Document ---
Author Organization [facility] Address Unknown Care Team Providers Care Grain Oilseed Or Pasture Farm Manager Name Role Phone Elvira Arias MD Primary Care Physician [id number] Date[facility] 07/12/21 - 08[facility]11/21 [facility] Allergies, Adverse Reactions, Alerts Substance Reaction Severity [...]
--- OUTSIDE RECORDS SUMMARY | 2024-02-02 03:02 | XMS_ITS | Continuity of Care Document ---
Author Organization [facility] Address [address] [facility], 4t h Floor [address] [place] [address]- Care Team Providers Care Sock Mender Name Role Phone Hugo MCGARRY, Elvira Ma Primary Care Physician [phone] En[place] [facility] [place] Date(s): 10/21/22 - 11/20/22 [facility] [address] [facility], 4th Floor [address] [place] [address]- Allergies, Adverse Reactions, Alerts Substance Reaction Severity [...] tablet, 3 Refills, Maintenance, 11/04/22 14:16:00 EDT, [facility]/pharmacy #[id number], Partial fill upon patient request [...] 3 Refills, Soft Stop, 11/04/22 14:16:00 EDT, [facility], Partial fill upon [...] Primary Care Member Role: PCP Address: Address: [address] [place] [address]- Name: Ann MCGARRY, Tonya Porter Position: [facility] HOSE INSPECTOR MD Member Role: Lifetime HOSE INSPECTOR Physician Address: Address: [address] [place] [address] [address]- Care Team Related Persons Name: BETY RODRIGUEZ Address: home [address] [place] [address]
--- OUTSIDE RECORDS SUMMARY | 2024-02-02 03:02 | XMS_ITS | Continuity of Care Document ---
Author Organization [facility] Address [address] [address]- Care Team Providers Care Jewel Bearing Turner Name Role Phone Elvira Arias MD Primary Care Physician En[place] [facility] [place] Date(s): 02/21/22 - 03/23/22 [facility] [address] [place] [address] Allergies, Adverse Reactions, Alerts Substance Reaction Severity Status Bactrim vomit Intermittent Active Medications ibuprofen 400 mg oral tablet 400 mg, 1, tablet, By Mouth, Every 6 hours, PRN, # 20 tablet, Refills 0, Tot. Refills 0, Maintenance, for pain, 02/21/21 23:18:00 EDT, Route to Pharmacy Electronically, [facility]/pharmacy #[id number], Partial fill upon patient request if the prescription is for a... Start Date: 02/21/21 Status: Ordered ibuprofen 800 mg oral tablet 800 mg, 1, tablet, By Mouth, 3 times a day, # 90 tablet, Refills 0, Tot. Refills 0, Maintenance, 02/27/21 17:05:00 EDT, Route to Pharmacy Electronically, [facility]/pharmacy #[id number], Partial fill upon patientrequest if [...] List Condition Confirmation Course Effective Dates Status [facility] at Informant Anxiety Confirmed Active [...] (General Medicine) Member Role: PCP Address: Address: [address] [place] [address]- [place] Name: Ann MCGARRY, Tonya Porter Position: [facility] SUPERVISOR BRAIDING MD Member Role: Lifetime SUPERVISOR BRAIDING Physician Address: Address: [address] [facility] [place] [address]- [place] Care Team Related Persons Name: BETY RODRIGUEZ Address: home [address] [place] [address]
--- OUTSIDE RECORDS SUMMARY | 2024-02-02 03:02 | XMS_ITS | Continuity of Care Document ---
Author Organization [facility] Address [address] [place] [address]- Care Team Providers Care Hr Assistant Name Role Phone Elvira Arias MD Primary Care Physician [phone] Encounter [facility] Date(s): 11/11/19 - 12/11/19 [facility] [address] [place] [address]- [facility] Allergies, Adverse Reactions, Alerts Substance Reaction Severity Status Bactrim vomit Intermittent Active Medications 19 ([place]) oral tablet 1 tablet, By Mouth, Daily, # 30 tablet, 0 Refills, Maintenance, 11/14/19 15:35:00 EDT Start Date: 11/14/19 Status: Ordered Problem List Condition Effective Dates Status Health Status Inform ant Anxiety(Confirmed) Active Cyclic neutropenia(Confirmed) Active Depressive disorder(Confirmed) Active RhD negative(Confirmed) Active Social History Social History Type Response Smoking Status Never smoker entered on: 12/18/14 Sex
--- OUTSIDE RECORDS SUMMARY | 2024-02-02 03:02 | XMS_ITS | Continuity of Care Document ---
Author Organization [facility] Address [address] [place] [address]- Care Team Providers Care Promotions Director Name Role Phone Elvira Arias MD Primary Care Physician Encounter [facility] Date(s): 11/23/23 - 11/23/[address] [address]- Encounter Diagnosis Muscle spasm(Final) - 11/23/23 Discharge Disposition: A-D/C Home Attending Physician: Simon Harris MD Admitting Physician: Simon Harris MD Referring Physician: Not on Staff, Referring MD Allergies, Adverse Reactions, Alerts Substance Reaction Severity Status Bactrim vomit Intermittent Active Medications Estrace 2 mg oral tablet 1 tablet = 2 mg, By Mouth, 2 times a day, # 56 tablet, 0 Refills, Maintenance, 11/18/23 14:30:00 EDT, [facility]/pharmacy #[id number], Partial fill upon patient request if the prescription is for a schedule II opioid drug., 149, cm, 11/18/23 12:57:00 EDT, Height,... Start Date: 11/18/23 Stop Date: 12/16/23 Status: Ordered ibuprofen 600 mg oral tablet 600 mg, 1, tablet, By Mouth, Every 6 hours, # 40 tablet, Refills 0, Tot. Refills 0, Acute 11/25/23 14:45:00 EDT, 11/18/23 14:29:00 EDT, Route to Pharmacy Electronically, [facility]/pharmacy #[id number], Partial fill upon patient request if [...] Date: 11/18/23 Stop Date: 11/24/23 Status: Ordered Valium 2 mg oral tablet 2 mg, 1, tablet, By Mouth, 4 times a day, PRN, # 10 tablet, Refills 0, Tot. Refills 0, Maintenance,Spasm, 11/23/23 14:50:00 EDT, Route to Pharmacy Electronically, [facility]acy [id number], Partial fill upon patient request if the prescription is for a sche... Start Date: 11/23/23 Status: Ordered Problem List Condition Confirmation Course Effective Dates Status Health [facility] Informant Anxiety Confirmed Active Cyclic neutropenia Confirmed Active Depressive disorder Confirmed Active History of kidney stones Confirmed Active Status post laparoscopy Confirmed Active 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 Vital Signs Most recent to oldest [Reference Range]: 1 2 Height 150 cm (11/23/23 1:04 PM) Weight 57.6 kg (11/23/23 1:04 PM) Oxygen Saturation [94-100 %] 98 % (11/23/23 3:15 PM) 98 % (11/23/23 1:04 PM) Pulse Rate [55-90 bpm] 95 bpm *H* (11/23/23 3:15 PM) 99 bpm *H* (11/23/23 1:04 PM) Blood Pressure [90-138/55-84 mm Hg] 120/ 94mm Hg (11/23/23 3:15 PM) 132/97mm Hg (11/23/23 1:04 PM) Respiratory Rate [16-30 br/min] 16 br/mi n (11/23/23 3:15 PM) 18 br/min (11/23/23 1:04 PM) Temperature [96.8-100.4 DegF] 98.5 DegF (11/23/23 1:04 PM) Mode of Delivery (Oxygen) Room air (11/23/23 3:15 PM) Room air (11/23/23 1:04 PM) Blood pressure sites Arm, right (11/23/23 3:15 PM) Arm, right (11/23/23 1:04 PM) Temperature Route Temporal (11/23/23 1:04 PM) Dry Weight 57.6 kg (11/23/23 1:04 PM) Weight Obtained Via Standing scale (11/23/23 1:04 PM) Dry Weight Obtained Via Standing scale (11/23/23 1:04 PM) Social History Social History Type Response Smoking Status Never smoker entered on: 12/18/14 Sex Note * Steven MCGARRY, Simon Plascencia: PERFORM Event Display: Patient Education Leaflets Authored Date: [id number] Neck Spasm ?? [id number] Neck Spasm?? A spasm of the neck muscles can happen after a sudden awkward neck movement. Sleeping with your neck in a crooked position can also cause spasm. Some people respond to emotional stress by tensing themuscles of their neck, shoulders, and upper back. If neck spasm lasts long enough, it can cause a headache. The treatment described below will usually help the pain to go away in 5 to 7 days. Pain that continues may need further evaluation or other types of treatment such as physical therapy. Home care ??? Rest and relax the muscles. Use a comfortable pillow that supports the head and keepsthe spine in a neutral position. The position of the head should not be tilted forward or backward.A rolled-up towel may help for a custom fit. ??? Some people find relief with heat. Heat can be applied with either a warm shower or bath or a moist towel heated in the microwave and massage. Others prefer cold packs. You can make an ice pack by filling a plastic bag that seals at the top with ice cubes or crushed ice. Then wrap it with a thin towel. Try both and use the method that feels best for 15 to 20 minutes, several times a day. ??? Whether using ice or heat, be careful that you don't injure your skin. Never put ice directly on the skin. Always wrap the ice in a towel or other type of cloth. This is very important, especially in people with poor skin sensation. ??? Try to reduce yourstress level. Emotional stress can lead to neck muscle tension and get in the way of or delay the healing process. ??? You may use fbrp-flh-nfmzyyo pain medicine to control pain, unless another medicine was prescribed. If you have chronic liver or kidney disease, ever had a stomach ulcer or gastrointestinal bleeding, or take a blood thinner, talk with your healthcare provider before using these medicines. ??? Protecting your neck from injury and pain includes practicing good posture and body mechanics. The way you move and position your body during daily activities is called body mechanics. Go od body mechanics help protect the neck. This means learning the right ways to stand, sit, and evensleep. Talk with your provider to learn ways to protect your neck with proper posture, body mechanics, and home exercise program. ?? Follow-up care Follow up with your healthcare provider if your symptoms don't show signs of improvement after one week. Physical therapy or further tests may be needed. If X-rays, CT scans, or MRI scans were taken, you'll be told of any new findings that may affect your care. ?? Call 911 Call 911 if you have: ??? Sudden weakness or numbness in one or both arms or legs ??? Neck swelling, trouble with or painful swallowing ??? Trouble breathing ??? Chest pain ?? When to get medical advice Call your healthcare provider right away if any of these occur: ??? Pain becomes worse or spreads into 1 or both arms or legs ??? Increasing headache with nausea or vomiting ??? Fever of 100.4??F (38??C) or higher, or as directed by your healthcare provider ??? Chills ?? Last Reviewed Date: 2021 ?? 7160-1322 [employer] All rights reserved. This information is not intended as a substitute for professional medical care. Always follow your healthcare professional's instructions. ?? Patient Care team information Care Team Personnel Name: Madie Tran Position: [facility] Outreach Member Role: Lifetime Consulting Physician Name: Elvira Arias MD Position: [facility] Physician - Primary Care Member Role: PCP Address: Address: [address] [place] [address]- Name: Ann MCGARRY, Tonya Porter Position: [facility] EQUIPMENT INSTALLATION PROFESSIONAL MD Member Role: Lifetime EQUIPMENT INSTALLATION PROFESSIONAL Physician Address: Address: [address] [place], [place] [address]s [facility] [place] [address]- Care Team Related Persons Name: BETY RODRIGUEZ Address: home [address] [place] [address] Name: ALDAIR RODRIGUEZ Address: home [address] [place] [address]
--- OUTSIDE RECORDS SUMMARY | 2024-02-02 03:02 | XMS_ITS | Continuity of Care Document ---
Author Organization [facility] Address [address] [place] [address]- Care Team Providers Care Log Manager Name Role Phone Elvira Arias MD Primary Care Physician Encounter [facility] Date(s): 11/11/19 - 12/11/19 [facility] [address] [place] [address]- [facility] Allergies, Adverse Reactions, Alerts Substance Reaction Severity Status Bactrim vomit Intermittent Active Medications 19 (Charlotte) oral tablet 1 tablet, By Mouth, Daily, # 30 tablet, 0 Refills, Maintenance, 11/14/19 15:35:00 EDT Start Date: 11/14/19 Status: Ordered Problem List Condition Effective Dates Status Health Status Inform ant Anxiety(Confirmed) Active Cyclic neutropenia(Confirmed) Active Depressive disorder(Confirmed) Active RhD negative(Confirmed) Active Social History Social History Type Response Smoking Status Never smoker entered on: 12/18/14 Sex
--- OUTSIDE RECORDS SUMMARY | 2024-02-02 03:02 | XMS_ITS | Continuity of Care Document ---
Author Organization [facility] Address [address] [facility], 4t h Floor [address] [place] [address]- Care Team Providers Care Agricultural Research Engineer Name Role Phone Hguo MCGARRY, Elvira Ma Primary Care Physician Encounter [facility] Date(s): 09/26/22 - 10/26/22 [facility] Reproductive Medicine [address] [facility], 4th Floor [address] [place] [address]- Allergies, Adverse Reactions, Alerts Substance Reaction Severity [...] Care Team Personnel Name: Madie Tran Position: [facility] Outreach Member Role: Lifetime Consulting Physician Name: Elvira Arias MD Position: [facility] Physician - Primary Care Member Role: PCP Address: Address: [address] [place] [address]- Name: Tonya Juarez MD Position: [facility] NARCOTICS DETECTIVE MD Member Role: Lifetime NARCOTICS DETECTIVE Physician Address: Address: [address] [place] [address]'s [facility] [place] [address]- Care Team Related Persons Name: MICHAEL BETY Address: home [address] [place] [address]
--- OUTSIDE RECORDS SUMMARY | 2024-02-02 03:02 | XMS_ITS | Continuity of Care Document ---
Author Organization [facility] Address [address] [facility], 3r d Floor, [address] [place] [address]- Care Team Providers Care Change Advisor Name Role Phone Elvira Arias MD Primary Care Physician [place] [facility] [id number] Date(s): 12/22/23 - 01/21/24 [facility] [address] [place] [address] Attending Physician: Yamilet العراقي Admitting Physician: Admtr, Yamilet Referring Physician: Admtr, Ar8 Allergies, Adverse Reactions, Alerts Substance Reaction Severity Status Bactrim vomit Intermittent Active Medications acetaminophen 325 mg oral tablet 975 mg, By Mouth, 3 times a day, 3 times daily until pain is improved, # 90 tablet, Refills 0, Tot.Refills 0, Maintenance, 12/01/23 9:35:00 EDT, Route to Pharmacy Electronically, [facility], Partial fill upon patient request if the pres... Start Date: 12/01/23 Status: Ordered aspirin 81 mg oral delayed release tablet 81 mg, By Mouth, Daily, # 90 tablet, Refills 0, Tot. Refills 0, Maintenance, 12/01/23 9:35:00 EDT, Route to Pharmacy Electronically, [facility], Partial fill upon patient request if theprescription is for a schedule II opioid drug., 151... Start Date: 12/01/23 Status: Ordered gabapentin 600 mg oral tablet = 600 mg, By Mouth, Daily at bedtime, # 30 tablet, 6 Refills, Maintenance, 12/22/23 14:13:00 EDT, Tablet, [id number], Partial fill upon patient request if the prescription is for a schedule II opioid drug., 151, cm, 12/22/23 13:20:00 EDT, Heig... Start Date: 12/22/23 Stop Date: 07/19/24 Status: Ordered magnesium oxide 400 mg oral capsule 1 capsule = 400 mg, By Mouth, Daily, for 30 days, # 30 capsule, 6 Refills, Acute 07/19/24 14:12:00 EDT, 12/22/23 14:12:00 EDT, Capsule, [id number], Partial fill upon patient request if [...] Refills, Maintenance, 12/01/23 9:37:00 EDT, REC Powder, [facility], Partial fill upon patient reque... Start Date: 12/01/23 Status: Ordered Provera 10 mg oral tablet 10 mg, 1, tablet, By Mouth, Daily, Start taking this medication on December 08, 2023 and continue twice daily estrace, # 7 tablet, Refills 0, Tot. Refills 0, Maintenance, 12/08/23 14:31:00 EDT, Route to Pharmacy Electronically, [id number], Parti... Start Date: 12/08/23 Stop Date: 12/15/23 Status: Ordered tiZANidine 2 mg oral capsule 1 capsule = 2 mg, By Mouth, 2 times a day, # 60 capsule, 0 Refills, Maintenance, 12/01/23 10:21:00 EDT, Capsule, [facility], Partial fill upon patient [...] Team Personnel Name: Nicci Burnett RN Position: [facility] RN Member Role: Primary Care Nurse Name: Madie Venegas RN Position: [facility] RN Member Role: Primary Care Nurse Name: Madie Tran Position: [facility] Outreach Member Role: Lifetime Consulting Physician Name: Lizabeth Maguire RN Position: [facility] RN Member Role: Primary Care Nurse Name: Ela Montes RN Position: [facility] RN Member Role: Primary Care Nurse Name: Mariama Moran RN Position: [facility] RN Member Role: Primary Care Nurse Name: Humble Baeza RN Position: [facility] RN Member Role: Primary Care Nurse Name: Elvira Arias MD Position: [facility] Physician - Primary Care Member Role: PCP Address: Address: [address] [place] [address]- Name: Tonya Juarez MD Position: [facility] MANAGER ED MD Member Role: Lifetime MANAGER ED Physician Address: Address: [address] [place] [address]'s [place] [address]- Care Team Related Persons Name: BETY RODRIGUEZ Address: home [address] [place] [address] Name: ALDAIR RODRIGUEZ Address: home [address] [place] [address]
--- OUTSIDE RECORDS SUMMARY | 2024-02-02 03:02 | XMS_ITS | Continuity of Care Document ---
Author Organization [facility] Address [address] [place] [address]- Care Team Providers Care Coverage Specialist Rn Name Role Phone Elvira Arias MD Primary Care Physician [phone] Encounter [facility] Date(s): 12/02/22 - 01/01/23 [facility] [address] [address] Attending Physician: Yamilet العراقي Admitting Physician: Yamilet [...] tablet, 3 Refills, Maintenance, 11/04/22 14:16:00 EDT, [facility]/pharmacy #[id number], Partial fill upon patient request if [...] 3 Refills, Soft Stop, 11/04/22 14:16:00 EDT, [facility], Partial fill upon patient request if the prescription is for a schedule II opioid drug., 1... Start Date: 11/04/22 Status: Ordered Prometrium 200 mg oral capsule 1 capsule = 200 mg, Vaginally, 2 times a day, Start meds three days after peak of OPK, # 90 capsule, 2 Refills, Acute 10/03/23 8:36:00 EDT, 10/01/22 8:35:00 EDT, [facility]/pharmacy #[id number], Partial fill uponpatient request if the [...] Care Team Personnel Name: Madie Tran [facility] Outreach Member Role: Lifetime Consulting Physician Name: Elvira Airas MD [facility] Physician - Primary Care Member Role: PCP Address: Address: [address] [place] [address]- Name: Ann MCGARRY, Tonya Porter Position[facility] QUALITATIVE RESEARCHER MD Member Role: Lifetime QUALITATIVE RESEARCHER Physician Address: Address: [address] [place] [address] Women's Health Hydraulic [place] [address]- Care Team Related Persons Name: BETY RODRIGUEZ Address: home [address] [place] [address]
--- OUTSIDE RECORDS SUMMARY | 2024-02-02 03:02 | XMS_ITS | Continuity of Care Document ---
Author Organization [facility] Address [address] [facility], 4t h Floor [address] [place] [address]- Care Team Providers Care Pain Management Nurse Name Role Phone Elvira Arias MD Primary Care Physician [place] [facility] Date(s): 04/03/23 - 05/03/23 [facility] [address] [facility], 4th Floor [address] [place] [address] Allergies, Adverse Reactions, Alerts Substance [...] 3 Refills, Soft Stop, 01/22/23 15:22:00 EDT, [facility], Partial fill upon patient request [...] Care Team Personnel Name: Madie Tran Position: [facility] Outreach Member Role: Lifetime Consulting Physician Name: Elvira Arias MD Position: [facility] Physician - Primary Care Member Role: PCP Address: Address: [address] [place] [address]- Name: Ann MCGARRY, Tonya Porter Position: [facility] MIDDLE SCHOOL GUIDANCE COUNSELOR MD Member Role: Lifetime MIDDLE SCHOOL GUIDANCE COUNSELOR Physician Address: Address: [address] [place] [address]'s Health [place] [address]- [place] Care Team Related Persons Name: BETY RODRIGUEZ Address: home [address] [place] [address]
--- OUTSIDE RECORDS SUMMARY | 2024-02-02 03:02 | XMS_ITS | Continuity of Care Document ---
Author Organization [facility] Address [address] [facility], 4t h Floor [address] [place] [address]- Care Team Providers Care Hat Trimmer Name Role Phone Elvira Arias MD Primary Care Physician [phone] Encounter [facility] Date(s): 04/17/22 - 04/24/22 [facility] Reproductive Medicine [address] [facility], 4th Floor [address] [place] [address] Attending Physician: Not on Staff, Attending MD Referring Physician: Anabella Boudreaux CNM Allergies, Adverse Reactions, Alerts Substance Reaction [...] oldest [Reference Range]: 1 Height 150 cm (04/17/22 8:59 AM) Weight 58.5 kg (04/17/22 8:59 AM) Pulse Rate [55-90 bpm] 109 bpm *H* (04/17/22 8:59 AM) Body Mass Index [18.5-24.99 kg/m2] 26 kg /m2 *H* (04/17/22 8:59 AM) Blood Pressure [90-138/55-84 mm Hg] 125/ 85mm Hg (04/17/22 8:59 AM) Blood pressure sites Arm, right (04/17/22 8:59 AM) Weight Obtained Via Standing scale (04/17/22 8:59 AM) Social History Social History Type Response Smoking Status Never smoker entered on: 12/18/14 Sex Note * Daniel Julio MA: PERFORM, SIGN, VERIFY Event Display: Patient Education/Instruction Authored Date: [id number] [facility] Clinical Summary Name SHAMA RODRIGUEZ Age 26 Years 1995 PCP Elvira Arias MD PCP Visit Date 04/17/2022 08:48:00 Additional Instructions: Scheduled Appointments?? Future Appointments ?*[facility] ?[address],??[place],??[address] ?Phone:??--?Fax:??-- ?Appt. Date:??06/25/2022?9:40 AM ?Scheduled Provider:??Konstantin MCGARRY, Asiya Shay Follow-Up Instructions ?? Diagnosis Female infertility, unspecified; Acquired absence of other genital organ(s) Medications: Please continue your medications until treatment is completed or stopped by your provider. Discuss any questions related to medications with your provider. Medications to Continue with No Changes These medications were not printed or sent to your pharmacy Multivitamin, (Multivitamin Tablet) Next Dose: No Longer Take the Following Medications Acetaminophen (Tylenol 325 mg oral capsule) 2 capsule Oral every 6 hours as needed as needed for pain. Refills: 0. Ibuprofen (ibuprofen 400 mg oral tablet) 1 tab(s) Oral every 6 hours as needed for pain. Refills: 0. Ibuprofen (ibuprofen 800 mg oral tablet) 1 tab(s) Oral 3 times a day. Refills: 0. Ondansetron (ondansetron 4 mg oral tablet) 1 tab(s) Oral every 8 hours as needed Nausea & Vomiting. Refills: 0. Ondansetron (ondansetron 4 mg oral tablet, disintegrating) 1 tab(s) Oral every 8 hours as needed Nausea & Vomiting. Refills: 0. Oxycodone (oxyCODONE 5 mg oral capsule) 1 capsule Oral every 6 hours as needed for pain. for severepost-operative pain. Refills: 0. Allergy Info:?? Bactrim Medications Given This Visit Future Orders ?Syphilis Testing formerly ordered as RPR? Order Date:04/17/22?- Complete within?6 months ?Prolactin Level? Order Date:04/17/22?- Complete within?6 months ?Estradiol (Female >= 16yrs)? Order Date:04/17/22?- Complete within?6 months ?Hepatitis C Ab? Order Date:04/17/22?- Complete within?6 months ?Hepatitis B Surface Antigen? Order Date:04/17/22?- Complete within?6 months ?Rubella (Somali Measles) IgG? Order Date:04/17/22?- Complete within?6 months ?Type and Screen? Order Date:04/17/22?- Complete within?6 months ?TSH with T4 Reflex (Adults Only)? Order Date:04/17/22?- Complete within?6 months ?FSH? Order Date:04/17/22?- Complete within?6 months ?LH? Order Date:04/17/22?- Complete within?6 months ?Anti Mullerian Hormone? Order Date:04/17/22?- Complete within?6 months ?HIV Ab-Ag 4th Generation? Order Date:04/17/22?- Complete within?6 months Vital Signs Height 150 cm Weight 58.5 kg BMI 26 kg/m2 Blood Pressure 125 mm Hg/85 mm Hg Temperature Pulse Rate 109 bpm Respiratory Rate 02 Sat Mode of Delivery / You can now view a summary of your hospital visit from the comfort of your home through a free online portal called [employer]. [employer] is a website that allows you to securely view your medical information including discharge summary, medications and follow-up visits. ??You can alsosend a secure electronic message to your doctor???s office to request appointments, renew medications or just ask a question. You can enroll at [email or web address] or register during your next office visit. [...] primary care provider, you may find a [facility] provider by calling [facility] [employer] Link at [phone]. For information about the plan of care including goals and instructions for your diagnosis, please see the patient education orders section of this document. Patient Education Materials?? The content of this educational material or handout may have been modified, supplemented, or adapted from its original content and format to support your individualized medical care. Additional Provider Instructions: Met with patient. Patient instructed to call with day 1 to schedule a Hsg, have labs done on day 3 of cycle, and genetic testing SMA and CF. Partner will schedule a semen analysis and have infection disease labs. Patient Care team information Care Team Personnel Name: Madie Tran Position: [facility] Outreach Member Role: Lifetime Consulting Physician Name: Elvira Arias MD Position: [facility] Physician (General Medicine) Member Role: PCP Address: Address: [address] [place] [address]- Name: Tonya Juarez MD Position: [facility] BUNDLE SHAKER MD Member Role: Lifetime BUNDLE SHAKER Physician Address: Address: [address] [place] [address]'s [facility] Supervisor [place] [address]- Care Team Related Persons Name: BETY RODRIGUEZ Address: [address] [address]
--- OUTSIDE RECORDS SUMMARY | 2024-02-02 03:02 | XMS_ITS | Continuity of Care Document ---
Author Organization [facility] Address [address] [address]- Care Team Providers Care Developer Prover Upholstering Name Role Phone Elvira Arias MD Primary Care Physician En[place] [facility] Date(s): 02/21/22 - 03/23/22 [facility] [address] [place] [address] Allergies, Adverse Reactions, Alerts Substance Reaction Severity Status Bactrim vomit Intermittent Active Medications ibuprofen 400 mg oral tablet 400 mg, 1, tablet, By Mouth, Every 6 hours, PRN, # 20 tablet, Refills 0, Tot. Refills 0, Maintenance, for pain, 02/21/21 23:18:00 EDT, Route to Pharmacy Electronically, [id number], Partial fill upon patient request if the prescription is for a... Start Date: 02/21/21 Status: Ordered ibuprofen 800 mg oral tablet 800 mg, 1, tablet, By Mouth, 3 times a day, # 90 tablet, Refills 0, Tot. Refills 0, Maintenance, 02/27/21 17:05:00 EDT, Route to Pharmacy Electronically, [id number], Partial fill upon patientrequest if [...] List Condition Confirmation Course Effective Dates Status [facility] at Informant Anxiety Confirmed Active COVID-19 [...] Arias MD Position: [facility] Physician (General Medicine) Member Role: PCP Address: Address: [address] [place] [address]- [place] Name: Ann MCGARRY, Tonya Porter Position: [facility] MASON APPRENTICE MD Member Role: Lifetime MASON APPRENTICE Physician Address: Address: [address] [facility]'s [facility] [place] [address]- [place] Care Team Related Persons Name: BETY RODRIGUEZ Address: home [address] [place] [address]
--- OUTSIDE RECORDS SUMMARY | 2024-02-02 03:02 | XMS_ITS | Continuity of Care Document ---
Author Organization [facility] Address [address] [place] [address]- Care Team Providers Care Management Trainee Marketing Name Role Phone Elvira Arias MD Primary Care Physician [place] [facility] Date[place] 11/26/22 - 01/01/23 [facility] [address] [place] [address] Attending Physician: Chuyita Sims Admitting Physician: Chuiyta Sims Referring Physician: Chuyita Sims Allergies, Adverse Reactions, Alerts Substance Reaction Severity [...] tablet, 3 Refills, Maintenance, 11/04/22 14:16:00 EDT, [facility]/pharmacy #[id number], Partial fill upon patient request if [...] 3 Refills, Soft Stop, 11/04/22 14:16:00 EDT, [facility], Partial fill upon patient request if the prescription is for a schedule II opioid drug., 1... Start Date: 11/04/22 Status: Ordered Prometrium 200 mg oral capsule 1 capsule = 200 mg, Vaginally, 2 times a day, Start meds three days after peak of OPK, # 90 capsule, 2 Refills, Acute 10/03/23 8:36:00 EDT, 10/01/22 8:35:00 EDT, [facility]/pharmacy #[id number], Partial fill uponpatient request if the [...] Care Team Personnel Name: Madie Tran Position: [facility] Outreach Member Role: Lifetime Consulting Physician Name: Elvira Arias MD Position: [facility] Physician - Primary Care Member Role: PCP Address: Address: [address] [place] [address]- Name: Ann MCGARRY, Tonya Porter Position: [facility] POPULATION HEALTH COACH MD Member Role: Lifetime POPULATION HEALTH COACH Physician Address: Address: [address] [place] [address] [facility] [address]- Care Team Related Persons Name: BETY RODRIGUEZ Address: home [address] [place] [address]
--- OUTSIDE RECORDS SUMMARY | 2024-02-02 03:02 | XMS_ITS | Continuity of Care Document ---
Author Organization [facility] Emmie mcginnisRefurrlre [facility] Address [address] [place] [address], [place] [address]- Care Team Providers Care Fine Arts Teacher Name Role Phone Hugo MCGARRY, Elvira Ma Primary Care Physician En[facility] Date(s): 04/24/21 - 05/24/21 [facility] [employer] [facility] [address] [facility], [address] [place] [address]- Allergies, Adverse Reactions, Alerts Substance Reaction Severity [...]
--- OUTSIDE RECORDS SUMMARY | 2024-02-02 03:02 | XMS_ITS | Continuity of Care Document ---
Author Organization [facility] Address [address] [place] [address], 4t [address] Floor [address] [place] [address]- Care Team Providers Care Hedis Specialist Name Role Phone Elvira Arias MD Primary Care Physician [place] [facility] [place]): [place]26/22 - 06/25/22 [facility] Reproductive Medicine [address] [place] [address], 4th Floor [address] [place] [id number] Allergies, Adverse Reactions, Alerts Substance [...] Care Team Personnel Name: Madie Tran Position: [facility] Outreach Member Role: Lifetime Consulting Physician Name: Elvira Arias MD Position: [facility] Physician (General Medicine) Member Role: PCP Address: Address: [address] [place] [address]- Name: Tonya Juarez MD Position: [facility] STAVE MACHINE TENDER Member Role: Lifetime STAVE MACHINE TENDER Physician Address: Address: [address] [place] [address] Women's [place] [address]- Care Team Related Persons Name: PAULABETY Mancuso Address: home [address] [place] [address]
--- OUTSIDE RECORDS SUMMARY | 2024-02-02 03:02 | XMS_ITS | Continuity of Care Document ---
Author Organization [facility] Address [address] [address]- Care Team Providers Care Aquatics Director Name Role Phone Elvira Arias MD Primary Care Physician [phone] [place] [facility] [place] 02/21/22 - 03/23/22 [facility] [address] [place] [id number] Allergies, Adverse Reactions, Alerts Substance [...] List Condition Confirmation Course Effective Dates Status [facility] at Informant Anxiety Confirmed Active COVID-19 1 Confirmed 08/10/21 Active Cyclic neutropenia Confirmed Active Depressive disorder Confirmed Active Status post laparoscopy Confirmed Active Pelvic pain Confirmed Active 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 1Problem added by Discern Expert Social History Social History Type Response Smoking Status Never smoker entered on: 12/18/14 Sex Patient Care team information Care Team Personnel Name: Madie Tran Position: [facility] Outreach Member Role: Lifetime Consulting Physician Name: Elvira Arias MD Position: [facility] Physician (General Medicine) Member Role: PCP Address: Address: [address] [place] [address] Name: Ann MCGARRY, Tonya Porter Position: [facility] BODY COMPONENT ENGINEER MD Member Role: Lifetime BODY COMPONENT ENGINEER Physician Address: Address: [address] [place] [address]'s [facility] [place] [address]- Care Team Related Persons Name: BETY RODRIGUEZ Address: home [address] [place] [address]
--- OUTSIDE RECORDS SUMMARY | 2024-02-02 03:02 | XMS_ITS | Continuity of Care Document ---
Author Organization [facility] Address [address] [place] [address]- Care Team Providers Care Cuff Runner Name Role Phone Hugo MCGARRY, Elvira Ma Primary Care Physician [phone] [place] [facility] [place] Date(s): 01/21/22 - 02/20/[address] [address] Allergies, Adverse Reactions, Alerts Substance Reaction Severity Status Bactrim vomit Intermittent Active Medications ibuprofen 400 mg oral tablet 400 mg, 1, tablet, By Mouth, Every 6 hours, PRN, # 20 tablet, Refills 0, Tot. Refills 0, Maintenance, for pain, 02/21/21 23:18:00 EDT, Route to Pharmacy Electronically, [facility]/pharmacy #[id number], Partial fill upon patient request if the prescription is for a... Start Date: 02/21/21 Status: Ordered ibuprofen 800 mg oral tablet 800 mg, 1, tablet, By Mouth, 3 times a day, # 90 tablet, Refills 0, Tot. 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
--- OUTSIDE RECORDS SUMMARY | 2024-02-02 03:02 | XMS_ITS | Continuity of Care Document ---
Author Organization [facility] Address [address] [facility], 4t h Floor [address] [place] [address]- Care Team Providers Care Work Study Student Name Role Phone Hugo MCGRARY, Elvira Ma Primary Care Physician Encounter [facility] [place] Date(s): 07/18/22 - 10/15/22 [facility] [address] [facility], 4th Floor [address] [place] [address]- Attending Physician: Konstantin MCGARRY, Asiya Shay Referring Physician: Not on Staff, Referring MD [...] Primary Care Member Role: PCP Address: Address: [address] [place] [address]- Name: Ann MCGARRY, Tonya Porter Position: [facility] DRYING OVEN ATTENDANT MD Member Role: Lifetime DRYING OVEN ATTENDANT Physician Address: Address: [address] [place] [address]'s [facility] [place] [address]- Care Team Related Persons Name: BETY RODRIGUEZ Address: home [address] [place] [address]
--- OUTSIDE RECORDS SUMMARY | 2024-02-02 03:02 | XMS_ITS | Continuity of Care Document ---
Author Organization [facility] Address [address] [place] [address]- Care Team Providers Care Top Lift Nailer Name Role Phone Elvira Arias MD Primary Care Physician [place] [facility] [place]): [place] - 07/03/[address] [address]- Discharge Disposition: A-D/C Home Attending Physician: Mary Jaquez DO Admitting Physician: Mary Jaquez DO Referring Physician: Mary Jaquez DO Allergies, Adverse Reactions, Alerts Substance Reaction Severity [...] Date: 11/04/22 Stop Date: 11/24/22 Status: Ordered Lovenox 60 mg/0.6 mL injectable solution See Instructions, 0.6 mL Subcutaneous Injection Every 12 hours 14 days, 0 Refills, Maintenance, 07/03/23 14:33:00 EST, Solution, Partial fill upon patient request if the prescription is for a schedule II opioid drug. Start Date: 07/03/23 Status: Ordered Multivitamin Tablet 0 Refills, Maintenance, 01/14/22 18:44:00 EDT, Partial fill upon patient request if the prescription is for a schedule II opioid drug. Start Date: 01/14/22 Status: Ordered Ovidrel 250 mcg/0.5 mL subcutaneous solution = 250 mcg, Subcutaneous Injection, Once, take medication only when directed, # 1 each, 3 Refills, Soft Stop, 01/22/23 15:22:00 EDT, [facility], Partial fill upon patient [...] oldest [Reference Range]: 1 Height 150 cm (07/03/23 2:26 PM) Weight 58.2 kg (07/03/23 2:26 PM) Pulse Rate [55-90 bpm] 93 bpm *H* (07/03/23 2:26 PM) Body Mass Index [18.5-24.99 kg/m2] 25.87 kg/m2 *H* (07/03/23 2:26 PM) Blood Pressure [90-138/55-84 mm Hg] 118/ 94mm Hg (07/03/23 2:26 PM) Respiratory Rate [16-30 br/min] 18 br/mi n (07/03/23 2:26 PM) Temperature [96.8-100.4 DegF] 98.4 DegF (07/03/23 2:26 PM) Blood pressure sites Arm, right (07/03/23 2:26 PM) Temperature Route Oral (07/03/23 2:26 PM) Dry Weight 58.2 kg (07/03/23 2:26 PM) Social History Social History Type Response Smoking Status Never smoker entered on: 12/18/14 Sex Note * Lloyd Tinoco RN: PERFORM Event Display: Discharge/Transfer Note Hospital Authored Date: [id number] Nursing Discharge Note Entered On: 07/03/2023 17:08 EST Performed On: 07/03/2023 17:07 EST by Lloyd Tinoco RN Nursing Discharge Note 2 Discharge Time : 07/03/2023 17:06 EST Discharge Level of Care at Discharge : Home/Retirement/Foster Care Patient Left Unit Via : Ambulatory Patient Accompanied Off Unit with : Other: self DC Instructions Provided & Signed by Pt : Yes Patient Understands D/C Instructions : Yes Patient Instructions Discharge Signed : Yes Did Pt have Specialty Bed or Wound Vac : No Lloyd Tinoco RN - 07/03/2023 17:07 EST * Lloyd Tinoco RN: PERFORM Event Display: Patient Education/Instruction Authored Date: [id number] Inpatient Adult Discharge Instructions. [address] [address] Name: SHAMA RODRIGUEZ : 1995?? Visit: 07/03/2023 13:46?? Current Date: 07/03/2023 16:57 ?? Account: [id number]?? Inpatient Adult Discharge Instructions We would like [...] and their families. Surveys are administered by [employer]. ?? If further treatment with your primary care physician or another doctor is recommended, it is important for you to keep the appointment. Call your primary care physician or return to the Emergency Department immediately if your condition worsens, fails to improve, or new symptoms develop. If you need to find a doctor, you can call [facility] Link for a referral at [phone] or toll free at [phone]) or log in to [email or web address].. ?? [facility], in keeping with [facility] guidance, no longer requires face masks [...] a health care eusebio of your choosing. [employer] is a website that allows you to securely view your medical information including your hospital discharge summary, office visit summaries, medications and follow-up visits. You can also request appointments, renew medications, and request access to your medical information using a health care eusebio of your choosing, or just ask a question. You can enroll at [email or web address] or register during your next office visit. You have been discharged from [facility], Patient Care Unit: [id number]??. If you have any questions regarding these instructions, including results of studies pending, afteryou leave, please call us and we will be happy to assist you 17/11. [facility] Your Care Team Attending Physician Mary Jaquez DO?? Consulting Providers Mary Jaquez DO?? Tests Performed Below is a partial list of the tests performed during your hospitalization. You may have had other tests and procedures not included in this list. Please discuss all test results with your provider. Beta HCG Serum (Females Only) CBC Hold Lavender Top Tube No tests performed during this visit.?? Primary Care Provider Elvira Arias MD? Advance Directive Health Care Proxy on File No Patient has a Designated Caregiver: No Discharge Vitals Temperature: 98.4 DegF Height: 150 cm Pulse Rate:??93 bpm??High Weight: 58.2 kg Respiratory Rate: 18 br/min Body Mass Index:??25.87 kg/m2??High Systolic Blood Pressure: 118 mm Hg Body surface area: 1.56 Diastolic Blood Pressure:??94 mm Hg??High ?? Studies Pending All studies ordered during this hospital stay have been completed unless listed below. Please discuss all pending results with your provider listed above in these instructions. ?? No incomplete studies found?? What to do next Instructions From Your Doctor ?? Orders?? Scheduled Follow-Up Appointments 2023 9:00 AM EDT ?? Where: [facility] HOURLY CAREGIVER [address] [place] [address]- Status: Pending 2023 1:00 PM EDT ?? Where: [facility] HOURLY CAREGIVER [address] [place] [address]- Status: Pending Thursday 9:00 AM EDT ?? With: Scarlet Fagan MD Where: [facility] HOURLY CAREGIVER [address] [place] [address]- Status: Pending Discharge Medications SHAMA RODRIGUEZ :1995 Visit Date:07/03/2023 Medications: Please continue your medications until treatment is completed or stopped by your provider. Medications not listed below should be discontinued. Discuss any questions related to medications with your provider. What How Much When Instructions Next Dose Unchanged Aspirin (aspirin 81 mg oral delayed release tablet) 1 tab(s) Oral Daily Unchanged Chorionic Gonadotropin (Human) (Ovidrel 250 mcg/ 0.5 mL subcutaneous solution) 250 Microgram Subcutaneous Injection Once take medication only when directed ?? Unchanged ClomiPHENE (Clomid 50 mg oral tablet) 1 tab(s) Oral Daily Duration: 5 Days Take medication on days 3-7 of cycle NAME BRAND ONLY ?? Unchanged Enoxaparin (Lovenox 60 mg/ 0.6 mL injectable solution) See instructions 0.6 mL Subcutaneous Injection Every 12 hours 14 days ?? Unchanged Letrozole (letrozole 2.5 mg oral tablet) 2 tab(s) Oral Daily Start on cycle day 3 and continue for 5 days ?? Unchanged Letrozole (letrozole 2.5 mg oral tablet) 1 tab(s) Oral Daily Duration: 5 Days start medication on day 3 of cycle. to be taken cycle days 3-7. ?? Unchanged Multivitamin, (Multivitamin Tablet) Unchanged Progesterone (Prometrium 200 mg oral capsule) 1 capsule Vaginally Twice a day Start meds three days after peak of OPK ?? Prescription Given During Visit No new medications prescribed at time of discharge.?? Laboratory Results Below is a partial list of the most recent Laboratory test results done prior to this discharge. You may have had other tests and procedures not included in this list. Please discuss all test resultswith your provider. Beta HCG Serum (Females Only) (07/03/2023) ???Blood - 231 mIU/mL CBC (07/03/2023) ???WBC - 4.3 k/mm3???RBC - 4.26 m/mm3???Hgb - 12.0 Gm/dL???Hct - 35.4 %???MCV - 83.1 femtoliters???MCH - 28.2 pg???MCHC - 33.9 g/dL???Platelet Count - 198 k/mm3???RDW-SD - 37.6 femtoliters???MPV - 11.6 femtoliters???Nucleated RBC (Automated) - 0.0 #/100 WBC'S???Abs. NRBC - 0.0 k/mm3 Hold Lavender Top Tube (07/03/2023) ???Hold Lavender Top - SPECIMEN DISCARDED AFTER 24 HOURS. 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 History of kidney stones? RhD negative?? Status post laparoscopy?? Education Materials Below is the list of Educational Leaflet Providered with your Discharge Instructions. [employer] Patient Education - Possible Miscarriage (Threatened )?? [employer] Patient Education - Bleeding During Early ?? Valuables and Belongings I fully understand and agree that [facility] accepts no responsibility for all my [...] are strongly encouraged to quit. Please call [facility] Link at [phone] or [phone] ([phone]) or log in to [email or web address] for referrals to smoking cessation programs. ?? 173 Suicide & Crisis Lifeline is available 17/11 if you or someone you know needs to find a reason to keep living. By calling 800 you'll be connected to a skilled, trained counselor at a crisis center in your area. INPATIENT DISCHARGE INSTRUCTIONS SIGNATURE PAGE SHAMA RODRIGUEZ Location:[facility] Registration Date and Time:07/03/2023 13:46 EST Primary Care Physician: Hugo MCGARRY, Elvira Ma, Attending Physician: Mary Jaquez DO, I SHAMA RODRIGUEZ, have received the above patient education materials/instructions and have verbalized understanding. If ambulance or transport services are being used I further acknowledge being given a choice of service. ?? If you need to contact me, please call me at this number: . Patient/Airplane Flight Attendant Supervisor Name: Patient/Airplane Flight Attendant Supervisor Signature: Relationship to Patient: Witness Name/Signature: Date: * Lloyd Tinoco RN: PERFORM Event Display: Patient Education Leaflets Authored Date: [id number] Possible Miscarriage (Threatened ) ?? [id number] Possible Miscarriage (Threatened ) You may be having a miscarriage. Common signs of a miscarriage are pain and bleeding.??A small amount of bleeding can be normal during the first 3 months of . Often the pain and bleeding stop, and you have a normal and baby.??But heavy bleeding or severe cramping can be an early sign of miscarriage. A miscarriage means??an??unexpected loss of your . At this time, your healthcare provider doesn???t know whether you will have a miscarriage, or if things will clear up and your will continue normally. This can be emotionally difficult. There is little that can be done to change the way you feel. But??understand that miscarriages are common. About 1 or 2 out of every [address] Some even end before you know you are . This happens for a number of reasons, and usually the cause is never known. It???s important youknow that it is not your fault. It didn???t happen because you did anything wrong. Having sex or exercising does not cause a miscarriage. These activities are usually safe unless youhave pain or bleeding, or your healthcare provider tells you to stop. Even minor falls won???t cause a miscarriage. Miscarriages happen because things were not developing as they were supposed to. Nomedicine can prevent a miscarriage. Again, understand that things are uncertain right now. You may still have some bleeding. This may be light spotting or like a period, and you may pass some tissue. You may have some cramping. This iswhy follow-up care is important. Home care To improve the chance of keeping??your , you should take these steps: ??? Rest in bed until the pain and bleeding stop. ??? Don???t have sex until your healthcare provider says it???s OK. ??? Use sanitary napkins instead of tampons. ??? Don???t douche. ??? Don???t take aspirin, ibuprofen, or naproxen. ??? Don???t have alcoholic or caffeinated beverages or smoke. ?? Follow-up care Make an appointment with your healthcare provider within the next week, or as directed. If you had an ultrasound,??a radiologist??will??review??it.??You will be told of any new findings that may affect your care. ?? Call 911 Call 911 if you have: ??? Severe pain and very heavy bleeding ??? Severe lightheadedness, passing out, or fainting ??? Rapid heart rate ??? Trouble breathing ??? Confusion or trouble waking up ?? When to seek medical advice Call your healthcare provider right away??if any of the following occur: ??? Vaginal bleeding or pain that lasts for more than 3 days ??? Heavy bleeding. This means soaking 1 new pad an hour over 3 hours. ??? Fever of 100.4??F (38??C) or higher, or as directed by your healthcare provider ??? Pain in your lower belly (abdomen) that gets worse ??? Weakness or dizziness ??? Passage of anything that resembles tissue. This would be pink or grayish membrane or solid material. Save the tissue in a clean container and bring it to your healthcare provider. ?? Last Reviewed Date: 2021 ?? 9595-4715 [employer]. All rights reserved. This information is not intended as a substitute for professional medical care. Always follow your healthcare professional's instructions. ?? * Lloyd Tinoco RN: PERFORM Event Display: Patient Education Leaflets Authored Date: [id number] Bleeding During Early ?? [address] Bleeding During Early If you???ve had bleeding early in your , you???re not alone. Many other women have early bleeding, too. And in most cases, nothing is wrong. But your healthcare provider still needsto know about it. They may want to do tests to find out why you???re bleeding. Call your provider if you see bleeding during . Tell your provider if your blood is Rh negative. Then they can figure out if you need anti-D immune globulin treatment. What causes early bleeding? The cause of bleeding early in is often unknown. But many factors early on in may lead to light bleeding (called spotting) or heavier bleeding. These include: ??? Having sex ??? When the embryo implants on the uterine wall ??? Bleeding between the sac membrane and the uterus (subchorionic bleeding) ??? loss (miscarriage) ??? The embryo implants outside of the uterus (ectopic ) ?? If you see spotting Light bleeding is the most common type of bleeding in early . If you see it, call your healthcare provider. Chances are, they will tell you that you can care for yourself at home. ?? If tests are needed Depending on how much you bleed, your healthcare provider may ask you to come in for some tests. A pelvic exam, for instance, can help see how far along your is. You also may have an ultrasound or a Doppler test. These imaging tests use sound waves to check the health of your baby. The ultrasound may be done on your belly or inside your vagina. You may also need a special blood test. This test compares your hormone levels in blood samples taken 2 days apart. The results can help your provider learn more about the implantation of the embryo. Your blood type will also need to be checked to assess if you will need to be treated for Rh sensitization.?? Ultrasound can help check the health of your fetus. ?? Warning signs If your bleeding doesn???t stop or if you have any of the following, get medical care right away: ??? Soaking a sanitary pad each hour ??? Bleeding like you???re having a period ??? Cramping or severe belly pain ??? Feeling dizzy or faint ??? Tissue passing through your vagina ??? Bleeding at any time after the first trimester ?? Questions you may be asked Bleeding early in isn't normal. But it is common. If you???ve seen any bleeding, you may be concerned. But keep in mind that bleeding alone doesn???t mean something is wrong. Just be sure to call your healthcare provider right away. They may ask you questions like these to help find the cause of your bleeding: ??? When did your bleeding start? Is your bleeding very light or is it like a period? Is the blood bright red or brownish? Have you had sex recently? Have you had pain or cramping? Have you felt dizzy or faint? ?? Monitoring your Bleeding will often stop as quickly as it began. Your may go on a normal path again. You may need to make a few extra visits. But you and your baby will most likely be fine. ?? Last Reviewed Date: 2021 ?? 6631-2762 [employer]. All rights reserved. This information is not intended as a substitute for professional medical care. Always follow your healthcare professional's instructions. ?? Patient Care team information Care Team Personnel Name: Madie Tran Position: [facility] Outreach Member Role: Lifetime Consulting Physician Name: Elvira Arias MD Position: [facility] Physician - Primary Care Member Role: PCP Address: Address: [address] [place] [address] Name: Ann MCGARRY, Tonya Porter Position: [facility] HOURLY CAREGIVER MD Member Role: Lifetime HOURLY CAREGIVER Physician Address: Address: [address] [place] [address]'s [facility] [place] [address]- [place] Name: Lloyd Tinoco RN Position: [facility] OB RN Member Role: Patient Care Provider Care Team Related Persons Name: BETY RODRIGUEZ Address: [address] [address]
--- OUTSIDE RECORDS SUMMARY | 2024-02-02 03:02 | XMS_ITS | Continuity of Care Document ---
Author Organization [facility] Address Unknown Care Team Providers Care Manager News Name Role Phone Elvira Arias MD Primary Care Physician [place] [facility] [place]12[place] 09/07/21 [facility] Attending Physician: Not on Staff, Attending MD [...]
--- OUTSIDE RECORDS SUMMARY | 2024-02-02 03:03 | XMS_ITS | Continuity of Care Document ---
Author Organization [facility] Address [address] [facility] [place] [address]- Care Team Providers Care Rhythmic Gymnastics Coach Name Role Phone Elvira Arias MD Primary Care Physician [id number] Date[facility]08[facility] - 08/12/23 [facility] [address] [facility] [place] [address]- Attending Physician: Not on Staff, Attending MD Referring Physician: Not on Staff, Referring MD Allergies, Adverse Reactions, Alerts Substance Reaction Severity Status Bactrim vomit Intermittent Active Medications acetaminophen 325 mg oral tablet 650 mg, 2, tablet, By Mouth, Every 4 hours, PRN, # 50 tablet, Refills 0, Tot. Refills 0, Maintenance, as needed for fever, 07/09/23 16:12:00 EDT, Route to Pharmacy Electronically, [facility]/pharmacy #[id number],Partial fill upon patient request if the [...] Primary Care Member Role: PCP Address: Address: [address] [place] [address]- Name: Ann MCGARRY, Tonya Porter Position: [facility] FENCE MACHINE OPERATOR MD Member Role: Lifetime FENCE MACHINE OPERATOR Physician Address: Address: [address] [place] [address] [place] [address]- Care Team Related Persons Name: MICHAEL BETY Address: home [address] [place] [address]
--- OUTSIDE RECORDS SUMMARY | 2024-02-02 03:03 | XMS_ITS | Continuity of Care Document ---
Author Organization [facility] Address [address] [facility], 4t h [address] [place] [address]- Care Team Providers Care Slot Editor Name Role Phone Elvira Arias MD Primary Care Physician [place] [facility] [place](s): 11/24/22 - 12/24/22 [facility] [address] [facility], 4th Floor [address] [place] [address] Allergies, Adverse Reactions, Alerts Substance Reaction [...] tablet, 3 Refills, Maintenance, 11/04/22 14:16:00 EDT, [facility]/pharmacy #[id number], Partial fill [...] Refills, Soft Stop, 11/04/22 14:16:00 EDT, [facility], Partial fill upon patient request if the prescription is for a schedule II opioid drug., 1... Start Date: 11/04/22 Status: Ordered Prometrium 200 mg oral capsule 1 capsule = 200 mg, Vaginally, 2 times a day, Start meds three days after peak of OPK, # 90 capsule, 2 Refills, Acute 10/03/23 8:36:00 EDT, 10/01/22 8:35:00 EDT, [facility]/pharmacy #[id number], Partial fill uponpatient request [...] Arias MD Position: [facility] Physician - Primary Care Member Role: PCP Address: Address: [address] [place] [address]- Name: Ann MCGARRY, Tonya Porter Position: [facility] AGRICULTURAL AIRCRAFT PILOT MD Member Role: Lifetime AGRICULTURAL AIRCRAFT PILOT Physician Address: Address: [address] [place] [address] [employer] [address]- Care Team Related Persons Name: BETY RODRIGUEZ Address: home [address] [place] [address]
--- OUTSIDE RECORDS SUMMARY | 2024-02-02 03:03 | XMS_ITS | Continuity of Care Document ---
Author Organization [facility] Address [address] [address]- Care Team Providers Care Tracer Bullet Charging Machine Operator Name Role Phone Elvira Arias MD Primary Care Physician [phone] [place] [facility] [place]22 - 03/05/22 [facility] [address] [place] [address] Allergies, Adverse Reactions, Alerts Substance Reaction Severity Status Bactrim vomit Intermittent Active Medications ibuprofen 400 mg oral tablet 400 mg, 1, tablet, By Mouth, Every 6 hours, PRN, # 20 tablet, Refills 0, Tot. Refills 0, Maintenance, for pain, 02/21/21 23:18:00 EDT, Route to Pharmacy Electronically, [facility]/pharmacy #[id number], Partial fill upon patient request if the prescription is for a... Start Date: 02/21/21 Status: Ordered ibuprofen 800 mg oral tablet 800 mg, 1, tablet, By Mouth, 3 times a day, # 90 tablet, Refills 0, Tot. Refills 0, Maintenance, 02/27/21 17:05:00 EDT, Route to Pharmacy Electronically, [facility]/pharmacy #[id number], Partial fill upon patientrequest if [...] List Condition Confirmation Course Effective Dates Status [facility] Anxiety Confirmed Active COVID-19 1 Confirmed 08/10/21 Active Cyclic neutropenia Confirmed Active Depressive disorder Confirmed Active Status post laparoscopy Confirmed Active Pelvic pain Confirmed Active 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 1Problem added by Discern Expert Social History Social History Type Response Smoking Status Never smoker entered on: 12/18/14 Sex Patient Care team information Care Team Personnel Name: Madie Tran Position: [facility] Outreach Member Role: Lifetime Consulting Physician Name: Elvira Arias MD Position: [facility] Physician (General Medicine) Member Role: PCP Address: Address: [address] [place] [address]- [place] Name: Ann MCGARRY, Tonya Porter Position: [facility] PIE CUTTER MD Member Role: Lifetime PIE CUTTER Physician Address: Address: [address] [facility]'s [facility] [place] [address]- [place] Care Team Related Persons Name: BETY RODRIGUEZ Address: home [address] [place] [address]
--- OUTSIDE RECORDS SUMMARY | 2024-02-02 03:03 | XMS_ITS | Continuity of Care Document ---
Author Organization [facility] Address [address] [place] [address]- Care Team Providers Care Greige Goods Marker Name Role Phone Elvira Arias MD Primary Care Physician [phone] Encounter [facility] [place] Date(s): 02/21/21 - 02/22/[address] [address]- Encounter Diagnosis Ovarian cyst(Final) - 02/21/21 Discharge Disposition: A-D/C Home Attending Physician: Emani Durbin MD Admitting Physician: Emani Durbin MD Referring Physician: Not on Staff, Referring MD Allergies, Adverse Reactions, Alerts Substance Reaction Severity Status Bactrim vomit Intermittent Active Medications Dilaudid Inj 0.5 mg, Injection, IV Push Slowly, Once, STAT, 02/21/21 19:00:00 EDT, Stop date 02/21/21 19:00:00 EDT Start Date: 02/21/21 Stop Date: 02/21/21 Status: Completed ibuprofen 400 mg oral tablet 400 mg, 1, tablet, By Mouth, Every 6 hours, PRN, # 20 tablet, Refills 0, Tot. Refills 0, Maintenance, for pain, 02/21/21 23:18:00 EDT, Route to Pharmacy Electronically, [id number], Partial fill upon patient request if the prescription is for a... Start Date: 02/21/21 Status: Ordered ondansetron 4 mg oral tablet, disintegrating 1 tablet = 4 mg, By Mouth, Every 8 hours, PRN Nausea & Vomiting, # 10 tablet, 0 Refills, Maintenance, 02/21/21 23:18:00 EDT, Tablet, [id number], Partial fill upon patient request if the prescription is for a schedule II opioid drug., 150, cm,... 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 Vital Signs Most recent to oldest [Reference Range]: 1 2 3 Oxygen Saturation [94-100 %] 100 % (02/21/21 9:57 PM) 100 % (02/21/21 5:30 PM) 100 % (02/21/21 2:27 PM) Pulse Rate [55-90 bpm] 84 bpm (02/21/21 9:57 PM) 84 bpm (02/21/21 5:30 PM) 82 bpm (02/21/21 2:27 PM) Blood Pressure [90-138/55-84 mm Hg] 114/84mm Hg (02/21/21 9:57 PM) 111/73mm Hg (02/21/21 5:30 PM) 113/70mm Hg (02/21/21 2:27 PM) Respiratory Rate [16-30 br/min] 18 br/min (02/21/21 9:57 PM) 17 br/min (02/21/21 7:43 PM) 14 br/min *L* (02/21/21 5:30 PM) Temperature [96.8-100.4 DegF] 98.5 DegF (02/21/21 9:57 PM) 99.0 DegF (02/21/21 2:19 PM) 99.6 DegF (02/21/21 10:17 AM) Mode of Delivery (Oxygen) Room air (02/21/21 9:57 PM) Room air (02/21/21 5:30 PM) Room air (02/21/21 2:27 PM) Blood pressure sites Arm, left (02/21/21 9:57 PM) Arm, left (02/21/21 5:30 PM) Temperature Route Oral (02/21/21 9:57 PM) Oral (02/21/21 2:19 PM) Social History Social History Type Response Smoking Status Never smoker entered on: 12/18/14 Sex
--- OUTSIDE RECORDS SUMMARY | 2024-02-02 03:03 | XMS_ITS | Continuity of Care Document ---
Author Organization [facility] Address [address] [place] [address], [address]t [address] [place] [address]- Care Team Providers Care Signal Constructor Name Role Phone Elvira Arias MD Primary Care Physician Encounter [facility] [place] Date(s): 05/30/22 - 06/29/22 [facility] [address] [place] [address], 4th [address] [place] [address] Allergies, Adverse Reactions, Alerts Substance [...] Care Team Personnel Name: Madie Tran Position: [facility] Outreach Member Role: Lifetime Consulting Physician Name: Elvira Arias MD Position: [facility] Physician (General Medicine) Member Role: PCP Address: Address: [address] [place] [address]- Name: Tonya Juarez MD Position: [facility] PERFORMANCE CONSULTANT Member Role: Lifetime PERFORMANCE CONSULTANT Physician Address: Address: [address] [place] [address] [facility] [place] [address]- Care Team Related Persons Name: PAULABETY Mancuso Address: home [address] [place] [address]
--- OUTSIDE RECORDS SUMMARY | 2024-02-02 03:03 | XMS_ITS | Clinical Summary ---
Author Organization [facility] Address [address] [place] [address] Phone Care Team Providers Care Logistician Name Role Phone [facility] Unavailable [phone] Elvira Arias MD Primary Care Provider [phone] Reason for Visit and Chief Complaint Established Patient Plan of Treatment Pending Tests Order Diagnosis Results Due Ordering P gregorio Follow Up - Appointment PRN Nondisp fx of proximal phalanx of left lesser toe(s), init 06/11/23 Liliam RUBIO Last Documented On 4 9:44AM ; [facility] Follow Up - Return to School / Work Note Nondisp fx of proximal phalanx of left lesser toe(s), init 06/11/23 Shorty Cid MD Last Documented On 4 9:56AM ; [facility] Assessments Includes: Assessments from this encounter No Assessments Recorded Medical Equipment - Implanted Devices Includes: Current Devices No Medical Equipment Recorded Medications Administered Includes: Administered Medications from this encounter No Administered Medications Recorded Vital Signs Includes: Vital Signs from this encounter Vital Name 06/11/2023 09:45A Blood Pressure Sitting (mmHg) 125/82 Pulse Rate-Sitting (bpm) 56 Temp-Temporal 97.1 Height (in) 59 Weight (lb) 125 Body Mass Index 25.2 Body Surface Area 1.5 Oxygen Saturation (%) 99 Last Documented: On 06/11/2023 9:45AM ; [facility] Results Includes: Results discussed during this encounter No Results Recorded For Specified Dates History of Present Illness Includes: History of Present Illness from this encounter No History of Present Illness Recorded Social History No Social History Recorded - Smoking Status Unknown Procedures and Surgical History Includes: Procedures from this encounter Procedures Code Diagnosis Performing Provider Service Location Service Date X-Ray Of Foot, complete min of 3 views (Left) [id number] Nondisp fx of proximal phalanx of left lesser toe(s), init Shorty Cid MD [place] [facility] 06/11/2023 Last Documented On 4 10:00AM ; [facility], Medical History Includes: Medical History addressed during this encounter No Medical History Recorded Family History Includes: Family History addressed during this encounter No Family History Recorded Review of Systems Includes: Review of Systems from this encounter No Review of Systems Recorded Mental Status Includes: Mental Status from this encounter No Mental Status Recorded Functional Status Includes: Functional Status from this encounter No Functional Status Recorded Physical Exam Includes: Physical Exam from this encounter Encounters Encounter Provider Location Date Check-In Time Check-Out Time Diagnosis Established Patient Liliam RUBIO [facility] 06/11/19 24 9:20AM 9:59AM Insurance Includes: Active Insurance Policies Plan Name Member ID Group # Subscriber Relationship Effect kera Dates 1 - [facility] [id number] Devora Cesaremily Self Clinical Notes Includes: Clinical Notes from this encounter * Progress note Date Encounter Last Documented by 06/11/2023 Established Patient Viraj mccain on 06/11/2023; 9:56 AM, [facility] Complaint CC: Follow-up left foot fifth toe proximal phalanx fracture date of injury 05/18/2023 HPI: This is a 27-year-old female who sustained trauma to her left fifth toe resulting in a left foot fifth toe proximal phalanx fracture last seen in our office on 05/21/2023. The patient has been weightbearing as tolerated. She was given a Darco shoe at that time. With erum taping. She is here for follow-up and repeat x- rays of left foot fifth toe. She has no major complaints. Physical exam: General: AOx3 Musculoskeletal: On exam of the patient's left foot. Minimal pain. No erythema ecchymosis or fluctuance. Full range of motion throughout ankle and toes. Neurovascular intact Imaging: X-rays of left foot today compared to previous images on 05/19/2023 reveals left foot fifth toe proximal phalanx fracture nondisplaced. Callus formation noted. Satisfactory alignment. Plan: Continue weightbearing as tolerated. Wean out of Darco shoe to supportive shoe. Tylenol as needed. Patient may follow-up as needed. Plan discussed with Dr Cid and agrees with plan. Physical Findings - Vitals taken 06/11/2023 09:45 am BP-Sitting 125/82 mmHg Pulse Rate-Sitting 56 bpm Temp-Temporal 97.1 F Height 59 in Weight 125 lbs Body Mass Index 25.2 kg/m2 Body Surface Area 1.5 m2 Oxygen Saturation 99 % Plan StartCited - Nondisp fx of proximal phalanx of left lesser toe(s), init Follow Up/Appointment: PRN Follow Up/Return to: School / Work Note EndCited
--- OUTSIDE RECORDS SUMMARY | 2024-02-02 03:03 | XMS_ITS | Continuity of Care Document ---
Author Organization [facility] Address [address] [facility], 4t [address] [place] [address]- Care Team Providers Care Manager Inspection Name Role Phone Hugo MCGARRY, Elvira Ma Primary Care Physician En[place] [facility] [place] Date(s): 10/24/22 - 11/23/22 [facility] [address] [facility], 4th [address] [place] [address]- Allergies, Adverse Reactions, Alerts Substance Reaction Severity [...] 3 Refills, Maintenance, 11/04/22 14:16:00 EDT, [facility]/pharmacy #[id number], Partial fill upon patient request [...] 3 Refills, Soft Stop, 11/04/22 14:16:00 EDT, [facility], Partial fill upon patient [...] Care Team Personnel Name: Madie Tran Position: [facility] Outreach Member Role: Lifetime Consulting Physician Name: Elvira Arias MD Position: [facility] Physician - Primary Care Member Role: PCP Address: Address: [address] [place] [address]- Name: Ann MCGARRY, Tonya Porter Position: [facility] PROCESS SAFETY ENGINEERING TECHNOLOGIST MD Member Role: Lifetime PROCESS SAFETY ENGINEERING TECHNOLOGIST Physician Address: Address: [address] [place] [address] [employer] [place] [address]- Care Team Related Persons Name: BETY RODRIGUEZ Address: home [address] [place] [address]
--- OUTSIDE RECORDS SUMMARY | 2024-02-02 03:03 | XMS_ITS | Continuity of Care Document ---
Author Organization [facility] Address [address] [place] [address]- Care Team Providers Care Spinner Tender Name Role Phone Elvira Arias MD Primary Care Physician [phone] Encounter [facility] [place] Date(s): 02/27/21 - 02/27/[address] [address] Discharge Disposition: A-D/C Home Attending Physician: Tonya Juarez MD Admitting Physician: Tonya Juarez MD Referring Physician: Not on Staff, Referring MD Allergies, Adverse Reactions, Alerts Substance Reaction Severity Status Bactrim vomit Intermittent Active Medications ibuprofen 400 mg oral tablet 400 mg, 1, tablet, By Mouth, Every 6 hours, PRN, # 20 tablet, Refills 0, Tot. Refills 0, Maintenance, for pain, 02/21/21 23:18:00 EDT, Route to Pharmacy Electronically, [facility]/pharmacy #[id number], Partial fill upon patient request if [...] a schedule... Start Date: 02/27/21 Status: Ordered Percocet-5 Tablet 2 tablet, Tablet, By Mouth, Every 4 hours for 1 days, in PACU ONLY, PRN for Pain , Moderate, if patient can tolerate po, Routine, 02/27/21 15:53:00 EDT, Stop date 02/28/21 15:52:00 EDT Start Date: 02/27/21 Stop Date: 02/28/21 Status: Ordered Tylenol 325 mg oral capsule [...] Range]: 1 2 3 Height 150 cm (02/27/21 2:22 PM) 150 cm (02/27/21 10:46 AM) 150 cm (02/27/21 9:33 AM) Weight 53.5 kg (02/27/21 2:22 PM) 53.5 kg (02/27/21 10:46 AM) 53.5 kg (02/27/21 9:33 AM) Oxygen Saturation [94-100 %] 100 % (02/27/21 8:30 PM) 100 % (02/27/21 8:15 PM) 94 % (02/27/21 8:00 PM) Pulse Rate [55-90 bpm] 105 bpm *H* (02/27/21 2:22 PM) 79 bpm (02/27/21 12:14 PM) 84 bpm (02/27/21 10:48 AM) Body Mass Index [18.5-24.99] 23.78 (02/27/21 2:22 PM) 23.78 (02/27/21 9:33 AM) Blood Pressure [90-138/55-84 mm Hg] 115/70mm Hg (02/27/21 8:30 PM) 115/70mm Hg (02/27/21 8:15 PM) 115/70mm Hg (02/27/21 8:00 PM) Respiratory Rate [16-30 br/min] 23 br/min (02/27/21 8:30 PM) 23 br/min (02/27/21 8:15 PM) 18 br/min (02/27/21 8:05 PM) Temperature [96.8-100.4 DegF] 98.5 DegF (02/27/21 6:30 PM) 98.0 DegF (02/27/21 5:00 PM) 98.4 DegF (02/27/21 2:22 PM) Liters per Minute 6 L/min (02/27/21 6:45 PM) 4 L/min (02/27/21 5:15 PM) 6 L/min (02/27/21 5:00 PM) Mode of Delivery (Oxygen) Room air (02/27/21 8:30 PM) Room air (02/27/21 8:15 PM) Room air (02/27/21 8:00 PM) Blood pressure sites Arm, left (02/27/21 5:00 PM) Arm, left (02/27/21 2:22 PM) Arm, left (02/27/21 9:33 AM) Temperature Route Temporal (02/27/21 6:30 PM) Temporal (02/27/21 5:00 PM) Temporal (02/27/21 2:22 PM) Weight Obtained Via Patient/family state d (02/27/21 9:33 AM) Social History Social History Type Response Smoking Status Never smoker entered on: 12/18/14 Sex
--- OUTSIDE RECORDS SUMMARY | 2024-02-02 03:03 | XMS_ITS | Continuity of Care Document ---
Author Organization [facility] Emmie mcginnis[employer]right[employer] [facility] Address [address] [facility], [place], [place] [address]- Care Team Providers Care Utility Worker Forge Name Role Phone Elvira Arias MD Primary Care Physician [id number] Date(s): 04/30/21 - 05/30/21 [facility] [employer] [facility] [address] [facility], [address] [place], [place] [address] Attending Physician: Admtr, [id number] Admitting Physician: Admtr, Ar8 Referring Physician: Admtr, Ar8 Allergies, Adverse Reactions, Alerts Substance Reaction Severity Status Bactrim vomit Intermittent Active Medications ibuprofen 400 mg oral tablet 400 mg, 1, tablet, By Mouth, Every 6 hours, PRN, # 20 tablet, Refills 0, Tot. Refills 0, Maintenance, for pain, 02/21/21 23:18:00 EDT, Route to Pharmacy Electronically, [facility]/pharmacy #[id number], Partial fill upon [...]
--- OUTSIDE RECORDS SUMMARY | 2024-02-02 03:03 | XMS_ITS | Continuity of Care Document ---
Author Organization [facility] Address [address] [place] [address]- Care Team Providers Care Tile Layer Supervisor Name Role Phone Elvira Arias MD Primary Care Physician Encounter [facility] [place] Date(s): 05/19/22 - 06/18/[address] [address]- Allergies, Adverse Reactions, Alerts Substance Reaction Severity [...] Care Team Personnel Name: Madie Tran Position: [facility] Outreach Member Role: Lifetime Consulting Physician Name: Elvira Arias MD Position: [facility] Physician (General Medicine) Member Role: PCP Address: Address: [address] [place] [address]- Name: Tonya Juarez MD Position: [facility] MACHINE OPERATOR HELPER MD Member Role: Lifetime MACHINE OPERATOR HELPER Physician Address: Address: [address] [place] [address] [place] [address]- Care Team Related Persons Name: BETY RODRIGUEZ Address: home [address] [place] [address]
--- OUTSIDE RECORDS SUMMARY | 2024-02-02 03:03 | XMS_ITS | Continuity of Care Document ---
Author Organization [facility] Emmie n9+[employer] [facility] Address [address] [place] [address], [place] [address]- Care Team Providers Care Refrigeration Technician Name Role Phone Hugo MCGARRY, Elvira Ma Primary Care Physician En[place] [facility] [place] [place] Date(s): 07/08/23 - 08/07/23 [facility] [place] [employer] [facility] [address] [facility], [address] [place] [address]- Allergies, Adverse Reactions, Alerts Substance Reaction Severity Status Bactrim vomit Intermittent Active Medications acetaminophen 325 mg oral tablet 650 mg, 2, tablet, By Mouth, Every 4 hours, PRN, # 50 tablet, Refills 0, Tot. Refills 0, Maintenance, as needed for fever, 07/09/23 16:12:00 EDT, Route to Pharmacy Electronically, [facility]/pharmacy #[id number],Partial fill upon patient request if the prescripti... Start Date: 07/09/23 Status: Ordered ibuprofen 600 mg oral tablet 600 mg, 1, tablet, By Mouth, 4 times a day, PRN, # 40 tablet, Refills 0, Tot. Refills 0, Maintenance, for pain, 07/09/23 16:12:00 EDT, Route to Pharmacy Electronically, [facility]/pharmacy #[id number], Partial fill upon patient [...] 07/14/23 7:57:00 EDT, Route to Pharmacy Electronically, [facility]/pharmacy #[id number], Partial fill upon patient request if the prescription is... Start Date: 07/14/23 Status: Ordered Senna 8.6 mg oral tablet 17.2 mg, 2, tablet, By Mouth, Daily at bedtime, # 25 tablet, Refills 0, Tot. Refills 0, Maintenance, 07/14/23 7:57:00 EDT, Route to Pharmacy Electronically, [facility]/pharmacy #[id number], Partial fill upon patient [...] Primary Care Member Role: PCP Address: Address: [address] [place] [address]- Name: Ann MCGARRY, Tonya Porter Position: [facility] RN CVICU Member Role: Lifetime RN CVICU Physician Address: Address: [address] [place] [address] Photographic [place] [address]- Care Team Related Persons Name: BETY RODRIGUEZ Address: home [address] [place] [address]
--- OUTSIDE RECORDS SUMMARY | 2024-02-02 03:03 | XMS_ITS | Continuity of Care Document ---
Author Organization [facility] [employer] [facility] Address [address] [place] [address], [place] [address]- Care Team Providers Care Metal Treater Name Role Phone Elvira Arias MD Primary Care Physician [phone] En[facility] [id number] Date(s): 06/23/23 - 09/13/23 [facility] [employer] [facility] [address] [facility], [address] [place] [address]- Attending Physician: Scarlet Fagan MD Referring Physician: Elvira Arias MD Allergies, Adverse Reactions, Alerts Substance Reaction Severity Status Bactrim vomit Intermittent Active Medications acetaminophen 325 mg oral tablet 650 mg, 2, tablet, By Mouth, Every 4 hours, PRN, # 50 tablet, Refills 0, Tot. Refills 0, Maintenance, as needed for fever, 07/09/23 16:12:00 EDT, Route to Pharmacy Electronically, [facility]/pharmacy #[id number],Partial fill upon patient request if the prescripti... Start Date: 07/09/23 Status: Ordered ibuprofen 600 mg oral tablet 600 mg, 1, tablet, By Mouth, 4 times a day, PRN, # 40 tablet, Refills 0, Tot. Refills 0, Maintenance, for pain, 07/09/23 16:12:00 EDT, Route to Pharmacy Electronically, [facility]/pharmacy #[id number], Partial fill upon patient [...] 07/14/23 7:57:00 EDT, Route to Pharmacy Electronically, [facility]/pharmacy #[id number], Partial fill upon patient request if the prescription is... Start Date: 07/14/23 Status: Ordered Senna 8.6 mg oral tablet 17.2 mg, 2, tablet, By Mouth, Daily at bedtime, # 25 tablet, Refills 0, Tot. Refills 0, Maintenance, 07/14/23 7:57:00 EDT, Route to Pharmacy Electronically, [facility]/pharmacy #[id number], Partial fill upon patient [...] Primary Care Member Role: PCP Address: Address: [address] [place] [address]- Name: Ann MCGARRY, Tonya Porter Position: [facility] SOCIAL WORKER PSYCHIATRIC Member Role: Lifetime SOCIAL WORKER PSYCHIATRIC Physician Address: Address: [address] [place] [address] [place] [address]- Care Team Related Persons Name: BETY RODRIGUEZ Address: home [address] [place] [address]
--- OUTSIDE RECORDS SUMMARY | 2024-02-02 03:03 | XMS_ITS | Continuity of Care Document ---
Author Organization [facility] ter Address [address] [place] [address]- Care Team Providers Care Forensic Economist Name Role Phone Elvira Arias MD Primary Care Physician Encounter [facility] [place] Date(s): 03/25/22 - 04/01/[address] [address] Attending Physician: Noah MCGARRY [OB], Madie Plascencia Allergies, [...] Most recent to oldest [Reference Range]: 1 Oxygen Saturation [94-100 %] 100 % (03/25/22 12:30 PM) Pulse Rate [55-90 bpm] 93 bpm *H* (03/25/22 12:30 PM) Blood Pressure [90-138/55-84 mm Hg] 125/ 96mm Hg (03/25/22 12:30 PM) Respiratory Rate [16-30 br/min] 18 br/mi n (03/25/22 12:30 PM) Temperature [96.8-100.4 DegF] 98.7 DegF (03/25/22 12:30 PM) Mode of Delivery (Oxygen) Room air (03/25/22 12:30 PM) Blood pressure sites Arm, right (03/25/22 12:30 PM) Temperature Route Oral (03/25/22 12:30 PM) Social History Social History Type Response Smoking Status Never smoker entered on: 12/18/14 Sex Patient Care team information Care Team Personnel Name: Madie Tran Position: [facility] Outreach Member Role: Lifetime Consulting Physician Name: Elvira Arias MD Position: [facility] Physician (General Medicine) Member Role: PCP Address: Address: [address] [place] [address]- Name: Ann MCGARRY, Tonya Porter Position: [facility] WIRE WEAVER CLOTH MD Member Role: Lifetime WIRE WEAVER CLOTH Physician Address: Address: [address] [place] [address]'s [facility] [place] [address]- Care Team Related Persons Name: BETY RODRIGUEZ Address: home [address] [place] [address]
--- OUTSIDE RECORDS SUMMARY | 2024-02-02 03:03 | XMS_ITS ---
Author Organization [facility] Address [address] [place] [address] Phone Care Team Providers Care Director Of Preclinical Research Name Role Phone [facility] Un[facility] [phone] Elvira Arias MD Primary Care Provider [phone] Plan of Treatment No Plan of Treatment Recorded Assessments Includes: Assessments for all patient encounters No Assessments Recorded Medical Equipment - Implanted Devices Includes: Current and historical Devices No Medical Equipment Recorded Medications Administered Includes: Administered Medications in patient's chart No Administered Medications Recorded Vital Signs Includes: Vital Signs from 02/01/2023 through 02/02/2024 Vital Name 06/11/2023 09:45A 05/21/2023 10: 44A Blood Pressure Sitting (mmHg) 125/82 132/85 Pulse Rate-Sitting (bpm) 56 98 Temp-Temporal 97.1 97 Height (in) 59 59 Weight (lb) 125 125 Body Mass Index 25.2 25.2 Body Surface Area 1.5 1.5 Oxygen Saturation (%) 99 98 Last Documented: On 06/11/2023 9:45AM ; [facility] On 05/21/2023 10:45AM ; [facility] Results Includes: Results from 02/01/2023 through 02/02/2024 No Results Recorded For Specified Dates History of Present Illness History of Present Illness not supported for this document type No History of Present Illness Recorded Social History No Social History Recorded - Smoking Status Unknown Procedures and Surgical History Includes: Procedures from 02/01/2023 through 02/02/2024 Procedures Code Diagnosis Performing Provider Service Location Service Date X-Ray Of Foot, complete min of 3 views (Left) [address] Nondisp fx of proximal phalanx of left lesser toe(s), init Shorty Cid MD [facility] 06/11/2023 Last Documented On 10:00AM ; [facility], Medical History Includes: Medical History in patient's chart No Medical History Recorded Family History Includes: Family History in patient's chart No Family History Recorded Review of Systems Review of Systems not supported for this document type No Review of Systems Recorded Mental Status No Mental Status Recorded Functional Status No Functional Status Recorded Physical Exam Physical Exam not supported for this document type No Physical Exam Recorded Encounters Includes: Encounters from 02/01/2023 through 02/02/2024 Encounter Provider Location Date Check-In Time Check-Out Time Diagnosis Established Patient Liliam RUBIO [facility], 024 9:20AM 9:59AM New Patient Jose Miguel Phillips MD [facility] 024 10:20AM 11:05AM Insurance Includes: Active Insurance Policies Plan Name Member ID Group # Subscriber Relationship Effect kera Dates 1 - [facility] [id number] Devora Delvalleallis[place] Self Clinical Notes Includes: Signed Clinical Notes starting from 04/06/2022 * Progress note Date Encounter Last Documented by 06/11/2023 Established Patient Viraj mccain on 06/11/2023; 9:56 AM, Liliam RUBIO; [facility], Chief Complaint CC: Follow-up left foot fifth [...] Up/Return to: School / Work Note EndCited * Progress note Date Encounter Last Documented by 05/21/2023 New Patient Last documented on 05/21/2023; 11:23 AM, Jose Miguel Phillips MD; [facility], Chief Complaint CC: Left foot fifth toe proximal phalanx fracture DOI: 05/18/2023 HPI: 27-year-old female non-smoker nondiabetic blunt trauma left fifth toe DOI: 05/18/2023 Patient placed in Darco shoe presents in clinic today Pain: Moderate to significant Darco shoe removed Skin exam ecchymosis: Moderate no blistering tenting skin at wrist no gross deformity satisfactory alignment no rotational deviation or deviation noted Imaging still studies: None performed today Imaging studies reviewed from ER 05/19/2023 Left foot fifth toe, P1 fracture nondisplaced extra-articular satisfactory alignment Plan: Progress to weightbearing as tolerated Continue use of Darco shoe Continue erum taping Follow-up: 3 weeks x-rays left foot fifth toe CHARLY Phillips MD Physical Findings - Vitals taken 05/21/2023 10:44 am BP-Sitting 132/85 mmHg Pulse Rate-Sitting 98 bpm Temp-Temporal 97 F Height 59 in Weight 125 lbs Body Mass Index 25.2 kg/m2 Body Surface Area 1.5 m2 Oxygen Saturation 98 % Plan StartCited - Other Follow Up/Return to: School / Work Note EndCited
--- OUTSIDE RECORDS SUMMARY | 2024-02-02 03:03 | XMS_ITS | Continuity of Care Document ---
Author Organization [facility] Address [address] [facility], 4t h [address] [place] [address]- Care Team Providers Care Mortgage Operations Manager Name Role Phone Hugo MCGARRY, Elvira Ma Primary Care Physician Encounter [facility] [place] Date(s): 12/01/22 - 12/31/22 [facility] Reproductive [facility] [address] [facility], 4th Floor [address] [place] [address]- Allergies, Adverse Reactions, Alerts Substance Reaction Severity [...] tablet, 3 Refills, Maintenance, 11/04/22 14:16:00 EDT, [facility]/pharmacy #[id number], [...] 3 Refills, Soft Stop, 11/04/22 14:16:00 EDT, [facility], Partial fill upon [...] Elvira Arias MD Position: [facility] Physician - Primary Care Member Role: PCP Address: Address: [address] [place] [address]- Name: Ann MCGARRY, Tonya Porter Position: [facility] DRY BOX TENDER MD Member Role: Lifetime DRY BOX TENDER Physician Address: Address: [address] [place] [address] [place] [address]- Care Team Related Persons Name: BETY RODRIGUEZ Address: home [address] [place] [address]
--- OUTSIDE RECORDS SUMMARY | 2024-02-02 03:03 | XMS_ITS | Continuity of Care Document ---
Author Organization [facility] Emmie mcginn[facility]Coun[facility] Address [address] [facility], [place] [address]- Care Team Providers Care Clarity Specialists Name Role Phone Elvira Arias MD Primary Care Physician [id number] Date(s): 01/28/22 - 02/27/22 [facility] [employer] [facility] [address] [facility], [address]th [place], [place] [address] Allergies, Adverse Reactions, Alerts Substance Reaction Severity Status Bactrim vomit Intermittent Active Medications ibuprofen 400 mg oral tablet 400 mg, 1, tablet, By Mouth, Every 6 hours, PRN, # 20 tablet, Refills 0, Tot. Refills 0, Maintenance, for pain, 02/21/21 23:18:00 EDT, Route to Pharmacy Electronically, [facility]/pharmacy #[id number], Partial fill upon patient request if the prescription is for a... Start Date: 02/21/21 Status: Ordered ibuprofen 800 mg oral tablet 800 mg, 1, tablet, By Mouth, 3 times a day, # 90 tablet, Refills 0, Tot. Refills 0, Maintenance, 02/27/21 17:05:00 EDT, Route to Pharmacy Electronically, [facility]/pharmacy #[id number], Partial fill upon patientrequest [...] List Condition Confirmation Course Effective Dates Status [facility] at Informant Anxiety Confirmed Active COVID-19 1 Confirmed 08/10/21 Active Cyclic neutropenia Confirmed Active Depressive disorder Confirmed Active Status post laparoscopy Confirmed Active Pelvic pain Confirmed Active 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 1Problem added by Discern Expert Social History Social History Type Response Smoking Status Never smoker entered on: 12/18/14 Sex Patient Care team information Personnel Name: Elvira Arias MD Address: Address: [address] [place] [address]
--- OUTSIDE RECORDS SUMMARY | 2024-02-02 03:03 | XMS_ITS | Continuity of Care Document ---
Author Organization [facility] Address [address] [address]- Care Team Providers Care Tobacco Curer Name Role Phone Elvira Arias MD Primary Care Physician En[place] [facility] [place] Date(s): 01/10/22 - 02/09/22 [facility] [address] [place] [address] Allergies, Adverse Reactions, Alerts Substance Reaction [...] [facility]/pharm[facility][id number], Partial fill upon patientrequest if [...] List Condition Confirmation Course Effective Dates Status [facility] St at Informant Anxiety Confirmed Active COVID-19 1 Confirmed 08/10/21 Active Cyclic neutropenia Confirmed Active Depressive disorder Confirmed Active Status post laparoscopy Confirmed Active Pelvic pain Confirmed Active 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 1Problem added by Discern Expert Social History Social History Type Response Smoking Status Never smoker entered on: 12/18/14 Sex Patient Care team information Personnel Name: Elvira Arias MD Address: Address: [address] [place] [address]
--- OUTSIDE RECORDS SUMMARY | 2024-02-02 03:03 | XMS_ITS | Continuity of Care Document ---
Author Organization [facility] Address [address] [facility], 4t h [address] [place] [address]- Care Team Providers Care Pellet Post Inspector Name Role Phone Elvira Arias MD Primary Care Physician [phone] Encounter [facility] Date(s): 02/23/23 - 03/25/23 [facility]ro[facility] [address] [facility], 4th Floor [address] [place] [address] Allergies, Adverse Reactions, Alerts Substance [...] 3 Refills, Soft Stop, 01/22/23 15:22:00 EDT, [facility], Partial fill upon patient [...] Arias MD Position: [facility] Physician - Primary Care Member Role: PCP Address: Address: [address] [place] [address]- Name: Ann MCGARRY, Tonya Porter Position: [facility] COBOL PROGRAMMER MD Member Role: Lifetime COBOL PROGRAMMER Physician Address: Address: [address] [place] [address] [place] [address]- Care Team Related Persons Name: BETY RODRIGUEZ Address: home [address] [place] [address]
--- OUTSIDE RECORDS SUMMARY | 2024-02-02 03:03 | XMS_ITS | Continuity of Care Document ---
Author Organization [facility] Address [address] [address]- Care Team Providers Care Pet Store Merchandiser Name Role Phone Hugo MCGARRY, Elvira Ma Primary Care Physician Encounter [facility] Date(s): 06/22/23 - 07/22/23 [facility] [address] [place] [address]- Allergies, Adverse Reactions, Alerts Substance Reaction Severity [...] 07/14/23 7:57:00 EDT, Route to Pharmacy Electronically, [facility]/pharmacy #[id number], Partial fill upon patient request if the prescription is... Start Date: 07/14/23 Status: Ordered Senna 8.6 mg oral tablet 17.2 mg, 2, tablet, By Mouth, Daily at bedtime, # 25 tablet, Refills 0, Tot. Refills 0, Maintenance, 07/14/23 7:57:00 EDT, Route to Pharmacy Electronically, [facility]/pharmacy #[id number], Partial fill upon patient request [...] Care Team Personnel Name: Madie Tran Position: [facility] Outreach Member Role: Lifetime Consulting Physician Name: Elvira Arias MD Position: [facility] Physician - Primary Care Member Role: PCP Address: Address: [address] [place] [address]- Name: Ann MCGARRY, Tonya Porter Position: [facility] LAMINATOR PREFORMS MD Member Role: Lifetime LAMINATOR PREFORMS Physician Address: Address: [address] [place], [place] [address]s [facility] [place] [address]- Care Team Related Persons Name: BETY RODRIGUEZ Address: home [address] [place] [address]
--- OUTSIDE RECORDS SUMMARY | 2024-02-02 03:03 | XMS_ITS | Continuity of Care Document ---
Author Organization [facility]ie [facility] Address [address] [facility], [place] [address]- Care Team Providers Care Testing Tech Name Role Phone Elvira Arias MD Primary Care Physician [id number] Date(s): 01/07/22 - 03/20/22 [facility] [employer] [address] [facility], 4th [place], [place] [address] Attending Physician: Anna Gonzales MD Referring Physician: Mackenzie Burton CNM Allergies, Adverse Reactions, Alerts Substance Reaction Severity Status Bactrim vomit Intermittent Active Medications ibuprofen 400 mg oral tablet 400 mg, 1, tablet, By Mouth, Every 6 hours, PRN, # 20 tablet, Refills 0, Tot. Refills 0, Maintenance, for pain, 02/21/21 23:18:00 EDT, Route to Pharmacy Electronically, [facility]/pharmacy #[id number], Partial fill upon patient request if the prescription is for a... Start Date: 02/21/21 Status: Ordered ibuprofen 800 mg oral tablet 800 mg, 1, tablet, By Mouth, 3 times a day, # 90 tablet, Refills 0, Tot. Refills 0, Maintenance, 02/27/21 17:05:00 EDT, Route to Pharmacy Electronically, [facility]/pharmacy #[id number], Partial fill upon patientrequest if the [...] MD Position: [facility] Physician (General Medicine) Member Role: PCP Address: Address: [address] [place] [address]- Name: Ann MCGARRY, Tonya Porter Position: S TELEPHONE ASSEMBLER MD Member Role: Lifetime TELEPHONE ASSEMBLER Physician Address: Address: [address] [place] [address] [place] [address]- Care Team Related Persons Name: BETY RODRIGUEZ Address: home [address] [place] [place] [address]
--- OUTSIDE RECORDS SUMMARY | 2024-02-02 03:03 | XMS_ITS | Continuity of Care Document ---
Author Organization [facility] Address [address] [facility], 4t h [address] [place] [address]- Care Team Providers Care New Car Make Ready Mechanic Name Role Phone Hugo MCGARRY, Elvira Ma Primary Care Physician Encounter [facility] Date(s): 07/18/22 - 07/25/22 [facility] Reproductive [facility] [address] [facility], 4th Floor [address] [place] [address]- Attending Physician: Asiya Pryor MD Allergies, Adverse [...] oldest [Reference Range]: 1 Height 150 cm (07/18/22 8:56 AM) Weight 57.5 kg (07/18/22 8:56 AM) Pulse Rate [55-90 bpm] 101 bpm *H* (07/18/22 8:56 AM) Body Mass Index [18.5-24.99 kg/m2] 25.56 kg/m2 *H* (07/18/22 8:56 AM) Blood Pressure [90-138/55-84 mm Hg] 130/ 86mm Hg (07/18/22 8:56 AM) Blood pressure sites Arm, right (07/18/22 8:56 AM) Weight Obtained Via Standing scale (07/18/22 8:56 AM) Social History Social History Type Response Smoking Status Never smoker entered on: 12/18/14 Sex Note * Aubrie Hernandez [place]: PERFORM, SIGN, VERIFY Event Display: Patient Education/Instruction Authored Date: [id number] [facility] *[facility] Clinical Summary Name SHAMA RODRIGUEZ Age 27 Years 1995 PCP Elvira Arias MD PCP Visit Date 07/18/2022 08:40:00 Additional Instructions: Scheduled Appointments?? Future Appointments ?No Future Appointments Scheduled Follow-Up Instructions ?? Diagnosis Encounter for other general counseling and advice on procreation; Recurrent loss Medications: Please continue your medications until treatment [...] 57.5 kg BMI 25.56 kg/m2 Blood Pressure 130 mm Hg/86 mm Hg Temperature Pulse Rate 101 bpm Respiratory Rate 02 Sat Mode of Delivery / You can now view a summary of your hospital visit from the comfort of your home through a free online portal called [employer]. [employer] is a website that allows you to securely view your medical information including discharge summary, medications and follow-up visits. ??You can alsosend a secure electronic message to your doctor???s office to request appointments, renew medications or just ask a question. You can enroll at [email or web address] or register during your next [...] primary care provider, you may find a [facility] provider by calling [facility] [email or web address] Link at [phone]. For information about the plan of care including goals and instructions for your diagnosis, please see the patient education orders section of this document. Patient Education Materials?? The content of this educational material or handout may have been modified, supplemented, or adapted from its original content and format to support your individualized medical care. Additional Provider Instructions: Consult sent to [facility] for APLS. Pt will repeat bloodwork after 09/10/2022. Patient Care team information Care Team Personnel Name: Madie Tran Position: [facility] Outreach Member Role: Lifetime Consulting Physician Name: Elvira Arias MD Position: [facility] Physician (General Medicine) Member Role: PCP Address: Address: [address] [place] [address]- Name: Ann MCGARRY, Tonya Porter Position: [facility] PARK MAINTENANCE TECHNICIAN Member Role: Lifetime PARK MAINTENANCE TECHNICIAN Physician Address: Address: [address] [place] [address]'s [facility] Deputy Sheriff Generalist/[place] [address]- Care Team Related Persons Name: BETY RODRIGUEZ Address: [address] [address]
--- OUTSIDE RECORDS SUMMARY | 2024-02-02 03:03 | XMS_ITS ---
Care Plan - [facility] Created on: February 02, 2024 Devora Mcdaniel : 1995 Sex: Female Author Organization [facility] Address [address] [place] [address] Phone Care Team Providers Care Sanitary Plumber Name Role Phone [facility] Unavailable [phone] Elvira Arias MD Primary Care Provider [phone]
--- OUTSIDE RECORDS SUMMARY | 2024-02-02 03:03 | XMS_ITS | Continuity of Care Document ---
Author Organization [facility] ter Address [address] [place] [address]- Care Team Providers Care Dials Inspector Name Role Phone Elvira Arias MD Primary Care Physician [phone] [facility] Date(s): 07/09/21 - 07/10/[address] [address]- Discharge Disposition: A-D/C Home Attending Physician: Juan Antonio Donato MD Admitting Physician: Juan Antonio Donato MD Referring Physician: Not on Staff, Referring MD Allergies, Adverse Reactions, Alerts Substance Reaction Severity Status Bactrim vomit Intermittent Active Medications ibuprofen 400 mg oral tablet 400 mg, 1, tablet, By Mouth, Every 6 hours, PRN, # 20 tablet, Refills 0, Tot. Refills 0, Maintenance, for pain, 02/21/21 23:18:00 EDT, Route to Pharmacy Electronically, [facility]/pharmacy #[id number], Partial fill upon patient request if the prescription is for a... Start Date: 02/21/21 Status: Ordered ibuprofen 800 mg oral tablet 800 mg, 1, tablet, By Mouth, 3 times a day, # 90 tablet, Refills 0, Tot. Refills 0, Maintenance, 02/27/21 17:05:00 EDT, Route to Pharmacy Electronically, [facility]/pharmacy #[id number], Partial fill upon patientrequest if the prescription is for a schedule II op... Start Date: 02/27/21 Status: Ordered MorPHINE Inj 2 mg, Injection, IV Push Slowly, Every 5 minutes for 3 doses/times, PRN for Pain , Moderate, and SBP greater than 100, Routine, 07/09/21 21:27:00 EDT, Stop date Limited # of times Start Date: 07/09/21 Stop Date: 07/10/21 Status: Completed ondansetron 4 mg oral tablet, [...] Status post laparoscopy(Confirmed) Active RhD negative(Confirmed) Active Results Radiology Reports * Exam Date Time Procedure Performing Provider Status 07/09/21 4:06 PM Chest 2 Views Frontal and Lat Albino Young; Auth (Verified) Notes: (Chest 2 Views Frontal and Lat) Reason For Exam: Angina RESULT: Chest 2 Views Frontal and Lat Chest 2 Views Frontal and Lat Hx of Present Illness: chest pain migrain; Reason: Angina; Clinical Question(s): CHF COMPARISON: April 2017 FINDINGS: Lungs clear, no infiltrates. CP angles sharp. Cardiac silhouette, vascularity, hilar and mediastinal regions unremarkable. Bony thorax and surrounding soft tissues unremarkable. IMPRESSION: Negative chest. WSN: [id number] Ordering Physician: Uziel Austin Dictated By: Abhijeet Nava MD Dictated Date/Time: 07/09/21 4:09 pm Reviewed By: Abhijeet Nava MD Signed By: Abhijeet Nava MD Signed Date/Time: 07/09/21 4:09 pm Transcribed By: LEANNE Transcribed Date/Time: 07/09/21 4:08 pm Vital Signs Most recent to oldest [Reference Range]: 1 2 3 Oxygen Saturation [94-100 %] 100 % (07/10/21 3:51 AM) 100 % (07/10/21 2:13 AM) 100 % (07/09/21 3:40 PM) Pulse Rate [55-90 bpm] 82 bpm (07/10/21 3:51 AM) 99 bpm *H* (07/10/21 2:13 AM) 111 bpm *H* (07/09/21 3:40 PM) Blood Pressure [90-138/55-84 mm Hg] 104/72mm Hg (07/10/21 3:51 AM) 108/72mm Hg (07/10/21 2:13 AM) 128/88mm Hg (07/09/21 3:40 PM) Respiratory Rate [16-30 br/min] 17 br/min (07/10/21 3:51 AM) 17 br/min (07/10/21 3:44 AM) 22 br/min (07/10/21 2:13 AM) Temperature [96.8-100.4 DegF] 98.9 DegF (07/10/21 3:51 AM) 99.1 DegF (07/10/21 2:13 AM) 98.2 DegF (07/09/21 3:40 PM) Mode of Delivery (Oxygen) Room air (07/10/21 3:51 AM) Room air (07/10/21 2:13 AM) Room air (07/09/21 3:40 PM) Blood pressure sites Arm, left (07/10/21 3:51 AM) Arm, right (07/10/21 2:13 AM) Arm, right (07/09/21 3:40 PM) Temperature Route Oral (07/10/21 3:51 AM) Oral (07/10/21 2:13 AM) Oral (07/09/21 3:40 PM) Social History Social History Type Response Smoking Status Never smoker entered on: 12/18/14 Sex
--- OUTSIDE RECORDS SUMMARY | 2024-02-02 03:03 | XMS_ITS | Continuity of Care Document ---
Author Organization [facility] Address [address] [facility] [place] [phone]- Care Team Providers Care Spa Receptionist Name Role Phone Hugo MCGARRY, Elvira Ma Primary Care Physician [place] [facility] [place]/23 [facility] [address] [facility] 4th [address] [place] [id number]- Allergies, Adverse Reactions, Alerts Substance Reaction Severity [...] Care Team Personnel Name: Madie Tran Position: [facility] Outreach Member Role: Lifetime Consulting Physician Name: Elvira Arias MD Position: [facility] Physician - Primary Care Member Role: PCP Address: Address: [address] [place] [address]- Name: Ann MCGARRY, Tonya Porter Position: [facility] MANAGER PERSONNEL SELECTION MD Member Role: Lifetime MANAGER PERSONNEL SELECTION Physician Address: Address: [address] [place] [address] [employer] [place] [address]- Care Team Related Persons Name: MICHAEL BETY Address: home [address] [place] [id number]
--- OUTSIDE RECORDS SUMMARY | 2024-02-02 03:03 | XMS_ITS | Continuity of Care Document ---
Author Organization [facility] Address [address] [address]- Care Team Providers Care Motor Vehicle Lecturer Name Role Phone Elvira Arias MD Primary Care Physician [phone] Encounter [facility] [place] Date(s): 02/21/22 - 04/30/22 [facility] and [address] [address]- Attending Physician: Not on Staff, Attending MD [...] (General Medicine) Member Role: PCP Address: Address: [address] [place] [id number]- Name: Tonya Juarez MD Position: [facility] METAL MODEL MAKER Member Role: Lifetime METAL MODEL MAKER Physician Address: Address: [address] [place] [address] Enrollment [place] [address]- Care Team Related Persons Name: BETY RODRIGUEZ Address: home [address] [place] [address]
--- OUTSIDE RECORDS SUMMARY | 2024-02-02 03:04 | XMS_ITS | Clinical Summary ---
Author Organization [facility] Address [address] [place] [address] Phone Care Team Providers Care Channel Opener Name Role Phone [facility] Unavailable [phone] Elvira Arias MD Primary Care Provider [phone] Reason for Visit and Chief Complaint New Patient Plan of Treatment Pending Tests Order Diagnosis Results Due Ordering P rovider Follow Up - Return to School / Work Note Jose Miguel Phillips MD Last Documented On 11:23AM ; [facility] Assessments Includes: Assessments from this encounter No Assessments Recorded Medical Equipment - Implanted Devices Includes: Current Devices No Medical Equipment Recorded Medications Administered Includes: Administered Medications from this encounter No Administered Medications Recorded Vital Signs Includes: Vital Signs from this encounter Vital Name 05/21/2023 10:44A Blood Pressure Sitting (mmHg) 132/85 Pulse Rate-Sitting (bpm) 98 Temp-Temporal 97 Height (in) 59 Weight (lb) 125 Body Mass Index 25.2 Body Surface Area 1.5 Oxygen Saturation (%) 98 Last Documented: On 05/21/2023 10:45A M ; [facility] Results Includes: Results discussed during this encounter No Results Recorded For Specified Dates History of Present Illness Includes: History of Present Illness from this encounter No History of Present Illness Recorded Social History No Social History Recorded - Smoking Status Unknown Medical History Includes: Medical History addressed during [...] Location Date Check-In Time Check-Out Time Diagnosis New Patient Jose Miguel Phillips MD [facility] 05/21/19 10:20AM 11:05AM Insurance Includes: Active Insurance Policies Plan Name Member ID Group # Subscriber Relationship Effect kera Dates 1 - [facility] [id number] Devora Mcdaniel Self Clinical Notes Includes: Clinical Notes from this encounter * Progress note Date Encounter Last Documented by 05/21/2023 New Patient Last documented on 05/21/2023; 11:23 AM, Jose Miguel Phillips MD; [facility], Chief Complaint CC: Left foot fifth toe [...]
== END 2024-02-02 02:58 | disposition left against medical advice (07) ==
LOC: HO.ED 02-02 02:58
PROVIDERS: Emergency Provider Emergency Medicine
DX: M79.644 Pain in right finger(s) (principal)
CPT/HCPCS: 99281